=== PATIENT | female | born 1945 | race Two or more races ===

== ENCOUNTER → 2017-04-13 | Outpatient (CLI) | payer MEDICARE, OTHER ==
--- NOTE | 2017-04-13 15:27 | XR ---
EXAMINATION TYPE: XR chest 2V DATE OF EXAM: 04/13/2017 HISTORY: J18.9 Pneumonia. REFERENCE: Previous study dated 04/13/2017. FINDINGS: The lungs are overinflated. The right lung is largely cleared. Some residual atelectasis pe rsists. No pleural fluid is seen at this time. IMPRESSION: 1. COPD. 2. RESOLVING RIGHT-SIDED PNEUMONIA.
== END ==
LOC: RADXRMAIN 14:57
PROVIDERS: ATTEND Family Medicine
DX: J18.9 Pneumonia, unspecified organism (principal); J44.9 Chronic obstructive pulmonary disease, unspecified
CPT/HCPCS: 71020

== ENCOUNTER 2017-06-27 12:55 | Inpatient (IN) | payer MEDICARE, OTHER ==
[2017-06-27] MEDS ORDERED: SODIUM CHLORIDE 0.9% 1,000 ML IV STA (14:21)
[2017-06-27] MEDS ORDERED: ONDANSETRON 4 MG/2 ML VIAL IVP STA (14:21)
[2017-06-27] MEDS ORDERED: HYDROmorphone 1 MG/ML 1 ML SYRINGE IVP STA ×2 (14:21→14:24)
[2017-06-27] MEDS ORDERED: ACETAMINOPHEN TAB 500 MG TAB PO STA (14:23)
[2017-06-27] MEDS ORDERED: HYDROmorphone 0.5 MG/0.5 ML SYRINGE IVP STA (14:23)
--- NOTE | 2017-06-27 14:23 | ED ---
General Adult HPI - General Chief complaint: Abdominal Pain Stated complaint: Abd Pain Time Seen by Provider: 06/27/17 13:47 Source: patient, RN notes reviewed Mode of arrival: wheelchair Limitations: no limitations - History of Present Illness Initial comments: 72-year-old female presents to the emergency department with a chief complaint of right-sided abdominal pain. Patient states it started a few days ago. Patient was unable UTI about 5 days ago she was on antibiotic but they call and change state she states she's only had that for 2 days. She has been kind of sweaty nauseous she denies any diarrhea and any changes in urination. Patient denies any other symptoms at this time. She was concerned because of the abdominal pain and the fact she was not starting to feel better so she thought that she should be reevaluated. Patient denies any recent shortness of breath, chest pain, back pain, vomiting, numbness or tingling, dysuria or hematuria, constipation or diarrhea, headaches or visual changes, or any other current symptoms. - Related Data Home Medications Medication Instructions Recorded Confirmed Levothyroxine Sodium [Synthroid] 125 mcg PO DAILY 11/16/14 06/27/17 Lisinopril [Zestril] 10 mg PO DAILY 11/16/14 06/27/17 Rivaroxaban [Xarelto] 20 mg PO DAILY 11/16/14 06/27/17 Sertraline [Zoloft] 25 mg PO DAILY 11/16/14 06/27/17 metFORMIN HCL 1,000 mg PO BID 11/16/14 06/27/17 Furosemide [Lasix] 20 mg PO DAILY 01/27/16 06/27/17 HYDROcodone/APAP 7.5-325MG [[place] 1 tab PO TID PRN 01/27/16 06/27/17 7.5-325] Diltiazem HCl [Diltiazem 24Hr ER] 180 mg PO DAILY 08/07/16 06/27/17 Pravastatin Sodium [Pravachol] 20 mg PO DAILY 08/07/16 06/27/17 Insulin Aspart Protam & Aspart See Protocol SQ AC-BID 06/27/17 06/27/17 [NovoLOG MIX 70-30 Flexpen] Insulin Glargine [Lantus] 40 unit SQ HS 06/27/17 06/27/17 Nitrofurantoin Monohyd/M-Cryst 100 mg PO Q12HR 06/27/17 06/27/17 [Macrobid] Allergies Allergy/AdvReac Type Severity Reaction Status Date / Time ceftaroline fosamil Allergy Intermediate Rash/Hives Verified 06/27/17 14:12 codeine Allergy Itching Verified 06/27/17 14:12 levofloxacin [From Levaquin] Allergy Rash/Hives Verified 06/27/17 14:12 Review of Systems ROS Statement: Those systems with pertinent positive or pertinent negative responses have been documented in the HPI. ROS Other: All systems not noted in ROS Statement are negative. Past Medical History Past Medical History: Atrial Fibrillation, COPD, Diabetes Mellitus, Hyperlipidemia, Hypertension, Skin Disorder Additional Past Medical History / Comment(s): Severe COPD, chronic hypoxic respiratory failure, chronic atrial fibrillation maintained on Xarelto as anticoagulant, Lumbar disc disease and chronic back pain, chronic and recurrent urine tract infections, diabetes mellitus, hyperlipidemia, hypertension, chronic constipation, previous sputum cultures have shown MRSA from 2014, previous urinary tract infection with gram-negative and enterococcal bacteria , previous wound to the left lower extremity that was treated. History of Any Multi-Drug Resistant Organisms: ESBL, MRSA Date of last positivie culture/infection: 11/18/2014, 07/02/2015 MDRO Source:: URINE CATH, mrsa sputum Past Surgical History: Hysterectomy, Orthopedic Surgery, Tonsillectomy Additional Past Surgical History / Comment(s): Right cataract removal and lens implant on 11/12/14. Lumbar disc surgery, repair of lt hip -timothy in place Past Anesthesia/Blood Transfusion Reactions: No Reported Reaction Past Psychological History: No Psychological Hx Reported Smoking Status: Former smoker Past Alcohol Use History: None Reported Past Drug Use History: None Reported - Past Family History Father Family Medical History: Unable to Obtain Additional Family Medical History / Comment(s): Pt never knew her father. He in WWII when she was very young. Mother Family Medical History: No Reported History Brother(s) Family Medical History: Cancer Additional Family Medical History / Comment(s): Pt has 4 brothers and one has testicular cancer. General Exam - General Exam Comments Initial Comments: General: The patient is awake and alert, in no distress, and does not appear acutely ill. Eye: Pupils are equal, round and reactive to light, extra-ocular movements are intact; there is normal conjunctiva bilaterally. No signs of icterus. Ears, nose, mouth and throat: There are moist mucous membranes and no oral lesions. Neck: The neck is supple, there is no tenderness. Cardiovascular: There is a regular rate and rhythm. No murmur, rub or gallop is appreciated. Respiratory: Lungs are clear to auscultation, respirations are non-labored, breath sounds are equal. No wheezes, stridor, rales, or rhonchi. Gastrointestinal: Soft, non-distended, mild right-sided tenderness of the abdomen without masses or organomegaly noted. There is no rebound or guarding present. No CVA tenderness. Bowel sounds are unremarkable. Back: There is no tenderness to palpation in the midline. There is no obvious deformity. No rashes noted. Musculoskeletal: Normal ROM, no tenderness, There is no pedal edema. There is no calf tenderness or swelling. Sensation intact. Pulses equal bilaterally 2+. Neurological: CN II-XII intact, There are no obvious motor or sensory deficits. Coordination appears grossly intact. Speech is normal. Skin: Skin is warm and dry and no rashes or lesions are noted. Psychiatric: Cooperative, appropriate mood & affect, normal judgment. Limitations: no limitations Course Vital Signs 06/27/17 13:02 Temperature 98.5 F Pulse Rate 106 H Respiratory 18 Rate Blood Pressure 111/55 O2 Sat by Pulse 96 Oximetry - Reevaluation(s) Reevaluation #1: 06/27/17 16:16 At this time patient does meet sepsis criteria Medical Decision Making - Medical Decision Making 72-year-old female presents for abdominal pain with nausea. Patient's lab work is been reviewed. Does appear to be distended UTI even though she's been on 2 different antibiotics outpatient. Due to ALLERGIES we will place her on Zosyn for inpatient treatment. We are pending a culture. Patient at this time does agree to admission. Dr. Prince was contacted regarding admission. - Lab Data Result diagrams: 06/27/17 15:01 06/27/17 14:53 Lab Results 06/27/17 06/27/17 06/27/17 Range/Units 14:00 14:53 15:01 WBC 12.6 H (3.8-10.6) k/uL RBC 4.09 (3.80-5.40) m/uL Hgb 12.2 (11.4-16.0) gm/dL Hct 40.4 (34.0-46.0) % MCV 98.7 (80.0-100.0) fL MCH 29.8 (25.0-35.0) pg MCHC 30.2 L (31.0-37.0) g/dL RDW 13.5 (11.5-15.5) % Plt Count 245 (150-450) k/uL Neutrophils % 86 % Lymphocytes % 8 % Monocytes % 3 % Eosinophils % 2 % Basophils % 1 % Neutrophils # 10.8 H (1.3-7.7) k/uL Lymphocytes # 1.0 (1.0-4.8) k/uL Monocytes # 0.4 (0-1.0) k/uL Eosinophils # 0.2 (0-0.7) k/uL Basophils # 0.1 (0-0.2) k/uL Sodium 137 (137-145) mmol/L Potassium 4.5 (3.5-5.1) mmol/L Chloride 102 (98-107) mmol/L Carbon Dioxide 25 (22-30) mmol/L Anion Gap 10 mmol/L BUN 30 H (7-17) mg/dL Creatinine 0.87 (0.52-1.04) mg/dL Est GFR (MDRD) Af Amer >60 (>60 ml/min/1.73 sqM) Est GFR (MDRD) Non-Af >60 (>60 ml/min/1.73 sqM) Glucose 212 H (74-99) mg/dL Plasma Lactic Acid [place] (0.7-2.0) mmol/L Calcium 9.7 (8.4-10.2) mg/dL Total Bilirubin 0.3 (0.2-1.3) mg/dL AST 26 (14-36) U/L ALT 31 (9-52) U/L Alkaline Phosphatase 86 (38-126) U/L Total Protein 6.6 (6.3-8.2) g/dL Albumin 3.7 (3.5-5.0) g/dL Amylase 33 (30-110) U/L Lipase 103 (23-300) U/L Urine Color Yellow Urine Appearance Cloudy H (Clear) Urine pH 5.0 (5.0-8.0) Ur Specific [place] 1.011 (1.001-1.035) Urine Protein Negative (Negative) Urine Glucose (UA) 2+ H (Negative) Urine Ketones Negative (Negative) Urine Blood Negative (Negative) Urine Nitrite Negative (Negative) Urine Bilirubin Negative (Negative) Urine Urobilinogen <2.0 (<2.0) mg/dL Ur Leukocyte Esterase Large H (Negative) Urine RBC 6 H (0-5) /hpf Urine WBC >182 H (0-5) /hpf Urine WBC Clumps Few H (None) /hpf Ur Squamous Epith Cells 1 (0-4) /hpf Urine Bacteria Occasional H (None) /hpf Urine Mucus Rare H (None) /hpf 06/27/17 Range/Units 15:01 WBC (3.8-10.6) k/uL RBC (3.80-5.40) m/uL Hgb (11.4-16.0) gm/dL Hct (34.0-46.0) % MCV (80.0-100.0) fL MCH (25.0-35.0) pg MCHC (31.0-37.0) g/dL RDW (11.5-15.5) % Plt Count (150-450) k/uL Neutrophils % % Lymphocytes % % Monocytes % % Eosinophils % % Basophils % % Neutrophils # (1.3-7.7) k/uL Lymphocytes # (1.0-4.8) k/uL Monocytes # (0-1.0) k/uL Eosinophils # (0-0.7) k/uL Basophils # (0-0.2) k/uL Sodium (137-145) mmol/L Potassium (3.5-5.1) mmol/L Chloride (98-107) mmol/L Carbon Dioxide (22-30) mmol/L Anion Gap mmol/L BUN (7-17) mg/dL Creatinine (0.52-1.04) mg/dL Est GFR (MDRD) Af Amer (>60 ml/min/1.73 sqM) Est GFR (MDRD) Non-Af (>60 ml/min/1.73 sqM) Glucose (74-99) mg/dL Plasma Lactic Acid [place] 1.8 (0.7-2.0) mmol/L Calcium (8.4-10.2) mg/dL Total Bilirubin (0.2-1.3) mg/dL AST (14-36) U/L ALT (9-52) U/L Alkaline Phosphatase (38-126) U/L Total Protein (6.3-8.2) g/dL Albumin (3.5-5.0) g/dL Amylase (30-110) U/L Lipase (23-300) U/L Urine Color Urine Appearance (Clear) Urine pH (5.0-8.0) Ur Specific [place] (1.001-1.035) Urine Protein (Negative) Urine Glucose (UA) (Negative) Urine Ketones (Negative) Urine Blood (Negative) Urine Nitrite (Negative) Urine Bilirubin (Negative) Urine Urobilinogen (<2.0) mg/dL Ur Leukocyte Esterase (Negative) Urine RBC (0-5) /hpf Urine WBC (0-5) /hpf Urine WBC Clumps (None) /hpf Ur Squamous Epith Cells (0-4) /hpf Urine Bacteria (None) /hpf Urine Mucus (None) /hpf Disposition Clinical Impression: UTI (urinary tract infection), Failure of outpatient treatment, Sepsis Disposition: ADMITTED IP TO THIS HOSP Condition: Stable Referrals: Michele Kothari MD [Primary Care Provider] - 1-2 days Decision Date: 06/27/17 Decision Time: 16:17
[2017-06-27 15:06] LABS: Appearance,Urine Cloudy (Clear); Bacteria,Urine Occasional /hpf; Bilirubin,Urine Negative (Negative); Glucose,Urine (UA) 2+ (Negative); Ketones,Urine Negative (Negative); Leukocyte Esterase,Urine Large (Negative); Mucus,Urine Rare /hpf; Nitrite,Urine Negative (Negative); Particle Count 1511; Protein,Urine Negative (Negative); RBC,Urine 6 /hpf (0-5); Specific Gravity,Urine 1.011 (1.001-1.035); Squamous Epithelial Cell,Urine 1 /hpf (0-4); UA Billing (MACRO vs. MICRO) MICRO; Urobilinogen,Urine <2.0 mg/dL (<2.0); WBC,Urine >182 /hpf (0-5)
[2017-06-27 15:07] LABS: ALT 31 U/L (9-52); AST 26 U/L (14-36); Alkaline Phosphatase 86 U/L (38-126); Amylase 33 U/L (30-110); Anion Gap 10 mmol/L; Blood Urea Nitrogen 30 mg/dL (7-17); Calcium 9.7 mg/dL (8.4-10.2); Carbon Dioxide 25 mmol/L (22-30); Chloride 102 mmol/L (98-107); Glucose 212 mg/dL (74-99); Non-African American GFR(MDRD) >60 (>60 ml/min/1.73 sqM); Potassium 4.5 mmol/L (3.5-5.1); Sodium 137 mmol/L (137-145); Total Bilirubin 0.3 mg/dL (0.2-1.3); Total Protein 6.6 g/dL (6.3-8.2)
[2017-06-27 15:25] LABS: Basophils # (A) 0.1 k/uL (0-0.2); Basophils % (A) 1 %; CH 30.1; CHCM 30.7; Eosinophils # (A) 0.2 k/uL (0-0.7); Eosinophils % (A) 2 %; HCT 40.4 % (34.0-46.0); HDW 1.96; HGB 12.2 gm/dL (11.4-16.0); Luc # (Auto) 0.08; Luc % (Auto) 1; Lymphocytes % (A) 8 %; MCH 29.8 pg (25.0-35.0); MCHC 30.2 g/dL (31.0-37.0); MCV 98.7 fL (80.0-100.0); Mean Platelet Volume 9.6; Monocytes # (A) 0.4 k/uL (0-1.0); Monocytes % (A) 3 %; Neutrophils # (A) 10.8 k/uL (1.3-7.7); Neutrophils % (A) 86 %; RBC 4.09 m/uL (3.80-5.40); RDW 13.5 % (11.5-15.5); WBC 12.6 k/uL (3.8-10.6)
[2017-06-27] MEDS ORDERED: PIPERACILLIN-TAZOBACTAM 3.375 GM in DEXTROSE/WATER 1 50ML.BAG IVPB STA (16:08)
[2017-06-27] MEDS ORDERED: NALOXONE 0.4 MG/ML 1 ML VIAL IV PRN (16:17)
[2017-06-27] MEDS ORDERED: HYDROmorphone 1 MG/ML 1 ML SYRINGE IV PRN (16:17)
[2017-06-27] MEDS ORDERED: HYDROcodone/APAP 7.5-325MG 1 EACH TAB PO PRN (16:19)
[2017-06-27 18:32] VITALS: BMI 24.5
[2017-06-27] MEDS: SODIUM CHLORIDE 0.9% 1,000 ML IV SCH (18:36)
[2017-06-27] MEDS: ONDANSETRON 4 MG/2 ML VIAL IVP PRN (20:54)
[2017-06-27 21:20] LABS: Glucose,Whole Blood 327 mg/dL (75-99)
[2017-06-27] MEDS: INSULIN LISPRO (humaLOG) 300 UNIT/3 ML VIAL SQ SCH (22:06)
[2017-06-28] MEDS: PIPERACILLIN-TAZOBACTAM 3.375 GM in DEXTROSE/WATER 1 50ML.BAG IVPB SCH ×4 (00:37→23:20)
[2017-06-28] MEDS: SODIUM CHLORIDE 0.9% 1,000 ML IV SCH ×3 (02:31→23:08)
[2017-06-28 02:41] LABS: Glucose,Whole Blood 198 mg/dL (75-99)
[2017-06-28 03:08] LABS: Basophils % (A) 0 %; CH 29.2; CHCM 30.4; Eosinophils # (A) 0.1 k/uL (0-0.7); Eosinophils % (A) 1 %; HCT 37.4 % (34.0-46.0); HDW 1.94; HGB 11.5 gm/dL (11.4-16.0); Hypochromasia Slight; Luc # (Auto) 0.09; Luc % (Auto) 1; Lymphocytes # (A) 0.7 k/uL (1.0-4.8); Lymphocytes % (A) 6 %; MCH 29.6 pg (25.0-35.0); MCHC 30.7 g/dL (31.0-37.0); MCV 96.3 fL (80.0-100.0); Monocytes # (A) 0.4 k/uL (0-1.0); Monocytes % (A) 3 %; Neutrophils # (A) 11.3 k/uL (1.3-7.7); Neutrophils % (A) 90 %; RBC 3.88 m/uL (3.80-5.40); RDW 12.9 % (11.5-15.5); WBC 12.6 k/uL (3.8-10.6); WBC (Perox) 13.12
[2017-06-28 03:20] LABS: ALT 66 U/L (9-52); AST 57 U/L (14-36); Alkaline Phosphatase 102 U/L (38-126); Anion Gap 6 mmol/L; Blood Urea Nitrogen 24 mg/dL (7-17); Calcium 9.5 mg/dL (8.4-10.2); Carbon Dioxide 28 mmol/L (22-30); Chloride 102 mmol/L (98-107); Glucose 218 mg/dL (74-99); Non-African American GFR(MDRD) >60 (>60 ml/min/1.73 sqM); Potassium 4.4 mmol/L (3.5-5.1); Sodium 136 mmol/L (137-145); Total Bilirubin 0.4 mg/dL (0.2-1.3); Total Protein 6.2 g/dL (6.3-8.2)
[2017-06-28] MEDS: LEVOTHYROXINE 125 MCG TAB PO SCH (06:06)
[2017-06-28] MEDS: RIVAROXABAN 10 MG TAB PO SCH (06:48)
[2017-06-28 07:24] LABS: Glucose,Whole Blood 151 mg/dL (75-99)
[2017-06-28 08:58] LABS: Hemoglobin A1C 8.7 % (4.2-6.1)
[2017-06-28] MEDS ORDERED: LISINOPRIL 10 MG TAB PO SCH (09:00)
[2017-06-28] MEDS: INSULIN LISPRO (humaLOG) 300 UNIT/3 ML VIAL SQ SCH ×4 (09:21→21:29)
[2017-06-28] MEDS: DILTIAZEM CD 180 MG CAP.ER.24H PO SCH (09:22)
[2017-06-28] MEDS: FUROSEMIDE 20 MG TAB PO SCH (09:22)
[2017-06-28] MEDS: SERTRALINE 25 MG TAB PO SCH (09:22)
[2017-06-28] MEDS: ONDANSETRON 4 MG/2 ML VIAL IVP PRN (10:43)
[2017-06-28 12:15] LABS: Glucose,Whole Blood 293 mg/dL (75-99)
--- NOTE | 2017-06-28 13:13 | P.HPIM ---
History of Present Illness Patient came in with abdominal pain predominantly in bilateral lower quadrants and super pubic area and patient was having fevers generalized weakness found to have significantly abnormal urine and patient was started on Zosyn from ER for urinary tract infection. Although upon examination patient does have tenderness in the right upper quadrant because of which I'm obtaining an ultrasound of the gallbladder. Patient does have a mildly elevated liver enzymes. Patient was diaphoretic when she came in yesterday patient is feeling much better today and medics are being continued patient is on IV fluids at this point of time. Patient has UTIs in the past, last urine cultures in the systemic and see is from 2014 area patient is comparing of dysuria as well denied any urinary frequency or urgency Review of Systems REVIEW OF SYSTEMS: CONSTITUTIONAL: No fever, no malaise, no fatigue. HEENT: No recent visual problems or hearing problems. Denied any sore throat. CARDIOVASCULAR: No chest pain, orthopnea, PND, no palpitations, no syncope. PULMONARY: No shortness of breath, no cough, no hemoptysis. GASTROINTESTINAL: No diarrhea, no nausea, no vomiting, no abdominal pain. Normoactive bowel sounds. NEUROLOGICAL: No headaches, no weakness, no numbness. HEMATOLOGICAL: Denies any bleeding or petechiae. GENITOURINARY: Patient did complain of dysuria MUSCULOSKELETAL/RHEUMATOLOGICAL: Denies any joint pain, swelling, or any muscle pain. ENDOCRINE: Denies any polyuria or polydipsia. The rest of the 14-point review of systems is negative. Past Medical History Past Medical History: Atrial Fibrillation, COPD, Diabetes Mellitus, Hyperlipidemia, Hypertension, Skin Disorder Additional Past Medical History / Comment(s): Severe COPD, chronic hypoxic respiratory failure, chronic atrial fibrillation maintained on Xarelto as anticoagulant, Lumbar disc disease and chronic back pain, chronic and recurrent urine tract infections, diabetes mellitus, hyperlipidemia, hypertension, chronic constipation, previous sputum cultures have shown MRSA from 2015, previous urinary tract infection with gram-negative and enterococcal bacteria , previous wound to the left lower extremity that was treated. History of Any Multi-Drug Resistant Organisms: ESBL, MRSA Date of last positivie culture/infection: 07/02/15-MRSA; 12/18/14 ESBL-E. coli MDRO Source:: Sputum-MRSA; Urine-ESBL Past Surgical History: Hysterectomy, Orthopedic Surgery, Tonsillectomy Additional Past Surgical History / Comment(s): Right and Left cataract removal and lens implant on 11/12/14. Lumbar disc surgery, repair of left hip -screws in place Past Anesthesia/Blood Transfusion Reactions: No Reported Reaction Past Psychological History: No Psychological Hx Reported Additional Psychological History / Comment(s): Pt lives with and GRANDSON/GIRLFRIEND.THEY HELP CARE FOR PT. USES WALKER. 2L oxygen per nasal cannula at all times. Smoking Status: Former smoker Past Alcohol Use History: None Reported Past Drug Use History: None Reported - Past Family History Father Family Medical History: Unable to Obtain Additional Family Medical History / Comment(s): Pt never knew her father. He in WWII when she was very young. Mother Family Medical History: No Reported History Brother(s) Family Medical History: Cancer Additional Family Medical History / Comment(s): Pt has 4 brothers and one has testicular cancer. Medications and Allergies Home Medications Medication Instructions Recorded Confirmed Type Levothyroxine Sodium [Synthroid] 125 mcg PO DAILY 11/16/14 06/27/17 History Lisinopril [Zestril] 10 mg PO DAILY 11/16/14 06/27/17 History Rivaroxaban [Xarelto] 20 mg PO DAILY 11/16/14 06/27/17 History Sertraline [Zoloft] 25 mg PO DAILY 11/16/14 06/27/17 History metFORMIN HCL 1,000 mg PO BID 11/16/14 06/27/17 History Furosemide [Lasix] 20 mg PO DAILY 01/27/16 06/27/17 History HYDROcodone/APAP 7.5-325MG [[place] 1 tab PO TID PRN 01/27/16 06/27/17 History 7.5-325] Diltiazem HCl [Diltiazem 24Hr ER] 180 mg PO DAILY 08/07/16 06/27/17 History Pravastatin Sodium [Pravachol] 20 mg PO DAILY 08/07/16 06/27/17 History Insulin Aspart Protam & Aspart See Protocol SQ AC-BID 06/27/17 06/27/17 History [NovoLOG MIX 70-30 Flexpen] Insulin Glargine [Lantus] 40 unit SQ HS 06/27/17 06/27/17 History Nitrofurantoin Monohyd/M-Cryst 100 mg PO Q12HR 06/27/17 06/27/17 History [Macrobid] Allergies Allergy/AdvReac Type Severity Reaction Status Date / Time ceftaroline fosamil Allergy Intermediate Rash/Hives Verified 06/27/17 14:12 codeine Allergy Itching Verified 06/27/17 14:12 levofloxacin [From Levaquin] Allergy Rash/Hives Verified 06/27/17 14:12 Physical Exam Vitals: Vital Signs Temp Pulse Pulse Resp BP BP Pulse Ox 06/28/17 08:27 97 06/28/17 07:00 101.2 F H 107 H 18 118/45 97 06/28/17 03:01 120 H 130/60 06/28/17 02:40 99.3 F 108 H 20 84/38 96 06/27/17 23:00 100.6 F H 102 H 20 103/50 98 06/27/17 18:11 98.7 F 93 18 134/84 97 06/27/17 17:43 99.2 F 93 18 127/59 96 06/27/17 16:17 98.9 F 87 18 146/63 96 Intake and Output 06/27/17 06/28/17 06/28/17 22:59 06:59 14:59 Intake Total 100 Output Total 2 Balance -2 100 Intake: Oral 100 Output: Emesis 2 Other: Voiding Method Bedside Commode Bedside Commode # Voids 1 1 # Emeses 2 Weight 77.564 kg PHYSICAL EXAMINATION: GENERAL: The patient is alert and oriented x3, not in any acute distress. Well developed, well nourished. HEENT: Pupils are round and equally reacting to light. EOMI. No scleral icterus. No conjunctival pallor. Normocephalic, atraumatic. No pharyngeal erythema. No thyromegaly. CARDIOVASCULAR: S1 and S2 present. No murmurs, rubs, or gallops. PULMONARY: Chest is clear to auscultation, no wheezing or crackles. ABDOMEN: Soft, mild tenderness in the right upper quadrant with possible positive Lora's sign, nondistended, normoactive bowel sounds. No palpable organomegaly. MUSCULOSKELETAL: No joint swelling or deformity. EXTREMITIES: No cyanosis, clubbing, or pedal edema. NEUROLOGICAL: Gross neurological examination did not reveal any focal deficits. SKIN: No rashes. Results CBC & Chem 7: 06/28/17 02:50 06/28/17 02:50 Labs: Abnormal Lab Results - Last 24 Hours (Table) 06/27/17 06/27/17 06/27/17 Range/Units 14:00 14:53 15:01 WBC 12.6 H (3.8-10.6) k/uL MCHC 30.2 L (31.0-37.0) g/dL Neutrophils # 10.8 H (1.3-7.7) k/uL Lymphocytes # (1.0-4.8) k/uL Sodium (137-145) mmol/L BUN 30 H (7-17) mg/dL Glucose 212 H (74-99) mg/dL POC Glucose (mg/dL) (75-99) mg/dL Hemoglobin A1c (4.2-6.1) % AST (14-36) U/L ALT (9-52) U/L Total Protein (6.3-8.2) g/dL Albumin (3.5-5.0) g/dL Urine Appearance Cloudy H (Clear) Urine Glucose (UA) 2+ H (Negative) Ur Leukocyte Esterase Large H (Negative) Urine RBC 6 H (0-5) /hpf Urine WBC >182 H (0-5) /hpf Urine WBC Clumps Few H (None) /hpf Urine Bacteria Occasional H (None) /hpf Urine Mucus Rare H (None) /hpf 06/27/17 06/27/17 06/28/17 Range/Units 15:01 21:13 02:38 WBC (3.8-10.6) k/uL MCHC (31.0-37.0) g/dL Neutrophils # (1.3-7.7) k/uL Lymphocytes # (1.0-4.8) k/uL Sodium (137-145) mmol/L BUN (7-17) mg/dL Glucose (74-99) mg/dL POC Glucose (mg/dL) 327 H 198 H (75-99) mg/dL Hemoglobin A1c 8.7 H (4.2-6.1) % AST (14-36) U/L ALT (9-52) U/L Total Protein (6.3-8.2) g/dL Albumin (3.5-5.0) g/dL Urine Appearance (Clear) Urine Glucose (UA) (Negative) Ur Leukocyte Esterase (Negative) Urine RBC (0-5) /hpf Urine WBC (0-5) /hpf Urine WBC Clumps (None) /hpf Urine Bacteria (None) /hpf Urine Mucus (None) /hpf 06/28/17 06/28/17 06/28/17 Range/Units 02:50 02:50 06:58 WBC 12.6 H (3.8-10.6) k/uL MCHC 30.7 L (31.0-37.0) g/dL Neutrophils # 11.3 H (1.3-7.7) k/uL Lymphocytes # 0.7 L (1.0-4.8) k/uL Sodium 136 L (137-145) mmol/L BUN 24 H (7-17) mg/dL Glucose 218 H (74-99) mg/dL POC Glucose (mg/dL) 151 H (75-99) mg/dL Hemoglobin A1c (4.2-6.1) % AST 57 H (14-36) U/L ALT 66 H (9-52) U/L Total Protein 6.2 L (6.3-8.2) g/dL Albumin 3.3 L (3.5-5.0) g/dL Urine Appearance (Clear) Urine Glucose (UA) (Negative) Ur Leukocyte Esterase (Negative) Urine RBC (0-5) /hpf Urine WBC (0-5) /hpf Urine WBC Clumps (None) /hpf Urine Bacteria (None) /hpf Urine Mucus (None) /hpf 06/28/17 Range/Units 12:09 WBC (3.8-10.6) k/uL MCHC (31.0-37.0) g/dL Neutrophils # (1.3-7.7) k/uL Lymphocytes # (1.0-4.8) k/uL Sodium (137-145) mmol/L BUN (7-17) mg/dL Glucose (74-99) mg/dL POC Glucose (mg/dL) 293 H (75-99) mg/dL Hemoglobin A1c (4.2-6.1) % AST (14-36) U/L ALT (9-52) U/L Total Protein (6.3-8.2) g/dL Albumin (3.5-5.0) g/dL Urine Appearance (Clear) Urine Glucose (UA) (Negative) Ur Leukocyte Esterase (Negative) Urine RBC (0-5) /hpf Urine WBC (0-5) /hpf Urine WBC Clumps (None) /hpf Urine Bacteria (None) /hpf Urine Mucus (None) /hpf Microbiology - Last 24 Hours (Table) 06/27/17 14:00 Urine Culture - Preliminary Urine,Voided Thrombosis Risk Factor Assmnt - Choose All That Apply Each Factor Represents 1 point: Abnormal pulmonary function (COPD) Each Risk Factor Represents 2 Points: Age 61-74 years Thrombosis Risk Factor Assessment Total Risk Factor Score: 3 Thrombosis Risk Factor Assessment Level: Moderate Risk Assessment and Plan Plan: #1 sepsis: Possibility of urinary tract infection being the primary source of infection although I cannot rule out cholecystitis because of which I'm obtaining an ultrasound of the liver and gallbladder patient is on Zosyn which will be continued on IV fluids which will be continued. #2 mildly elevated liver enzymes because of which I'm obtaining an ultrasound of the liver and gallbladder #3 history of atrial fibrillation: Rate controlled patient is an anti- correlation which will be continued #4 COPD without any acute exacerbation #5 type 2 diabetes mellitus: Continue her home regimen titrate medications and insulin as needed. #6 hyperlipidemia #7 hypertension For above-mentioned chronic medical problems and wouldn't continue her appropriate home medications
[2017-06-28 17:18] LABS: Glucose,Whole Blood 278 mg/dL (75-99)
[2017-06-28] MEDS: PRAVASTATIN SODIUM 20 MG TAB PO SCH (20:12)
[2017-06-28 20:54] LABS: Glucose,Whole Blood 311 mg/dL (75-99)
[2017-06-29] MEDS: LEVOTHYROXINE 125 MCG TAB PO SCH (06:11)
[2017-06-29 07:33] LABS: Glucose,Whole Blood 242 mg/dL (75-99)
--- NOTE | 2017-06-29 08:28 | US ---
EXAMINATION TYPE: US gallbladder DATE OF EXAM: 06/29/2017 COMPARISON: NONE CLINICAL HISTORY: elevated liver enzymes. EXAM MEASUREMENTS: Liver Length: 12.7 cm Gallbladder Wall: 0.3 cm CBD: 0.9 cm Right Kidney: 11.8 x 4.8 x 5.3 cm Pancreas: possible mass in uncinate process measuring 2.6 x 1.3 x 1.4cm, dilated duct Liver: wnl Gallbladder: Prominent in size with no definite gallstones Evidence for sonographic Lora's sign: no CBD: dilated Right Kidney: No hydronephrosis or masses seen IMPRESSION: 1. There is a question of a 2.6 cm pancreatic mass with dilated pancreatic duct. Scan recommended. 2. Gallbladder appears somewhat distended with mild intrahepatic biliary dilation. As noted above CT scan recommended.
[2017-06-29] MEDS: RIVAROXABAN 10 MG TAB PO SCH (09:16)
[2017-06-29] MEDS: INSULIN LISPRO (humaLOG) 300 UNIT/3 ML VIAL SQ SCH ×4 (09:16→21:34)
[2017-06-29] MEDS: FUROSEMIDE 20 MG TAB PO SCH (09:17)
[2017-06-29] MEDS: SERTRALINE 25 MG TAB PO SCH (09:17)
[2017-06-29] MEDS: DILTIAZEM CD 180 MG CAP.ER.24H PO SCH (09:17)
[2017-06-29] MEDS: PIPERACILLIN-TAZOBACTAM 3.375 GM in DEXTROSE/WATER 1 50ML.BAG IVPB SCH ×3 (09:22→23:45)
[2017-06-29] MEDS: SODIUM CHLORIDE 0.9% 1,000 ML IV SCH ×2 (09:23→17:39)
[2017-06-29] MEDS ORDERED: RX INFO: IV CONTRAST WAS GIVEN 1 EACH MISC MISCELLANE PRN ×2 (10:12→10:18)
--- NOTE | 2017-06-29 10:29 | P.GSCN ---
History of Present Illness Consult date: 06/29/17 Reason for Consult: Pancreatic mass History of present illness: 72-year-old female seen in the emergency room to be evaluated for a sudden onset occurred on Wednesday night bilateral lower abdominal pain radiating across the upper back associated with nausea no fever chills. Patient reports that last week on Wednesday she thought she had a UTI was experiencing burning on urination with frequency. Did see her PCP PA in the office who treated the patient for what she thought was a UTI started on antibiotics patient stated she started on antibiotics, . Patient stated that she was not experiencing any abdominal pain at that time. The abdominal pain occurred on Wednesday night as mentioned Patient was seen in the emergency room admitted to the services of the attending ultrasound gallbladder was obtained It did show a question of a 2.6 cm pancreatic mass with dilated pancreatic duct. Gallbladder appeared somewhat distended with mild intra-hepatic biliary dilatation. Patient gives no history of unintentional weight loss no decrease in appetite no change in bowel habits given the above clinical presentation the primary doctor requested a surgical eval patient is being seen for the above-mentioned symptoms. Patient gives a history of having atrial fibrillation on Xarelto does not follow -up with a primary email operations manager denies any episodes of chest pain tightness or pressure. Denies any shortness of breath dizziness or lightheadedness. Patient 's past surgical history left hip, back surgery, colonoscopy 8 years prior otherwise no significant past medical or surgical history Review of Systems Essentially unremarkable except as mentioned in the present illness Past Medical History Past Medical History: Atrial Fibrillation, COPD, Diabetes Mellitus, Hyperlipidemia, Hypertension, Skin Disorder Additional Past Medical History / Comment(s): Severe COPD, chronic hypoxic respiratory failure, chronic atrial fibrillation maintained on Xarelto as anticoagulant, Lumbar disc disease and chronic back pain, chronic and recurrent urine tract infections, diabetes mellitus, hyperlipidemia, hypertension, chronic constipation, previous sputum cultures have shown MRSA from 2015, previous urinary tract infection with gram-negative and enterococcal bacteria , previous wound to the left lower extremity that was treated. History of Any Multi-Drug Resistant Organisms: ESBL, MRSA Year Discovered:: 07/02/15-MRSA; 12/18/14 ESBL-E. coli MDRO Source:: Sputum-MRSA; Urine-ESBL Past Surgical History: Hysterectomy, Orthopedic Surgery, Tonsillectomy Additional Past Surgical History / Comment(s): Right and Left cataract removal and lens implant on 11/12/14. Lumbar disc surgery, repair of left hip -screws in place Past Anesthesia/Blood Transfusion Reactions: No Reported Reaction Past Psychological History: No Psychological Hx Reported Additional Psychological History / Comment(s): Pt lives with and GRANDSON/GIRLFRIEND.THEY HELP CARE FOR PT. USES WALKER. 2L oxygen per nasal cannula at all times. Smoking Status: Former smoker Past Alcohol Use History: None Reported Past Drug Use History: None Reported - Past Family History Father Family Medical History: Unable to Obtain Additional Family Medical History / Comment(s): Pt never knew her father. He in WWII when she was very young. Mother Family Medical History: No Reported History Brother(s) Family Medical History: Cancer Additional Family Medical History / Comment(s): Pt has 4 brothers and one has testicular cancer. Medications and Allergies Home Medications Medication Instructions Recorded Confirmed Type Levothyroxine Sodium [Synthroid] 125 mcg PO DAILY 11/16/14 06/27/17 History Lisinopril [Zestril] 10 mg PO DAILY 11/16/14 06/27/17 History Rivaroxaban [Xarelto] 20 mg PO DAILY 11/16/14 06/27/17 History Sertraline [Zoloft] 25 mg PO DAILY 11/16/14 06/27/17 History metFORMIN HCL 1,000 mg PO BID 11/16/14 06/27/17 History Furosemide [Lasix] 20 mg PO DAILY 01/27/16 06/27/17 History HYDROcodone/APAP 7.5-325MG [[facility]inity 1 tab PO TID PRN 01/27/16 06/27/17 History 7.5-325] Diltiazem HCl [Diltiazem 24Hr ER] 180 mg PO DAILY 08/07/16 06/27/17 History Pravastatin Sodium [Pravachol] 20 mg PO DAILY 08/07/16 06/27/17 History Insulin Aspart Protam & Aspart See Protocol SQ AC-BID 06/27/17 06/27/17 History [NovoLOG MIX 70-30 Flexpen] Insulin Glargine [Lantus] 40 unit SQ HS 06/27/17 06/27/17 History Nitrofurantoin Monohyd/M-Cryst 100 mg PO Q12HR 06/27/17 06/27/17 History [Macrobid] Allergies Allergy/AdvReac Type Severity Reaction Status Date / Time ceftaroline fosamil Allergy Intermediate Rash/Hives Verified 06/27/17 14:12 codeine Allergy Itching Verified 06/27/17 14:12 levofloxacin [From Levaquin] Allergy Rash/Hives Verified 06/27/17 14:12 Surgical - Exam Vital Signs Temp Pulse Resp BP Pulse Ox 98.5 F 106 H 18 111/55 96 06/27/17 13:02 06/27/17 13:02 06/27/17 13:02 06/27/17 13:02 06/27/17 13:02 GENERAL APPEARANCE: 72-year-old female patient is alert, oriented, in no acute distress. Sitting up on the edge of the bed taking a diet stating the abdominal pain is improving no nausea no vomiting VITAL SIGNS: Reviewed HEENT: Head is normocephalic and atraumatic. Pupils are equal and reactive. The nares are patent. Oropharynx is clear without lesions. NECK: Supple without lymphadenopathy. Traches midline. HEART: S1, S2. Regular no murmur denying chest pain LUNGS: No crackles or wheezes are heard. Nasal cannula 2 L sats are 95% no shortness of breath noted ABDOMEN: Soft, mild tenderness right upper quadrant tender, nondistended with good bowel sounds. No peritoneal signs. No palpable organomegaly or masses. Sitting up on the edge of the bed taking a diet reports no nausea vomiting no decrease in appetite no stool EXTREMITIES: Normal skin color and turgor. No cyanosis, rash, ulceration, clubbing or edema. Radial pedal pulses are 2/4 bilaterally. NEUROLOGICAL: No focal deficits. Strength and sensation are grossly intact. Results - Labs 06/28/17 02:50 06/28/17 02:50 Abnormal Lab Results - Last 24 Hours (Table) 06/28/17 06/28/17 06/28/17 Range/Units 12:09 17:08 20:42 POC Glucose (mg/dL) 293 H 278 H 311 H (75-99) mg/dL 06/29/17 Range/Units 07:28 POC Glucose (mg/dL) 242 H (75-99) mg/dL Microbiology - Last 24 Hours (Table) 06/27/17 14:00 Urine Culture - Final Urine,Voided 06/27/17 15:01 Blood Culture - Preliminary Blood No Growth after 24 hours Assessment and Plan Plan: Impression Present on admission acute onset right upper quadrant pain nausea Present on admission febrile leukocytosis tachycardic meet SIRS criteria sepsis suspect due to UTI Type 2 diabetes non-insulin hemoglobin A1c 8.7 uncontrolled COPD with no evidence of an exacerbation Mildly elevated liver enzymes Ultrasound gallbladder 2.6 cm pancreatic mass dilated pancreatic duct Chronic atrial fibrillation on Xarelto rate controlled Chronic hypoxic respiratory failure O2 dependent 2 L [id number] at home History of UTIs Plan Will obtain a CAT scan of the chest pelvic and abdomen follow-up on the results Check a CEA 19 marker IV fluid for hydration Check a CMP and a CBC now Will follow up on the pending studies with further surgical recommendations pending DVT and GI prophylaxis The above impression and plan of care have been discussed and directed by signing physician. Kiara Sainz nurse practitioner acting as scribe for signing physician.
--- NOTE | 2017-06-29 11:09 | P.PN ---
Subjective Patient noted to have a pancreatic mass on ultrasound surgery consult did. Patient states she's had intermittent right upper quadrant pain. His mildly elevated liver enzymes. Patient comfortable at this time Objective - Vital Signs Vital signs: Vital Signs Temp 98.4 F 06/29/17 07:00 Pulse 78 06/29/17 07:00 Resp 20 06/29/17 07:00 BP 109/55 06/29/17 07:00 Pulse Ox 96 06/29/17 08:30 Intake & Output 06/28/17 06/29/17 06/29/17 18:59 06:59 18:59 Intake Total 350 Balance 350 Weight 77.564 kg Intake: Oral 350 Other: Voiding Method Bedside Commode Bedside Commode # Voids 1 1 - Constitutional General appearance: Present: mild distress - EENT Eyes: Present: PERRLA Ears: bilateral: normal - Neck Neck: Present: normal ROM - Respiratory Respiratory: bilateral: diminished - Cardiovascular Rhythm: regular - Gastrointestinal General gastrointestinal: Present: soft - Integumentary Integumentary: Present: normal - Neurologic Neurologic: Present: CNII-XII intact - Musculoskeletal Musculoskeletal: Present: generalized weakness - Labs CBC & Chem 7: 06/28/17 02:50 06/28/17 02:50 Labs: Abnormal Lab Results - Last 24 Hours (Table) 06/28/17 06/28/17 06/28/17 Range/Units 12:09 17:08 20:42 POC Glucose (mg/dL) 293 H 278 H 311 H (75-99) mg/dL 06/29/17 Range/Units 07:28 POC Glucose (mg/dL) 242 H (75-99) mg/dL Microbiology - Last 24 Hours (Table) 06/27/17 14:00 Urine Culture - Final Urine,Voided 06/27/17 15:01 Blood Culture - Preliminary Blood No Growth after 24 hours - Imaging and Cardiology US - abdomen: report reviewed Assessment and Plan Plan: Assessment Urinary tract infection sepsis rule out cholecystitis Mildly elevated liver enzymes History of atrial fib rate controlled COPD stable Diabetes type 2 Hyperlipidemia Hypertension Pancreatic mass Plan Computed tomography scan of abdomen and pelvis Continue consultation with surgery
[2017-06-29 11:16] LABS: Basophils # (A) 0.1 k/uL (0-0.2); Basophils % (A) 1 %; CHCM 29.4; Eosinophils # (A) 0.6 k/uL (0-0.7); Eosinophils % (A) 8 %; HCT 39.6 % (34.0-46.0); HDW 1.95; HGB 12.1 gm/dL (11.4-16.0); Hypochromasia Marked; Luc # (Auto) 0.11; Luc % (Auto) 1; Lymphocytes # (A) 1.2 k/uL (1.0-4.8); Lymphocytes % (A) 15 %; MCH 30.3 pg (25.0-35.0); MCHC 30.6 g/dL (31.0-37.0); MCV 98.9 fL (80.0-100.0); Mean Platelet Volume 9.1; Monocytes # (A) 0.3 k/uL (0-1.0); Monocytes % (A) 4 %; Neutrophils # (A) 5.7 k/uL (1.3-7.7); Neutrophils % (A) 71 %; RDW 12.7 % (11.5-15.5); WBC 8.1 k/uL (3.8-10.6); WBC (Perox) 8.71
[2017-06-29 11:25] LABS: ALT 126 U/L (9-52); AST 75 U/L (14-36); Alkaline Phosphatase 118 U/L (38-126); Anion Gap 10 mmol/L; Blood Urea Nitrogen 18 mg/dL (7-17); Calcium 9.4 mg/dL (8.4-10.2); Carbon Dioxide 29 mmol/L (22-30); Chloride 100 mmol/L (98-107); Glucose 389 mg/dL (74-99); Non-African American GFR(MDRD) >60 (>60 ml/min/1.73 sqM); Potassium 4.5 mmol/L (3.5-5.1); Sodium 139 mmol/L (137-145); Total Bilirubin 0.3 mg/dL (0.2-1.3); Total Protein 6.7 g/dL (6.3-8.2)
--- NOTE | 2017-06-29 12:17 | CT ---
EXAMINATION TYPE: CT abdomen pelvis w con DATE OF EXAM: 06/29/2017 HISTORY: Abn US of pancreas CT DLP: 1223mGycm Automated Exposure Control for Dose Reduction was Utilized. CONTRAST: CT scan of the abdomen and pelvis is performed without oral but with IV Contrast, patient injected wi th 100 mL of Omnipaque 300. COMPARISON: Gallbladder ultrasound earlier today FINDINGS: LUNG BASES: Emphysematous change in lung bases with mild central scarring is present. LIVER/GB: Contracted gallbladder is noted. Likely product of recent meal ingestion. There is mild to moderate extrahepatic biliary dilatation without suspicious intrahepatic biliary dilatation measuring 10 - 11 mm. There is abrupt cut off of the common bile duct seen on coronal image 74 near duodenal a mpulla. Adjacent duodenal sweep is not fluid-filled and thus suboptimally evaluated. No obstructing c alculus or mass is clearly seen. PANCREAS: Pancreas appears normal in size. Pancreatic duct is visualized but not suspiciously dilated up to level of ampulla on coronal image 74. SPLEEN: No significant abnormality is seen. ADRENALS: No significant abnormality is seen. KIDNEYS: There are 3-4 small calculi scattered throughout right kidney measuring 2 mm or smaller in s ize. There are 2-4 calculi scattered throughout the left kidney measuring up to 4 mm in size. Subcent imeter exophytic lesion medially mid to lower pole level right kidney on series 3 image 29 is too sma ll to further characterize per presumed benign. BOWEL: Evaluation bowel suboptimal secondary to lack of enteric contrast. Debris-filled stomach sugge st recent fluid or meal ingestion. There is slightly tortuous second portion of duodenum with poor fl uid distention extending into third portion making evaluation suboptimal. There is air-fluid level in the fourth portion near ligamentum Treitz which is focally prominent just pass SMA crossover. Remain yonas of abdomen and pelvis shows no suspicious small or large bowel dilatation. There are diverticula in the sigmoid colon without CT evidence for acute diverticulitis. There is some prominence of fecal material throughout the colon particularly in the rectum. UTERUS/ADNEXA: Uterus is surgically absent or markedly atrophic in appearance. LYMPH NODES: No greater than 1cm abdominal or pelvic lymph nodes are appreciated. OSSEOUS STRUCTURES: There is postsurgical change at lumbosacral junction. Osseous structures are kg neralized. There is multilevel spurring and disc space narrowing throughout the visualized spine. The re is partial visualization of surgical change in the left proximal femur through healed fracture. Th ere is moderate joint space loss and spurring in both hip joints. Other: There is moderate to severe atherosclerotic change throughout aorta extending into branch vess els. IMPRESSION: 1. No suspicious pancreatic mass or ductal dilatation is seen on CT. 2. There is however mild to moderate extrahepatic biliary dilatation slightly more prominent than vis ualized on recent ultrasound. No obstructing mass or calculus is clearly seen however further investi gation with ERCP is advised to ensure no ampullary lesion is present. 3. Incidental bilateral nephrolithiasis.
[2017-06-29 12:22] LABS: Glucose,Whole Blood 322 mg/dL (75-99)
[2017-06-29 17:20] LABS: Glucose,Whole Blood 303 mg/dL (75-99)
[2017-06-29] MEDS: PRAVASTATIN SODIUM 20 MG TAB PO SCH (20:44)
[2017-06-29 21:27] LABS: Glucose,Whole Blood 355 mg/dL (75-99)
[2017-06-30 00:01] LABS: Glucose,Whole Blood 263 mg/dL (75-99)
[2017-06-30] MEDS: SODIUM CHLORIDE 0.9% 1,000 ML IV SCH ×2 (05:18→05:55)
[2017-06-30] MEDS: LEVOTHYROXINE 125 MCG TAB PO SCH (05:46)
[2017-06-30 07:49] LABS: Glucose,Whole Blood 264 mg/dL (75-99)
[2017-06-30] MEDS: PIPERACILLIN-TAZOBACTAM 3.375 GM in DEXTROSE/WATER 1 50ML.BAG IVPB SCH ×2 (07:58→15:37)
[2017-06-30] MEDS: RIVAROXABAN 10 MG TAB PO SCH (07:59)
[2017-06-30] MEDS: FUROSEMIDE 20 MG TAB PO SCH (08:00)
[2017-06-30] MEDS: SERTRALINE 25 MG TAB PO SCH (08:00)
[2017-06-30] MEDS: INSULIN LISPRO (humaLOG) 300 UNIT/3 ML VIAL SQ SCH ×4 (08:00→22:14)
[2017-06-30] MEDS: DILTIAZEM CD 180 MG CAP.ER.24H PO SCH (08:00)
--- NOTE | 2017-06-30 08:43 | P.PN ---
Subjective Progress Note Date: 06/30/17 72-year-old female seen and examined at the bedside patient sitting up on the edge of the bed. Patient states the abdominal pain has resolved no further nausea vomiting. "I feel much better". Patient is to be seen by GI service eval pending patient did have an ultrasound of the gallbladder done on the june there was a question of a 2.6 cm pancreatic mass with a dilated pancreatic duct. This was followed up by CAT scan of the abdomen and pelvis with contrast was mild to moderate extrahepatic biliary dilatation without suspicious intrahepatic biliary dilatation no suspicious pancreatic mass seen on the CAT scan. Recommend ERCP to ensure no ampullary lesion noted Objective - Vital Signs Vital signs: Vital Signs Temp 98.5 F 06/30/17 06:52 Pulse 72 06/30/17 06:52 Resp 20 06/30/17 06:52 BP 114/49 06/30/17 06:52 Pulse Ox 94 L 06/30/17 06:52 Intake & Output 06/29/17 06/30/17 06/30/17 18:59 06:59 18:59 Intake Total 895 Balance 895 Weight 77.564 kg Intake: Oral 895 Other: Voiding Method Bedside Commode # Voids 3 3 - Exam GENERAL APPEARANCE: Pleasant 72-year-old female sitting up on the edge of the bed alert, oriented, in no acute distress. VITAL SIGNS: Reviewed HEENT: Head is normocephalic and atraumatic. Pupils are equal and reactive. The nares are patent. Oropharynx is clear without lesions. NECK: Supple without lymphadenopathy. Traches midline. HEART: S1, S2. Regular rate and rhythm. Telemetry unit shows sinus rhythm rate controlled denying chest pain no murmur LUNGS: No crackles or wheezes are heard. Sats 94% on 2 L no cough noted ABDOMEN: Soft, nontender, nondistended with good bowel sounds. No peritoneal signs. No palpable organomegaly or masses. EXTREMITIES: Normal skin color and turgor. No cyanosis, rash, ulceration, clubbing or edema. Radial pedal pulses are 2/4 bilaterally. NEUROLOGICAL: No focal deficits. Strength and sensation are grossly intact. - Labs CBC & Chem 7: 06/29/17 10:52 06/29/17 10:52 Labs: Abnormal Lab Results - Last 24 Hours (Table) 06/29/17 06/29/1717 Range/Units 10:52 10:52 10:52 MCHC 30.6 L (31.0-37.0) g/dL BUN 18 H (7-17) mg/dL Glucose 389 H (74-99) mg/dL POC Glucose (mg/dL) (75-99) mg/dL AST 75 H (14-36) U/L ALT 126 H (9-52) U/L CA 19-9 Antigen 95.9 H (0.0-34.9) U/mL 06/29/17 06/29/17 06/29/17 Range/Units 12:12 17:17 21:18 MCHC (31.0-37.0) g/dL BUN (7-17) mg/dL Glucose (74-99) mg/dL POC Glucose (mg/dL) 322 H 303 H 355 H (75-99) mg/dL AST (14-36) U/L ALT (9-52) U/L CA 19-9 Antigen (0.0-34.9) U/mL 06/29/17 06/30/17 Range/Units 23:59 07:37 MCHC (31.0-37.0) g/dL BUN (7-17) mg/dL Glucose (74-99) mg/dL POC Glucose (mg/dL) 263 H 264 H (75-99) mg/dL AST (14-36) U/L ALT (9-52) U/L CA 19-9 Antigen (0.0-34.9) U/mL Microbiology - Last 24 Hours (Table) 06/27/17 15:01 Blood Culture - Preliminary Blood No Growth after 48 hours Assessment and Plan Plan: Impression Present on admission acute onset right upper quadrant pain nausea Present on admission febrile leukocytosis tachycardic meet SIRS criteria sepsis suspect due to UTI Type 2 diabetes non-insulin hemoglobin A1c 8.7 uncontrolled COPD with no evidence of an exacerbation Mildly elevated liver enzymes Ultrasound gallbladder 2.6 cm pancreatic mass dilated pancreatic duct Chronic atrial fibrillation on Xarelto rate controlled Chronic hypoxic respiratory failure O2 dependent 2 L [id number] at home History of UTIs Elevated CEA 19.9 of 95 Elevated AST and ALT present on admission Plan Will await further recommendations by GI service IV fluid for hydration Will follow up on the pending studies with further surgical recommendations pending DVT and GI prophylaxis The above impression and plan of care have been discussed and directed by signing physician. Kiara Sainz nurse practitioner acting as scribe for signing physician.
[2017-06-30 09:50] LABS: Basophils # (A) 0.1 k/uL (0-0.2); Basophils % (A) 1 %; CH 28.9; CHCM 29.9; Eosinophils # (A) 0.8 k/uL (0-0.7); Eosinophils % (A) 10 %; HCT 36.5 % (34.0-46.0); HDW 2.02; HGB 11.3 gm/dL (11.4-16.0); Hypochromasia Moderate; Luc # (Auto) 0.14; Luc % (Auto) 2; Lymphocytes # (A) 1.5 k/uL (1.0-4.8); Lymphocytes % (A) 20 %; MCV 96.8 fL (80.0-100.0); Mean Platelet Volume 9.3; Monocytes # (A) 0.4 k/uL (0-1.0); Monocytes % (A) 6 %; Neutrophils # (A) 4.7 k/uL (1.3-7.7); Neutrophils % (A) 63 %; RBC 3.77 m/uL (3.80-5.40); RDW 12.6 % (11.5-15.5); WBC 7.6 k/uL (3.8-10.6); WBC (Perox) 7.76
[2017-06-30 10:08] LABS: ALT 122 U/L (9-52); AST 54 U/L (14-36); Alkaline Phosphatase 121 U/L (38-126); Anion Gap 8 mmol/L; Blood Urea Nitrogen 17 mg/dL (7-17); Calcium 9.3 mg/dL (8.4-10.2); Carbon Dioxide 29 mmol/L (22-30); Chloride 102 mmol/L (98-107); Glucose 266 mg/dL (74-99); Non-African American GFR(MDRD) >60 (>60 ml/min/1.73 sqM); Potassium 4.6 mmol/L (3.5-5.1); Sodium 139 mmol/L (137-145); Total Bilirubin 0.4 mg/dL (0.2-1.3); Total Protein 6.2 g/dL (6.3-8.2)
--- NOTE | 2017-06-30 11:46 | P.PN ---
Subjective Principal diagnosis: Patient resting comfortably in bed without complaint denies any abdominal pain this morning. Gastroenterology consult and for ERCP. Noted marker tumor 19 9 elevated Objective - Vital Signs Vital signs: Vital Signs Temp 98.5 F 06/30/17 06:52 Pulse 72 06/30/17 06:52 Resp 20 06/30/17 06:52 BP 114/49 06/30/17 06:52 Pulse Ox 94 L 06/30/17 06:52 Intake & Output 06/29/17 06/30/17 06/30/17 18:59 06:59 18:59 Intake Total 895 Balance 895 Weight 77.564 kg Intake: Oral 895 Other: Voiding Method Bedside Commode # Voids 3 3 - Constitutional General appearance: Present: average body habitus - EENT Eyes: Present: PERRLA Ears: bilateral: normal - Neck Neck: Present: normal ROM - Respiratory Respiratory: bilateral: diminished - Cardiovascular Rhythm: regular - Gastrointestinal General gastrointestinal: Present: soft - Integumentary Integumentary: Present: normal - Neurologic Neurologic: Present: CNII-XII intact - Musculoskeletal Musculoskeletal: Present: generalized weakness - Psychiatric Psychiatric: Present: A&O x's 3, appropriate affect, intact judgment & insight - Labs CBC & Chem 7: 06/30/17 07:23 06/30/17 07:23 Labs: Abnormal Lab Results - Last 24 Hours (Table) 06/29/17 06/29/17 06/29/17 Range/Units 10:52 12:12 17:17 RBC (3.80-5.40) m/uL Hgb (11.4-16.0) gm/dL Eosinophils # (0-0.7) k/uL Glucose (74-99) mg/dL POC Glucose (mg/dL) 322 H 303 H (75-99) mg/dL AST (14-36) U/L ALT (9-52) U/L Total Protein (6.3-8.2) g/dL Albumin (3.5-5.0) g/dL CA 19-9 Antigen 95.9 H (0.0-34.9) U/mL 06/29/17 06/29/17 06/30/17 Range/Units 21:18 23:59 07:23 RBC (3.80-5.40) m/uL Hgb (11.4-16.0) gm/dL Eosinophils # (0-0.7) k/uL Glucose 266 H (74-99) mg/dL POC Glucose (mg/dL) 355 H 263 H (75-99) mg/dL AST 54 H (14-36) U/L ALT 122 H (9-52) U/L Total Protein 6.2 L (6.3-8.2) g/dL Albumin 3.3 L (3.5-5.0) g/dL CA 19-9 Antigen (0.0-34.9) U/mL 06/30/17 06/30/17 Range/Units 07:23 07:37 RBC 3.77 L (3.80-5.40) m/uL Hgb 11.3 L (11.4-16.0) gm/dL Eosinophils # 0.8 H (0-0.7) k/uL Glucose (74-99) mg/dL POC Glucose (mg/dL) 264 H (75-99) mg/dL AST (14-36) U/L ALT (9-52) U/L Total Protein (6.3-8.2) g/dL Albumin (3.5-5.0) g/dL CA 19-9 Antigen (0.0-34.9) U/mL Microbiology - Last 24 Hours (Table) 06/27/17 15:01 Blood Culture - Preliminary Blood No Growth after 48 hours - Imaging and Cardiology CT scan - abdomen: report reviewed Assessment and Plan Plan: Assessment Urinary tract infection with sepsis Elevated liver enzymes Pancreatic mass History of atrial fibrillation rate controlled COPD stable Diabetes type 2 Hyperlipidemia Hypertension Elevated CA 19.9 Plan continue consultation with surgery and gastroenterology ER CP ordered
--- NOTE | 2017-06-30 11:48 | P.CONS ---
History of Present Illness - Reason for Consult Consult date: 06/30/17 ERCP evaluation Requesting physician: Kay Mccarty - History of Present Illness 72-year-old female patient Dr. Michele Kothari with a past medical history of chronic atrial fibrillation Xarelto maintenance, COPD O2 dependent 2 L for several years, hypertension, hyperlipidemia, diabetes mellitus, chronic constipation. Patient admitted with acute onset of diffuse abdominal pain radiating from midchest down to the lower abdomen combined with nausea vomiting that started Wednesday. Denies hematemesis hematochezia melena. No weight loss. Febrile T-max 101.2. Preliminary blood cultures no growth. Preliminary urine culture no growth. Ultrasound abdomen questioned 2.6 cm pancreatic mass with dilated pancreatic duct. Gallbladder appeared somewhat distended with mild intrahepatic biliary dilatation. CT abdomen pelvis mild to moderate extrahepatic biliary dilatation without suspicious intrahepatic biliary dilatation measuring 10-11 mm. Abrupt cutoff of common bile duct near duodenal ampulla. Adjacent duodenal sweep not fluid- filled suboptimally evaluated. No mass clearly seen. Pancreas appears normal in size without mention of mass. Pancreatic duct not suspiciously dilated. No history of hepatobiliary disorders. No history pancreatitis. No history of alcoholism. No history of hepatitis. White count 7.6-12.6. Hemoglobin 11.3- 12.2. Platelet 214. Total bilirubin 0.3-0.4. AST 26-75. ALT 31-126. Alkaline phosphatase 86-121. Lipase 103. CA-19-9 95.9. Additionally she reports chronic constipation for several years duration averages a bowel movement weekly. Last colonoscopy was in [place] about 9 years ago with findings of hemorrhoids no polyps. Review of Systems Constitutional: Denies fever, chills, sweats, weight gain, or loss. HEENT: Negative for migraines, blurred vision or loss, earaches, drainage, tinnitus, oral mucosal lesions, dysphagia, or odynophagia. CARDIAC: Atrial fibrillation. Hyperlipidemia. Hypertension. Negative for chest pain, arrhythmias, or palpitation. RESPIRATORY: COPD O2 dependent several years. Chronic hypoxic restaurant failure.. GI: See HPI for pertinent findings. : Negative for hematuria, urgency, frequency, polyuria, or dysuria. GYNc: Denies possibility of . Negative vaginal discharge. MUSCULOSKELETAL: Chronic back pain.. NEUROLOGIC: Negative for stroke or TIA. ENDOCRINE: Negative for thyroid problems. SKIN: History of MRSA. PSYCHIATRIC: Negative history for depression and anxiety Past Medical History Past Medical History: Atrial Fibrillation, COPD, Diabetes Mellitus, Hyperlipidemia, Hypertension, Skin Disorder Additional Past Medical History / Comment(s): Severe COPD, chronic hypoxic respiratory failure, chronic atrial fibrillation maintained on Xarelto as anticoagulant, Lumbar disc disease and chronic back pain, chronic and recurrent urine tract infections, diabetes mellitus, hyperlipidemia, hypertension, chronic constipation, previous sputum cultures have shown MRSA from 2015, previous urinary tract infection with gram-negative and enterococcal bacteria , previous wound to the left lower extremity that was treated. History of Any Multi-Drug Resistant Organisms: ESBL, MRSA Year Discovered:: 07/02/15-MRSA; 12/18/14 ESBL-E. coli MDRO Source:: Sputum-MRSA; Urine-ESBL Past Surgical History: Hysterectomy, Orthopedic Surgery, Tonsillectomy Additional Past Surgical History / Comment(s): Right and Left cataract removal and lens implant on 11/12/14. Lumbar disc surgery, repair of left hip -screws in place Past Anesthesia/Blood Transfusion Reactions: No Reported Reaction Past Psychological History: No Psychological Hx Reported Additional Psychological History / Comment(s): Pt lives with and GRANDSON/GIRLFRIEND.THEY HELP CARE FOR PT. USES WALKER. 2L oxygen per nasal cannula at all times. Smoking Status: Former smoker Past Alcohol Use History: None Reported Past Drug Use History: None Reported - Past Family History Father Family Medical History: Unable to Obtain Additional Family Medical History / Comment(s): Pt never knew her father. He in WWII when she was very young. Mother Family Medical History: No Reported History Brother(s) Family Medical History: Cancer Additional Family Medical History / Comment(s): Pt has 4 brothers and one has testicular cancer. Medications and Allergies Home Medications Medication Instructions Recorded Confirmed Type Levothyroxine Sodium [Synthroid] 125 mcg PO DAILY 11/16/14 06/27/17 History Lisinopril [Zestril] 10 mg PO DAILY 11/16/14 06/27/17 History Rivaroxaban [Xarelto] 20 mg PO DAILY 11/16/14 06/27/17 History Sertraline [Zoloft] 25 mg PO DAILY 11/16/14 06/27/17 History metFORMIN HCL 1,000 mg PO BID 11/16/14 06/27/17 History Furosemide [Lasix] 20 mg PO DAILY 01/27/16 06/27/17 History HYDROcodone/APAP 7.5-325MG [Truchas 1 tab PO TID PRN 01/27/16 06/27/17 History 7.5-325] Diltiazem HCl [Diltiazem 24Hr ER] 180 mg PO DAILY 08/07/16 06/27/17 History Pravastatin Sodium [Pravachol] 20 mg PO DAILY 08/07/16 06/27/17 History Insulin Aspart Protam & Aspart See Protocol SQ AC-BID 06/27/17 06/27/17 History [NovoLOG MIX 70-30 Flexpen] Insulin Glargine [Lantus] 40 unit SQ HS 06/27/17 06/27/17 History Nitrofurantoin Monohyd/M-Cryst 100 mg PO Q12HR 06/27/17 06/27/17 History [Macrobid] Allergies Allergy/AdvReac Type Severity Reaction Status Date / Time ceftaroline fosamil Allergy Intermediate Rash/Hives Verified 06/27/17 14:12 codeine Allergy Itching Verified 06/27/17 14:12 levofloxacin [From Levaquin] Allergy Rash/Hives Verified 06/27/17 14:12 Physical Exam Vitals: Vital Signs Temp Pulse Resp BP Pulse Ox 06/30/17 06:52 98.5 F 72 20 114/49 94 L 06/29/17 23:00 98.8 F 81 18 123/53 96 06/29/17 15:00 97.8 F 82 16 104/47 94 L Intake and Output 06/29/17 06/30/17 06/30/17 22:59 06:59 14:59 Intake Total 375 520 Balance 375 520 Intake: Oral 375 520 Other: Voiding Method Bedside Commode # Voids 2 3 Weight 77.564 kg General appearance: The patient is alert, oriented, in no acute distress. HET: Head is normocephalic and atraumatic. Pupils are equal and reactive. Oropharynx is clear without lesions. Neck: Supple without lymphadenopathy. Trachea midline. Heart: S1 S2. Lungs: No crackles or wheezes are heard. Abdomen: Soft, mild tenderness to the mid epigastrium, nondistended with bowel sounds. No peritoneal signs. No palpable organomegaly or masses. Extremities: Normal skin color and turgor. No cyanosis, rash, ulceration, clubbing, or edema. Radial and pedal pulses are 2/4 bilaterally. Neurological: No focal deficits. Strength and sensation are grossly intact. Results CBC & Chem 7: 06/30/17 07:23 06/30/17 07:23 Labs: Abnormal Lab Results - Last 24 Hours (Table) 06/29/17 06/29/17 06/29/17 Range/Units 10:52 12:12 17:17 RBC (3.80-5.40) m/uL Hgb (11.4-16.0) gm/dL Eosinophils # (0-0.7) k/uL Glucose (74-99) mg/dL POC Glucose (mg/dL) 322 H 303 H (75-99) mg/dL AST (14-36) U/L ALT (9-52) U/L Total Protein (6.3-8.2) g/dL Albumin (3.5-5.0) g/dL CA 19-9 Antigen 95.9 H (0.0-34.9) U/mL 06/29/17 06/29/17 06/30/17 Range/Units 21:18 23:59 07:23 RBC (3.80-5.40) m/uL Hgb (11.4-16.0) gm/dL Eosinophils # (0-0.7) k/uL Glucose 266 H (74-99) mg/dL POC Glucose (mg/dL) 355 H 263 H (75-99) mg/dL AST 54 H (14-36) U/L ALT 122 H (9-52) U/L Total Protein 6.2 L (6.3-8.2) g/dL Albumin 3.3 L (3.5-5.0) g/dL CA 19-9 Antigen (0.0-34.9) U/mL 06/30/17 06/30/17 Range/Units 07:23 07:37 RBC 3.77 L (3.80-5.40) m/uL Hgb 11.3 L (11.4-16.0) gm/dL Eosinophils # 0.8 H (0-0.7) k/uL Glucose (74-99) mg/dL POC Glucose (mg/dL) 264 H (75-99) mg/dL AST (14-36) U/L ALT (9-52) U/L Total Protein (6.3-8.2) g/dL Albumin (3.5-5.0) g/dL CA 19-9 Antigen (0.0-34.9) U/mL Microbiology - Last 24 Hours (Table) 06/27/17 15:01 Blood Culture - Preliminary Blood No Growth after [address] scan - abdomen: report reviewed (Dr. Sharp) US - abdomen: report reviewed (Dr. Sharp) Assessment and Plan (1) Abdominal pain Narrative/Plan: Possible ampullary mass possible pancreatic mass with elevated CA-19-9 marker. Status: Acute (2) Elevated CA 19-9 level Status: Acute (3) Fever Status: Acute (4) Chronic atrial fibrillation Status: Acute (5) Chronic constipation Status: Chronic Plan: 1. Patient received anticoagulation this morning therefore will proceed with MRI pancreas/MRCP to further delineate possible ampullary mass possible pancreatic mass. 2. Recommend ERCP evaluation to assess possible ampullary lesion however will need to hold anticoagulation 24-48 hours tentatively planned for Wednesday. 3. CEA marker. Hepatitis screen. Light diet as tolerated. We'll follow closely with you. 4. In regards to chronic constipation will provide daily stool softeners. Outpatient colonoscopy discussed as evaluation for possible ampullary mass possible pancreatic mass holds precedence over inpatient colonoscopy at this time. Thank you for this kind referral and the opportunity to participate in the care of your patient. This consultation was discussed with Dr. Sharp. The impression and plan of care have been directed as dictated.
[2017-06-30 12:05] LABS: Glucose,Whole Blood 389 mg/dL (75-99)
--- NOTE | 2017-06-30 14:42 | CT ---
EXAMINATION TYPE: CT chest w con DATE OF EXAM: 06/30/2017 COMPARISON: CT abdomen pelvis 06/29/[address] chest 02/05/2015 HISTORY: Lymphadenopathy, pt c/o SOB CT DLP: 301.9 mGycm Automated exposure control for dose reduction was used. CONTRAST: CT scan of the chest is performed with IV Contrast, patient injected with 100 mL of Omnipaque 300. FINDINGS: LUNGS: The lungs are grossly clear, there is no concerning parenchymal mass or nodule identified. Ex tensive emphysematous changes are present. There is no pleural effusion or pneumothorax seen. The tr acheobronchial tree is patent. MEDIASTINUM: Borderline enlarged retrocaval precarinal lymph node shows a short axis measurement of a pproximately 11 mm. Small nodes present in the aorticopulmonary window. Calcified right paratracheal node is not enlarged. Lipomatous hypertrophy of the right atrium causes a relative stenosis of the clarke perior vena cava near the cavoatrial junction. No axillary adenopathy. Atheromatous changes are prese nt within the aorta and supraaortic branch vessels. There are coronary artery calcifications present. No pericardial effusion is seen. Hiatal hernia is noted. AORTA: No additional significant abnormality is seen. OTHER: Questionable nodularity associated with the right adrenal gland. The liver shows low attenuat ion fatty infiltration. Some prominence of the proper, bile ducts noted. IMPRESSION: Lipomatous hypertrophy right atrium. Borderline node in the mediastinum as described. Co ronary artery disease. Emphysema. Possible old granulomatous disease. Additional findings above.
[2017-06-30] MEDS: SENNOSIDES-DOCUSATE SODIUM 1 EACH TAB PO SCH ×2 (15:37→22:14)
[2017-06-30 17:20] LABS: Glucose,Whole Blood 397 mg/dL (75-99)
[2017-06-30] MEDS: INSULN ASP PRT/INSULIN ASPART 100 UNIT/ML 10 ML VIAL SQ SCH (18:06)
[2017-06-30 20:34] LABS: Glucose,Whole Blood 180 mg/dL (75-99)
[2017-06-30] MEDS: PRAVASTATIN SODIUM 20 MG TAB PO SCH (22:13)
--- NOTE | 2017-07-01 00:20 | MR ---
EXAMINATION TYPE: MR pancreas / mrcp wo/w con DATE OF EXAM: 06/30/2017 COMPARISON: NONE HISTORY: pancreatic mass? ampulary lesion, abdomen pain, vomiting CONTRAST: Standard multiplanar, multisequence MRI departmental protocol utilizing 7.5 mL intravenous Gadavist g adolinium contrast. FINDINGS: There is mild ectasia of the biliary tree that measures up to 11 mm. I see no filling defec t. I see no filling defect in the gallbladder. Gallbladder has normal size. Gallbladder measures 4 cm in diameter. There is a 1 cm cortical cyst on the lower pole right kidney. There is [address] upper pole right kidney. There is no hydronephrosis. The pancreatic duct is not dilated. There is no sign of a pancreatic mass. There appears to be an accessory pancreatic duct. I see no sign of retr operitoneal adenopathy. There is no evidence of ascites. There is no evidence of a discrete liver mas s. IMPRESSION: There is probably an accessory pancreatic duct. Large common bile duct could relate to some degree of gallbladder dysfunction. Otherwise negative MRCP exam. No evidence of pancreatic mass.
[2017-07-01] MEDS: PIPERACILLIN-TAZOBACTAM 3.375 GM in DEXTROSE/WATER 1 50ML.BAG IVPB SCH ×3 (00:24→14:57)
[2017-07-01] MEDS: SODIUM CHLORIDE 0.9% 1,000 ML IV SCH ×3 (00:52→23:12)
[2017-07-01] MEDS: LEVOTHYROXINE 125 MCG TAB PO SCH (06:03)
[2017-07-01 07:38] LABS: Glucose,Whole Blood 128 mg/dL (75-99)
[2017-07-01] MEDS: INSULIN LISPRO (humaLOG) 300 UNIT/3 ML VIAL SQ SCH ×4 (07:48→22:22)
[2017-07-01] MEDS: INSULN ASP PRT/INSULIN ASPART 100 UNIT/ML 10 ML VIAL SQ SCH ×2 (07:53→18:00)
[2017-07-01] MEDS: FUROSEMIDE 20 MG TAB PO SCH (07:54)
[2017-07-01] MEDS: SENNOSIDES-DOCUSATE SODIUM 1 EACH TAB PO SCH ×2 (07:54→22:22)
[2017-07-01] MEDS: DILTIAZEM CD 180 MG CAP.ER.24H PO SCH (07:54)
[2017-07-01] MEDS: SERTRALINE 25 MG TAB PO SCH (07:54)
[2017-07-01 08:12] LABS: INR 1.1 (<1.2); Prothrombin Time 11.5 sec (9.0-12.0)
[2017-07-01 08:44] LABS: ALT 88 U/L (9-52); AST 32 U/L (14-36); Alkaline Phosphatase 113 U/L (38-126); Anion Gap 7 mmol/L; Blood Urea Nitrogen 16 mg/dL (7-17); Calcium 9.4 mg/dL (8.4-10.2); Carbon Dioxide 30 mmol/L (22-30); Chloride 102 mmol/L (98-107); Glucose 111 mg/dL (74-99); Non-African American GFR(MDRD) >60 (>60 ml/min/1.73 sqM); Potassium 4.2 mmol/L (3.5-5.1); Sodium 139 mmol/L (137-145); Total Bilirubin 0.3 mg/dL (0.2-1.3); Total Protein 5.9 g/dL (6.3-8.2)
--- NOTE | 2017-07-01 10:27 | P.PN ---
Subjective Progress Note Date: 07/01/17 Principal diagnosis: Abdominal pain and possible pancreatic mass possible ampullary mass 72-year-old female admitted with abdominal pain with radiographic imaging suggested of possible pancreatic and ampullary mass. MRCP yesterday reported no evidence of pancreatic mass or mentioning of ampullary mass. CT cannot exclude ampullary mass. Ultrasound questionable pancreatic mass. Presently feels well so reports right-sided abdominal discomfort. Afebrile. CA-19-9 elevated. CEA 6.9. Liver function tests unremarkable. Objective - Vital Signs Vital signs: Vital Signs Temp 97.3 F L 07/01/17 07:00 Pulse 75 07/01/17 07:00 Resp 18 07/01/17 07:00 BP 107/52 07/01/17 07:00 Pulse Ox 97 07/01/17 07:00 Intake & Output 06/30/17 07/01/17 07/01/17 18:59 06:59 18:59 Intake Total 850 Balance 850 Intake: IV 850 Piperacillin-Tazobactam 3 50 .375 gm In Dextrose/Water 1 50ml.bag @ 12.5 mls/hr IVPB Q8HR NEPTALI Rx#: [id number] Sodium Chloride 0.9% 1, 800 000 ml @ 100 mls/hr IV . Q10H NEPTALI Rx#:[id number] Other: # Voids 2 - Exam General appearance: The patient is alert, oriented, in no acute distress. HET: Head is normocephalic and atraumatic. Pupils are equal and reactive. Oropharynx is clear without lesions. Neck: Supple without lymphadenopathy. Trachea midline. Heart: S1 S2. Regular rate and rhythm. Lungs: No crackles or wheezes are heard. Abdomen: Soft, mild right-sided discomfort, nondistended with bowel sounds. No peritoneal signs. No palpable organomegaly or masses. Extremities: Normal skin color and turgor. No cyanosis, rash, ulceration, clubbing, or edema. Radial and pedal pulses are 2/4 bilaterally. Neurological: No focal deficits. Strength and sensation are grossly intact. - Labs CBC & Chem 7: 06/30/17 07:23 07/01/17 07:28 Labs: Abnormal Lab Results - Last 24 Hours (Table) 06/30/17 06/30/17 06/30/17 Range/Units 07:23 11:56 17:17 Glucose (74-99) mg/dL POC Glucose (mg/dL) 389 H 397 H (75-99) mg/dL ALT (9-52) U/L Total Protein (6.3-8.2) g/dL Albumin (3.5-5.0) g/dL Carcinoembryonic Ag 6.9 H (0.0-5.0) ng/mL 06/30/17 07/01/17 07/01/17 Range/Units 20:31 07:28 07:36 Glucose 111 H (74-99) mg/dL POC Glucose (mg/dL) 180 H 128 H (75-99) mg/dL ALT 88 H (9-52) U/L Total Protein 5.9 L (6.3-8.2) g/dL Albumin 3.1 L (3.5-5.0) g/dL Carcinoembryonic Ag (0.0-5.0) ng/mL Microbiology - Last 24 Hours (Table) 06/27/17 15:01 Blood Culture - Preliminary Blood No Growth after 72 hours Assessment and Plan (1) Abdominal pain Narrative/Plan: Possible ampullary mass possible pancreatic mass with elevated CA-19-9 marker. Status: Acute (2) Elevated CA 19-9 level Status: Acute (3) Fever Status: Acute (4) Chronic atrial fibrillation Status: Acute (5) Chronic constipation Status: Chronic (6) Elevated CEA Status: Acute Plan: 1. ERCP evaluation tomorrow afternoon. Continue to hold anticoagulation. The exhibit builder has discussed the risks, benefits and alternative therapies for the above-mentioned procedure and for both sedation/analgesia as well as necessary blood product administration, if indicated, as they pertain to this patient. The patient has indicated understanding and acceptance of the risks and procedures discussed. Assessment and plan of care discussed with Dr. Sharp
[2017-07-01 11:45] LABS: Glucose,Whole Blood 363 mg/dL (75-99)
--- NOTE | 2017-07-01 12:27 | P.PN ---
Subjective Patient resting in bed without complaint at this time. Noted elevated CA-19-9 and elevated CEA. Plan is for ERCP tomorrow per gastroenterology Objective - Vital Signs Vital signs: Vital Signs Temp 97.3 F L 07/01/17 07:00 Pulse 75 07/01/17 07:00 Resp 18 07/01/17 07:00 BP 107/52 07/01/17 07:00 Pulse Ox 97 07/01/17 07:00 Intake & Output 06/30/17 07/01/17 07/01/17 18:59 06:59 18:59 Intake Total 850 Balance 850 Intake: IV 850 Piperacillin-Tazobactam 3 50 .375 gm In Dextrose/Water 1 50ml.bag @ 12.5 mls/hr IVPB Q8HR NEPTALI Rx#: [id number] Sodium Chloride 0.9% 1, 800 000 ml @ 100 mls/hr IV . Q10H NEPTALI Rx#:[id number] Other: # Voids 2 - Constitutional General appearance: Present: mild distress - EENT Eyes: Present: PERRLA Ears: bilateral: normal - Neck Neck: Present: normal ROM - Respiratory Respiratory: bilateral: diminished - Cardiovascular Rhythm: regular - Gastrointestinal General gastrointestinal: Present: soft - Integumentary Integumentary: Present: normal - Neurologic Neurologic: Present: CNII-XII intact - Musculoskeletal Musculoskeletal: Present: generalized weakness - Psychiatric Psychiatric: Present: A&O x's 3, appropriate affect, intact judgment & insight - Labs CBC & Chem 7: 06/30/17 07:23 07/01/17 07:28 Labs: Abnormal Lab Results - Last 24 Hours (Table) 06/30/17 06/30/17 06/30/17 Range/Units 07:23 17:17 20:31 Glucose (74-99) mg/dL POC Glucose (mg/dL) 397 H 180 H (75-99) mg/dL ALT (9-52) U/L Total Protein (6.3-8.2) g/dL Albumin (3.5-5.0) g/dL Carcinoembryonic Ag 6.9 H (0.0-5.0) ng/mL 07/01/17 07/01/17 07/01/17 Range/Units 07:28 07:36 11:38 Glucose 111 H (74-99) mg/dL POC Glucose (mg/dL) 128 H 363 H (75-99) mg/dL ALT 88 H (9-52) U/L Total Protein 5.9 L (6.3-8.2) g/dL Albumin 3.1 L (3.5-5.0) g/dL Carcinoembryonic Ag (0.0-5.0) ng/mL Microbiology - Last 24 Hours (Table) 06/27/17 15:01 Blood Culture - Preliminary Blood No Growth after 72 hours - Imaging and Cardiology CT scan - abdomen: report reviewed CT scan - chest: report reviewed Assessment and Plan Plan: Assessment Sepsis urinary tract infection Elevated liver enzymes History of atrial fibrillation rate controlled COPD stable Type 2 diabetes Hyperlipidemia Hypertension Elevated CEA 19.9 and CEA Plan ERCP scheduled for tomorrow
--- NOTE | 2017-07-01 12:56 | P.PN ---
Subjective 72-year-old female being seen and examined. Currently sitting up on the edge the bed. Patient continues to report a bloating sensation to the abdomen some right-sided abdominal discomfort persists. The CA-19-9 marker was elevated the CEA elevated liver function studies unremarkable. Patient did have imaging that did suggest a possible pancreatic and ampullary mass. CAT scan could not exclude ampullary mass Patients being followed by GI service. Scheduled tomorrow for an ERCP. Patient's anticoagulation Xarelto is on hold Objective - Vital Signs Vital signs: Vital Signs Temp 97.3 F L 07/01/17 07:00 Pulse 75 07/01/17 07:00 Resp 18 07/01/17 07:00 BP 107/52 07/01/17 07:00 Pulse Ox 97 07/01/17 07:00 Intake & Output 06/30/17 07/01/17 07/01/17 18:59 06:59 18:59 Intake Total 850 Balance 850 Intake: IV 850 Piperacillin-Tazobactam 3 50 .375 gm In Dextrose/Water 1 50ml.bag @ 12.5 mls/hr IVPB Q8HR NEPTALI Rx#: [id number] Sodium Chloride 0.9% 1, 800 000 ml @ 100 mls/hr IV . Q10H NEPTALI Rx#:[id number] Other: # Voids 2 - Exam Physical exam 72-year-old female sitting up on the edge of the bed pleasant cooperative oriented 3 continues to report a bloating sensation decrease appetite Lungs essentially clear adequate air movement on 2 L sats 95% no cough noted Heart S1-S2 audible regular monitor sinus rhythm no episodes of atrial fibrillation Abdomen mild tenderness to the right side abdomen nondistended bowel tones present no nausea no vomiting states had a bowel movement this morning urinating no difficulty Extremities no edema noted - Labs CBC & Chem 7: 06/30/17 07:23 07/01/17 07:28 Labs: Abnormal Lab Results - Last 24 Hours (Table) 06/30/17 06/30/17 06/30/17 Range/Units 07:23 17:17 20:31 Glucose (74-99) mg/dL POC Glucose (mg/dL) 397 H 180 H (75-99) mg/dL ALT (9-52) U/L Total Protein (6.3-8.2) g/dL Albumin (3.5-5.0) g/dL Carcinoembryonic Ag 6.9 H (0.0-5.0) ng/mL 07/01/17 07/01/17 07/01/17 Range/Units 07:28 07:36 11:38 Glucose 111 H (74-99) mg/dL POC Glucose (mg/dL) 128 H 363 H (75-99) mg/dL ALT 88 H (9-52) U/L Total Protein 5.9 L (6.3-8.2) g/dL Albumin 3.1 L (3.5-5.0) g/dL Carcinoembryonic Ag (0.0-5.0) ng/mL Microbiology - Last 24 Hours (Table) 06/27/17 15:01 Blood Culture - Preliminary Blood No Growth after 72 hours Assessment and Plan Plan: Impression Present on admission acute onset right upper quadrant pain nausea Present on admission febrile leukocytosis tachycardic meet SIRS criteria sepsis suspect due to UTI Type 2 diabetes non-insulin hemoglobin A1c 8.7 uncontrolled COPD with no evidence of an exacerbation Mildly elevated liver enzymes Ultrasound gallbladder 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 Kiara Sainz nurse practitioner acting as scribe for signing physician.
[2017-07-01 17:23] LABS: Glucose,Whole Blood 252 mg/dL (75-99)
[2017-07-01 21:00] LABS: Glucose,Whole Blood 115 mg/dL (75-99)
[2017-07-01] MEDS: PRAVASTATIN SODIUM 20 MG TAB PO SCH (22:22)
[2017-07-02] MEDS: PIPERACILLIN-TAZOBACTAM 3.375 GM in DEXTROSE/WATER 1 50ML.BAG IVPB SCH ×3 (01:14→16:05)
[2017-07-02] MEDS: LEVOTHYROXINE 125 MCG TAB PO SCH (06:18)
[2017-07-02] MEDS: SODIUM CHLORIDE 0.9% 1,000 ML IV SCH ×2 (06:18→16:06)
[2017-07-02 07:26] LABS: Glucose,Whole Blood 133 mg/dL (75-99)
[2017-07-02] MEDS: INSULIN LISPRO (humaLOG) 300 UNIT/3 ML VIAL SQ SCH ×4 (07:58→17:39)
[2017-07-02] MEDS: INSULN ASP PRT/INSULIN ASPART 100 UNIT/ML 10 ML VIAL SQ SCH ×2 (08:00→17:39)
[2017-07-02] MEDS: SERTRALINE 25 MG TAB PO SCH (08:02)
[2017-07-02] MEDS: FUROSEMIDE 20 MG TAB PO SCH (08:02)
[2017-07-02] MEDS: SENNOSIDES-DOCUSATE SODIUM 1 EACH TAB PO SCH (08:02)
[2017-07-02] MEDS: DILTIAZEM CD 180 MG CAP.ER.24H PO SCH (08:02)
[2017-07-02 09:02] LABS: Basophils # (A) 0.1 k/uL (0-0.2); Basophils % (A) 1 %; CH 30.2; CHCM 31.6; Eosinophils # (A) 0.6 k/uL (0-0.7); Eosinophils % (A) 9 %; HCT 36.4 % (34.0-46.0); HDW 2.08; Luc # (Auto) 0.15; Luc % (Auto) 2; Lymphocytes # (A) 2.4 k/uL (1.0-4.8); Lymphocytes % (A) 34 %; MCH 29.1 pg (25.0-35.0); MCHC 30.3 g/dL (31.0-37.0); Mean Platelet Volume 9.5; Monocytes # (A) 0.3 k/uL (0-1.0); Monocytes % (A) 4 %; Neutrophils # (A) 3.4 k/uL (1.3-7.7); Neutrophils % (A) 49 %; RBC 3.79 m/uL (3.80-5.40); RDW 13.6 % (11.5-15.5); WBC 6.9 k/uL (3.8-10.6); WBC (Perox) 7.25
--- NOTE | 2017-07-02 09:21 | P.PN ---
Subjective 72-year-old female seen and examined at bedside. Patient is sitting up on the edge of the bed. Patient continues to report a bloating sensation to the abdomen. Reports no nausea vomiting. Patient is aware of the plan scheduled today for GI service for ERCP this afternoon. Patients being followed by surgical service at the request of the attending for abdominal pain. CAT scan of the abdomen pelvis could not exclude ampullary mass. Imaging did suggest a possible pancreatic and ampullary mass GI service following clinical course Pavel has been on hold for the planned procedure for the last 48 hours Objective - Vital Signs Vital signs: Vital Signs Temp 97.3 F L 07/02/17 07:00 Pulse 72 07/02/17 07:00 Resp 14 07/02/17 07:00 BP 134/65 07/02/17 07:00 Pulse Ox 92 L 07/02/17 08:26 Intake & Output 07/01/17 07/02/17 07/02/17 18:59 06:59 18:59 Other: Voiding Method Bedside Commode # Voids 4 2 # Bowel Movements 1 2 - Exam Physical exam 72-year-old female sitting up on the edge of the bed pleasant cooperative oriented 3 Lungs diminished at the bases otherwise adequate air movement. On 2 L narrative for cannula sats 95% no cough noted Heart S1-S2 audible and regular Abdomen continues to report having mild tenderness to the right upper quadrant with a bloating sensation no vomiting reports no nausea. No bowel movement urinating no difficulty Extremities no evidence of edema to the bilateral lower extremity - Labs CBC & Chem 7: 07/02/17 08:02 07/01/17 07:28 Labs: Abnormal Lab Results - Last 24 Hours (Table) 07/01/17 07/01/17 07/01/17 Range/Units 11:38 17:09 20:58 RBC (3.80-5.40) m/uL Hgb (11.4-16.0) gm/dL MCHC (31.0-37.0) g/dL POC Glucose (mg/dL) 363 H 252 H 115 H (75-99) mg/dL 07/02/17 07/02/17 Range/Units 07:22 08:02 RBC 3.79 L (3.80-5.40) m/uL Hgb 11.0 L (11.4-16.0) gm/dL MCHC 30.3 L (31.0-37.0) g/dL POC Glucose (mg/dL) 133 H (75-99) mg/dL Microbiology - Last 24 Hours (Table) 06/27/17 15:01 Blood Culture - Preliminary Blood No Growth after 96 hours Assessment and Plan Plan: Impression Present on admission acute onset right upper quadrant pain nausea Present on admission febrile leukocytosis tachycardic meet SIRS criteria sepsis suspect due to UTI Type 2 diabetes non-insulin hemoglobin A1c 8.7 uncontrolled COPD with no evidence of an exacerbation Mildly elevated liver enzymes Ultrasound gallbladder 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 Kiara Sainz nurse practitioner acting as scribe for signing physician.
[2017-07-02 10:21] LABS: ALT 78 U/L (9-52); AST 26 U/L (14-36); Alkaline Phosphatase 110 U/L (38-126); Anion Gap 8 mmol/L; Blood Urea Nitrogen 18 mg/dL (7-17); Calcium 9.5 mg/dL (8.4-10.2); Carbon Dioxide 32 mmol/L (22-30); Chloride 101 mmol/L (98-107); Glucose 139 mg/dL (74-99); Non-African American GFR(MDRD) >60 (>60 ml/min/1.73 sqM); Potassium 4.5 mmol/L (3.5-5.1); Sodium 141 mmol/L (137-145); Total Bilirubin 0.2 mg/dL (0.2-1.3); Total Protein 6.1 g/dL (6.3-8.2)
[2017-07-02 12:38] LABS: Glucose,Whole Blood 294 mg/dL (75-99)
[2017-07-02] MEDS ORDERED: IV FLUID CONTINUATION 1,000 ML IV ONE (14:15)
[2017-07-02] MEDS ORDERED: GLUCAGON 1 MG/ML VIAL ONE (14:25)
[2017-07-02] MEDS ORDERED: PROPOFOL 10 MG/ML 20 ML VIAL IV ONE (14:25)
[2017-07-02] MEDS ORDERED: IOHEXOL 300 MG/ML 50 ML BOTTLE MISCELLANE ONE (14:53)
--- NOTE | 2017-07-02 15:14 | P.DS ---
Providers Date of admission: 06/27/17 16:17 Attending physician: Michele Kothari Consults: 06/29/17 08:47 Consult Physician Urgent Consulting Provider: Kay Mccarty Consult Reason/Comments: pancreatic mass Do you want consulting provider notified?: Yes 06/29/17 15:01 Consult Physician Urgent Consulting Provider: Kinsey Casillas Consult Reason/Comments: poss ercp Do you want consulting provider notified?: Yes Primary care physician: Michele Kothari Hospital Course: Patient was admitted with sepsis with probable to have urinary tract infection within the primary disorder and patient was a Zosyn all although cultures are negative including urine cultures. Patient also at that time had abdominal pain because of which patient underwent workup for cholecystitis patient was evaluated by surgery and they do not believe patient has cholecystitis although there was a lesion in the pancreatic head because of which are pancreatic MRI was done which did not reveal any cancerous lesions although patient is undergoing ERCP today to rule out cholangiocarcinoma, patient does have elevated CA-19-9 patient had almost a days of antibiotics for her sepsis with no clear-cut source because of which I'm discontinued antibiotics and patient will be discharged after the ERCP procedure. PHYSICAL EXAMINATION: GENERAL: The patient is alert and oriented x3, not in any acute distress. Well developed, well nourished. HEENT: Pupils are round and equally reacting to light. EOMI. No scleral icterus. No conjunctival pallor. Normocephalic, atraumatic. No pharyngeal erythema. No thyromegaly. CARDIOVASCULAR: S1 and S2 present. No murmurs, rubs, or gallops. PULMONARY: Chest is clear to auscultation, no wheezing or crackles. ABDOMEN: Soft, nontender, nondistended, normoactive bowel sounds. No palpable organomegaly. MUSCULOSKELETAL: No joint swelling or deformity. EXTREMITIES: No cyanosis, clubbing, or pedal edema. NEUROLOGICAL: Gross neurological examination did not reveal any focal deficits. SKIN: No rashes. Sepsis, no clear-cut source Elevated liver enzymes, improved History of atrial fibrillation rate controlled COPD stable Type 2 diabetes Hyperlipidemia Hypertension Patient Condition at Discharge: Stable Plan - Discharge Summary New Discharge Prescriptions: Continue Rivaroxaban [Xarelto] 20 mg PO DAILY metFORMIN HCL 1,000 mg PO BID Levothyroxine Sodium [Synthroid] 125 mcg PO DAILY Sertraline [Zoloft] 25 mg PO DAILY HYDROcodone/APAP 7.5-325MG [[place] 7.5-325] 1 tab PO TID PRN PRN Reason: Pain Furosemide [Lasix] 20 mg PO DAILY Diltiazem HCl [Diltiazem 24Hr ER] 180 mg PO DAILY Pravastatin Sodium [Pravachol] 20 mg PO DAILY Insulin Aspart Protam & Aspart [NovoLOG MIX 70-30 Flexpen] See Protocol SQ AC -BID Changed Insulin Glargine [Lantus] 50 unit SQ HS #0 Discontinued Lisinopril [Zestril] 10 mg PO DAILY Nitrofurantoin Monohyd/M-Cryst [Macrobid] 100 mg PO Q12HR Discharge Medication List Levothyroxine Sodium [Synthroid] 125 mcg PO DAILY 11/16/14 [History] Rivaroxaban [Xarelto] 20 mg PO DAILY 11/16/14 [History] Sertraline [Zoloft] 25 mg PO DAILY 11/16/14 [History] metFORMIN HCL 1,000 mg PO BID 11/16/14 [History] Furosemide [Lasix] 20 mg PO DAILY 01/27/16 [History] HYDROcodone/APAP 7.5-325MG [[place] 7.5-325] 1 tab PO TID PRN 01/27/16 [History] Diltiazem HCl [Diltiazem 24Hr ER] 180 mg PO DAILY 08/07/16 [History] Pravastatin Sodium [Pravachol] 20 mg PO DAILY 08/07/16 [History] Insulin Aspart Protam & Aspart [NovoLOG MIX 70-30 Flexpen] See Protocol SQ AC- BID 06/27/17 [History] Insulin Glargine [Lantus] 50 unit SQ HS #0 07/02/17 [Rx] Follow up Appointment(s)/Referral(s): Michele Kothari MD [Primary Care Provider] - 3 Days
--- NOTE | 2017-07-02 15:26 | FL ---
EXAMINATION TYPE: FL ERCP DATE OF EXAM: 07/02/2017 CLINICAL HISTORY: Biliary dilatation. TECHNIQUE: Fluoroscopy. COMPARISON: MRI/MRCP from [address] abdomen and pelvis from 3 days ago. FINDINGS: Fluoroscopic guidance was provided during procedure performed by Dr. Sharp. A total of 1 m inute 2 seconds of fluoroscopic time was utilized during the procedure and 5 spot images are acquired . Please refer to procedure note for further details as I was not present nor performed procedure. IMPRESSION: As Above.
--- NOTE | 2017-07-02 15:31 | P.PCN ---
Date of Procedure: 07/02/17 Procedure(s) Performed: Procedure: Endoscopic retrograde cholangiopancreatography ERCP Preoperative diagnosis: Abdominal pain and abnormal CT of the abdomen. Postoperative diagnosis: 1. Normal papilla. 2. Pancreatic duct and common bile duct and biliary tree appeared slightly dilated under fluoroscopy but there was no obvious strictures or encasement or filling defects. 3. Study somewhat limited secondary to excessive amount of dye in the duodenum. Preparation sedation: Was provided by anesthesia. Brief clinical history: The patient is a 72-year-old female with a past medical history of chronic atrial fibrillation on Xarelto maintenance, COPD O2 dependent 2 L for several years, hypertension, hyperlipidemia, diabetes mellitus , chronic constipation. She was admitted with acute onset of diffuse abdominal pain radiating from midchest down to the lower abdomen combined with nausea vomiting that started Wednesday. Denies hematemesis, hematochezia or melena. No weight loss. Febrile T-max 101.2. Preliminary blood cultures no growth. Preliminary urine culture no growth. Ultrasound of abdomen questioned 2.6 cm pancreatic mass with dilated pancreatic duct. Gallbladder appeared somewhat distended with mild intrahepatic biliary dilatation. CT abdomen pelvis mild to moderate extrahepatic biliary dilatation without suspicious intrahepatic biliary dilatation measuring 10-11 mm. Abrupt cutoff of common bile duct near duodenal ampulla. Adjacent duodenal sweep not fluid-filled suboptimally evaluated. No mass clearly seen. Pancreas appears normal in size without mention of mass. Pancreatic duct not suspiciously dilated. MRCP was then done and that did not show any suspicious masses. No history of hepatobiliary disorders. No history pancreatitis. No history of alcoholism. No history of hepatitis. White count 7.6-12.6. Hemoglobin 11.3-12.2. Platelet 214. Total bilirubin 0.3-0.4. AST 26-75. ALT 31-126. Alkaline phosphatase 86-121. Lipase 103. CA-19-9 95.9. Additionally she reports chronic constipation for several years duration averages a bowel movement weekly. Last colonoscopy was in [place] about 9 years ago with findings of hemorrhoids no polyps. Other details are summarized in the history and physical and dictated consult and progress notes. This evaluation is to assess for possible ampullary mass. Procedure: With the patient in the prone position and after informed consent and adequate sedation, I passed the Olympus video duodenoscope down the esophagus into the stomach then passed it through the pylorus into the duodenum and brought the papilla into view. The papilla appeared normal. Initial cannulation and injection with dye resulted in opacification of the pancreatic duct that appeared slightly dilated. There was reflux of dye into the duodenum as I was injecting the pancreatic duct that has unfortunately made the rest of the examination somewhat limited by the presence of dye in the duodenum. Further attempts at injection resulted in opacification of the biliary tree. Under fluoroscopy the common bile duct and biliary tree appeared slightly dilated as well but there was no strictures, encasement or filling defects. The patient tolerated the procedure well. Plan: The patient was reassured that that discussed with her family. Will continue to monitor her progress and consideration can be given for repeating any of the imaging studies above or consider endoscopic ultrasound in 6 weeks or so if she remains symptomatic. I would keep you updated on her progress.
[2017-07-02 15:38] VITALS: BP 139/70; PULSE 103; RESP 16; TEMP 97.5
[2017-07-02 17:26] LABS: Glucose,Whole Blood 317 mg/dL (75-99)
[2017-07-02] MEDS ORDERED: FAMOTIDINE 20 MG/2 ML VIAL IV SCH (21:00)
== END 2017-07-02 19:10 | disposition home or self-care (01) | DRG 872 ==
LOC: EC 12:55 → 4MS4W 16:17
PROVIDERS: ADMIT Family Medicine; ATTEND Family Medicine
PROC: 0FJD8ZZ Inspection of Pancreatic Duct, Via Natural or Artificial Opening Endoscopic (ICD-10-PCS; 2017-07-02)
PROC: 0FJB8ZZ Inspection of Hepatobiliary Duct, Via Natural or Artificial Opening Endoscopic (ICD-10-PCS; principal; 2017-07-02 14:00)
DX: A41.9 Sepsis, unspecified organism (principal); J96.11 Chronic respiratory failure with hypoxia; N39.0 Urinary tract infection, site not specified; E11.65 Type 2 diabetes mellitus with hyperglycemia; I48.0 Paroxysmal atrial fibrillation; K86.89 Other specified diseases of pancreas; Z99.81 Dependence on supplemental oxygen; I48.2 Chronic atrial fibrillation; J44.9 Chronic obstructive pulmonary disease, unspecified; I10 Essential (primary) hypertension; E78.5 Hyperlipidemia, unspecified; K59.09 Other constipation; K64.9 Unspecified hemorrhoids; G89.29 Other chronic pain; M51.36 Other intervertebral disc degeneration, lumbar region; Z79.01 Long term (current) use of anticoagulants; Z79.4 Long term (current) use of insulin; Z79.899 Other long term (current) drug therapy; Z88.1 Allergy status to other antibiotic agents; Z88.5 Allergy status to narcotic agent; Z88.8 Allergy status to other drugs, medicaments and biological substances; Z87.440 Personal history of urinary (tract) infections; Z87.891 Personal history of nicotine dependence; Z86.14 Personal history of Methicillin resistant Staphylococcus aureus infection
CPT/HCPCS: 36415; 43260; 71260; 74177; 74183; 74330; 76705; 80053; 80074; 81001; 82150; 82378; 83036; 83605; 83690; 85025; 85610; 86301; 87040; 87086; 94760; 96361; 96365; 96366; 96375; 99284

== ENCOUNTER 2017-11-11 13:30 | Inpatient (IN) | payer MEDICARE, OTHER ==
[2017-11-11] MEDS: SODIUM CHLORIDE 0.9% 1,000 ML IV STA ×3 (14:15→17:53)
[2017-11-11 15:17] LABS: Basophils % (A) 0 %; Eosinophils # (A) 0.1 k/uL (0-0.7); Eosinophils % (A) 0 %; HCT 42.3 % (34.0-46.0); HGB 12.2 gm/dL (11.4-16.0); Hypochromasia Marked; Lymphocytes # (A) 0.9 k/uL (1.0-4.8); Lymphocytes % (A) 3 %; MCH 29.1 pg (25.0-35.0); MCHC 28.9 g/dL (31.0-37.0); Macrocytosis Slight; Mean Platelet Volume 9.4; Monocytes # (A) 0.5 k/uL (0-1.0); Monocytes % (A) 2 %; Neutrophils # (A) 24.3 k/uL (1.3-7.7); Neutrophils % (A) 94 %; Platelet Count 244 k/uL (150-450); RDW 13.9 % (11.5-15.5)
[2017-11-11 15:21] LABS: Appearance,Urine Clear (Clear); Bacteria,Urine Many /hpf; Bilirubin,Urine Negative (Negative); Blood,Urine Trace (Negative); Color,Urine Yellow; Glucose,Urine (UA) 4+ (Negative); Hyaline Casts,Urine 4 /lpf (0-2); Ketones,Urine Negative (Negative); Leukocyte Esterase,Urine Negative (Negative); Mucus,Urine Rare /hpf; Nitrite,Urine Negative (Negative); Protein,Urine Trace (Negative); RBC,Urine 12 /hpf (0-5); Specific Gravity,Urine 1.005 (1.001-1.035); Squamous Epithelial Cell,Urine 1 /hpf (0-4); Urobilinogen,Urine <2.0 mg/dL (<2.0); WBC,Urine 2 /hpf (0-5)
[2017-11-11 15:24] LABS: INR 1.4 (<1.2); Partial Thromboplastin Time 27.6 sec (22.0-30.0)
[2017-11-11 15:25] LABS: MCV 100.6 fL (80.0-100.0)
[2017-11-11 15:26] LABS: WBC 25.8 k/uL (3.8-10.6)
[2017-11-11 15:32] LABS: ALT 21 U/L (9-52); AST 19 U/L (14-36); Albumin 3.7 g/dL (3.5-5.0); Alkaline Phosphatase 102 U/L (38-126); Anion Gap 13 mmol/L; Blood Urea Nitrogen 16 mg/dL (7-17); Calcium 9.4 mg/dL (8.4-10.2); Carbon Dioxide 29 mmol/L (22-30); Chloride 102 mmol/L (98-107); Glucose 255 mg/dL (74-99); Potassium 3.6 mmol/L (3.5-5.1); Sodium 144 mmol/L (137-145); Total Bilirubin 0.4 mg/dL (0.2-1.3); Total Protein 6.5 g/dL (6.3-8.2)
[2017-11-11] MEDS ORDERED: PIPERACILLIN-TAZOBACTAM 3.375 GM in DEXTROSE/WATER 1 50ML.BAG IVPB STA (15:32)
--- NOTE | 2017-11-11 15:32 | ED ---
Syncope HPI - General Chief Complaint: Syncope Stated Complaint: Hypotensive Time Seen by Provider: 11/11/17 13:43 Source: patient, family, EMS Mode of arrival: EMS Limitations: no limitations - History of Present Illness Initial Comments: 72 years old female came in with the syncope episode she was in the bathroom and she passed out she said she had a cramps in her abdomen she had several episodes of diarrhea she denies any blood in the stool and said she did eat her breakfast this morning and sugar was on the high side was at 20 hydrated now she feels better but she still is still feels quite weak. Denies any fall from the passing out she denies any headaches no problem with vision no chest pain or shortness of breath abdominal cramps has gotten better since she had a bowel movement no frequency urgency dysuria no symptoms of TIA or CVA - Related Data Home Medications Medication Instructions Recorded Confirmed Levothyroxine Sodium [Synthroid] 125 mcg PO DAILY 11/16/14 11/11/17 Rivaroxaban [Xarelto] 20 mg PO DAILY 11/16/14 11/11/17 Sertraline [Zoloft] 25 mg PO DAILY 11/16/14 11/11/17 metFORMIN HCL 1,000 mg PO BID 11/16/14 11/11/17 Furosemide [Lasix] 20 mg PO DAILY 01/27/16 11/11/17 Diltiazem HCl [Diltiazem 24Hr ER] 180 mg PO DAILY 08/07/16 11/11/17 Pravastatin Sodium [Pravachol] 20 mg PO DAILY 08/07/16 11/11/17 Insulin Aspart Protam & Aspart 30 unit SQ BID 06/27/17 11/11/17 [NovoLOG MIX 70-30 Flexpen] Lisinopril [Zestril] 10 mg PO DAILY 07/22/17 11/11/17 Cranberry 4200mg 4,200 mg PO DAILY 08/15/17 11/11/17 HYDROcodone/APAP 7.5-325MG [[place] 1 tab PO TID PRN 09/22/17 11/11/17 7.5-325] Ipratropium-Albuterol Nebulize 3 ml INHALATION RT-QID PRN 11/11/17 11/11/17 [Duoneb 0.5 mg-3 mg/3 ml Soln] Previous Rx's Medication Instructions Recorded Budesonide-Formot 160-4.5 Mcg 2 puff INHALATION RT-BID #1 09/30/17 [Symbicort 160-4.5 Mcg Inhaler] Allergies Allergy/AdvReac Type Severity Reaction Status Date / Time ceftaroline fosamil Allergy Intermediate Rash/Hives Verified 11/11/17 14:16 codeine Allergy Itching Verified 11/11/17 14:16 levofloxacin [From Levaquin] Allergy Rash/Hives Verified 11/11/17 14:16 tramadol Allergy Itching Verified 11/11/17 14:16 Review of Systems ROS Statement: Those systems with pertinent positive or pertinent negative responses have been documented in the HPI. ROS Other: All systems not noted in ROS Statement are negative. Past Medical History Past Medical History: Atrial Fibrillation, COPD, Diabetes Mellitus, Hyperlipidemia, Hypertension, Skin Disorder Additional Past Medical History / Comment(s): Pt recently admitted to [facility] on with sepsis thought 2ndary to possible colitis. Other HX: Severe COPD , chronic hypoxic respiratory failure,home O2 at 2L/NC ATC, chronic atrial fibrillation maintained on Xarelto, lumbar disc disease and chronic back pain, chronic and recurrent urine tract infections/sepsis, diabetes mellitus type II, chronic constipation, previous L heel wound with osteomylitis in 2014 (pt states currently covered with callus, decubitus ulcer now healed, hypothyroid. History of Any Multi-Drug Resistant Organisms: ESBL, MRSA Date of last positivie culture/infection: 07/02/15-MRSA; 12/18/14 ESBL-E. coli MDRO Source:: Sputum-MRSA; Urine-ESBL Past Surgical History: Hysterectomy, Orthopedic Surgery, Tonsillectomy Additional Past Surgical History / Comment(s): Bilateral cataract removals/lens implants on 11/12/14. Lumbar disc surgery, repair of left hip -screws in place, decubitus I&D, colonoscopy. Past Anesthesia/Blood Transfusion Reactions: No Reported Reaction Past Psychological History: No Psychological Hx Reported Smoking Status: Former smoker Past Alcohol Use History: None Reported Past Drug Use History: None Reported - Past Family History Father Family Medical History: Unable to Obtain Additional Family Medical History / Comment(s): Pt never knew her father. He in WWII when she was very young. Mother Family Medical History: No Reported History Brother(s) Family Medical History: Cancer Additional Family Medical History / Comment(s): Pt has 4 brothers and one has testicular cancer. General Exam - General Exam Comments Initial Comments: General: The patient is awake and alert, no obvious distress but does look pale and diaphoretic Skin: Skin is warm and dry and no rashes or lesions are noted. Eye: Pupils are equal, round and reactive to light, extra-ocular movements are intact; there is normal conjunctiva bilaterally. Ears, nose, mouth and throat: There are moist mucous membranes and no oral lesions. Neck: The neck is supple, there is no tenderness or JVD. Cardiovascular: There is a regular rate and rhythm. No murmur, rub or gallop is appreciated. Respiratory: To auscultation bilateral, no wheezing no rhonchi no distress respiratory abdalla noticed Gastrointestinal: Soft, non-distended, non-tender abdomen without masses or organomegaly noted. There is no rebound or guarding present. Bowel sounds are unremarkable. Back: There is no tenderness to palpation in the midline. There is no obvious deformity. Musculoskeletal: Normal ROM, no tenderness, There is no pedal edema. There is no calf tenderness or swelling. No cords were appreciated. Neurological: CN II-XII intact, Cranial nerves III through XII are intact. There are no obvious motor or sensory deficits. Coordination appears grossly intact. Speech is normal. Psychiatric: Cooperative, appropriate mood & affect, normal judgment. Limitations: no limitations Course Vital Signs 11/11/17 13:36 Temperature 98.3 F Pulse Rate 107 H Respiratory 20 Rate Blood Pressure 135/51 O2 Sat by Pulse [address] abdomen and pelvis was reviewed at 1720, there was a question of gallbladder dysfunction will consult Dr. morton him a there was no colitis or any any other obvious infectious etiology - Reevaluation(s) Reevaluation #1: At term 1616 she called me and informed me that her belly pain is worse now and she had done a couple of bowel movements right before this episode, C. diff report is not back yet there was no blood in his stool and concerned about ischemic bowel disease or colitis considering that CT abdomen and pelvis is ordered, white count is quite elevated polyarteritis other sepsis or infectious process. Chest x-ray also pointed out some intensity on the right side of the lung which wasn't present before but not sure whether is a infectious process though she is on a broad-spectrum antibiotic 11/11/17 16:16 11/11/17 17:07 Patient is reassessed at [address] abdomen and pelvis report is pending will go ahead and now admit patient to Dr. Prince's service service and be consulted if indicated based on the CT abdomen report EKG Findings - EKG Comments: EKG Findings:: KG is normal sinus rhythm ventricular rate is 99 AL interval is 174 QRS duration is 124 QT/QTc is 414/4 3150 mL EKG does not reveal any ST elevation or ST depression noticed poor progression of the R wave in V2 and V3 Medical Decision Making - Lab Data Result diagrams: 11/11/17 14:57 11/11/17 14:57 Lab Results 11/11/17 11/11/17 11/11/17 Range/Units 14:57 14:57 14:57 WBC 25.8 H* (3.8-10.6) k/uL RBC 4.20 (3.80-5.40) m/uL Hgb 12.2 (11.4-16.0) gm/dL Hct 42.3 (34.0-46.0) % MCV 100.6 H D (80.0-100.0) fL MCH 29.1 (25.0-35.0) pg MCHC 28.9 L (31.0-37.0) g/dL RDW 13.9 (11.5-15.5) % Plt Count 244 (150-450) k/uL Neutrophils % 94 % Lymphocytes % 3 % Monocytes % 2 % Eosinophils % 0 % Basophils % 0 % Neutrophils # 24.3 H (1.3-7.7) k/uL Lymphocytes # 0.9 L (1.0-4.8) k/uL Monocytes # 0.5 (0-1.0) k/uL Eosinophils # 0.1 (0-0.7) k/uL Basophils # 0.0 (0-0.2) k/uL Hypochromasia Marked Macrocytosis Slight PT 13.0 H (9.0-12.0) sec INR 1.4 H (<1.2) APTT 27.6 (22.0-30.0) sec Sodium 144 (137-145) mmol/L Potassium 3.6 (3.5-5.1) mmol/L Chloride 102 (98-107) mmol/L Carbon Dioxide 29 (22-30) mmol/L Anion Gap 13 mmol/L BUN 16 (7-17) mg/dL Creatinine 0.77 (0.52-1.04) mg/dL Est GFR (MDRD) Af Amer >60 (>60 ml/min/1.73 sqM) Est GFR (MDRD) Non-Af >60 (>60 ml/min/1.73 sqM) Glucose 255 H (74-99) mg/dL Plasma Lactic Acid [place]andon (0.7-2.0) mmol/L Calcium 9.4 (8.4-10.2) mg/dL Total Bilirubin 0.4 (0.2-1.3) mg/dL AST 19 (14-36) U/L ALT 21 (9-52) U/L Alkaline Phosphatase 102 (38-126) U/L Total Creatine Kinase (30-135) U/L CK-MB (CK-2) (0.0-2.4) ng/mL CK-MB (CK-2) Rel Index Troponin I (0.000-0.034) ng/mL Total Protein 6.5 (6.3-8.2) g/dL Albumin 3.7 (3.5-5.0) g/dL Urine Color Urine Appearance (Clear) Urine pH (5.0-8.0) Ur Specific [place] (1.001-1.035) Urine Protein (Negative) Urine Glucose (UA) (Negative) Urine Ketones (Negative) Urine Blood (Negative) Urine Nitrite (Negative) Urine Bilirubin (Negative) Urine Urobilinogen (<2.0) mg/dL Ur Leukocyte Esterase (Negative) Urine RBC (0-5) /hpf Urine WBC (0-5) /hpf Ur Squamous Epith Cells (0-4) /hpf Urine Bacteria (None) /hpf Hyaline Casts (0-2) /lpf Urine Mucus (None) /hpf C. difficile (EIA) Intrp (Negative) 11/11/17 11/11/17 11/11/17 Range/Units 15:04 15:10 15:11 WBC (3.8-10.6) k/uL RBC (3.80-5.40) m/uL Hgb (11.4-16.0) gm/dL Hct (34.0-46.0) % MCV (80.0-100.0) fL MCH (25.0-35.0) pg MCHC (31.0-37.0) g/dL RDW (11.5-15.5) % Plt Count (150-450) k/uL Neutrophils % % Lymphocytes % % Monocytes % % Eosinophils % % Basophils % % Neutrophils # (1.3-7.7) k/uL Lymphocytes # (1.0-4.8) k/uL Monocytes # (0-1.0) k/uL Eosinophils # (0-0.7) k/uL Basophils # (0-0.2) k/uL Hypochromasia Macrocytosis PT (9.0-12.0) sec INR (<1.2) APTT (22.0-30.0) sec Sodium (137-145) mmol/L Potassium (3.5-5.1) mmol/L Chloride (98-107) mmol/L Carbon Dioxide (22-30) mmol/L Anion Gap mmol/L BUN (7-17) mg/dL Creatinine (0.52-1.04) mg/dL Est GFR (MDRD) Af Amer (>60 ml/min/1.73 sqM) Est GFR (MDRD) Non-Af (>60 ml/min/1.73 sqM) Glucose (74-99) mg/dL Plasma Lactic Acid Landon (0.7-2.0) mmol/L Calcium (8.4-10.2) mg/dL Total Bilirubin (0.2-1.3) mg/dL AST (14-36) U/L ALT (9-52) U/L Alkaline Phosphatase (38-126) U/L Total Creatine Kinase 33 (30-135) U/L CK-MB (CK-2) 0.8 (0.0-2.4) ng/mL CK-MB (CK-2) Rel Index 2.4 Troponin I <0.012 (0.000-0.034) ng/mL Total Protein (6.3-8.2) g/dL Albumin (3.5-5.0) g/dL Urine Color Yellow Urine Appearance Clear (Clear) Urine pH 5.0 (5.0-8.0) Ur Specific [place] 1.005 (1.001-1.035) Urine Protein Trace H (Negative) Urine Glucose (UA) 4+ H (Negative) Urine Ketones Negative (Negative) Urine Blood Trace H (Negative) Urine Nitrite Negative (Negative) Urine Bilirubin Negative (Negative) Urine Urobilinogen <2.0 (<2.0) mg/dL Ur Leukocyte Esterase Negative (Negative) Urine RBC 12 H (0-5) /hpf Urine WBC 2 (0-5) /hpf Ur Squamous Epith Cells 1 (0-4) /hpf Urine Bacteria Many H (None) /hpf Hyaline Casts 4 H (0-2) /lpf Urine Mucus Rare H (None) /hpf C. difficile (EIA) Intrp Negative (Negative) 11/11/17 Range/Units 15:11 WBC (3.8-10.6) k/uL RBC (3.80-5.40) m/uL Hgb (11.4-16.0) gm/dL Hct (34.0-46.0) % MCV (80.0-100.0) fL MCH (25.0-35.0) pg MCHC (31.0-37.0) g/dL RDW (11.5-15.5) % Plt Count (150-450) k/uL Neutrophils % % Lymphocytes % % Monocytes % % Eosinophils % % Basophils % % Neutrophils # (1.3-7.7) k/uL Lymphocytes # (1.0-4.8) k/uL Monocytes # (0-1.0) k/uL Eosinophils # (0-0.7) k/uL Basophils # (0-0.2) k/uL Hypochromasia Macrocytosis PT (9.0-12.0) sec INR (<1.2) APTT (22.0-30.0) sec Sodium (137-145) mmol/L Potassium (3.5-5.1) mmol/L Chloride (98-107) mmol/L Carbon Dioxide (22-30) mmol/L Anion Gap mmol/L BUN (7-17) mg/dL Creatinine (0.52-1.04) mg/dL Est GFR (MDRD) Af Amer (>60 ml/min/1.73 sqM) Est GFR (MDRD) Non-Af (>60 ml/min/1.73 sqM) Glucose (74-99) mg/dL Plasma Lactic Acid Landon 3.5 H* (0.7-2.0) mmol/L Calcium (8.4-10.2) mg/dL Total Bilirubin (0.2-1.3) mg/dL AST (14-36) U/L ALT (9-52) U/L Alkaline Phosphatase (38-126) U/L Total Creatine Kinase (30-135) U/L CK-MB (CK-2) (0.0-2.4) ng/mL CK-MB (CK-2) Rel Index Troponin I (0.000-0.034) ng/mL Total Protein (6.3-8.2) g/dL Albumin (3.5-5.0) g/dL Urine Color Urine Appearance (Clear) Urine pH (5.0-8.0) Ur Specific [place] (1.001-1.035) Urine Protein (Negative) Urine Glucose (UA) (Negative) Urine Ketones (Negative) Urine Blood (Negative) Urine Nitrite (Negative) Urine Bilirubin (Negative) Urine Urobilinogen (<2.0) mg/dL Ur Leukocyte Esterase (Negative) Urine RBC (0-5) /hpf Urine WBC (0-5) /hpf Ur Squamous Epith Cells (0-4) /hpf Urine Bacteria (None) /hpf Hyaline Casts (0-2) /lpf Urine Mucus (None) /hpf C. difficile (EIA) Intrp (Negative) Disposition Clinical Impression: Syncope, Sepsis, Leukocytosis, Abdominal pain Disposition: ADMITTED IP TO THIS [facility] Condition: Fair Referrals: Michele Kothari MD [Primary Care Provider] - 1-2 days
[2017-11-11 15:39] LABS: Creatine Kinase 33 U/L (30-135)
[2017-11-11 15:50] LABS: Creatine Kinase MB 0.8 ng/mL (0.0-2.4); Troponin I <0.012 ng/mL (0.000-0.034)
--- NOTE | 2017-11-11 16:07 | CT ---
EXAMINATION TYPE: CT brain wo con DATE OF EXAM: 11/11/2017 COMPARISON: NONE HISTORY: NEAR SYNCOPE. CT DLP: 1156 mGycm Automated exposure control for dose reduction was used. FINDINGS: Moderate generalized degenerative change. Periventricular hypoattenuation is nonspecific but most typ ical remote microvascular ischemia. No midline shift or mass effect. Dural based calcifications are n oted. Calvarium intact. Changes of chronic sinusitis. Intracranial atherosclerotic changes noted. IMPRESSION: 1. DEGENERATIVE AND NONSPECIFIC WHITE MATTER CHANGES. REMOTE MICROVASCULAR ISCHEMIA IN THE DIFFERENTI AL DIAGNOSIS. IF THERE IS CONCERN FOR ACUTE ISCHEMIA CORRELATE WITH MRI CLINICALLY WARRANTED. 2. CHRONIC SINUSITIS.
--- NOTE | 2017-11-11 16:09 | XR ---
EXAMINATION TYPE: XR chest 2V DATE OF EXAM: 11/11/2017 COMPARISON: 09/26/2017 TECHNIQUE: PA and lateral views submitted. HISTORY: Syncope FINDINGS: The lungs are clear and there is no pneumothorax, pleural effusion, or focal pneumonia. Diffuse hyp erinflation noted. Atherosclerotic change aorta. Diffuse osteopenia and arthropathy of the shoulders. Rounded density at the right lung base likely related to partial volume averaging. IMPRESSION: 1. Diffuse COPD. Rounded area of density at the right lung base likely related to partial volume aver aging or superimposed structures and was not present on the x-ray of 09/26/2017. Short-term follow-up exam could be obtained for confirmation.
[2017-11-11] MEDS ORDERED: RX INFO: IV CONTRAST WAS GIVEN 1 EACH MISC MISCELLANE PRN (16:15)
[2017-11-11] MEDS ORDERED: SODIUM CHLORIDE 0.9% 500 ML IV ONE (17:09)
[2017-11-11] MEDS ORDERED: ONDANSETRON 4 MG/2 ML VIAL IVP PRN (17:10)
[2017-11-11] MEDS ORDERED: HYDROmorphone 0.5 MG/0.5 ML SYRINGE IVP PRN (17:10)
[2017-11-11] MEDS ORDERED: ACETAMINOPHEN TAB 325 MG TAB PO PRN (17:10)
[2017-11-11] MEDS ORDERED: NALOXONE 0.4 MG/ML 1 ML VIAL IV PRN (17:10)
--- NOTE | 2017-11-11 17:16 | CT ---
EXAMINATION TYPE: CT abdomen pelvis w con DATE OF EXAM: 11/11/2017 COMPARISON: 08/16/2017 HISTORY: Hypotensive and diarrhea. CT DLP: 827.4 mGycm Automated exposure control for dose reduction was used. TECHNIQUE: Helical acquisition of images was performed from the lung bases through the pelvis. CONTRAST: Performed without Oral Contrast and with IV Contrast, patient injected with 100 mL of Omnipaque 300. FINDINGS: Lung bases are clear. There is no pleural effusion. Heart size is normal. There is a small hiatal hernia. Liver and spleen appear normal. The common bile duct measures up to 1.2 cm. The intrahepatic bile jethro ts are not dilated. Gallbladder appears normal. There is no sign of pancreatic mass. Abdominal aorta is atheromatous. There is no adrenal mass. Kidneys show satisfactory contrast opacification. There is no hydronephrosi s. There is a 4 mm calcification in the lower pole left kidney. There is no hydronephrosis. There is no retroperitoneal adenopathy. There is extensive atheromatous change in the iliac arteries. There is probably bilateral iliac artery stenosis. There is moderate spondylotic changes in the lumbar spine. There is old posterior fusion surgery at L5-S1. There is a left hip pinning. The bladder distends smoothly. There is no ascites. I see no sign of a b owel obstruction. Fecal pattern appears fairly normal. Appendix is not seen. I see no sign of appendi citis. There is mild relative spinal stenosis at L2-3 and L3-4. There is a 2 mm anterior subluxation of L4 in relation L5. IMPRESSION: SPONDYLOTIC CHANGES IN THE LUMBAR SPINE. 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 NONOB STRUCTING LEFT RENAL CALCULUS. EXTENSIVE ATHEROSCLEROTIC VASCULAR DISEASE AND PROBABLY SOME STENOSIS IN THE ILIAC ARTERIES. MILDLY ECTATIC COMMON BILE DUCT THAT APPEARS SLIGHTLY INCREASED COMPARED TO OLD CT SCAN. THIS RAISES THE POSSIBILITY OF GALLBLADDER DYSFUNCTION. I SEE NO COLONIC WALL THICKENING THAT IS SUGGESTED BY THE PREVIOUS EXAM.
[2017-11-11] MEDS ORDERED: IPRATROPIUM-ALBUTEROL 3 ML NEB INHALATION PRN (17:18)
[2017-11-11] MEDS: SODIUM CHLORIDE 0.9% 1,000 ML IV SCH (17:55)
[2017-11-11] MEDS: SYMBICORT 160-4.5 MCG INHALER INHALATION SCH (21:02)
[2017-11-11 21:43] VITALS: BMI 24.3
[2017-11-11 21:56] LABS: Glucose,Whole Blood 268 mg/dL (75-99)
[2017-11-11] MEDS: metFORMIN 500 MG TAB PO SCH (22:05)
[2017-11-11] MEDS: INSULN ASP PRT/INSULIN ASPART 100 UNIT/ML 10 ML VIAL SQ SCH (22:06)
[2017-11-12] MEDS: PIPERACILLIN-TAZOBACTAM 3.375 GM in DEXTROSE/WATER 1 50ML.BAG IVPB SCH ×3 (02:17→18:35)
[2017-11-12] MEDS: SODIUM CHLORIDE 0.9% 1,000 ML IV SCH ×2 (02:18→13:15)
[2017-11-12 06:02] LABS: Glucose,Whole Blood 109 mg/dL (75-99)
[2017-11-12] MEDS: LEVOTHYROXINE 125 MCG TAB PO SCH (06:23)
[2017-11-12] MEDS: SYMBICORT 160-4.5 MCG INHALER INHALATION SCH ×2 (08:59→15:22)
[2017-11-12] MEDS ORDERED: RIVAROXABAN 20 MG TAB PO SCH (09:00)
[2017-11-12] MEDS: DILTIAZEM CD 180 MG CAP.ER.24H PO SCH (10:29)
[2017-11-12] MEDS: LISINOPRIL 10 MG TAB PO SCH (10:29)
[2017-11-12] MEDS: metFORMIN 500 MG TAB PO SCH ×2 (10:29→22:06)
[2017-11-12] MEDS: PRAVASTATIN SODIUM 20 MG TAB PO SCH (10:29)
[2017-11-12] MEDS: SERTRALINE 25 MG TAB PO SCH (10:29)
[2017-11-12] MEDS: FUROSEMIDE 20 MG TAB PO SCH (10:29)
[2017-11-12 10:49] LABS: Glucose,Whole Blood 298 mg/dL (75-99)
[2017-11-12] MEDS: INSULN ASP PRT/INSULIN ASPART 100 UNIT/ML 10 ML VIAL SQ SCH ×2 (10:54→22:05)
[2017-11-12 11:39] LABS: Glucose,Whole Blood 304 mg/dL (75-99)
[2017-11-12] MEDS: RIVAROXABAN 10 MG TAB PO SCH (11:56)
[2017-11-12 13:55] LABS: Basophils # (A) 0.1 k/uL (0-0.2); Basophils % (A) 0 %; Eosinophils # (A) 0.3 k/uL (0-0.7); Eosinophils % (A) 2 %; HCT 34.9 % (34.0-46.0); HGB 10.4 gm/dL (11.4-16.0); Hypochromasia Slight; Lymphocytes # (A) 1.7 k/uL (1.0-4.8); Lymphocytes % (A) 12 %; MCH 28.8 pg (25.0-35.0); MCHC 29.9 g/dL (31.0-37.0); MCV 96.4 fL (80.0-100.0); Mean Platelet Volume 9.4; Monocytes # (A) 0.6 k/uL (0-1.0); Monocytes % (A) 4 %; Neutrophils # (A) 11.7 k/uL (1.3-7.7); Neutrophils % (A) 81 %; Platelet Count 235 k/uL (150-450); RBC 3.62 m/uL (3.80-5.40); RDW 13.8 % (11.5-15.5); WBC 14.6 k/uL (3.8-10.6)
[2017-11-12] MEDS ORDERED: HYDROmorphone 2 MG TAB PO PRN (13:55)
[2017-11-12 14:30] LABS: Anion Gap 8 mmol/L; Blood Urea Nitrogen 15 mg/dL (7-17); Carbon Dioxide 32 mmol/L (22-30); Chloride 98 mmol/L (98-107); Glucose 234 mg/dL (74-99); Potassium 3.9 mmol/L (3.5-5.1); Sodium 138 mmol/L (137-145)
--- NOTE | 2017-11-12 16:37 | HP ---
HISTORY AND PHYSICAL DATE OF SERVICE: 11/12/2017 CHIEF COMPLAINT: Syncopal episode. BRIEF HISTORY: This patient is 72-year-old female patient who presented to ED from home with a complaint of a syncopal episode. The patient syncopal episode which happened when patient was in the bathroom and she thinks that she passed out. The patient relates that she had some abdominal cramps while she was at home with several episodes of diarrhea without any blood in her stools. According to her, when she woke up in the morning she did have some breakfast. She checked her blood sugar that was over 200. The patient is also complaining of some abdominal pain and generalized weakness but she denies any chest pain, any shortness of breath. No dysuria, hematuria. PAST MEDICAL HISTORY: Significant for a history of atrial fibrillation, COPD, history of diabetes mellitus, hypertension, hyperlipidemia, history of chronic hypoxemic respiratory failure. Patient is on 2 L oxygen per nasal cannula at home. Lumbar disc disease with chronic back pain. PAST SURGICAL HISTORY: Significant for history of hysterectomy, tonsillectomy, bilateral cataract removal with lens implantation, lumbar disc surgery and also history of left hip surgery, history of colonoscopy in the past. SOCIAL HISTORY: Patient does have a longstanding history of smoking, but quit a long time ago. He has no history of alcohol or drug abuse. FAMILY HISTORY: Family history is significant for history of testicular cancer in brother. ALLERGIES: SHE IS ALLERGIC TO CEFTAROLINE FOSAMIL, CODEINE, LEVOFLOXACIN, AND TRAMADOL. MEDICATIONS: Patient is on: 1. Levothyroxine 125 mcg p.o. daily. 2. Xarelto 20 mg p.o. daily. 3. Zoloft 25 mg p.o. daily. 4. Metformin 1000 mg p.o. b.i.d. 5. Lasix 20 mg p.o. daily. 6. Diltiazem 180 mg p.o. daily. 7. Pravachol 20 mg p.o. daily. 8. Insulin aspart 30 units b.i.d. 9. Lisinopril 10 mg p.o. daily. 10.Cranberry 4200 mg p.o. daily. 11.Hydrocodone 7.5 mg p.o. t.i.d. p.r.n. 12.DuoNeb nebulizer treatments q.i.d. p.r.n. REVIEW OF SYSTEMS: The patient denies fever or chills. No unexplained weight loss. HEENT patient denies blurred vision or vision loss. No speech problems. No hearing loss. Respiratory system denies any shortness of breath or wheezing. Cardiovascular system: The patient denies any chest pain or palpitations. Does have history of atrial fibrillation. Gastrointestinal: as per HPI. Genitourinary system: Denies hematuria, dysuria. Neurological system: Patient does give history of feeling dizzy and lightheaded. No vision or speech changes. No weakness in extremities. Musculoskeletal patient moves all 4 extremities. Muscle strength is fair in all 4 extremities. Skin denies pigmentation or rashes. Hematological: Patient denies anemia, has no bleeding or coagulation disorders. Rest of 14-point review of system is unremarkable. PHYSICAL EXAMINATION: Constitutional: Patient is awake, alert, oriented x3. She is in no acute distress. Vital signs at the time of admission, temperature 98.3, pulse 77, respiration 20, blood pressure 135/51, O2 saturation 96%. HEENT: Atraumatic, normocephalic. Pupils equal and reactive to light. Extraocular movements intact. Buccal mucosa is fair. NECK: Supple. No goiter or lymphadenopathy. JVD is negative. No carotid bruit heard. Respiratory system: Lungs are clear to auscultate. No rales, rhonchi, or wheezes. Decreased breath sounds, but fair air entry. Cardiovascular system heart is irregularly irregular without any murmurs, gallops rhythm. ABDOMEN/GI. ABDOMEN is soft, nontender, nondistended. Bowel sounds positive. No guarding or rigidity. Back: There is no tenderness to palpation in the midline. Musculoskeletal: Patient has normal range of motion. No edema, clubbing or cyanosis. Pulses are palpable 2+. Neurological examination: Cranial nerves 2-12 are grossly intact. No gross motor or sensory deficit. Psychiatric examination: Patient is cooperative with appropriate affect and mood and with normal judgment. Skin is warm, dry with done and pigmentation. LABS: Done on admission white blood count of 25.8, hemoglobin 12.2, hematocrit 42.3, and platelet count of 244. Chemical profile sodium 144, potassium 3.6, chloride 103, bicarb 29, BUN 16, creatinine 0.7, glucose 255. PT 13, INR 1.4. Troponin is less than 0.012. UA is positive for glucose. Nitrites are negative, leukocyte esterase is negative. Urine does show many bacteria. C diff is negative. CT of the abdomen done on patient shows spondylitic changes in the spine with degenerative changes. Also shows mildly ectatic common bowel duct which slight increase in size compared to CT scan. The possibility of clot, gallbladder dysfunction. ASSESSMENT: 1. Sepsis based on elevated white blood count and tachycardia. 2. Possible urinary tract infection. 3. Marked leukocytosis possibly secondary to sepsis. 4. Near syncope. 5. Hyperglycemia without acidosis. 6. Abdominal pain, with a diarrhea, possible gastroenteritis. PLAN: 1. Admit the patient to regular medical floor pereira culture patient with the blood culture, urine cultures, sputum cultures. The patient was started on IV Zosyn in the ED for possible sepsis. We will consult Infectious Disease for further recommendations. Monitor CBC closely. Await the culture reports for further recommendations. 2. Hyperglycemia without acidosis possibly stress induced versus infection. The patient is started on IV antibiotics. Monitor. Will monitor Accu-Cheks with sliding scale. Adjust medications if blood sugars remain elevated. CT scan of the abdomen and it showed a slightly enlarged common bile duct, question of gallbladder disease. We will monitor patient closely and we will order ultrasound of the abdomen if remains symptomatic. Infectious disease has been consulted and will make recommendations on need for IV antibiotics. 3. The patient had a near-syncopal episode, according to patient is more like dizziness and weakness, possibly secondary to dehydration due to numerous episodes of diarrhea. We plan to hydrate the patient. Monitor electrolytes and renal function and the patient has not had any recent carotid ultrasound. Will proceed to do that. Monitor EKG. Monitor troponins. Thank you for the consultation. MMODL / IJN: [id number] /
[2017-11-12 16:58] LABS: Glucose,Whole Blood 201 mg/dL (75-99)
--- NOTE | 2017-11-12 19:34 | US ---
EXAMINATION TYPE: US carotid duplex BILAT DATE OF EXAM: 11/12/2017 COMPARISON: NONE CLINICAL HISTORY: near syncope. Patient states being dizzy yesterday, no hx of tia or stroke, htn EXAM MEASUREMENTS: RIGHT: Peak Systolic Velocity (PSV) cm/sec ----- Right CCA: 131.8 ----- Right ICA: 127.3 ----- Right ECA: 114.0 ICA/CCA ratio: 1.0 RIGHT: End Diastole cm/sec ----- Right CCA: 17.1 ----- Right ICA: 24.8 ----- Right ECA: 0.0 LEFT: Peak Systolic Velocity (PSV) cm/sec ----- Left CCA: 107.6 ----- Left ICA: 162.4 ----- Left ECA: 219.9 ICA/CCA ratio: 1.5 LEFT: End Diastole cm/sec ----- Left CCA: 12.3 ----- Left ICA: 23.0 ----- Left ECA: 0.0 VERTEBRALS (direction of flow): Right Vertebral: Antegrade Left Vertebral: Antegrade Rhythm: Normal Bilateral wall thickening. Plaque seen in bilateral bulbs extending into the ICA. Plaque seen right C CA. Elevated velocity seen in right mid CCA and distal CCA. Elevated velocity seen in left prox ICA , mid ICA, bulb and ECA. No significant stenosis. IMPRESSION: There is moderate bilateral plaque formation. There is antegrade flow in the vertebral a rteries. The images and measurements suggest 50-70% stenosis in both internal carotid arteries. Criteria for Assigning % of Stenosis / Diameter reduction (Estimation based on the indirect measurements of the internal carotid artery velocities (ICA PSV). 1. Normal (no stenosis)=ICA PSV < 125 cm/s: ratio < 2.0: ICA EDV<40 cm/s. 2. Less than 50% stenosis=ICA PSV < 125 cm/s: ratio < 2.0: ICA EDV<40 cm/s. 3. 50 to 69% stenosis=ICA PSV of 125 to 230 cm/s: ration 2.0 ? 4.0: ICA EDV 40-100 cm/s. 4. Greater than 70% stenosis to near occlusion= ICA PSV > 230 cm/s: ratio > 4.0: ICA EDV > 100 cm/s. 5. Near occlusion= ICA PSV velocities may be low or undetectable: variable ratio and ICA EDV. 6. Total occlusion=unable to detect flow.
--- NOTE | 2017-11-12 20:57 | CONS ---
CONSULTATION DATE OF SERVICE: 11/12/2017 REASON FOR CONSULTATION: Sepsis; unknown source. HISTORY OF PRESENT ILLNESS: The patient is a 72-year-old female who presented to the ER at [facility] with the chief complaint of a syncopal episode. The patient had passed out in the bathroom. The patient has been complaining of diarrhea, about 2 episodes since yesterday, with no blood or mucus in it, some crampy lower abdominal pain mostly , associated with crampy abdominal pain for the same duration of one day. Intensity is 5/10 and no radiation. Did have an episode of vomiting as well. The patient did not recall if she has any high-grade fever or chills. With these symptoms, the patient was brought into the ER via the EMS. The patient did have a brain CT which was negative for any acute bleed. The patient did have a CT of abdomen and pelvis which did not show any significant abnormality, especially in the colon wall; it did show degenerative changes in the spine, though. The patient did have a low-grade fever of 99.9 to 100. She had an elevated white count of 25,000. UA was not significantly positive. Stool for C difficile was negative. The patient has been started on Zosyn. ID was consulted for further recommendations regarding her antibiotic therapy. The patient did mention some burning of urine, though but no hematuria or any frequency; no suprapubic or flank pain. REVIEW OF SYSTEMS: CONSTITUTIONAL: Positive for weakness and chills. EYES: No complaint. ENT: No complaint. RESPIRATORY: No complaint. CARDIOVASCULAR: No complaint. GENITOURINARY: No complaint. GASTROINTESTINAL: As per HPI. MUSCULOSKELETAL: No complaint. INTEGUMENTARY: No complaint. PSYCHOLOGICAL: No complaint. ENDOCRINE: No complaint. NEUROLOGICAL: No complaint. PAST MEDICAL HISTORY: 1. COPD. 2. Atrial fibrillation. 3. Diabetes mellitus. 4. Hypertension. 5. Hyperlipidemia. 6. Recurrent UTIs. PAST SURGICAL HISTORY: 1. Hysterectomy. 2. Tonsillectomy. 3. Bilateral cataract surgery and lens implant. 4. Lumbar disc surgery. 5. Left hip fracture repair. SOCIAL HISTORY: Remote history of smoking. No drinking or any drug use. FAMILY HISTORY: Father in World War II. Brother with history of testicular cancer. ALLERGIES: 1. CEFTAROLINE. 2. LEVOFLOXACIN. 3. TRAMADOL. 4. She tolerated Zosyn without any problem. CURRENT MEDICATIONS: 1. Tylenol. 2. Lutz. 3. DuoNeb. 4. Symbicort. 5. Cardizem. 6. Lasix. 7. Dilaudid. 8. NovoLog. 9. Synthroid. 10.Zestril. 11.Glucophage. 12.Narcan. 13.Zofran. 14.Zosyn 3.375 grams q.8. 15.Pravachol. 16.Xarelto. 17.Zoloft. PHYSICAL EXAMINATION: Blood pressure is 148/60 with a pulse of 85, temperature of 100. She is 99% on 3 L nasal cannula. General description is an elderly female up in the bed in no distress. No tachypnea or accessory muscles of respiration use. HEENT examination shows pallor. There is no scleral icterus. Oral mucosa membrane is dry. No pharyngeal erythema or thrush. NECK: Trachea is central. No thyromegaly. LUNGS: Unlabored breathing. Clear to auscultation anteriorly. No wheeze or crackle. HEART: S1, S2. Regular rate and rhythm. No added sound. ABDOMEN: Soft. She is mildly tender over left lower abdominal area. No guarding or rigidity. No organomegaly. EXTREMITIES: No edema of the feet. SKIN EXAMINATION: No rash or mass palpable. Neurologically the patient is awake, alert, oriented x3. Mood and affect normal. LABS: Hemoglobin is 10.4 with a white count of 14.6. Admission white count was 25, 000. BUN of 15, creatinine 0.80. Lactic acid was not done. Her urine is not significantly positive. Stool for C difficile was negative. Stool culture is currently pending. CT report as mentioned above; however, that was done without oral contrast. DIAGNOSTIC IMPRESSION AND PLAN: Patient admitted to hospital with acute abdominal pain, crampy, along with diarrhea, low-grade fever and vomiting; had significantly elevated white count, suspicious likely for colitis with a question of possible ischemic or infectious etiology. However, in view of the response to the Zosyn, underlying ischemia would be at the top of the list with infectious especially from enteric Gram-negative pathogen Patient did have a stool for C difficile which came back to be negative. PLAN: 1. We will wait for the stool studies to be finalized. 2. Patient be given Zosyn at 3.375 grams IV q.8 hours. 3. Aggressive IV fluid. 4. We will follow her clinical condition as well as the cultures to further adjust medication if needed. Thank you for this consultation. Will follow this patient along with you. ROMA / MAIN: [id number] / MTDD
[2017-11-12 21:11] LABS: Glucose,Whole Blood 360 mg/dL (75-99)
[2017-11-13] MEDS: PIPERACILLIN-TAZOBACTAM 3.375 GM in DEXTROSE/WATER 1 50ML.BAG IVPB SCH ×3 (02:25→18:02)
[2017-11-13] MEDS: SODIUM CHLORIDE 0.9% 1,000 ML IV SCH ×3 (02:25→18:04)
[2017-11-13 06:03] LABS: Glucose,Whole Blood 53 mg/dL (75-99)
[2017-11-13] MEDS: LEVOTHYROXINE 125 MCG TAB PO SCH (06:17)
[2017-11-13 06:28] LABS: Glucose,Whole Blood 65 mg/dL (75-99)
[2017-11-13 06:32] LABS: Basophils % (A) 0 %; Eosinophils # (A) 0.2 k/uL (0-0.7); Eosinophils % (A) 1 %; HCT 32.9 % (34.0-46.0); HGB 10.1 gm/dL (11.4-16.0); Hypochromasia Slight; Lymphocytes % (A) 9 %; MCH 29.4 pg (25.0-35.0); MCHC 30.9 g/dL (31.0-37.0); MCV 95.3 fL (80.0-100.0); Mean Platelet Volume 8.9; Monocytes # (A) 0.5 k/uL (0-1.0); Monocytes % (A) 5 %; Neutrophils # (A) 8.7 k/uL (1.3-7.7); Neutrophils % (A) 83 %; Platelet Count 239 k/uL (150-450); RBC 3.45 m/uL (3.80-5.40); RDW 13.7 % (11.5-15.5); WBC 10.5 k/uL (3.8-10.6)
[2017-11-13 06:35] LABS: Glucose,Whole Blood 117 mg/dL (75-99)
[2017-11-13 06:38] LABS: Anion Gap 6 mmol/L; Blood Urea Nitrogen 13 mg/dL (7-17); Calcium 8.9 mg/dL (8.4-10.2); Carbon Dioxide 35 mmol/L (22-30); Chloride 102 mmol/L (98-107); Potassium 3.7 mmol/L (3.5-5.1); Sodium 143 mmol/L (137-145)
[2017-11-13 06:46] LABS: Glucose 46 mg/dL (74-99)
[2017-11-13] MEDS: SYMBICORT 160-4.5 MCG INHALER INHALATION SCH ×2 (07:57→19:30)
[2017-11-13] MEDS ORDERED: INSULN ASP PRT/INSULIN ASPART 100 UNIT/ML 10 ML VIAL SQ ONE (09:00)
[2017-11-13] MEDS: metFORMIN 500 MG TAB PO SCH ×2 (09:24→21:24)
[2017-11-13] MEDS: LISINOPRIL 10 MG TAB PO SCH (09:24)
[2017-11-13] MEDS: SERTRALINE 25 MG TAB PO SCH (09:24)
[2017-11-13] MEDS: PRAVASTATIN SODIUM 20 MG TAB PO SCH (09:25)
[2017-11-13] MEDS: DILTIAZEM CD 180 MG CAP.ER.24H PO SCH (09:25)
[2017-11-13] MEDS: FUROSEMIDE 20 MG TAB PO SCH (09:25)
[2017-11-13] MEDS: RIVAROXABAN 10 MG TAB PO SCH (09:25)
[2017-11-13] MEDS: INSULN ASP PRT/INSULIN ASPART 100 UNIT/ML 10 ML VIAL SQ SCH ×2 (10:46→18:02)
[2017-11-13 11:45] LABS: Glucose,Whole Blood 292 mg/dL (75-99)
[2017-11-13 17:24] LABS: Glucose,Whole Blood 291 mg/dL (75-99)
--- NOTE | 2017-11-13 17:32 | PN ---
PROGRESS NOTE DATE OF SERVICE: 11/13/2016. REASON FOR FOLLOWUP: Urinary tract infection. INTERVAL HISTORY: The patient is afebrile. She is breathing comfortably. No further nausea or any vomiting. Denies having any chest pain or shortness of breath or cough. No abdominal pain or any diarrhea. EXAMINATION: Blood pressure 132/59 with a pulse of 73, temperature of 98. She is 100% on 2-L nasal cannula. General description is an elderly female up in the bed, in no distress. RESPIRATORY SYSTEM: Unlabored breathing. Clear to auscultation anteriorly. HEART: S1, S2. Regular rate and rhythm. ABDOMEN: Soft, no tenderness. EXTREMITIES: No edema of the feet. LABS: Hemoglobin is 10.1, white count 10.5 with a BUN of 13, creatinine 0.70. Urine showing gram-negative and Enterococcus. DIAGNOSTIC IMPRESSION AND PLAN: Patient admitted to the hospital with nausea, vomiting and fever with elevated white count and sepsis likely secondary to urinary tract infection. The patient responded to Zosyn. That will be continued, waiting for the final ID to name the Enterococcus in the urine to determine her discharge antibiotics. Continue supportive care. MMODL / IJN: [id number] /
[2017-11-13 20:48] LABS: Glucose,Whole Blood 261 mg/dL (75-99)
[2017-11-13] MEDS: HYDROcodone/APAP 7.5-325MG 1 EACH TAB PO PRN (21:30)
--- NOTE | 2017-11-13 22:29 | PN ---
PROGRESS NOTE DATE OF VISIT: 11/13/2017 Patient is sitting at the bedside eating lunch, say abdominal pain has improved markedly and she would like to be discharged home. VITAL SIGNS: Temperature of 98, pulse 76, respirations 16, blood pressure 132/59, O2 saturation 100% on 3L. HEENT: Atraumatic, normocephalic. Pupils equal and reactive to light. Extraocular movements are intact. Buccal mucosa is fair. Neck is supple. No goiter or lymphadenopathy. JVD is negative. No carotid bruit heard. Lungs are clear to auscultate. No rales, rhonchi or wheezes. Heart is regular rate and rhythm without any murmur or gallop rhythm. Abdomen is soft. Minimal diffuse tenderness. Bowel sounds are positive. EXTREMITIES: No edema, clubbing, cyanosis. NEUROLOGICAL: Cranial nerves 2-12 grossly intact. No gross motor or sensory deficit. LAB DATA: CBC: White blood count of 10.5, hemoglobin 10.1, hematocrit 32.9 and platelet count of 239. Chemical profile: Sodium 133, potassium 3.7, chloride 102, bicarb 35, BUN of 13, creatinine 0.7, glucose 261. ASSESSMENT: 1. Sepsis, possibly secondary to urinary tract infection. The patient is started on IV Zosyn. Infectious Disease is following, recommending to continue Zosyn, which did improve the patient markedly. Plan is to wait for final culture and sensitivity report to determine discharge antibiotics for the patient. 2. Abdominal pain with diarrhea, possible gastroenteritis. 3. Hyperglycemia without acidosis. The patient's blood sugar is improved markedly. 4. Marked leukocytosis possibly secondary to sepsis. White blood count has improved markedly with IV Zosyn. We will continue to monitor CBC and monitor Accu-Cheks with sliding scale protocol. The patient's abdominal pain has improved markedly and there is no further complaint of nausea and vomiting. No further episodes of near syncope or dizziness. Most likely secondary to dehydration secondary to diarrhea. It is clinically improving. No further workup is needed at this time. MMODL / IJN: [id number] /
[2017-11-14] MEDS: SODIUM CHLORIDE 0.9% 1,000 ML IV SCH ×2 (01:58→08:20)
[2017-11-14] MEDS: PIPERACILLIN-TAZOBACTAM 3.375 GM in DEXTROSE/WATER 1 50ML.BAG IVPB SCH ×3 (01:58→17:43)
[2017-11-14] MEDS: LEVOTHYROXINE 125 MCG TAB PO SCH (06:19)
[2017-11-14] MEDS ORDERED: INSULIN NPH/REG INSULIN 70/30 300 UNIT/3 ML VIAL SQ SCH (07:30)
[2017-11-14 07:48] LABS: Glucose,Whole Blood 222 mg/dL (75-99)
[2017-11-14 08:04] LABS: Basophils # (A) 0.1 k/uL (0-0.2); Basophils % (A) 1 %; Eosinophils # (A) 0.6 k/uL (0-0.7); Eosinophils % (A) 7 %; HGB 11.3 gm/dL (11.4-16.0); Hypochromasia Slight; Lymphocytes # (A) 2.1 k/uL (1.0-4.8); Lymphocytes % (A) 25 %; MCH 28.7 pg (25.0-35.0); MCHC 29.9 g/dL (31.0-37.0); MCV 96.2 fL (80.0-100.0); Mean Platelet Volume 9.1; Monocytes # (A) 0.4 k/uL (0-1.0); Monocytes % (A) 5 %; Neutrophils % (A) 60 %; Platelet Count 272 k/uL (150-450); RBC 3.95 m/uL (3.80-5.40); RDW 13.6 % (11.5-15.5); WBC 8.4 k/uL (3.8-10.6)
[2017-11-14] MEDS: SYMBICORT 160-4.5 MCG INHALER INHALATION SCH ×2 (08:06→19:42)
[2017-11-14] MEDS: DILTIAZEM CD 180 MG CAP.ER.24H PO SCH (08:19)
[2017-11-14] MEDS: LISINOPRIL 10 MG TAB PO SCH (08:19)
[2017-11-14] MEDS: INSULN ASP PRT/INSULIN ASPART 100 UNIT/ML 10 ML VIAL SQ SCH ×2 (08:19→17:43)
[2017-11-14] MEDS: RIVAROXABAN 10 MG TAB PO SCH (08:19)
[2017-11-14] MEDS: FUROSEMIDE 20 MG TAB PO SCH (08:19)
[2017-11-14] MEDS: PRAVASTATIN SODIUM 20 MG TAB PO SCH (08:20)
[2017-11-14] MEDS: metFORMIN 500 MG TAB PO SCH ×2 (08:20→20:49)
[2017-11-14] MEDS: SERTRALINE 25 MG TAB PO SCH (08:20)
[2017-11-14 08:42] LABS: Anion Gap 11 mmol/L; Blood Urea Nitrogen 10 mg/dL (7-17); Calcium 10.1 mg/dL (8.4-10.2); Carbon Dioxide 34 mmol/L (22-30); Chloride 96 mmol/L (98-107); Glucose 204 mg/dL (74-99); Potassium 4.1 mmol/L (3.5-5.1); Sodium 141 mmol/L (137-145)
[2017-11-14] MEDS ORDERED: INSULN ASP PRT/INSULIN ASPART 100 UNIT/ML 10 ML VIAL SQ ONE ×2 (09:00)
--- NOTE | 2017-11-14 09:03 | ECHOF ---
Referral Reason:syncope MEASUREMENTS -------- HEIGHT: 182.9 cm WEIGHT: 83.5 kg BP: 136/60 RVIDd: 3.2 cm (< 3.3) IVSd: 1.2 cm (0.6 - 1.1) LVIDd: 4.4 cm (3.9 - 5.3) LVPWd: 1.4 cm (0.6 - 1.1) IVSs: 1.8 cm LVIDs: 2.8 cm LVPWs: 1.8 cm LAESV Index (A-L): 18.66 ml/m Ao Diam: 2.7 cm (2.0 - 3.7) AV Cusp: 1.4 cm (1.5 - 2.6) LA Diam: 3.0 cm (2.7 - 3.8) MV E Trell: 1.07 m/s MV DecT: 217 ms MV A Trell: 1.04 m/s MV E/A Ratio: 1.02 RAP: 5.00 mmHg RVSP: 39.03 mmHg FINDINGS -------- Sinus rhythm. This was a technically adequate study. The left ventricular size is normal. There is mild concentric left ventricular hypertrophy. Overa ll left ventricular systolic function is normal with, an EF between 55 - 60 %. The right ventricle is mildly enlarged. Normal LA size by volume 22+/-6 ml/m2. The right atrium is normal in size. Aortic valve is trileaflet and is mildly thickened. There is no evidence of aortic regurgitation. There is no evidence of aortic stenosis. The mitral valve leaflets are mildly thickened. Mild mitral regurgitation is present. Mild tricuspid regurgitation present. There is mild pulmonary hypertension. The right ventricular systolic pressure, as measured by Doppler, is 39.03mmHg. The pulmonic valve was not well visualized. The aortic root size is normal. Normal inferior vena cava with normal inspiratory collapse consistent with estimated right atrial pre ssure of 5 mmHg. Echo free space may represent effusion or a pericardial fat pad. CONCLUSIONS -------- 1. Sinus rhythm. 2. This was a technically adequate study. 3. The left ventricular size is normal. 4. There is mild concentric left ventricular hypertrophy. 5. Overall left ventricular systolic function is normal with, an EF between 55 - 60 %. 6. The right ventricle is mildly enlarged. 7. Normal LA size by volume 22+/-6 ml/m2. 8. Aortic valve is trileaflet and is mildly thickened. 9. The mitral valve leaflets are mildly thickened. 10. Mild mitral regurgitation is present. 11. Mild tricuspid regurgitation present. 12. There is mild pulmonary hypertension. 13. The right ventricular systolic pressure, as measured by Doppler, is 39.03mmHg. 14. The pulmonic valve was not well visualized. 15. The aortic root size is normal. 16. Echo free space may represent effusion or a pericardial fat pad. [employer]: Scottie Fisher RDCS
[2017-11-14 11:48] LABS: Glucose,Whole Blood 207 mg/dL (75-99)
[2017-11-14 16:47] VITALS: RESP 18
[2017-11-14 17:15] LABS: Glucose,Whole Blood 235 mg/dL (75-99)
--- NOTE | 2017-11-14 20:12 | PN ---
PROGRESS NOTE DATE OF SERVICE: 11/14/2017 The patient is resting comfortably in bed. She voices no new complaints. She is awake and alert. VITAL SIGNS: Temperature 98.5, pulse 75, respiration 18, blood pressure 127/68, O2 saturation 98%. HEENT: Atraumatic, normocephalic. Pupils equal and reactive to light. Extraocular movements intact. Neck is supple. No goiters or JVD. No carotid bruit. Her lungs are clear to auscultate. No rales, rhonchi or wheezes. Heart is regular without any murmurs or gallop rhythm. Abdomen is soft, nontender, nondistended. Bowel sounds positive. Extremities: No edema, no clubbing or cyanosis. Neurological examination: The patient is awake, alert, oriented x3. She has no gross motor or sensory deficit. LAB: CBC: White blood count of 8.4, hemoglobin 11.3, hematocrit 38, and platelet count of 272. Chemical profile: Sodium 141, potassium 4.1, chloride 96, bicarb 34, BUN 10, creatinine 0.6, glucose 204. The patient's urine culture shows Enterococcus and E coli. Final sensitivity report is pending. ASSESSMENT: 1. Sepsis secondary to complicated urinary tract infection. The patient remains on IV Zosyn. ID is following and we await final culture and sensitivity report to determine discharge antibiotics. 2. Acute abdominal pain with diarrhea, possible acute gastroenteritis, clinically resolved. 3. Hyperglycemia without acidosis. Patient's blood sugars are stable. 4. Marked leukocytosis possibly secondary to sepsis. As above, we will continue IV Zosyn until the final sensitivity report is available. Continue with Accu-Cheks sliding scale protocol. Possible discharge in next 24-48 hours. MMODL / IJN: [id number] /
[2017-11-14 20:42] LABS: Glucose,Whole Blood 253 mg/dL (75-99)
--- NOTE | 2017-11-14 23:12 | PN ---
PROGRESS NOTE DATE OF SERVICE: 11/14/17 REASON FOR FOLLOWUP: Urinary tract infection. INTERVAL HISTORY: The patient is afebrile. She has been breathing comfortably. Denies having any chest pain or shortness of breath, cough. No abdominal pain. No further nausea, vomiting, or any diarrhea. EXAMINATION: Blood pressure is 127/58 with a pulse of 75, temperature of 98.5, she is 98% on 2 L nasal cannula. General description is an elderly female lying in bed in no distress. Respiratory system: Unlabored breathing. Clear to auscultation anteriorly. Heart S1, S2. Regular rate and rhythm: Abdomen: Soft, no tenderness. EXTREMITIES: No edema of feet. LABS: Hemoglobin 11.2, white count 8.4 with a BUN of 10, creatinine 0.68. Urine finalized with an Enterococcus faecium which is penicillin sensitive and E. coli sensitive to Augmentin. DIAGNOSTIC IMPRESSION AND PLAN: Patient with sepsis. Source is urinary with urine showing Enterococcus faecium and the E coli. Currently on Zosyn. Recommend to finish therapy with oral Augmentin 875 b.i.d. for another 7 to 10 days with close outpatient followup. MMODL / IJN: [id number] /
[2017-11-14] MEDS: HYDROcodone/APAP 7.5-325MG 1 EACH TAB PO PRN (23:29)
[2017-11-15] MEDS: PIPERACILLIN-TAZOBACTAM 3.375 GM in DEXTROSE/WATER 1 50ML.BAG IVPB SCH ×2 (02:19→10:19)
[2017-11-15] MEDS: SODIUM CHLORIDE 0.9% 1,000 ML IV SCH ×3 (05:24→13:12)
[2017-11-15] MEDS: LEVOTHYROXINE 125 MCG TAB PO SCH (06:16)
[2017-11-15 07:29] LABS: Glucose,Whole Blood 242 mg/dL (75-99)
[2017-11-15 08:59] VITALS: BP 107/54; PULSE 86; TEMP 98.3
[2017-11-15] MEDS ORDERED: INSULN ASP PRT/INSULIN ASPART 100 UNIT/ML 10 ML VIAL SQ ONE (09:00)
[2017-11-15] MEDS: SERTRALINE 25 MG TAB PO SCH (10:12)
[2017-11-15] MEDS: INSULN ASP PRT/INSULIN ASPART 100 UNIT/ML 10 ML VIAL SQ SCH (10:12)
[2017-11-15] MEDS: DILTIAZEM CD 180 MG CAP.ER.24H PO SCH (10:12)
[2017-11-15] MEDS: LISINOPRIL 10 MG TAB PO SCH (10:13)
[2017-11-15] MEDS: metFORMIN 500 MG TAB PO SCH (10:13)
[2017-11-15] MEDS: PRAVASTATIN SODIUM 20 MG TAB PO SCH (10:13)
[2017-11-15] MEDS: FUROSEMIDE 20 MG TAB PO SCH (10:13)
[2017-11-15] MEDS: RIVAROXABAN 10 MG TAB PO SCH (10:13)
[2017-11-15] MEDS: SYMBICORT 160-4.5 MCG INHALER INHALATION SCH (11:02)
[2017-11-15 11:59] LABS: Glucose,Whole Blood 331 mg/dL (75-99)
--- NOTE | 2017-11-15 13:50 | PN ---
PROGRESS NOTE DATE OF SERVICE: 11/15/2016. REASON FOR FOLLOWUP: Urinary tract infection. INTERVAL HISTORY: The patient is afebrile. She is breathing comfortably. Denies any chest pain, shortness of breath or cough. No further nausea, vomiting, or any diarrhea. EXAMINATION: Blood pressure 107/84 with a pulse of 86, temperature of 100.3, she is 94% on 2 L nasal cannula. GENERAL DESCRIPTION: An elderly female up in the bed in no distress. RESPIRATORY SYSTEM: Unlabored breathing. Clear to auscultation anteriorly. HEART: S1, S2. Regular rate and rhythm. ABDOMEN: Soft. LABS: Urine with E coli and enterococcus faecalis. DIAGNOSTIC IMPRESSION AND PLAN: Patient with urinary tract infection, admitted to the hospital, with sepsis. PLAN: Oral Augmentin for another 10 days, 875 b.i.d. Detailed discussion with the patient, about how it is hard to prevent recurrent UTI. Continue supportive care. MMODL / IJN: [id number] /
[2017-11-15] MEDS ORDERED: metFORMIN 500 MG TAB PO SCH (17:30)
--- NOTE | 2017-12-13 10:21 | DS ---
DISCHARGE SUMMARY DATE OF ADMISSION: 11/11/2017. DATE OF DISCHARGE: 11/15/2017. ADMISSION DIAGNOSES ON THE PATIENT: 1. Sepsis based on elevated white blood count and tachycardia. 2. Possible urinary tract infection. 3. Marked leukocytosis secondary to sepsis. 4. Near syncope. 5. Hyperglycemia without acidosis. 6. Abdominal pain without diarrhea, possibly gastroenteritis. BRIEF HISTORY ON THIS PATIENT: A 72-year-old female patient presented to the ED with complaint of syncopal episode with happened while she was in the bathroom and she thinks she passed out. some abdominal pain with several episodes of diarrhea without any blood in it. When she woke up in the morning, she did have some breakfast and checked her blood sugar which was over 200. The patient's says abdominal pain was generalized with a lot of weakness and was getting progressively worse. The patient decided to come to the ER. PAST MEDICAL HISTORY: 1. Atrial fibrillation. 2. COPD. 3. Diabetes mellitus. 4. Hypertension. 5. Hyperlipidemia. 6. Chronic hypoxemic respiratory failure. HOME MEDICATIONS: 1. Levothyroxine 125 mcg daily. 2. Xarelto 20 mg daily. 3. Zoloft 25 mg daily. 4. Metformin 1000 mg b.i.d. 5. Lasix 20 mg daily. 6. Cardizem 180 mg daily. 7. Pravachol 20 mg daily. 8. Insulin aspart 30 units b.i.d. 9. Lisinopril 10 mg daily. 10.Cranberry 4200 mg daily. 11.Hydrocodone 7.5 mg t.i.d. 12.DuoNeb nebulizer treatments q.i.d. p.r.n. BRIEF HOSPITAL COURSE: Patient was admitted on a regular medical floor. Blood cultures, urine culture and sputum culture were done. The patient was started on IV Zosyn for possible sepsis. Infectious Disease consultation was done. Plan was to monitor CBC and cultures. For patient's hyperglycemia, the patient was put on Accu-Cheks with insulin sliding scale. The patient had a CT of the abdomen done which showed slightly enlarged common bile duct with questionable gallbladder disease with plan to do ultrasound of the abdomen and IV antibiotics were continued. The patient had a near syncopal episode, according to the patient, which was more like a dizziness and weakness. It was treated with IV fluid hydration. Patient did not have any further concerns. She was scheduled for a carotid ultrasound, though which showed bilateral plaque formation 50% to 70% stenosis both internal carotid arteries. The patient was recommended vascular surgery followup as an outpatient. Infection Disease suspected colitis possibly ischemic versus infectious. Zosyn was continued. The patient's stool was checked for C difficile colitis, which was negative. The patient did respond very well to Zosyn therapy. As sepsis symptoms did resolve, she did not have any further complications. The patient was switched to oral antibiotics on recommendations of ID and was discharged home. PHYSICAL EXAMINATION: VITAL SIGNS: Temperature 98.6, pulse 80, respiration 16, blood pressure 155/76. HEENT: Atraumatic, normocephalic. Pupils equal and reactive to light. Extraocular movements intact. Buccal mucosa is fair. NECK: Supple. LUNGS: Clear to auscultate. No rales, rhonchi, or wheezes. HEART: Regular rate and rhythm without any murmurs, gallop rhythm. ABDOMEN: Soft, nontender. Bowel sounds positive. EXTREMITIES: No edema, clubbing cyanosis. DISCHARGE MEDICATIONS: 1. Amoxil 875/125 mg q.12 hours for 10 days. 2. Symbicort 2 puffs b.i.d. 3. Cranberry 4200 mg daily. 4. Cardizem 180 mg daily. 5. Lasix 20 mg daily. 6. [place] 1 tablet t.i.d. p.r.n. 7. Insulin aspart per sliding scale, NovoLog 70/30 FlexPen 30 units b.i.d. 8. Levothyroxine 125 mcg daily. 9. Zestril 10 mg daily. 10.Pravachol 20 mg daily. 11.Xarelto 20 mg daily. 12.Zoloft 25 mg daily. 13.Metformin 1000 mg b.i.d. The patient was recommended to follow up with PCP closely and advised to complete entire antibiotic treatment and resume all home medications. MMODL / IJN: [id number] /
== END 2017-11-15 14:40 | disposition home or self-care (01) | DRG 872 ==
LOC: EC 13:30 → 6SEL 17:12 → 5MS5E 11-13 16:47
PROVIDERS: ADMIT Hospitalist; ATTEND Hospitalist
DX: A41.9 Sepsis, unspecified organism (principal); J96.11 Chronic respiratory failure with hypoxia; E11.65 Type 2 diabetes mellitus with hyperglycemia; I48.2 Chronic atrial fibrillation; Z99.81 Dependence on supplemental oxygen; E86.0 Dehydration; E78.5 Hyperlipidemia, unspecified; G89.29 Other chronic pain; N39.0 Urinary tract infection, site not specified; J44.9 Chronic obstructive pulmonary disease, unspecified; K52.9 Noninfective gastroenteritis and colitis, unspecified; B95.2 Enterococcus as the cause of diseases classified elsewhere; B96.20 Unspecified Escherichia coli [E. coli] as the cause of diseases classified elsewhere; I10 Essential (primary) hypertension; M51.9 Unspecified thoracic, thoracolumbar and lumbosacral intervertebral disc disorder; Z79.01 Long term (current) use of anticoagulants; Z79.4 Long term (current) use of insulin; Z79.51 Long term (current) use of inhaled steroids; Z79.899 Other long term (current) drug therapy; Z88.1 Allergy status to other antibiotic agents; Z87.81 Personal history of (healed) traumatic fracture; Z90.710 Acquired absence of both cervix and uterus; Z98.42 Cataract extraction status, left eye; Z98.41 Cataract extraction status, right eye; Z96.1 Presence of intraocular lens; Z87.891 Personal history of nicotine dependence; Z88.5 Allergy status to narcotic agent; Z88.8 Allergy status to other drugs, medicaments and biological substances
CPT/HCPCS: 36415; 70450; 71046; 74177; 80048; 80053; 81001; 82550; 82553; 83605; 84484; 85025; 85610; 85730; 87040; 87045; 87046; 87077; 87086; 87186; 87324; 93005; 93306; 93880; 94640; 94760; 96361; 96365; 96366; 99285

== ENCOUNTER 2018-05-26 20:49 | Inpatient (IN) | payer MEDICARE, OTHER ==
[2018-05-26] MEDS ORDERED: SODIUM CHLORIDE 0.9% 1,000 ML IV STA (21:47)
[2018-05-26 22:11] LABS: Basophils % (A) 0 %; Eosinophils % (A) 0 %; HCT 42.8 % (34.0-46.0); HGB 13.4 gm/dL (11.4-16.0); Hypochromasia Slight; Lymphocytes # (A) 1.6 k/uL (1.0-4.8); Lymphocytes % (A) 10 %; MCH 28.9 pg (25.0-35.0); MCHC 31.3 g/dL (31.0-37.0); MCV 92.3 fL (80.0-100.0); Mean Platelet Volume 9.8; Monocytes % (A) 6 %; Neutrophils % (A) 82 %; Platelet Count 226 k/uL (150-450); RBC 4.64 m/uL (3.80-5.40); RDW 13.1 % (11.5-15.5); WBC 15.8 k/uL (3.8-10.6)
[2018-05-26 22:15] LABS: Appearance,Urine Cloudy (Clear); Bilirubin,Urine Negative (Negative); Blood,Urine Small (Negative); Color,Urine Yellow; Glucose,Urine (UA) 4+ (Negative); Ketones,Urine 2+ (Negative); Leukocyte Esterase,Urine Large (Negative); Nitrite,Urine Negative (Negative); PH, Urine 5.5 (5.0-8.0); Protein,Urine 2+ (Negative); RBC,Urine 10 /hpf (0-5); Specific Gravity,Urine 1.028 (1.001-1.035); Squamous Epithelial Cell,Urine 2 /hpf (0-4); Urobilinogen,Urine <2.0 mg/dL (<2.0); WBC,Urine 81 /hpf (0-5)
[2018-05-26 22:19] LABS: INR 1.1 (<1.2); Partial Thromboplastin Time 24.4 sec (22.0-30.0); Prothrombin Time 10.6 sec (9.0-12.0)
[2018-05-26 22:20] LABS: ALT 21 U/L (9-52); AST 20 U/L (14-36); Alkaline Phosphatase 209 U/L (38-126); Anion Gap 15 mmol/L; Blood Urea Nitrogen 14 mg/dL (7-17); Calcium 9.8 mg/dL (8.4-10.2); Carbon Dioxide 26 mmol/L (22-30); Chloride 95 mmol/L (98-107); Glucose 340 mg/dL (74-99); Magnesium 1.4 mg/dL (1.6-2.3); Potassium 4.3 mmol/L (3.5-5.1); Sodium 136 mmol/L (137-145); Total Bilirubin 0.7 mg/dL (0.2-1.3); Total Protein 7.4 g/dL (6.3-8.2)
[2018-05-26] MEDS ORDERED: AMPICILLIN-SULBACTAM 3 GM in SODIUM CHLORIDE 0.9% 100 ML IVPB STA (22:21)
--- NOTE | 2018-05-26 22:23 | XR ---
EXAMINATION TYPE: XR chest 2V DATE OF EXAM: 05/26/2018 COMPARISON: 11/11/2017 HISTORY: Short of breath TECHNIQUE: Frontal and lateral views of the chest are obtained. FINDINGS: There is pulmonary emphysema in the right upper lobe more than the left. There is some inc reased reticular density in the mid lung mejia. Heart size is normal. There is no heart failure. Tho racic aorta is atheromatous. There are chest leads. There is no pleural effusion. IMPRESSION: COPD and pulmonary fibrosis. There is some new reticular infiltrate in the right lung co mpared to last exam. This is likely related to inflammatory disease.
[2018-05-26 22:43] LABS: Creatine Kinase MB 0.6 ng/mL (0.0-2.4); Troponin I 0.017 ng/mL (0.000-0.034)
[2018-05-26] MEDS ORDERED: IPRATROPIUM-ALBUTEROL 3 ML NEB INHALATION STA (22:43)
--- NOTE | 2018-05-26 22:54 | ED ---
General Adult HPI - General Chief complaint: Chest Pain Stated complaint: cough/congestion/poss UTI Time Seen by Provider: 05/26/18 21:39 Source: patient, RN notes reviewed, old records reviewed Mode of arrival: ambulatory Limitations: no limitations - History of Present Illness Initial comments: This is a 73-year-old female the ER for evaluation. This patient does say for evaluation regarding multiple complaints. Patient's complaining of renal involvement from probably UTI with severe shortness of breath and chest pain. Medical history acute heart disease A. fib COPD and asthma. Patient is recent travel history denies fever. Patient is losing her bowels and urine. Complaining of abdominal pain suprapubic burning with urination - Related Data Home Medications Medication Instructions Recorded Confirmed Levothyroxine Sodium [Synthroid] 125 mcg PO DAILY 11/16/14 05/26/18 Rivaroxaban [Xarelto] 20 mg PO DAILY 11/16/14 05/26/18 Sertraline [Zoloft] 25 mg PO DAILY 11/16/14 05/26/18 metFORMIN HCL 1,000 mg PO BID 11/16/14 05/26/18 Furosemide [Lasix] 20 mg PO DAILY 01/27/16 05/26/18 Diltiazem HCl [Diltiazem 24Hr ER] 180 mg PO DAILY 08/07/16 05/26/18 Pravastatin Sodium [Pravachol] 20 mg PO DAILY 08/07/16 05/26/18 Insulin Aspart Protam & Aspart 36 unit SQ BID 06/27/17 05/26/18 [NovoLOG MIX 70-30 Flexpen] Lisinopril [Zestril] 10 mg PO DAILY 07/22/17 05/26/18 Ipratropium-Albuterol Nebulize 3 ml INHALATION RT-QID PRN 11/11/17 05/26/18 [Duoneb 0.5 mg-3 mg/3 ml Soln] Docusate [Colace] 100 mg PO DAILY PRN 05/26/18 05/26/18 Gabapentin [Neurontin] 100 mg PO DAILY 05/26/18 05/26/18 Umeclidinium [place] [Incruse 1 puff INHALATION RT-DAILY 05/26/18 05/26/18 Ellipta] Previous Rx's Medication Instructions Recorded Budesonide-Formot 160-4.5 Mcg 2 puff INHALATION RT-BID #1 09/30/17 [Symbicort 160-4.5 Mcg Inhaler] Allergies Allergy/AdvReac Type Severity Reaction Status Date / Time ceftaroline fosamil Allergy Intermediate Rash/Hives Verified 05/26/18 22:35 codeine Allergy Itching Verified 05/26/18 22:35 levofloxacin [From Levaquin] Allergy Rash/Hives Verified 05/26/18 22:35 tramadol Allergy Itching Verified 05/26/18 22:35 Review of Systems ROS Statement: Those systems with pertinent positive or pertinent negative responses have been documented in the HPI. ROS Other: All systems not noted in ROS Statement are negative. Past Medical History Past Medical History: Atrial Fibrillation, COPD, Diabetes Mellitus, Hyperlipidemia, Hypertension, Skin Disorder Additional Past Medical History / Comment(s): Pt recently admitted to [facility] on with sepsis thought 2ndary to possible colitis. Other HX: Severe COPD , chronic hypoxic respiratory failure,home O2 at 2L/NC ATC, chronic atrial fibrillation maintained on Xarelto, lumbar disc disease and chronic back pain, chronic and recurrent urine tract infections/sepsis, diabetes mellitus type II, chronic constipation, previous L heel wound with osteomylitis in 2014 (pt states currently covered with callus, decubitus ulcer now healed, hypothyroid. History of Any Multi-Drug Resistant Organisms: ESBL, MRSA Date of last positivie culture/infection: 07/02/15-MRSA; 12/18/14 ESBL-E. coli MDRO Source:: Sputum-MRSA; Urine-ESBL Past Surgical History: Hysterectomy, Orthopedic Surgery, Tonsillectomy Additional Past Surgical History / Comment(s): Bilateral cataract removals/lens implants on 11/12/14. Lumbar disc surgery, repair of left hip -screws in place, decubitus I&D, colonoscopy. Past Anesthesia/Blood Transfusion Reactions: No Reported Reaction Past Psychological History: No Psychological Hx Reported Smoking Status: Former smoker Past Alcohol Use History: None Reported Past Drug Use History: None Reported - Past Family History Father Family Medical History: Unable to Obtain Additional Family Medical History / Comment(s): Pt never knew her father. He in WWII when she was very young. Mother Family Medical History: No Reported History Brother(s) Family Medical History: Cancer Additional Family Medical History / Comment(s): Pt has 4 brothers and one has testicular cancer. General Exam Limitations: no limitations General appearance: alert, in no apparent distress Head exam: Present: atraumatic, normocephalic, normal inspection Eye exam: Present: normal appearance, PERRL, EOMI. Absent: scleral icterus, conjunctival injection, periorbital swelling ENT exam: Present: normal exam, mucous membranes moist Neck exam: Present: normal inspection. Absent: tenderness, meningismus, lymphadenopathy Respiratory exam: Present: wheezes, accessory muscle use, decreased breath sounds, prolonged expiratory. Absent: normal lung sounds bilaterally, respiratory distress, rales, rhonchi, stridor Cardiovascular Exam: Present: regular rate, normal rhythm, normal heart sounds. Absent: systolic murmur, diastolic murmur, rubs, gallop, clicks GI/Abdominal exam: Present: soft, normal bowel sounds. Absent: distended, tenderness, guarding, rebound, rigid Extremities exam: Present: normal inspection, full ROM, normal capillary refill. Absent: tenderness, pedal edema, joint swelling, calf tenderness Back exam: Present: normal inspection Neurological exam: Present: alert, oriented X3, CN II-XII intact Psychiatric exam: Present: normal affect, normal mood Skin exam: Present: warm, dry, intact, normal color. Absent: rash Course Vital Signs 05/26/18 21:09 Temperature 99.5 F Pulse Rate 97 Respiratory 16 Rate Blood Pressure 151/59 O2 Sat by Pulse 97 Oximetry - Reevaluation(s) Reevaluation #1: 05/26/18 23:01 No improvement after breathing treatment EKG Findings - EKG Comments: EKG Findings:: EKG shows sinus tachycardia rate of 107, MS 154, QRS 160, QTc 483 Medical Decision Making - Medical Decision Making 73 female the ER with cough congestion shortness of breath and chest pain. Patient be admitted for treatment of UTI, patient be admitted for continued breathing treatments - Lab Data Result diagrams: 05/26/18 21:50 05/26/18 21:50 Lab Results 05/26/18 05/26/18 05/26/18 Range/Units 21:50 21:50 21:50 WBC 15.8 H (3.8-10.6) k/uL RBC 4.64 (3.80-5.40) m/uL Hgb 13.4 (11.4-16.0) gm/dL Hct 42.8 (34.0-46.0) % MCV 92.3 (80.0-100.0) fL MCH 28.9 (25.0-35.0) pg MCHC 31.3 (31.0-37.0) g/dL RDW 13.1 (11.5-15.5) % Plt Count 226 (150-450) k/uL Neutrophils % 82 % Lymphocytes % 10 % Monocytes % 6 % Eosinophils % 0 % Basophils % 0 % Neutrophils # 13.0 H (1.3-7.7) k/uL Lymphocytes # 1.6 (1.0-4.8) k/uL Monocytes # 1.0 (0-1.0) k/uL Eosinophils # 0.0 (0-0.7) k/uL Basophils # 0.0 (0-0.2) k/uL Hypochromasia Slight PT (9.0-12.0) sec INR (<1.2) APTT (22.0-30.0) sec Sodium 136 L (137-145) mmol/L Potassium 4.3 (3.5-5.1) mmol/L Chloride 95 L (98-107) mmol/L Carbon Dioxide 26 (22-30) mmol/L Anion Gap 15 mmol/L BUN 14 (7-17) mg/dL Creatinine 0.60 (0.52-1.04) mg/dL Est GFR (CKD-EPI)AfAm >90 (>60 ml/min/1.73 sqM) Est GFR (CKD-EPI)NonAf 90 (>60 ml/min/1.73 sqM) Glucose 340 H (74-99) mg/dL Calcium 9.8 (8.4-10.2) mg/dL Magnesium 1.4 L (1.6-2.3) mg/dL Total Bilirubin 0.7 (0.2-1.3) mg/dL AST 20 (14-36) U/L ALT 21 (9-52) U/L Alkaline Phosphatase 209 H (38-126) U/L Total Creatine Kinase 28 L (30-135) U/L CK-MB (CK-2) 0.6 (0.0-2.4) ng/mL CK-MB (CK-2) Rel Index 2.1 Troponin I 0.017 (0.000-0.034) ng/mL NT-Pro-B Natriuret Pep pg/mL Total Protein 7.4 (6.3-8.2) g/dL Albumin 4.0 (3.5-5.0) g/dL Urine Color Urine Appearance (Clear) Urine pH (5.0-8.0) Ur Specific [place] (1.001-1.035) Urine Protein (Negative) Urine Glucose (UA) (Negative) Urine Ketones (Negative) Urine Blood (Negative) Urine Nitrite (Negative) Urine Bilirubin (Negative) Urine Urobilinogen (<2.0) mg/dL Ur Leukocyte Esterase (Negative) Urine RBC (0-5) /hpf Urine WBC (0-5) /hpf Urine WBC Clumps (None) /hpf Ur Squamous Epith Cells (0-4) /hpf 05/26/18 05/26/18 05/26/18 Range/Units 21:50 21:50 21:50 WBC (3.8-10.6) k/uL RBC (3.80-5.40) m/uL Hgb (11.4-16.0) gm/dL Hct (34.0-46.0) % MCV (80.0-100.0) fL MCH (25.0-35.0) pg MCHC (31.0-37.0) g/dL RDW (11.5-15.5) % Plt Count (150-450) k/uL Neutrophils % % Lymphocytes % % Monocytes % % Eosinophils % % Basophils % % Neutrophils # (1.3-7.7) k/uL Lymphocytes # (1.0-4.8) k/uL Monocytes # (0-1.0) k/uL Eosinophils # (0-0.7) k/uL Basophils # (0-0.2) k/uL Hypochromasia PT 10.6 (9.0-12.0) sec INR 1.1 (<1.2) APTT 24.4 (22.0-30.0) sec Sodium (137-145) mmol/L Potassium (3.5-5.1) mmol/L Chloride (98-107) mmol/L Carbon Dioxide (22-30) mmol/L Anion Gap mmol/L BUN (7-17) mg/dL Creatinine (0.52-1.04) mg/dL Est GFR (CKD-EPI)AfAm (>60 ml/min/1.73 sqM) Est GFR (CKD-EPI)NonAf (>60 ml/min/1.73 sqM) Glucose (74-99) mg/dL Calcium (8.4-10.2) mg/dL Magnesium (1.6-2.3) mg/dL Total Bilirubin (0.2-1.3) mg/dL AST (14-36) U/L ALT (9-52) U/L Alkaline Phosphatase (38-126) U/L Total Creatine Kinase (30-135) U/L CK-MB (CK-2) (0.0-2.4) ng/mL CK-MB (CK-2) Rel Index Troponin I (0.000-0.034) ng/mL NT-Pro-B Natriuret Pep 1570 pg/mL Total Protein (6.3-8.2) g/dL Albumin (3.5-5.0) g/dL Urine Color Yellow Urine Appearance Cloudy H (Clear) Urine pH 5.5 (5.0-8.0) Ur Specific [place] 1.028 (1.001-1.035) Urine Protein 2+ H (Negative) Urine Glucose (UA) 4+ H (Negative) Urine Ketones 2+ H (Negative) Urine Blood Small H (Negative) Urine Nitrite Negative (Negative) Urine Bilirubin Negative (Negative) Urine Urobilinogen <2.0 (<2.0) mg/dL Ur Leukocyte Esterase Large H (Negative) Urine RBC 10 H (0-5) /hpf Urine WBC 81 H (0-5) /hpf Urine WBC Clumps Occasional H (None) /hpf Ur Squamous Epith Cells 2 (0-4) /hpf - Radiology Data Radiology results: report reviewed (Chest x-ray suspicious for pneumonia), image reviewed Disposition Clinical Impression: UTI (urinary tract infection), Chest pain, Acute exacerbation of chronic obstructive airways disease Disposition: ADMITTED IP TO THIS HOSP Condition: Fair Is patient prescribed a controlled substance at d/c from ED?: No Referrals: Michele Kothari MD [Primary Care Provider] - 1-2 days
[2018-05-26] MEDS ORDERED: methylPREDNISolone SOD SUCCI 125 MG/2 ML VIAL IV STA (22:59)
[2018-05-26] MEDS: SODIUM CHLORIDE 0.9% 1,000 ML IV SCH (23:11)
[2018-05-27] MEDS: methylPREDNISolone SOD SUCCI 125 MG/2 ML VIAL IV SCH ×3 (01:05→11:42)
[2018-05-27 01:17] VITALS: BMI 25.5
[2018-05-27 07:08] LABS: Glucose,Whole Blood 365 mg/dL (75-99)
[2018-05-27] MEDS: IPRATROPIUM-ALBUTEROL 3 ML NEB INHALATION SCH ×5 (07:20→18:47)
[2018-05-27] MEDS ORDERED: AMPICILLIN-SULBACTAM 3 GM in SODIUM CHLORIDE 0.9% 100 ML IVPB SCH (08:00)
[2018-05-27] MEDS: INSULIN ASPART 100 UNIT/ML 1 ML 10 ML VIAL SQ SCH ×4 (08:02→21:21)
[2018-05-27] MEDS: SODIUM CHLORIDE 0.9% 1,000 ML IV SCH (08:04)
[2018-05-27] MEDS ORDERED: ENOXAPARIN 40 MG/0.4 ML SYRINGE SQ SCH (09:00)
[2018-05-27] MEDS ORDERED: DOCUSATE 100 MG CAP PO PRN (11:23)
[2018-05-27] MEDS ORDERED: IPRATROPIUM-ALBUTEROL 3 ML NEB INHALATION PRN (11:28)
[2018-05-27] MEDS ORDERED: metFORMIN 500 MG TAB PO SCH (11:30)
[2018-05-27] MEDS ORDERED: PANTOPRAZOLE 40 MG/10 ML VIAL IVP SCH (11:30)
[2018-05-27 12:05] LABS: Glucose,Whole Blood 394 mg/dL (75-99)
[2018-05-27] MEDS: INSULN ASP PRT/INSULIN ASPART 100 UNIT/ML 10 ML VIAL SQ SCH ×2 (12:15→17:44)
[2018-05-27] MEDS: FUROSEMIDE 20 MG TAB PO SCH (12:15)
[2018-05-27] MEDS: GABAPENTIN 100 MG CAP PO SCH (12:15)
[2018-05-27] MEDS: LEVOTHYROXINE 125 MCG TAB PO SCH (12:15)
[2018-05-27] MEDS: LISINOPRIL 10 MG TAB PO SCH (12:15)
[2018-05-27] MEDS: DILTIAZEM CD 180 MG CAP.ER.24H PO SCH (12:15)
[2018-05-27] MEDS: PRAVASTATIN SODIUM 20 MG TAB PO SCH (12:16)
[2018-05-27] MEDS: RIVAROXABAN 20 MG TAB PO SCH (12:16)
[2018-05-27] MEDS: SERTRALINE 25 MG TAB PO SCH (12:16)
--- NOTE | 2018-05-27 13:06 | P.HPIM ---
History of Present Illness 68-year-old present regimen compensative shortness of breath going on about for 3 days is comparing of cough with clear sputum production and now yellowish in in color. Patient denied any fever chills nausea vomiting chest x-ray did not show any significant abnormality did show some chronic COPD and probable pulmonary fibrosis. No pulmonary edema. Patient had normal ejection fraction the past. Patient uses 2 L of onset at home does have chronic respiratory failure. Patient denied any fever chills. Patient was started on systemic steroids area did she is diabetic blood sugars are elevated because of the systemic steroids which I'll cut it down to 40 twice a day. Review of Systems REVIEW OF SYSTEMS: CONSTITUTIONAL: No fever, no malaise, no fatigue. HEENT: No recent visual problems or hearing problems. Denied any sore throat. CARDIOVASCULAR: No chest pain, orthopnea, PND, no palpitations, no syncope. PULMONARY: no hemoptysis. GASTROINTESTINAL: No diarrhea, no nausea, no vomiting, no abdominal pain. Normoactive bowel sounds. NEUROLOGICAL: No headaches, no weakness, no numbness. HEMATOLOGICAL: Denies any bleeding or petechiae. GENITOURINARY: Denies any burning micturition, frequency, or urgency. MUSCULOSKELETAL/RHEUMATOLOGICAL: Denies any joint pain, swelling, or any muscle pain. ENDOCRINE: Denies any polyuria or polydipsia. The rest of the 14-point review of systems is negative. Past Medical History Past Medical History: Atrial Fibrillation, COPD, Diabetes Mellitus, Hyperlipidemia, Hypertension, Skin Disorder Additional Past Medical History / Comment(s): Pt recently admitted to [facility] on with sepsis thought 2ndary to possible colitis. Other HX: Severe COPD , chronic hypoxic respiratory failure,home O2 at 2L/[place] ATC, chronic atrial fibrillation maintained on Xarelto, lumbar disc disease and chronic back pain, chronic and recurrent urine tract infections/sepsis, diabetes mellitus type II, chronic constipation, previous L heel wound with osteomylitis in 2015 (pt states currently covered with callus, decubitus ulcer now healed, hypothyroid. History of Any Multi-Drug Resistant Organisms: ESBL, MRSA Date of last positivie culture/infection: 07/02/15-MRSA; 12/18/14 ESBL-E. coli MDRO Source:: Sputum-MRSA; Urine-ESBL Past Surgical History: Hysterectomy, Orthopedic Surgery, Tonsillectomy Additional Past Surgical History / Comment(s): Bilateral cataract removals/lens implants on 11/12/14. Lumbar disc surgery, repair of left hip -screws in place, decubitus I&D, colonoscopy. Past Anesthesia/Blood Transfusion Reactions: No Reported Reaction Past Psychological History: No Psychological Hx Reported Additional Psychological History / Comment(s): Pt lives with and GRANDSON/his spouse. THEY HELP CARE FOR PT. She ambulates with a walker. She has 2L oxygen per nasal cannula at all times. She no longer drives. She gets to [employer] by family driving her. Smoking Status: Former smoker Past Alcohol Use History: None Reported Additional Past Alcohol Use History / Comment(s): PT STARTED SMOKING IN 1965- WAS A 48 YEAR SMOKER QUIT IN 2013. She denies any medical marijuana, marijuana , street drug use.She has had no alcohol intake for the past 10-15 years. There are no animals in the home. She lives with her , grandson and grandson's spouse . pt was houewife. Past Drug Use History: None Reported - Past Family History Father Family Medical History: Unable to Obtain Additional Family Medical History / Comment(s): Pt never knew her father. He in WWII when she was very young. Mother Family Medical History: No Reported History Brother(s) Family Medical History: Cancer Additional Family Medical History / Comment(s): Pt has 4 brothers and one has testicular cancer. Medications and Allergies Home Medications Medication Instructions Recorded Confirmed Type Levothyroxine Sodium [Synthroid] 125 mcg PO DAILY 11/16/14 05/26/18 History Rivaroxaban [Xarelto] 20 mg PO DAILY 11/16/14 05/26/18 History Sertraline [Zoloft] 25 mg PO DAILY 11/16/14 05/26/18 History metFORMIN HCL 1,000 mg PO BID 11/16/14 05/26/18 History Furosemide [Lasix] 20 mg PO DAILY 01/27/16 05/26/18 History Diltiazem HCl [Diltiazem 24Hr ER] 180 mg PO DAILY 08/07/16 05/26/18 History Pravastatin Sodium [Pravachol] 20 mg PO DAILY 08/07/16 05/26/18 History Insulin Aspart Protam & Aspart 36 unit SQ BID 06/27/17 05/26/18 History [NovoLOG MIX 70-30 Flexpen] Lisinopril [Zestril] 10 mg PO DAILY 07/22/17 05/26/18 History Budesonide-Formot 160-4.5 Mcg 2 puff INHALATION RT-BID #1 09/30/17 05/26/18 Rx [Symbicort 160-4.5 Mcg Inhaler] Ipratropium-Albuterol Nebulize 3 ml INHALATION RT-QID PRN 11/11/17 05/26/18 History [Duoneb 0.5 mg-3 mg/3 ml Soln] Docusate [Colace] 100 mg PO DAILY PRN 05/26/18 05/26/18 History Gabapentin [Neurontin] 100 mg PO DAILY 05/26/18 05/26/18 History Umeclidinium [place] [Incruse 1 puff INHALATION RT-DAILY 05/26/18 05/26/18 History Ellipta] Allergies Allergy/AdvReac Type Severity Reaction Status Date / Time ceftaroline fosamil Allergy Intermediate Rash/Hives Verified 05/26/18 22:35 codeine Allergy Itching Verified 05/26/18 22:35 levofloxacin [From Levaquin] Allergy Rash/Hives Verified 05/26/18 22:35 tramadol Allergy Itching Verified 05/26/18 22:35 Physical Exam Vitals: Vital Signs Temp Pulse Pulse Resp BP BP Pulse Ox 05/27/18 11:42 100 05/27/18 11:28 100 05/27/18 07:25 96 05/27/18 07:22 95 05/27/18 07:15 92 05/27/18 05:45 97.9 F 94 24 136/62 96 05/27/18 01:45 99.2 F 98 24 124/53 93 L 05/27/18 00:30 100.9 F H 107 H 24 194/91 93 L 05/26/18 23:34 99.0 F 05/26/18 23:17 107 H 05/26/18 23:16 108 H 18 135/54 95 05/26/18 23:00 110 H 05/26/18 21:09 99.5 F 97 16 151/59 97 Intake and Output 05/26/18 05/27/18 05/27/18 22:59 06:59 14:59 Intake Total 200 Balance 200 Intake: Oral 200 Other: Voiding Method Bedside Commode Bedside Commode # Voids 4 7 Weight 80.739 kg 80.73 kg PHYSICAL EXAMINATION: GENERAL: The patient is alert and oriented x3, not in any acute distress. Well developed, well nourished. HEENT: Pupils are round and equally reacting to light. EOMI. No scleral icterus. No conjunctival pallor. Normocephalic, atraumatic. No pharyngeal erythema. No thyromegaly. CARDIOVASCULAR: S1 and S2 present. No murmurs, rubs, or gallops. PULMONARY: Diminished air entry into bilateral lung mejia no wheezing was appreciated ABDOMEN: Soft, nontender, nondistended, normoactive bowel sounds. No palpable organomegaly. MUSCULOSKELETAL: No joint swelling or deformity. EXTREMITIES: No cyanosis, clubbing, or pedal edema. NEUROLOGICAL: Gross neurological examination did not reveal any focal deficits. SKIN: No rashes. Results CBC & Chem 7: 05/26/18 21:50 05/26/18 21:50 Labs: Abnormal Lab Results - Last 24 Hours (Table) 05/26/18 05/26/18 05/26/18 Range/Units 21:50 21:50 21:50 WBC 15.8 H (3.8-10.6) k/uL Neutrophils # 13.0 H (1.3-7.7) k/uL Sodium 136 L (137-145) mmol/L Chloride 95 L (98-107) mmol/L Glucose 340 H (74-99) mg/dL POC Glucose (mg/dL) (75-99) mg/dL Magnesium 1.4 L (1.6-2.3) mg/dL Alkaline Phosphatase 209 H (38-126) U/L Total Creatine Kinase 28 L (30-135) U/L Urine Appearance (Clear) Urine Protein (Negative) Urine Glucose (UA) (Negative) Urine Ketones (Negative) Urine Blood (Negative) Ur Leukocyte Esterase (Negative) Urine RBC (0-5) /hpf Urine WBC (0-5) /hpf Urine WBC Clumps (None) /hpf 05/26/18 05/27/18 05/27/18 Range/Units 21:50 07:05 12:02 WBC (3.8-10.6) k/uL Neutrophils # (1.3-7.7) k/uL Sodium (137-145) mmol/L Chloride (98-107) mmol/L Glucose (74-99) mg/dL POC Glucose (mg/dL) 365 H 394 H (75-99) mg/dL Magnesium (1.6-2.3) mg/dL Alkaline Phosphatase (38-126) U/L Total Creatine Kinase (30-135) U/L Urine Appearance Cloudy H (Clear) Urine Protein 2+ H (Negative) Urine Glucose (UA) 4+ H (Negative) Urine Ketones 2+ H (Negative) Urine Blood Small H (Negative) Ur Leukocyte Esterase Large H (Negative) Urine RBC 10 H (0-5) /hpf Urine WBC 81 H (0-5) /hpf Urine WBC Clumps Occasional H (None) /hpf Thrombosis Risk Factor Assmnt - Choose All That Apply Each Factor Represents 1 point: Abnormal pulmonary function (COPD) Other Risk Factors: No Thrombosis Risk Factor Assessment Total Risk Factor Score: 1 Thrombosis Risk Factor Assessment Level: Low Risk Assessment and Plan Plan: Acute on chronic hypercapnic respiratory failure secondary to COPD exacerbation patient will be continued on systemic steroids inhalational treatments patient doesn't have any significant wheezing and consult the pulmonary. -Chronic atrial fibrillation presently rate controlled patient is on anticoagulation with Xarelto which will be continued -Chronic low back pain -Type 2 diabetes mellitus sugars are elevated due to systemic steroids patient will be started back on her regimen metformin will be held and the steroid dose sliding scale will be started and we'll cut down the steroids as well. -Hypertension -Hyperlipidemia For above-mentioned chronic medical problems patient will be continued on her appropriate home medications
[2018-05-27 15:58] LABS: Hemoglobin A1C 10.8 % (4.0-6.0)
--- NOTE | 2018-05-27 16:46 | P.CNPUL ---
History of Present Illness Consult date: 05/27/18 Requesting physician: Jose Toussaint Reason for consult: COPD Chief complaint: Shortness of breath cough with productive sputum History of present illness: This is a 68-year-old female with history of COPD, O2 dependent, patient was never seen by a marketing finance specialist in the past. She is primarily a patient of Dr. Martinez, known to have history of chronic atrial fibrillation, COPD, diabetes, hyperlipidemia, and hypertension. Her last admission to [facility] was back in July of 2017 were and she was admitted with sepsis secondary to colitis. Patient presented today with mostly 3 days history of increased cough, wheezing, shortness of breath, cough is productive with yellow phlegm. No fever no chills, no hemoptysis, no chest pain, no nausea no vomiting, no melena, no hematemesis, no dysuria, no frequency, no urgency. Patient was started on multiple bronchodilators including IV Solu- Medrol, she feels the same as she felt earlier today. Not much improvement yet. Chest x-ray showed COPD and nonspecific fibrotic changes at the bases. Review of Systems 14 point review of systems were obtained, please refer to pertinent positives in HPI, otherwise remaining systems are negative Past Medical History Past Medical History: Atrial Fibrillation, COPD, Diabetes Mellitus, Hyperlipidemia, Hypertension, Skin Disorder Additional Past Medical History / Comment(s): Pt recently admitted to [facility] on with sepsis thought 2ndary to possible colitis. Other HX: Severe COPD , chronic hypoxic respiratory failure,home O2 at 2L/NC ATC, chronic atrial fibrillation maintained on Xarelto, lumbar disc disease and chronic back pain, chronic and recurrent urine tract infections/sepsis, diabetes mellitus type II, chronic constipation, previous L heel wound with osteomylitis in 2014 (pt states currently covered with callus, decubitus ulcer now healed, hypothyroid. History of Any Multi-Drug Resistant Organisms: ESBL, MRSA Date of last positivie culture/infection: 07/02/15-MRSA; 12/18/14 ESBL-E. coli MDRO Source:: Sputum-MRSA; Urine-ESBL Past Surgical History: Hysterectomy, Orthopedic Surgery, Tonsillectomy Additional Past Surgical History / Comment(s): Bilateral cataract removals/lens implants on 11/12/14. Lumbar disc surgery, repair of left hip -screws in place, decubitus I&D, colonoscopy. Past Anesthesia/Blood Transfusion Reactions: No Reported Reaction Past Psychological History: No Psychological Hx Reported Additional Psychological History / Comment(s): Pt lives with and GRANDSON/his spouse. THEY HELP CARE FOR PT. She ambulates with a walker. She has 2L oxygen per nasal cannula at all times. She no longer drives. She gets to app by family driving her. Smoking Status: Former smoker Past Alcohol Use History: None Reported Additional Past Alcohol Use History / Comment(s): PT STARTED SMOKING IN 1965- WAS A 48 YEAR SMOKER QUIT IN 2013. She denies any medical marijuana, marijuana , street drug use.She has had no alcohol intake for the past 10-15 years. There are no animals in the home. She lives with her , grandson and grandson's spouse . pt was houewife. Past Drug Use History: None Reported - Past Family History Father Family Medical History: Unable to Obtain Additional Family Medical History / Comment(s): Pt never knew her father. He in WWII when she was very young. Mother Family Medical History: No Reported History Brother(s) Family Medical History: Cancer Additional Family Medical History / Comment(s): Pt has 4 brothers and one has testicular cancer. Medications and Allergies Home Medications Medication Instructions Recorded Confirmed Type Levothyroxine Sodium [Synthroid] 125 mcg PO DAILY 11/16/14 05/26/18 History Rivaroxaban [Xarelto] 20 mg PO DAILY 11/16/14 05/26/18 History Sertraline [Zoloft] 25 mg PO DAILY 11/16/14 05/26/18 History metFORMIN HCL 1,000 mg PO BID 11/16/14 05/26/18 History Furosemide [Lasix] 20 mg PO DAILY 01/27/16 05/26/18 History Diltiazem HCl [Diltiazem 24Hr ER] 180 mg PO DAILY 08/07/16 05/26/18 History Pravastatin Sodium [Pravachol] 20 mg PO DAILY 08/07/16 05/26/18 History Insulin Aspart Protam & Aspart 36 unit SQ BID 06/27/17 05/26/18 History [NovoLOG MIX 70-30 Flexpen] Lisinopril [Zestril] 10 mg PO DAILY 07/22/17 05/26/18 History Budesonide-Formot 160-4.5 Mcg 2 puff INHALATION RT-BID #1 09/30/17 05/26/18 Rx [Symbicort 160-4.5 Mcg Inhaler] Ipratropium-Albuterol Nebulize 3 ml INHALATION RT-QID PRN 11/11/17 05/26/18 History [Duoneb 0.5 mg-3 mg/3 ml Soln] Docusate [Colace] 100 mg PO DAILY PRN 05/26/18 05/26/18 History Gabapentin [Neurontin] 100 mg PO DAILY 05/26/18 05/26/18 History Umeclidinium [place] [Incruse 1 puff INHALATION RT-DAILY 05/26/18 05/26/18 History Ellipta] Allergies Allergy/AdvReac Type Severity Reaction Status Date / Time ceftaroline fosamil Allergy Intermediate Rash/Hives Verified 05/26/18 22:35 codeine Allergy Itching Verified 05/26/18 22:35 levofloxacin [From Levaquin] Allergy Rash/Hives Verified 05/26/18 22:35 tramadol Allergy Itching Verified 05/26/18 22:35 Physical Exam Vitals: Vital Signs Temp Pulse Pulse Pulse Resp BP BP 05/27/18 15:26 96 05/27/18 15:11 92 05/27/18 15:00 98.3 F 90 16 151/66 05/27/18 13:10 75 21 159/66 05/27/18 11:42 100 05/27/18 11:28 100 05/27/18 07:25 96 05/27/18 07:22 05/27/18 07:15 92 05/27/18 05:45 97.9 F 94 24 136/62 05/27/18 01:45 99.2 F 98 24 124/53 05/27/18 00:30 100.9 F H 107 H 24 194/91 05/26/18 23:34 99.0 F 05/26/18 23:17 107 H 05/26/18 23:16 108 H 18 135/54 05/26/18 23:00 110 H 05/26/18 21:09 99.5 F 97 16 151/59 Pulse Ox 05/27/18 15:26 05/27/18 15:11 05/27/18 15:00 92 L 05/27/18 13:10 92 L 05/27/18 11:42 05/27/18 11:28 05/27/18 07:25 05/27/18 07:22 95 05/27/18 07:15 05/27/18 05:45 96 05/27/18 01:45 93 L 05/27/18 00:30 93 L 05/26/18 23:34 05/26/18 23:17 05/26/18 23:16 95 05/26/18 23:00 05/26/18 21:09 97 Intake and Output 05/27/18 05/27/18 05/27/18 06:59 14:59 22:59 Intake Total 200 Balance 200 Intake: Oral 200 Other: Voiding Method Bedside Commode Bedside Commode Bedside Commode # Voids 4 4 Weight 80.73 kg Physical Exam: Revealed a 73-year-old female, pleasant, in no distress. On oxygen at 2 L nasal cannula. Head: Atraumatic, normocephalic. HEENT:[Neck is supple.] [No neck masses.] [No thyromegaly.] [No JVD.] Chest: [Minimal crackles at the bases, rhonchi and wheezes on forced expiratory maneuver bilaterally.] Cardiac Exam: [Irregular irregular rhythm Normal S1 and S2, no S3 gallop, no murmur.] Abdomen: [Soft, nontender, no megaly, no rebound, no guarding, normal bowel sounds.] Extremities: [No clubbing, no edema, no cyanosis.] Neurological Exam: Alert, oriented 3. [No focal neurologic deficit. Lymphatics: No lymphadenopathy. Psychiatric: Normal mood affect and mental status examination.] Results - Laboratory Findings CBC and BMP: 05/26/18 21:50 05/26/18 21:50 PT/INR, D-dimer PT 10.6 sec (9.0-12.0) 05/26/18 21:50 INR 1.1 (<1.2) 05/26/18 21:50 Abnormal lab findings: Abnormal Labs 05/26/18 05/26/18 05/26/18 21:50 21:50 21:50 WBC 15.8 H Neutrophils # 13.0 H Sodium 136 L Chloride 95 L Glucose 340 H POC Glucose (mg/dL) Hemoglobin A1c Magnesium 1.4 L Alkaline Phosphatase 209 H Total Creatine Kinase 28 L Urine Appearance Urine Protein Urine Glucose (UA) Urine Ketones Urine Blood Ur Leukocyte Esterase Urine RBC Urine WBC Urine WBC Clumps 05/26/18 05/26/18 05/27/18 21:50 21:50 07:05 WBC Neutrophils # Sodium Chloride Glucose POC Glucose (mg/dL) 365 H Hemoglobin A1c 10.8 H Magnesium Alkaline Phosphatase Total Creatine Kinase Urine Appearance Cloudy H Urine Protein 2+ H Urine Glucose (UA) 4+ H Urine Ketones 2+ H Urine Blood Small H Ur Leukocyte Esterase Large H Urine RBC 10 H Urine WBC 81 H Urine WBC Clumps Occasional H 05/27/18 12:02 WBC Neutrophils # Sodium Chloride Glucose POC Glucose (mg/dL) 394 H Hemoglobin A1c Magnesium Alkaline Phosphatase Total Creatine Kinase Urine Appearance Urine Protein Urine Glucose (UA) Urine Ketones Urine Blood Ur Leukocyte Esterase Urine RBC Urine WBC Urine WBC Clumps - Diagnostic Findings Chest x-ray: image reviewed (As noted in HPI.) Assessment and Plan Assessment: Impression: 1 acute on chronic hypoxic respiratory failure secondary to acute COPD exacerbation. 2 acute tracheobronchitis, no clinical evidence of pneumonia. 3 chronic atrial fibrillation, patient is on anticoagulation therapy in the form of Xarelto. And rate seems to be well-controlled at present. 4 remote smoking history, patient quit smoking 3 years ago. 5 multiple comorbidities including type 2 diabetes, hypertension, chronic back pain, and hyperlipidemia. Recommendation: Agree with the present treatment plan, continue present meds including steroids, bronchodilators, and doxycycline. Will follow, consider discharge planning in the next 24-48 hours. Time with Patient: Greater than 30
[2018-05-27] MEDS ORDERED: INSULIN ASPART 100 UNIT/ML 1 ML 10 ML VIAL SQ SCH (17:30)
[2018-05-27 17:36] LABS: Glucose,Whole Blood 372 mg/dL (75-99)
[2018-05-27] MEDS: SYMBICORT 160-4.5 MCG INHALER INHALATION SCH (18:47)
[2018-05-27 20:43] LABS: Glucose,Whole Blood 426 mg/dL (75-99)
[2018-05-27] MEDS: DOXYCYCLINE MONOHYDRATE 100 MG CAPSULE PO SCH (21:21)
[2018-05-27] MEDS: methylPREDNISolone SOD SUCCI 40 MG/ML 1 ML VIAL IV SCH (21:22)
[2018-05-28 00:06] LABS: Glucose,Whole Blood 388 mg/dL (75-99)
[2018-05-28] MEDS ORDERED: INSULIN REGULAR 100 UNIT in SODIUM CHLORIDE 0.9% 100 ML IV SCH (00:30)
[2018-05-28 01:22] LABS: Glucose,Whole Blood 344 mg/dL (75-99)
[2018-05-28 02:23] LABS: Glucose,Whole Blood 339 mg/dL (75-99)
[2018-05-28 02:56] LABS: Glucose,Whole Blood 304 mg/dL (75-99)
[2018-05-28 03:26] LABS: Glucose,Whole Blood 278 mg/dL (75-99)
[2018-05-28 03:59] LABS: Glucose,Whole Blood 248 mg/dL (75-99)
[2018-05-28 06:01] LABS: Glucose,Whole Blood 172 mg/dL (75-99)
[2018-05-28] MEDS: LEVOTHYROXINE 125 MCG TAB PO SCH (07:05)
[2018-05-28] MEDS: SYMBICORT 160-4.5 MCG INHALER INHALATION SCH ×2 (07:20→19:43)
[2018-05-28] MEDS: IPRATROPIUM-ALBUTEROL 3 ML NEB INHALATION SCH ×4 (07:20→19:44)
[2018-05-28] MEDS: INSULIN ASPART 100 UNIT/ML 1 ML 10 ML VIAL SQ SCH ×4 (07:42→21:54)
[2018-05-28] MEDS: INSULN ASP PRT/INSULIN ASPART 100 UNIT/ML 10 ML VIAL SQ SCH ×2 (07:44→17:44)
[2018-05-28] MEDS ORDERED: NON-FORMULARY DRUG (Umeclidinium Bromide [Incruse Ellipta] 1 PUFF) INHALATION SCH (08:00)
[2018-05-28] MEDS: DILTIAZEM CD 180 MG CAP.ER.24H PO SCH (08:01)
[2018-05-28] MEDS: DOXYCYCLINE MONOHYDRATE 100 MG CAPSULE PO SCH ×2 (08:01→21:55)
[2018-05-28] MEDS: FUROSEMIDE 20 MG TAB PO SCH (08:01)
[2018-05-28] MEDS: GABAPENTIN 100 MG CAP PO SCH (08:01)
[2018-05-28] MEDS: PANTOPRAZOLE 40 MG TABLET PO SCH (08:01)
[2018-05-28] MEDS: LISINOPRIL 10 MG TAB PO SCH (08:02)
[2018-05-28] MEDS: RIVAROXABAN 20 MG TAB PO SCH (08:02)
[2018-05-28] MEDS: SERTRALINE 25 MG TAB PO SCH (08:02)
[2018-05-28] MEDS: PRAVASTATIN SODIUM 20 MG TAB PO SCH (08:02)
[2018-05-28] MEDS: methylPREDNISolone SOD SUCCI 40 MG/ML 1 ML VIAL IV SCH (08:02)
[2018-05-28 08:12] LABS: Glucose,Whole Blood 151 mg/dL (75-99)
[2018-05-28 08:22] LABS: Hypochromasia Moderate; MCH 28.4 pg (25.0-35.0); MCHC 29.9 g/dL (31.0-37.0); MCV 94.8 fL (80.0-100.0); Mean Platelet Volume 9.4; Platelet Count 265 k/uL (150-450); RBC 4.22 m/uL (3.80-5.40); RDW 13.3 % (11.5-15.5); WBC 24.5 k/uL (3.8-10.6)
[2018-05-28 08:36] LABS: Anion Gap 9 mmol/L; Blood Urea Nitrogen 26 mg/dL (7-17); Calcium 10.2 mg/dL (8.4-10.2); Carbon Dioxide 28 mmol/L (22-30); Chloride 106 mmol/L (98-107); Glucose 146 mg/dL (74-99); Potassium 3.9 mmol/L (3.5-5.1); Sodium 143 mmol/L (137-145)
[2018-05-28 10:16] LABS: Glucose,Whole Blood 410 mg/dL (75-99)
--- NOTE | 2018-05-28 11:48 | P.PN ---
Subjective Progress Note Date: 05/28/18 Principal diagnosis: Acute on chronic hypoxic respiratory failure secondary to an acute exacerbation of chronic obstructive pulmonary disease. This is a 68-year-old female with history of COPD, O2 dependent, patient was never seen by a prepress specialist in the past. She is primarily a patient of Dr. Martinez, known to have history of chronic atrial fibrillation, COPD, diabetes, hyperlipidemia, and hypertension. Her last admission to [facility] was back in July of 2017 were and she was admitted with sepsis secondary to colitis. Patient presented today with mostly 3 days history of increased cough, wheezing, shortness of breath, cough is productive with yellow phlegm. No fever no chills, no hemoptysis, no chest pain, no nausea no vomiting, no melena, no hematemesis, no dysuria, no frequency, no urgency. Patient was started on multiple bronchodilators including IV Solu- Medrol, she feels the same as she felt earlier today. Not much improvement yet. Chest x-ray showed COPD and nonspecific fibrotic changes at the bases. The patient is seen again today 05/28/2018 in follow-up on the regular medical floor. She is currently sitting up in a chair at the bedside. She is awake and alert in no acute distress. She is breathing easier today as compared to yesterday. He is maintaining good O2 saturations in the upper 90s on 2 L/m per nasal cannula. She's been afebrile. Count 24.5. Hemoglobin 12.0. Creatinine 0.59. She is requiring insulin drip at 14 units per hour. Her IV Solu-Medrol has been decreased. She remains on DuoNeb inhalations, Symbicort, empiric antibiotics in the form of Vibramycin. Objective - Vital Signs Vital signs: Vital Signs Temp 96.3 F L 05/28/18 06:00 Pulse 79 05/28/18 11:32 Resp 24 05/28/18 06:00 BP 121/60 05/28/18 06:00 Pulse Ox 98 05/28/18 07:21 Intake & Output 05/27/18 05/28/18 05/28/18 18:59 06:59 18:59 Intake Total 200 50.331 209.097 Balance 200 50.331 209.097 Intake: Intake, IV Titration 50.331 9.097 Amount Insulin Regular 100 unit 50.331 9.097 In Sodium Chloride 0.9% 100 ml @ Titrate IV .Q0M [facility] Rx#:[id number] Oral 200 200 Other: Voiding Method Bedside Commode Bedside Commode Diaper # Voids 4 4 - Exam GENERAL EXAM: Alert, active, comfortable in no apparent distress. HEAD: Normocephalic. EYES: Normal reaction of pupils, equal size. NOSE: Clear with pink turbinates. THROAT: No erythema or exudates. NECK: No masses, no JVD. CHEST: No chest wall deformity. LUNGS: Equal air entry with faint end expiratory wheeze. CVS: S1 and S2 normal with no audible murmur, regular rhythm. ABDOMEN: No hepatosplenomegaly, normal bowel sounds, no guarding or rigidity. SPINE: No scoliosis or deformity SKIN: No rashes CENTRAL NERVOUS SYSTEM: No focal deficits, tone is normal in all 4 extremities. EXTREMITIES: There is no peripheral edema. No clubbing, no cyanosis. Peripheral pulses are intact. - Labs CBC & Chem 7: 05/28/18 07:41 05/28/18 07:41 Labs: Abnormal Lab Results - Last 24 Hours (Table) 05/26/18 05/27/18 05/27/18 Range/Units 21:50 12:02 17:11 WBC (3.8-10.6) k/uL MCHC (31.0-37.0) g/dL BUN (7-17) mg/dL Glucose (74-99) mg/dL POC Glucose (mg/dL) 394 H 372 H (75-99) mg/dL Hemoglobin A1c 10.8 H (4.0-6.0) % 05/27/18 05/28/18 05/28/18 Range/Units 20:40 00:03 01:21 WBC (3.8-10.6) k/uL MCHC (31.0-37.0) g/dL BUN (7-17) mg/dL Glucose (74-99) mg/dL POC Glucose (mg/dL) 426 H 388 H 344 H (75-99) mg/dL Hemoglobin A1c (4.0-6.0) % 05/28/18 05/28/18 05/28/18 Range/Units 02:21 02:54 03:25 WBC (3.8-10.6) k/uL MCHC (31.0-37.0) g/dL BUN (7-17) mg/dL Glucose (74-99) mg/dL POC Glucose (mg/dL) 339 H 304 H 278 H (75-99) mg/dL Hemoglobin A1c (4.0-6.0) % 05/28/18 05/28/18 05/28/18 Range/Units 03:56 06:00 07:41 WBC 24.5 H (3.8-10.6) k/uL MCHC 29.9 L (31.0-37.0) g/dL BUN (7-17) mg/dL Glucose (74-99) mg/dL POC Glucose (mg/dL) 248 H 172 H (75-99) mg/dL Hemoglobin A1c (4.0-6.0) % 05/28/18 05/28/18 05/28/18 Range/Units 07:41 07:58 10:05 WBC (3.8-10.6) k/uL MCHC (31.0-37.0) g/dL BUN 26 H (7-17) mg/dL Glucose 146 H (74-99) mg/dL POC Glucose (mg/dL) 151 H 410 H (75-99) mg/dL Hemoglobin A1c (4.0-6.0) % Assessment and Plan Assessment: Impression: 1 acute on chronic hypoxic respiratory failure secondary to acute COPD exacerbation. 2 acute tracheobronchitis, no clinical evidence of pneumonia. 3 chronic atrial fibrillation, patient is on anticoagulation therapy in the form of Xarelto. And rate seems to be well-controlled at present. 4 remote smoking history, patient quit smoking 3 years ago. 5 multiple comorbidities including type 2 diabetes, hypertension, chronic back pain, and hyperlipidemia. Recommendation: The patient was seen and evaluated by Dr. Malcolm. She is improved today as compared to yesterday. We'll continue with her current treatment plan. We'll increase her activity as tolerated. We will continue to follow. I, the cosigning physician, performed a history & physical examination of the patient. Lungs sounds with end expiratory wheeze. Maintaining good O2 saturations in the 90s on 2 L/m per nasal cannula. I discussed the assessment and plan of care with my nurse practitioner, Mandy Rodriguez. I attest to the above note as dictated by her.
[2018-05-28 11:59] LABS: Glucose,Whole Blood 318 mg/dL (75-99)
[2018-05-28 13:13] LABS: Glucose,Whole Blood 282 mg/dL (75-99)
[2018-05-28] MEDS: predniSONE 20 MG TAB PO SCH (14:08)
[2018-05-28 14:19] LABS: Glucose,Whole Blood 347 mg/dL (75-99)
[2018-05-28] MEDS: MEROPENEM 500 MG in SODIUM CHLORIDE 0.9% 50 ML IVPB SCH ×2 (16:10→23:45)
[2018-05-28 17:51] LABS: Glucose,Whole Blood 402 mg/dL (75-99)
[2018-05-28 20:58] LABS: Glucose,Whole Blood 380 mg/dL (75-99)
[2018-05-29 04:35] LABS: Glucose,Whole Blood 369 mg/dL (75-99)
[2018-05-29] MEDS: LEVOTHYROXINE 125 MCG TAB PO SCH (06:27)
[2018-05-29 07:20] LABS: Glucose,Whole Blood 355 mg/dL (75-99)
[2018-05-29] MEDS: INSULN ASP PRT/INSULIN ASPART 100 UNIT/ML 10 ML VIAL SQ SCH ×2 (07:48→18:24)
[2018-05-29] MEDS: INSULIN ASPART 100 UNIT/ML 1 ML 10 ML VIAL SQ SCH ×4 (07:48→22:02)
[2018-05-29] MEDS: PANTOPRAZOLE 40 MG TABLET PO SCH (07:49)
[2018-05-29] MEDS: MEROPENEM 500 MG in SODIUM CHLORIDE 0.9% 50 ML IVPB SCH ×2 (07:49→15:57)
[2018-05-29] MEDS: GABAPENTIN 100 MG CAP PO SCH (07:50)
[2018-05-29] MEDS: DILTIAZEM CD 180 MG CAP.ER.24H PO SCH (07:50)
[2018-05-29] MEDS: LISINOPRIL 10 MG TAB PO SCH (07:50)
[2018-05-29] MEDS: DOXYCYCLINE MONOHYDRATE 100 MG CAPSULE PO SCH ×2 (07:50→20:21)
[2018-05-29] MEDS: predniSONE 20 MG TAB PO SCH (07:50)
[2018-05-29] MEDS: FUROSEMIDE 20 MG TAB PO SCH (07:50)
[2018-05-29] MEDS: PRAVASTATIN SODIUM 20 MG TAB PO SCH (07:50)
[2018-05-29] MEDS: SERTRALINE 25 MG TAB PO SCH (07:51)
[2018-05-29] MEDS: RIVAROXABAN 20 MG TAB PO SCH (07:51)
[2018-05-29] MEDS: SYMBICORT 160-4.5 MCG INHALER INHALATION SCH ×2 (07:53→19:01)
[2018-05-29] MEDS: IPRATROPIUM-ALBUTEROL 3 ML NEB INHALATION SCH ×4 (07:54→19:01)
[2018-05-29 08:13] LABS: HCT 35.4 % (34.0-46.0); Hypochromasia Slight; MCH 28.9 pg (25.0-35.0); MCHC 31.2 g/dL (31.0-37.0); MCV 92.5 fL (80.0-100.0); Mean Platelet Volume 10.4; Platelet Count 239 k/uL (150-450); RBC 3.83 m/uL (3.80-5.40); RDW 13.2 % (11.5-15.5); WBC 21.6 k/uL (3.8-10.6)
[2018-05-29 08:45] LABS: Anion Gap 7 mmol/L; Blood Urea Nitrogen 27 mg/dL (7-17); Calcium 9.3 mg/dL (8.4-10.2); Carbon Dioxide 31 mmol/L (22-30); Chloride 102 mmol/L (98-107); Glucose 360 mg/dL (74-99); Potassium 4.2 mmol/L (3.5-5.1); Sodium 140 mmol/L (137-145)
[2018-05-29 11:38] LABS: Glucose,Whole Blood 202 mg/dL (75-99)
--- NOTE | 2018-05-29 12:19 | P.PN ---
Subjective Progress Note Date: 05/29/18 Principal diagnosis: Acute on chronic hypoxic respiratory failure secondary to COPD exacerbation. This is a 68-year-old female with history of COPD, O2 dependent, patient was never seen by a online merchandising specialist in the past. She is primarily a patient of Dr. Martinez, known to have history of chronic atrial fibrillation, COPD, diabetes, hyperlipidemia, and hypertension. Her last admission to [facility] was back in July of 2017 were and she was admitted with sepsis secondary to colitis. Patient presented today with mostly 3 days history of increased cough, wheezing, shortness of breath, cough is productive with yellow phlegm. No fever no chills, no hemoptysis, no chest pain, no nausea no vomiting, no melena, no hematemesis, no dysuria, no frequency, no urgency. Patient was started on multiple bronchodilators including IV Solu- Medrol, she feels the same as she felt earlier today. Not much improvement yet. Chest x-ray showed COPD and nonspecific fibrotic changes at the bases. The patient is seen again today 05/28/2018 in follow-up on the regular medical floor. She is currently sitting up in a chair at the bedside. She is awake and alert in no acute distress. She is breathing easier today as compared to yesterday. He is maintaining good O2 saturations in the upper 90s on 2 L/m per nasal cannula. She's been afebrile. Count 24.5. Hemoglobin 12.0. Creatinine 0.59. She is requiring insulin drip at 14 units per hour. Her IV Solu-Medrol has been decreased. She remains on DuoNeb inhalations, Symbicort, empiric antibiotics in the form of Vibramycin. Patient was reevaluated today on 05/29/2018, feeling better from the pulmonary perspective, however her sugars are running high. I cut down her oral prednisone 230 mg daily, and I kept her on the same bronchodilators otherwise. Patient could be actually considered for discharge planning if cleared by the admitting physician. Her WBC count today is 21.6 hemoglobin is 11 and was abnormal renal profile is normal blood sugar was 360 early this morning, repeat blood sugar was 202, and that is being addressed by the admitting physician, that is delaying her discharge planning at this point. Objective - Vital Signs Vital signs: Vital Signs Temp 98.0 F 05/29/18 07:00 Pulse 85 05/29/18 11:44 Resp 18 05/29/18 07:00 BP 151/64 05/29/18 07:00 Pulse Ox 97 05/29/18 07:00 Intake & Output 05/28/18 05/29/18 05/29/18 18:59 06:59 18:59 Intake Total 249.632 Balance 249.632 Intake: Intake, IV Titration 49.632 Amount Insulin Regular 100 unit 49.632 In Sodium Chloride 0.9% 100 ml @ Titrate IV .Q0M [facility] Rx#:[id number] Oral 200 Other: Voiding Method Bedside Commode Bedside Commode Bedside Commode Diaper Diaper Diaper # Voids 5 4 - Exam GENERAL EXAM: Alert, active, comfortable in no apparent distress. HEAD: Normocephalic. EYES: Normal reaction of pupils, equal size. NOSE: Clear with pink turbinates. THROAT: No erythema or exudates. NECK: No masses, no JVD. CHEST: No chest wall deformity. LUNGS: Equal air entry no crackles, no rhonchi and no wheezes today. CVS: S1 and S2 normal with no audible murmur, regular rhythm. ABDOMEN: No hepatosplenomegaly, normal bowel sounds, no guarding or rigidity. SPINE: No scoliosis or deformity SKIN: No rashes CENTRAL NERVOUS SYSTEM: No focal deficits, tone is normal in all 4 extremities. EXTREMITIES: There is no peripheral edema. No clubbing, no cyanosis. Peripheral pulses are intact. - Labs CBC & Chem 7: 05/29/18 07:42 05/29/18 07:42 Labs: Abnormal Lab Results - Last 24 Hours (Table) 05/28/18 05/28/18 05/28/18 Range/Units 12:59 14:16 17:17 WBC (3.8-10.6) k/uL Hgb (11.4-16.0) gm/dL Carbon Dioxide (22-30) mmol/L BUN (7-17) mg/dL Glucose (74-99) mg/dL POC Glucose (mg/dL) 282 H 347 H 402 H (75-99) mg/dL 05/28/18 05/29/18 05/29/18 Range/Units 20:48 04:01 07:18 WBC (3.8-10.6) k/uL Hgb (11.4-16.0) gm/dL Carbon Dioxide (22-30) mmol/L BUN (7-17) mg/dL Glucose (74-99) mg/dL POC Glucose (mg/dL) 380 H 369 H 355 H (75-99) mg/dL 05/29/18 05/29/18 05/29/18 Range/Units 07:42 07:42 11:35 WBC 21.6 H (3.8-10.6) k/uL Hgb 11.0 L (11.4-16.0) gm/dL Carbon Dioxide 31 H (22-30) mmol/L BUN 27 H (7-17) mg/dL Glucose 360 H (74-99) mg/dL POC Glucose (mg/dL) 202 H (75-99) mg/dL Microbiology - Last 24 Hours (Table) 05/28/18 14:50 Urine Culture - Preliminary Urine,Voided Assessment and Plan Assessment: Impression: 1 acute on chronic hypoxic respiratory failure secondary to acute COPD exacerbation. 2 acute tracheobronchitis, no clinical evidence of pneumonia. 3 chronic atrial fibrillation, patient is on anticoagulation therapy in the form of Xarelto. And rate seems to be well-controlled at present. 4 remote smoking history, patient quit smoking 3 years ago. 5 multiple comorbidities including type 2 diabetes, hypertension, chronic back pain, and hyperlipidemia. Recommendation: Agree with the present treatment plan, continue present meds including steroids, I cut down the prednisone to 30 mg daily instead of 40 mg. bronchodilators, and doxycycline. Will follow, consider discharge planning once cleared by the admitting physician. Time with Patient: Less than 30
--- NOTE | 2018-05-29 13:38 | P.PN ---
Subjective Progress Note Date: 05/28/18 Patient is admitted for COPD exacerbation patient has highly elevated blood sugars in the is on insulin drip incentive will be discontinued and the patient is a 70/30 dose will be increased and patient will be on sliding scale insulin. Patient was also complained of dysuria does have urinary tract infection patient was started on Rocephin and oxygen was discontinued. Constitutional: Denied any fatigue denied any fever. Cardio vascular: denied any chest pain, palpitations Gastrointestinal denied any nausea vomiting Pulmonary: Denied any shortness of breath cough Neurologic denied any new focal deficits Objective - Vital Signs Vital signs: Vital Signs Temp 98.0 F 05/29/18 07:00 Pulse 85 05/29/18 11:44 Resp 18 05/29/18 07:00 BP 151/64 05/29/18 07:00 Pulse Ox 97 05/29/18 07:00 Intake & Output 05/28/18 05/29/18 05/29/18 18:59 06:59 18:59 Intake Total 249.632 Balance 249.632 Intake: Intake, IV Titration 49.632 Amount Insulin Regular 100 unit 49.632 In Sodium Chloride 0.9% 100 ml @ Titrate IV .Q0M [facility] Rx#:[id number] Oral 200 Other: Voiding Method Bedside Commode Bedside Commode Bedside Commode Diaper Diaper Diaper # Voids 5 4 - Exam PHYSICAL EXAMINATION: GENERAL: The patient is alert and oriented x3, not in any acute distress. Well developed, well nourished. HEENT: Pupils are round and equally reacting to light. EOMI. No scleral icterus. No conjunctival pallor. Normocephalic, atraumatic. No pharyngeal erythema. No thyromegaly. CARDIOVASCULAR: S1 and S2 present. No murmurs, rubs, or gallops. PULMONARY: Diminished air entry into bilateral lung mejia no wheezing was appreciated ABDOMEN: Soft, nontender, nondistended, normoactive bowel sounds. No palpable organomegaly. MUSCULOSKELETAL: No joint swelling or deformity. EXTREMITIES: No cyanosis, clubbing, or pedal edema. NEUROLOGICAL: Gross neurological examination did not reveal any focal deficits. SKIN: No rashes. - Labs CBC & Chem 7: 05/29/18 07:42 05/29/18 07:42 Labs: Abnormal Lab Results - Last 24 Hours (Table) 09/10/1405/28/18 05/28/18 Range/Units 14:16 17:17 20:48 WBC (3.8-10.6) k/uL Hgb (11.4-16.0) gm/dL Carbon Dioxide (22-30) mmol/L BUN (7-17) mg/dL Glucose (74-99) mg/dL POC Glucose (mg/dL) 347 H 402 H 380 H (75-99) mg/dL 05/29/18 05/29/18 05/29/18 Range/Units 04:01 07:18 07:42 WBC 21.6 H (3.8-10.6) k/uL Hgb 11.0 L (11.4-16.0) gm/dL Carbon Dioxide (22-30) mmol/L BUN (7-17) mg/dL Glucose (74-99) mg/dL POC Glucose (mg/dL) 369 H 355 H (75-99) mg/dL 05/29/18 05/29/18 Range/Units 07:42 11:35 WBC (3.8-10.6) k/uL Hgb (11.4-16.0) gm/dL Carbon Dioxide 31 H (22-30) mmol/L BUN 27 H (7-17) mg/dL Glucose 360 H (74-99) mg/dL POC Glucose (mg/dL) 202 H (75-99) mg/dL Microbiology - Last 24 Hours (Table) 05/28/18 14:50 Urine Culture - Preliminary Urine,Voided Assessment and Plan Plan: Acute on chronic hypercapnic respiratory failure secondary to COPD exacerbation patient will be continued on systemic steroids inhalational treatments patient doesn't have any significant wheezing and consult the pulmonary. -Chronic atrial fibrillation presently rate controlled patient is on anticoagulation with Xarelto which will be continued -Chronic low back pain -Type 2 diabetes mellitus sugars are elevated due to systemic steroids patient will be started back on her regimen metformin, highly elevated blood sugars increasing the dose of her insulin discontinue insulin drip and patient will be on sliding scale for steroids -Hypertension -Hyperlipidemia -Possible urinary tract infection: Rocephin as mentioned above For above-mentioned chronic medical problems patient will be continued on her appropriate home medications
--- NOTE | 2018-05-29 13:39 | P.PN ---
Subjective Patient is admitted for COPD exacerbation patient has highly elevated blood sugars in the is on insulin drip incentive will be discontinued and the patient is a 70/30 dose will be increased and patient will be on sliding scale insulin. Patient was also complained of dysuria does have urinary tract infection patient was started on Rocephin and oxygen was discontinued. 05/29/2018 Patient is clinically doing well.Wheezingtodaydecreasedairentryintobilaterallungfields.Patientprobablycanbed ischargedtomorrow. Constitutional: Denied any fatigue denied any fever. Cardio vascular: denied any chest pain, palpitations Gastrointestinal denied any nausea vomiting Pulmonary: Denied any shortness of breath cough Neurologic denied any new focal deficits Objective - Vital Signs Vital signs: Vital Signs Temp 98.0 F 05/29/18 07:00 Pulse 85 05/29/18 11:44 Resp 18 05/29/18 07:00 BP 151/64 05/29/18 07:00 Pulse Ox 97 05/29/18 07:00 Intake & Output 05/28/18 05/29/18 05/29/18 18:59 06:59 18:59 Intake Total 249.632 Balance 249.632 Intake: Intake, IV Titration 49.632 Amount Insulin Regular 100 unit 49.632 In Sodium Chloride 0.9% 100 ml @ Titrate IV .Q0M [facility] Rx#:[id number] Oral 200 Other: Voiding Method Bedside Commode Bedside Commode Bedside Commode Diaper Diaper Diaper # Voids 5 4 - Exam PHYSICAL EXAMINATION: GENERAL: The patient is alert and oriented x3, not in any acute distress. Well developed, well nourished. HEENT: Pupils are round and equally reacting to light. EOMI. No scleral icterus. No conjunctival pallor. Normocephalic, atraumatic. No pharyngeal erythema. No thyromegaly. CARDIOVASCULAR: S1 and S2 present. No murmurs, rubs, or gallops. PULMONARY: Mildly diminished air entry into bilateral lung mejia no wheezing was appreciated ABDOMEN: Soft, nontender, nondistended, normoactive bowel sounds. No palpable organomegaly. MUSCULOSKELETAL: No joint swelling or deformity. EXTREMITIES: No cyanosis, clubbing, or pedal edema. NEUROLOGICAL: Gross neurological examination did not reveal any focal deficits. SKIN: No rashes. - Labs CBC & Chem 7: 05/29/18 07:42 05/29/18 07:42 Labs: Abnormal Lab Results - Last 24 Hours (Table) 05/28/18 05/28/18 05/28/18 Range/Units 14:16 17:17 20:48 WBC (3.8-10.6) k/uL Hgb (11.4-16.0) gm/dL Carbon Dioxide (22-30) mmol/L BUN (7-17) mg/dL Glucose (74-99) mg/dL POC Glucose (mg/dL) 347 H 402 H 380 H (75-99) mg/dL 05/29/18 05/29/18 05/29/18 Range/Units 04:01 07:18 07:42 WBC 21.6 H (3.8-10.6) k/uL Hgb 11.0 L (11.4-16.0) gm/dL Carbon Dioxide (22-30) mmol/L BUN (7-17) mg/dL Glucose (74-99) mg/dL POC Glucose (mg/dL) 369 H 355 H (75-99) mg/dL 05/29/18 05/29/18 Range/Units 07:42 11:35 WBC (3.8-10.6) k/uL Hgb (11.4-16.0) gm/dL Carbon Dioxide 31 H (22-30) mmol/L BUN 27 H (7-17) mg/dL Glucose 360 H (74-99) mg/dL POC Glucose (mg/dL) 202 H (75-99) mg/dL Microbiology - Last 24 Hours (Table) 05/28/18 14:50 Urine Culture - Preliminary Urine,Voided Assessment and Plan Plan: Acute on chronic hypercapnic respiratory failure secondary to COPD exacerbation patient will be continued on systemic steroids inhalational treatments patient doesn't have any significant wheezing and consult the pulmonary. -Chronic atrial fibrillation presently rate controlled patient is on anticoagulation with Xarelto which will be continued -Chronic low back pain -Type 2 diabetes mellitus sugars are elevated due to systemic steroids patient will be started back on her regimen metformin, highly elevated blood sugars increasing the dose of her insulin discontinue insulin drip and patient will be on sliding scale for steroids -Hypertension -Hyperlipidemia -Possible urinary tract infection: Rocephin as mentioned above For above-mentioned chronic medical problems patient will be continued on her appropriate home medications
[2018-05-29 16:47] LABS: Glucose,Whole Blood 279 mg/dL (75-99)
--- NOTE | 2018-05-29 16:57 | P.CONS ---
History of Present Illness - Reason for Consult Consult date: 05/28/18 Urinary tract infection and multiple antibiotic ALLERGIES Requesting physician: Jose Toussaint - Chief Complaint Shortness of breath and burning urine - History of Present Illness Patient is a 73-year-old female who presented to the ER at [facility] on 05/26/2018 with a chief complaints of increasing shortness of breath cough and congestion symptom has been going on for a few days prior to presentation hospital, patient also been complaining of burning and frequency of urine for the same duration, the patient denies having any suprapubic or flank pain some nausea but no vomiting denies high-grade fever, with the symptoms the patient has been evaluated by the ER physician the patient did have a low-grade fever 100.9, patient was tachycardic with a heart rate in 110 and her white count was elevated at 15.8 she did have a chest x-ray with no acute infiltrate the patient has been admitted hospital with COPD exacerbation possible tracheal bronchitis and UTI patient did have multiple antibiotic ALLERGIES has infections was consulted for further recommendation regarding antibiotic therapy Review of Systems Review of system Constitutional: The patient low-grade fever , rigors or chills, the patient does complain of weakness. Eyes: No complaint ENT: No complaint Respiratory: As per HPI Cardiovascular: No complaint Gastrointestinal: No complaint Genitourinary: As per history of present illness Musculoskeletal: No complaint Integumentary: No complaint Endocrine : No complaint Psycologial : No complaint Neurological: No complaint. Past Medical History Past Medical History: Atrial Fibrillation, COPD, Diabetes Mellitus, Hyperlipidemia, Hypertension, Skin Disorder Additional Past Medical History / Comment(s): Pt recently admitted to [facility] on with sepsis thought 2ndary to possible colitis. Other HX: Severe COPD , chronic hypoxic respiratory failure,home O2 at 2L/NC ATC, chronic atrial fibrillation maintained on Xarelto, lumbar disc disease and chronic back pain, chronic and recurrent urine tract infections/sepsis, diabetes mellitus type II, chronic constipation, previous L heel wound with osteomylitis in 2014 (pt states currently covered with callus, decubitus ulcer now healed, hypothyroid. History of Any Multi-Drug Resistant Organisms: ESBL, MRSA Year Discovered:: 07/02/15-MRSA; 12/18/14 ESBL-E. coli MDRO Source:: Sputum-MRSA; Urine-ESBL Past Surgical History: Hysterectomy, Orthopedic Surgery, Tonsillectomy Additional Past Surgical History / Comment(s): Bilateral cataract removals/lens implants on 11/12/14. Lumbar disc surgery, repair of left hip -screws in place, decubitus I&D, colonoscopy. Past Anesthesia/Blood Transfusion Reactions: No Reported Reaction Past Psychological History: No Psychological Hx Reported Additional Psychological History / Comment(s): Pt lives with and GRANDSON/his spouse. THEY HELP CARE FOR PT. She ambulates with a walker. She has 2L oxygen per nasal cannula at all times. She no longer drives. She gets to [employer] by family driving her. Smoking Status: Former smoker Past Alcohol Use History: None Reported Additional Past Alcohol Use History / Comment(s): PT STARTED SMOKING IN 1965- WAS A 48 YEAR SMOKER QUIT IN 2013. She denies any medical marijuana, marijuana , street drug use.She has had no alcohol intake for the past 10-15 years. There are no animals in the home. She lives with her , grandson and grandson's spouse . pt was houewife. Past Drug Use History: None Reported - Past Family History Father Family Medical History: Unable to Obtain Additional Family Medical History / Comment(s): Pt never knew her father. He in WWII when she was very young. Mother Family Medical History: No Reported History Brother(s) Family Medical History: Cancer Additional Family Medical History / Comment(s): Pt has 4 brothers and one has testicular cancer. Medications and Allergies Home Medications Medication Instructions Recorded Confirmed Type Levothyroxine Sodium [Synthroid] 125 mcg PO DAILY 11/16/14 05/26/18 History Rivaroxaban [Xarelto] 20 mg PO DAILY 11/16/14 05/26/18 History Sertraline [Zoloft] 25 mg PO DAILY 11/16/14 05/26/18 History metFORMIN HCL 1,000 mg PO BID 11/16/14 05/26/18 History Furosemide [Lasix] 20 mg PO DAILY 01/27/16 05/26/18 History Diltiazem HCl [Diltiazem 24Hr ER] 180 mg PO DAILY 08/07/16 05/26/18 History Pravastatin Sodium [Pravachol] 20 mg PO DAILY 08/07/16 05/26/18 History Insulin Aspart Protam & Aspart 36 unit SQ BID 06/27/17 05/26/18 History [NovoLOG MIX 70-30 Flexpen] Lisinopril [Zestril] 10 mg PO DAILY 07/22/17 05/26/18 History Budesonide-Formot 160-4.5 Mcg 2 puff INHALATION RT-BID #1 09/30/17 05/26/18 Rx [Symbicort 160-4.5 Mcg Inhaler] Ipratropium-Albuterol Nebulize 3 ml INHALATION RT-QID PRN 11/11/17 05/26/18 History [Duoneb 0.5 mg-3 mg/3 ml Soln] Docusate [Colace] 100 mg PO DAILY PRN 05/26/18 05/26/18 History Gabapentin [Neurontin] 100 mg PO DAILY 05/26/18 05/26/18 History Umeclidinium [place] [Incruse 1 puff INHALATION RT-DAILY 05/26/18 05/26/18 History Ellipta] Allergies Allergy/AdvReac Type Severity Reaction Status Date / Time ceftaroline fosamil Allergy Intermediate Rash/Hives Verified 05/26/18 22:35 codeine Allergy Itching Verified 05/26/18 22:35 levofloxacin [From Levaquin] Allergy Rash/Hives Verified 05/26/18 22:35 tramadol Allergy Itching Verified 05/26/18 22:35 Physical Exam Vitals: Vital Signs Temp Pulse Pulse Pulse Resp BP Pulse Ox 05/28/18 20:00 82 05/28/18 19:44 80 05/28/18 16:27 78 05/28/18 16:11 80 96 05/28/18 15:00 98.7 F 81 16 120/60 98 05/28/18 11:32 79 05/28/18 11:20 79 05/28/18 07:34 73 05/28/18 07:21 68 98 05/28/18 06:00 96.3 F L 73 24 121/60 96 Intake and Output 05/28/18 05/28/18 05/29/18 14:59 22:59 06:59 Intake Total 249.632 Balance 249.632 Intake: Intake, IV Titration 49.632 Amount Insulin Regular 100 unit 49.632 In Sodium Chloride 0.9% 100 ml @ Titrate IV .Q0M [facility] [place] Rx#:[id number] Oral 200 Other: Voiding Method Bedside Commode Bedside Commode Diaper Diaper # Voids 3 5 General: The patient is awake and alert, in no distress. Skin: no rashes and no masses palpable. Eye: Pupils are equal, round, there is normal conjunctiva bilaterally. Ears, nose, mouth and throat: There are moist mucous membranes and no oral lesions. Neck: The neck is supple, there is no thyromegaly. Cardiovascular: S1-S2 regular rate and rhythm. No murmur. Respiratory: Unlabored breathing decreased intensity of breath sounds no wheeze Gastrointestinal: Soft, non-distended, non-tender abdomen without masses or organomegaly noted. Neurological: There are no obvious motor or sensory deficits. Coordination appears grossly intact. Speech is normal. Psychiatric: Patient is awake and alert and oriented 3, appropriate mood & affect, normal judgment. Results CBC & Chem 7: 05/29/18 07:42 05/29/18 07:42 Labs: Abnormal Lab Results - Last 24 Hours (Table) 05/28/18 05/28/18 05/28/18 Range/Units 00:03 01:21 02:21 WBC (3.8-10.6) k/uL MCHC (31.0-37.0) g/dL BUN (7-17) mg/dL Glucose (74-99) mg/dL POC Glucose (mg/dL) 388 H 344 H 339 H (75-99) mg/dL 05/28/18 05/28/18 05/28/18 Range/Units 02:54 03:25 03:56 WBC (3.8-10.6) k/uL MCHC (31.0-37.0) g/dL BUN (7-17) mg/dL Glucose (74-99) mg/dL POC Glucose (mg/dL) 304 H 278 H 248 H (75-99) mg/dL 05/28/18 05/28/18 05/28/18 Range/Units 06:00 07:41 07:41 WBC 24.5 H (3.8-10.6) k/uL MCHC 29.9 L (31.0-37.0) g/dL BUN 26 H (7-17) mg/dL Glucose 146 H (74-99) mg/dL POC Glucose (mg/dL) 172 H (75-99) mg/dL 05/28/18 05/28/18 05/28/18 Range/Units 07:58 10:05 11:52 WBC (3.8-10.6) k/uL MCHC (31.0-37.0) g/dL BUN (7-17) mg/dL Glucose (74-99) mg/dL POC Glucose (mg/dL) 151 H 410 H 318 H (75-99) mg/dL 05/28/18 05/28/18 05/28/18 Range/Units 12:59 14:16 17:17 WBC (3.8-10.6) k/uL MCHC (31.0-37.0) g/dL BUN (7-17) mg/dL Glucose (74-99) mg/dL POC Glucose (mg/dL) 282 H 347 H 402 H (75-99) mg/dL 05/28/18 Range/Units 20:48 WBC (3.8-10.6) k/uL MCHC (31.0-37.0) g/dL BUN (7-17) mg/dL Glucose (74-99) mg/dL POC Glucose (mg/dL) 380 H (75-99) mg/dL Microbiology - Last 24 Hours (Table) 05/28/18 14:50 Urine Culture - Preliminary Urine,Voided Assessment and Plan (1) UTI (urinary tract infection) Current Visit: Yes Status: Acute Code(s): N39.0 - URINARY TRACT INFECTION, SITE NOT SPECIFIED SNOMED Code(s): 38923602 (2) Sepsis Current Visit: No Status: Acute Code(s): A41.9 - SEPSIS, UNSPECIFIED ORGANISM SNOMED Code(s): 21360317 (3) Allergy to multiple antibiotics Current Visit: Yes Status: Acute Code(s): Z88.1 - ALLERGY STATUS TO OTHER ANTIBIOTIC AGENTS STATUS SNOMED Code(s): 87496902 Plan: Patient being admitted to the hospital with increasing shortness of breath in a patient who did have a fever 100.9, the patient was tachycardic did have elevated white count meeting criteria for urinary tract sepsis in a patient who did have significant urine symptom likely source is urinary tract infection clinical suspicious for underlying pneumonia to be on the low side 2- patient who do have multiple antibiotic ALLERGY that'll limit the number of antibiotic that could be safely used 3- patient currently be started on meropenem 500 every 8 however the dose to be adjusted up to 1 g every 8 in view of normal kidney function 4- gentle IV fluid He will follow on her clinical condition and cultures to further adjust her medication if needed Time with Patient: Greater than 30
[2018-05-29] MEDS: cefTRIAXone IN SWFI 2,000 MG/20 ML SYRINGE IVP SCH (18:24)
--- NOTE | 2018-05-29 21:01 | PN ---
PROGRESS NOTE DATE OF SERVICE: 05/29/2018. REASON FOR FOLLOWUP: 1. Sepsis. 2. UTI. 3. Multiple antibiotic allergy. INTERVAL HISTORY: The patient is currently afebrile. She seems to be breathing more comfortably. Denies significant chest pain. Occasional cough which is dry in nature. No abdominal pain. The has slightly decreased in intensity. No suprapubic or flank pain. No diarrhea. EXAMINATION: Blood pressure 130/54 with a pulse of 82, temperature 98.9. She is 98% on 2 L nasal cannula. General description is an elderly female lying in bed in no distress. Respiratory system unlabored breathing, decreased intensity. No wheeze. Heart S1, S2. Regular rate and rhythm. Abdomen soft, no tenderness. Extremities are no edema of the feet. LABS: Hemoglobin 11, white count 21.6 with a BUN of 27, creatinine 0.68. Urine culture currently pending. DIAGNOSTIC IMPRESSION AND PLAN: Patient admitted to the hospital with sepsis, source of acute urinary tract infection, likely from enteric gram-negative pathogen in a patient who did have multiple antibiotic allergies. There is a Teflora allergy with a rash which the patient received in October of 2014. Subsequently, the patient has been treated with Rocephin in January of 2015 without any problem. Clinically doubt true cephalosporin allergies. At this time, we will discontinue the meropenem. Start the patient on Rocephin 2 g daily. Discharge antibiotic will depend on the culture report. Continue supportive care. MMODL / IJN: [id number] /
[2018-05-29 21:11] LABS: Glucose,Whole Blood 270 mg/dL (75-99)
[2018-05-30] MEDS ORDERED: MEROPENEM 1,000 MG in SODIUM CHLORIDE 0.9% 50 ML IVPB SCH ×2
[2018-05-30] MEDS: LEVOTHYROXINE 125 MCG TAB PO SCH (06:33)
[2018-05-30 07:46] LABS: Glucose,Whole Blood 85 mg/dL (75-99)
[2018-05-30] MEDS: INSULIN ASPART 100 UNIT/ML 1 ML 10 ML VIAL SQ SCH ×2 (07:51→11:54)
[2018-05-30 08:08] VITALS: BP 141/67; RESP 18; TEMP 98.1
[2018-05-30] MEDS: SYMBICORT 160-4.5 MCG INHALER INHALATION SCH (08:13)
[2018-05-30] MEDS: IPRATROPIUM-ALBUTEROL 3 ML NEB INHALATION SCH ×2 (08:13→11:39)
[2018-05-30 08:17] VITALS: PULSE 88
[2018-05-30] MEDS ORDERED: predniSONE 10 MG TAB PO SCH (09:00)
[2018-05-30] MEDS: cefTRIAXone IN SWFI 2,000 MG/20 ML SYRINGE IVP SCH (09:12)
[2018-05-30] MEDS: LISINOPRIL 10 MG TAB PO SCH (09:14)
[2018-05-30] MEDS: GABAPENTIN 100 MG CAP PO SCH (09:14)
[2018-05-30] MEDS: RIVAROXABAN 20 MG TAB PO SCH (09:14)
[2018-05-30] MEDS: DILTIAZEM CD 180 MG CAP.ER.24H PO SCH (09:14)
[2018-05-30] MEDS: DOXYCYCLINE MONOHYDRATE 100 MG CAPSULE PO SCH (09:14)
[2018-05-30] MEDS: PRAVASTATIN SODIUM 20 MG TAB PO SCH (09:14)
[2018-05-30] MEDS: PANTOPRAZOLE 40 MG TABLET PO SCH (09:14)
[2018-05-30] MEDS: FUROSEMIDE 20 MG TAB PO SCH (09:14)
[2018-05-30] MEDS: SERTRALINE 25 MG TAB PO SCH (09:15)
[2018-05-30 10:58] LABS: Glucose,Whole Blood 207 mg/dL (75-99)
[2018-05-30] MEDS: INSULN ASP PRT/INSULIN ASPART 100 UNIT/ML 10 ML VIAL SQ SCH (11:54)
--- NOTE | 2018-05-30 13:31 | P.PN ---
Subjective Progress Note Date: 05/30/18 Principal diagnosis: Acute on chronic hypoxic respiratory failure secondary to COPD exacerbation. This is a 68-year-old female with history of COPD, O2 dependent, patient was never seen by a senior quality assurance specialist in the past. She is primarily a patient of Dr. Martinez, known to have history of chronic atrial fibrillation, COPD, diabetes, hyperlipidemia, and hypertension. Her last admission to [facility] was back in July of 2017 were and she was admitted with sepsis secondary to colitis. Patient presented today with mostly 3 days history of increased cough, wheezing, shortness of breath, cough is productive with yellow phlegm. No fever no chills, no hemoptysis, no chest pain, no nausea no vomiting, no melena, no hematemesis, no dysuria, no frequency, no urgency. Patient was started on multiple bronchodilators including IV Solu- Medrol, she feels the same as she felt earlier today. Not much improvement yet. Chest x-ray showed COPD and nonspecific fibrotic changes at the bases. The patient is seen again today 05/28/2018 in follow-up on the regular medical floor. She is currently sitting up in a chair at the bedside. She is awake and alert in no acute distress. She is breathing easier today as compared to yesterday. He is maintaining good O2 saturations in the upper 90s on 2 L/m per nasal cannula. She's been afebrile. Count 24.5. Hemoglobin 12.0. Creatinine 0.59. She is requiring insulin drip at 14 units per hour. Her IV Solu-Medrol has been decreased. She remains on DuoNeb inhalations, Symbicort, empiric antibiotics in the form of Vibramycin. Patient was reevaluated today on 05/29/2018, feeling better from the pulmonary perspective, however her sugars are running high. I cut down her oral prednisone 230 mg daily, and I kept her on the same bronchodilators otherwise. Patient could be actually considered for discharge planning if cleared by the admitting physician. Her WBC count today is 21.6 hemoglobin is 11 and was abnormal renal profile is normal blood sugar was 360 early this morning, repeat blood sugar was 202, and that is being addressed by the admitting physician, that is delaying her discharge planning at this point. Seen again on 05/30/2018, her pulmonary symptoms have significantly improved, no cough no wheezing no shortness of breath. Patient was wondering if she could be discharged home today. And I have cleared her for discharge from the pulmonary perspective. Sugars seem to be better controlled, she is now on prednisone at 30 mg daily. Objective - Vital Signs Vital signs: Vital Signs Temp 98.1 F 05/30/18 07:00 Pulse 88 05/30/18 08:28 Resp 18 05/30/18 07:00 BP 141/67 05/30/18 07:00 Pulse Ox 96 05/30/18 08:14 Intake & Output 05/29/18 05/30/18 05/30/18 18:59 06:59 18:59 Weight 80.73 kg Other: Voiding Method Bedside Commode Bedside Commode Bedside Commode Diaper Diaper Diaper # Voids 3 2 2 # Bowel Movements 2 - Exam GENERAL EXAM: Alert, active, comfortable in no apparent distress. HEAD: Normocephalic. EYES: Normal reaction of pupils, equal size. NOSE: Clear with pink turbinates. THROAT: No erythema or exudates. NECK: No masses, no JVD. CHEST: No chest wall deformity. LUNGS: Equal air entry no crackles, no rhonchi and no wheezes today. CVS: S1 and S2 normal with no audible murmur, regular rhythm. ABDOMEN: No hepatosplenomegaly, normal bowel sounds, no guarding or rigidity. SPINE: No scoliosis or deformity SKIN: No rashes CENTRAL NERVOUS SYSTEM: No focal deficits, tone is normal in all 4 extremities. EXTREMITIES: There is no peripheral edema. No clubbing, no cyanosis. Peripheral pulses are intact. - Labs CBC & Chem 7: 05/29/18 07:42 05/29/18 07:42 Labs: Abnormal Lab Results - Last 24 Hours (Table) 05/29/18 05/29/18 05/30/18 Range/Units 16:41 21:08 10:56 POC Glucose (mg/dL) 279 H 270 H 207 H (75-99) mg/dL Microbiology - Last 24 Hours (Table) 05/28/18 14:50 Urine Culture - Final Urine,Voided Assessment and Plan Assessment: Impression: 1 acute on chronic hypoxic respiratory failure secondary to acute COPD exacerbation. 2 acute tracheobronchitis, no clinical evidence of pneumonia. 3 chronic atrial fibrillation, patient is on anticoagulation therapy in the form of Xarelto. And rate seems to be well-controlled at present. 4 remote smoking history, patient quit smoking 3 years ago. 5 multiple comorbidities including type 2 diabetes, hypertension, chronic back pain, and hyperlipidemia. Recommendation: Continue present course of bronchodilators, taper prednisone from 30 mg over the next 2 weeks 20 mg of prednisone, continue updrafts, albuterol with Atrovent, Symbicort 160/4.52 puffs twice a day, follow-up on outpatient basis with me in the next one week. Cleared for discharge today. Time with Patient: Less than 30
--- NOTE | 2018-05-30 14:41 | P.DS ---
Providers Date of admission: 05/26/18 23:00 Attending physician: Michele Kothari Consults: 05/26/18 22:59 Consult Physician Routine Consulting Provider: Miguel Angel Barry Consult Reason/Comments: copd Do you want consulting provider notified?: Yes 05/28/18 13:21 Consult Physician Urgent Consulting Provider: Onelia Lay Consult Reason/Comments: UTI, history of ESBL Do you want consulting provider notified?: Yes Primary care physician: Michele Kothari Hospital Course: Patient is admitted for COPD exacerbation patient has highly elevated blood sugars in the is on insulin drip incentive will be discontinued and the patient is a 70/30 dose will be increased and patient will be on sliding scale insulin. Patient was also complained of dysuria does have urinary tract infection patient was started on Rocephin and oxygen was discontinued. 05/29/2018 Patient is clinically doing well.Wheezingtodaydecreasedairentryintobilaterallungfields.Patientprobablycanbed ischargedtomorrow. 05/30/2018 Patient will be discharged on weaning dose of steroids and Ceftin. Urine cultures are negative PHYSICAL EXAMINATION: GENERAL: The patient is alert and oriented x3, not in any acute distress. Well developed, well nourished. HEENT: Pupils are round and equally reacting to light. EOMI. No scleral icterus. No conjunctival pallor. Normocephalic, atraumatic. No pharyngeal erythema. No thyromegaly. CARDIOVASCULAR: S1 and S2 present. No murmurs, rubs, or gallops. PULMONARY: Mildly diminished air entry into bilateral lung mejia no wheezing was appreciated ABDOMEN: Soft, nontender, nondistended, normoactive bowel sounds. No palpable organomegaly. MUSCULOSKELETAL: No joint swelling or deformity. EXTREMITIES: No cyanosis, clubbing, or pedal edema. NEUROLOGICAL: Gross neurological examination did not reveal any focal deficits. SKIN: No rashes. Assessment and Plan Plan: Acute on chronic hypercapnic respiratory failure secondary to COPD exacerbation -Chronic atrial fibrillation presently rate controlled patient is on anticoagulation with Xarelto which will be continued -Chronic low back pain -Type 2 diabetes mellitus sugars are elevated due to systemic steroids -Hypertension -Hyperlipidemia -Possible urinary tract infection Patient Condition at Discharge: Fair Plan - Discharge Summary New Discharge Prescriptions: New predniSONE 10 mg PO DAILY #10 tab Cefuroxime Axetil [Ceftin] 500 mg PO BID 3 Days #6 tab Continue Rivaroxaban [Xarelto] 20 mg PO DAILY metFORMIN HCL 1,000 mg PO BID Levothyroxine Sodium [Synthroid] 125 mcg PO DAILY Sertraline [Zoloft] 25 mg PO DAILY Furosemide [Lasix] 20 mg PO DAILY Diltiazem HCl [Diltiazem 24Hr ER] 180 mg PO DAILY Pravastatin Sodium [Pravachol] 20 mg PO DAILY Insulin Aspart Protam & Aspart [NovoLOG MIX 70-30 Flexpen] 36 unit SQ BID Lisinopril [Zestril] 10 mg PO DAILY Budesonide-Formot 160-4.5 Mcg [Symbicort 160-4.5 Mcg Inhaler] 2 puff INHALATION RT-BID #1 Ipratropium-Albuterol Nebulize [Duoneb 0.5 mg-3 mg/3 ml Soln] 3 ml INHALATION RT-QID PRN PRN Reason: sob Umeclidinium Barker [Incruse Ellipta] 1 puff INHALATION RT-DAILY Gabapentin [Neurontin] 100 mg PO DAILY Docusate [Colace] 100 mg PO DAILY PRN PRN Reason: Constipation Discharge Medication List Levothyroxine Sodium [Synthroid] 125 mcg PO DAILY 11/16/14 [History] Rivaroxaban [Xarelto] 20 mg PO DAILY 11/16/14 [History] Sertraline [Zoloft] 25 mg PO DAILY 11/16/14 [History] metFORMIN HCL 1,000 mg PO BID 11/16/14 [History] Furosemide [Lasix] 20 mg PO DAILY 01/27/16 [History] Diltiazem HCl [Diltiazem 24Hr ER] 180 mg PO DAILY 08/07/16 [History] Pravastatin Sodium [Pravachol] 20 mg PO DAILY 08/07/16 [History] Insulin Aspart Protam & Aspart [NovoLOG MIX 70-30 Flexpen] 36 unit SQ BID [History] Lisinopril [Zestril] 10 mg PO DAILY 07/22/17 [History] Budesonide-Formot 160-4.5 Mcg [Symbicort 160-4.5 Mcg Inhaler] 2 puff INHALATION RT-BID #1 09/30/17 [Rx] Ipratropium-Albuterol Nebulize [Duoneb 0.5 mg-3 mg/3 ml Soln] 3 ml INHALATION RT -QID PRN 11/11/17 [History] Docusate [Colace] 100 mg PO DAILY PRN 05/26/18 [History] Gabapentin [Neurontin] 100 mg PO DAILY 05/26/18 [History] Umeclidinium Barker [Incruse Ellipta] 1 puff INHALATION RT-DAILY 05/26/18 [ History] Cefuroxime Axetil [Ceftin] 500 mg PO BID 3 Days #6 tab 05/30/18 [Rx] predniSONE 10 mg PO DAILY #10 tab 05/30/18 [Rx] Follow up Appointment(s)/Referral(s): Michele Kothari MD [Primary Care Provider] - 3 Days (office closed, client will call to make appt ) Donald Malcolm MD [STAFF PHYSICIAN] - 1 Week (office closed, client will make own appt.) Patient Instructions/Handouts: Urinary Tract Infection in Women (DC) Activity/Diet/Wound Care/Special Instructions: activity as tolerated consistent carb diet Discharge Disposition: HOME SELF-CARE
--- NOTE | 2018-05-30 21:05 | PN ---
PROGRESS NOTE DATE OF SERVICE: 05/30/2018. REASON FOR FOLLOWUP VISIT: Urinary tract infection. INTERVAL HISTORY: The patient is currently afebrile. She is breathing comfortably. Denies significant chest pain. Occasional cough. No abdominal pain, urinary symptoms have improved. No diarrhea. EXAMINATION: Blood pressure 141/67 with a pulse of 88, temperature 98.1. She is 98% on 2 L nasal cannula. General description is an elderly female up in the bed in no distress. Respiratory system: Unlabored breathing with decreased breath sounds. No wheeze. Heart S1, S2. Regular rate and rhythm. Abdomen soft. No tenderness. LABS: No new labs have been obtained. Urine cultures came back negative. Blood culture negative. DIAGNOSTIC IMPRESSION AND PLAN: Patient admitted to the hospital with generalized weakness. Did have a low-grade fever. Elevated white count. Concern for possible urinary tract infection with secondary sepsis. She seemed to do well on Rocephin. Plan to finish therapy with oral Ceftin with close outpatient followup. MMODL / IJN: [id number] /
--- NOTE | 2018-06-02 14:47 | CDI ---
Last Revision, August 2017 Documentation Clarification Form Date: 06/02/18 From: Latanya Ubaldo Gwendolyn Ge, Business Test Analyst Hours-8:30 am & 5 pm Lorie Admit Date: 05/26/2018 11:00:00 PM Patient Name: Zainab Oreilly Visit Number: [id number] Discharge Date: 05/30/18 ATTENTION: The Clinical Documentation Specialists (CDI) and [facility] Coding Staff appreciate your assistance in clarifying documentation. Please respond to the clarification below the line at the bottom and electronically sign. The CDI & [facility] Coding staff will review the response and follow-up if needed. Please note: Queries are made part of the Legal Health Record. If you have any questions, please contact the author of this message via ITS. Jose Whitney MD Sepsis is documentation in the infectious disease consult and the consultants two PNs. History/Risk Factors: AECOPD w bronchitis, UTI WBC/Left Shift: 15.8/13.0 Lactic acid:none Blood cultures: none Vitals signs on admission: T-99.5, P-110, R-18, BP-135/54 Treatment: on 05/28 started on Meropenem 500 every 8 hrs, gentle hydration ID Consult: Dr Lay In your professional opinion, please clarify if these findings signify one of the following conditions, whether the condition is POA, and cause, if known: Condition Sepsis ruled out SIRS, without underlying infectious process Sepsis Other, please specify Unable to determine Present on Admission: Yes No Please continue to document in your progress notes and discharge summary in order to capture severity of illness and risk of mortality. Include clinical findings that support your diagnosis. Sepsis MTDD
== END 2018-05-30 15:15 | disposition home or self-care (01) | DRG 871 ==
LOC: EC 20:49 → 4MS4W 22:59 → OBSVTOIN 23:00
PROVIDERS: ADMIT Family Medicine; ATTEND Family Medicine
DX: A41.9 Sepsis, unspecified organism (principal); J96.21 Acute and chronic respiratory failure with hypoxia; J96.22 Acute and chronic respiratory failure with hypercapnia; J44.0 Chronic obstructive pulmonary disease with (acute) lower respiratory infection; N39.0 Urinary tract infection, site not specified; J44.1 Chronic obstructive pulmonary disease with (acute) exacerbation; I48.2 Chronic atrial fibrillation; J84.10 Pulmonary fibrosis, unspecified; E11.65 Type 2 diabetes mellitus with hyperglycemia; J20.9 Acute bronchitis, unspecified; I11.9 Hypertensive heart disease without heart failure; E78.5 Hyperlipidemia, unspecified; E03.9 Hypothyroidism, unspecified; M51.9 Unspecified thoracic, thoracolumbar and lumbosacral intervertebral disc disorder; T38.0X5A Adverse effect of glucocorticoids and synthetic analogues, initial encounter; G89.29 Other chronic pain; K59.09 Other constipation; Z99.81 Dependence on supplemental oxygen; Z79.01 Long term (current) use of anticoagulants; Z79.890 Hormone replacement therapy; Z79.4 Long term (current) use of insulin; Z79.51 Long term (current) use of inhaled steroids; Z79.899 Other long term (current) drug therapy; Z86.19 Personal history of other infectious and parasitic diseases; Z86.14 Personal history of Methicillin resistant Staphylococcus aureus infection; Z90.710 Acquired absence of both cervix and uterus; Z87.891 Personal history of nicotine dependence; Z98.42 Cataract extraction status, left eye; Z98.41 Cataract extraction status, right eye; Z96.1 Presence of intraocular lens; Z88.1 Allergy status to other antibiotic agents; Z88.5 Allergy status to narcotic agent; Z80.43 Family history of malignant neoplasm of testis
CPT/HCPCS: 36415; 71046; 80048; 80053; 81001; 82550; 82553; 83036; 83735; 83880; 84484; 85025; 85027; 85610; 85730; 87086; 93005; 94640; 94760; 96365; 96375; 99285

== ENCOUNTER 2018-07-05 01:18 | Emergency (ER) | payer MEDICARE, OTHER ==
[2018-07-05 01:35] VITALS: BP 142/68; PULSE 94
--- NOTE | 2018-07-05 02:08 | ED ---
Female Urogenital HPI - General Source: patient, RN notes reviewed Mode of arrival: ambulatory Limitations: no limitations <Devora June - Last Filed: 07/05/18 03:48> <Tracey Hand - Last Filed: 07/05/18 04:00> - General Chief complaint: Urogenital Stated complaint: UTI, abd pain Time Seen by Provider: 07/05/18 01:47 - History of Present Illness Initial comments: This is a 73-year-old female who presents to the emergency department with chief complaint of urinary tract infection. Patient states for the past 3 days she has had increased urinary frequency, dysuria and dribbling. She reports cold sweats and lower abdominal tenderness. Denies flank pain. Denies fevers. States that she has had frequent UTIs in the past. Denies vomiting or diarrhea. (Devora June) - Related Data Home Medications Medication Instructions Recorded Confirmed Levothyroxine Sodium [Synthroid] 125 mcg PO DAILY 11/16/14 05/26/18 Rivaroxaban [Xarelto] 20 mg PO DAILY 11/16/14 05/26/18 Sertraline [Zoloft] 25 mg PO DAILY 11/16/14 05/26/18 metFORMIN HCL 1,000 mg PO BID 11/16/14 05/26/18 Furosemide [Lasix] 20 mg PO DAILY 01/27/16 05/26/18 Diltiazem HCl [Diltiazem 24Hr ER] 180 mg PO DAILY 08/07/16 05/26/18 Pravastatin Sodium [Pravachol] 20 mg PO DAILY 08/07/16 05/26/18 Insulin Aspart Protam & Aspart 36 unit SQ BID 06/27/17 05/26/18 [NovoLOG MIX 70-30 Flexpen] Lisinopril [Zestril] 10 mg PO DAILY 07/22/17 05/26/18 Ipratropium-Albuterol Nebulize 3 ml INHALATION RT-QID PRN 11/11/17 05/26/18 [Duoneb 0.5 mg-3 mg/3 ml Soln] Docusate [Colace] 100 mg PO DAILY PRN 05/26/18 05/26/18 Gabapentin [Neurontin] 100 mg PO DAILY 05/26/18 05/26/18 Umeclidinium Merrill [Incruse 1 puff INHALATION RT-DAILY 05/26/18 05/26/18 Ellipta] Previous Rx's Medication Instructions Recorded Budesonide-Formot 160-4.5 Mcg 2 puff INHALATION RT-BID #1 09/30/17 [Symbicort 160-4.5 Mcg Inhaler] Cefuroxime Axetil [Ceftin] 500 mg PO BID 3 Days #6 tab 05/30/18 predniSONE 10 mg PO DAILY #10 tab 05/30/18 Sulfamethox-Tmp 800-160Mg [Bactrim 1 tab PO Q12HR #10 tab 07/05/18 DS 800-160 mg] Allergies Allergy/AdvReac Type Severity Reaction Status Date / Time ceftaroline fosamil Allergy Intermediate Rash/Hives Verified 07/05/18 01:35 codeine Allergy Itching Verified 07/05/18 01:35 levofloxacin [From Levaquin] Allergy Rash/Hives Verified 07/05/18 01:35 tramadol Allergy Itching Verified 07/05/18 01:35 Review of Systems ROS Other: All systems not noted in ROS Statement are negative. <Devora June - Last Filed: 07/05/18 03:48> ROS Other: All systems not noted in ROS Statement are negative. <Tracey Hand - Last Filed: 07/05/18 04:00> ROS Statement: Those systems with pertinent positive or pertinent negative responses have been documented in the HPI. Past Medical History Past Medical History: Atrial Fibrillation, COPD, Diabetes Mellitus, Hyperlipidemia, Hypertension, Skin Disorder Additional Past Medical History / Comment(s): Pt recently admitted to [facility] on with sepsis thought 2ndary to possible colitis. Other HX: Severe COPD , chronic hypoxic respiratory failure,home O2 at 2L/NC ATC, chronic atrial fibrillation maintained on Xarelto, lumbar disc disease and chronic back pain, chronic and recurrent urine tract infections/sepsis, diabetes mellitus type II, chronic constipation, previous L heel wound with osteomylitis in 2014 (pt states currently covered with callus, decubitus ulcer now healed, hypothyroid. History of Any Multi-Drug Resistant Organisms: ESBL, MRSA Date of last positivie culture/infection: 07/02/15-MRSA; 12/18/14 ESBL-E. coli MDRO Source:: Sputum-MRSA; Urine-ESBL Past Surgical History: Hysterectomy, Orthopedic Surgery, Tonsillectomy Additional Past Surgical History / Comment(s): Bilateral cataract removals/lens implants on 11/12/14. Lumbar disc surgery, repair of left hip -screws in place, decubitus I&D, colonoscopy. Past Anesthesia/Blood Transfusion Reactions: No Reported Reaction Past Psychological History: No Psychological Hx Reported Smoking Status: Former smoker Past Alcohol Use History: None Reported Past Drug Use History: None Reported - Past Family History Father Family Medical History: Unable to Obtain Additional Family Medical History / Comment(s): Pt never knew her father. He in WWII when she was very young. Mother Family Medical History: No Reported History Brother(s) Family Medical History: Cancer Additional Family Medical History / Comment(s): Pt has 4 brothers and one has testicular cancer. <Devora June - Last Filed: 07/05/18 03:48> General Exam Limitations: no limitations <Devora June - Last Filed: 07/05/18 03:48> <Tracey Hand - Last Filed: 07/05/18 04:00> - General Exam Comments Initial Comments: General: Awake and alert, well-developed; in no apparent distress. Sitting comfortably in a wheelchair with daughter at bedside. HEENT: Head atraumatic, normocephalic. Pupils are equal, round and reactive to light. Extraocular movements intact. Oropharynx moist without erythema or exudate. Neck: Supple. Normal ROM. Cardiovascular: Regular rate and rhythm. No murmurs, rubs or gallops. Chest symmetrical. Respiratory: Lungs clear to auscultation bilaterally. No wheezes, rales or rhonchi. Normal respiratory effort with no use of accessory muscles. Portable home oxygen is in use. Abdomen: Soft, non-tender, non-distended. No rigidity, rebound or guarding. Normal bowel sounds in all 4 quadrants. Musculoskeletal: Normal ROM, no tenderness bilateral upper and lower extremities. Skin: [place], warm and dry without rashes or lesions. Neurological: Alert and oriented x3. CN II-XII grossly intact. Speech is fluent and answers are appropriate. No focal neuro deficits. Psychiatric: Normal mood and affect. No overt signs of depression or anxiety noted. (Devora June) Vital Signs 07/05/18 07/05/18 01:32 02:58 Temperature 98.9 F 98.3 F Pulse Rate 94 Respiratory 20 16 Rate Blood Pressure 142/68 O2 Sat by Pulse 96 Oximetry Medical Decision Making <Devora June - Last Filed: 07/05/18 03:48> <Tracey Hand - Last Filed: 07/05/18 04:00> - Medical Decision Making This is a 73-year-old female who presents to the emergency department with chief complaint of urinary tract infection symptoms. Patient reports a history of multiple urinary tract infections. She states that for the past 3 days she has had increased urinary frequency, dysuria and dribbling. She reports mild suprapubic tenderness. UA does reveal evidence for infection with positive nitrites, large leukocyte esterase, greater than 182 white blood cells, moderate white blood cell clumps and occasional bacteria. Patient will be started on a course of Bactrim. Recommended following up with primary care provider. Her vital signs are stable and she is in no acute distress. She will be discharged home at this time. She is in agreement with plan and voices understanding. All questions were answered. (Devora June) I was available for consultation in the emergency department. The history and physical exam were done by the midlevel provider. I was consulted for this patient's care. I reviewed the case with the midlevel provider and based on their presentation of the patient, I agree with the assessment, medical decision making and plan of care as documented. (Tracey Hand) - Lab Data Lab Results 07/05/18 Range/Units 01:35 Urine Color Yellow Urine Appearance Cloudy H (Clear) Urine pH 5.5 (5.0-8.0) Ur Specific [place] 1.011 (1.001-1.035) Urine Protein Trace H (Negative) Urine Glucose (UA) Negative (Negative) Urine Ketones Negative (Negative) Urine Blood Small H (Negative) Urine Nitrite Positive H (Negative) Urine Bilirubin Negative (Negative) Urine Urobilinogen <2.0 (<2.0) mg/dL Ur Leukocyte Esterase Large H (Negative) Urine RBC 12 H (0-5) /hpf Urine WBC >182 H (0-5) /hpf Urine WBC Clumps Moderate H (None) /hpf Ur Squamous Epith Cells 3 (0-4) /hpf Urine Bacteria Occasional H (None) /hpf Hyaline Casts 1 (0-2) /lpf Urine Mucus Rare H (None) /hpf Disposition Is patient prescribed a controlled substance at d/c from ED?: No Time of Disposition: 02:41 <Devora June - Last Filed: 07/05/18 03:48> <Tracey Hand - Last Filed: 07/05/18 04:00> Clinical Impression: Cystitis Disposition: HOME SELF-CARE Condition: Good Instructions: Urinary Tract Infection in Women (ED) Additional Instructions: Please take medications as prescribed. Please follow up with primary care provider within 1-2 days. Return to emergency department if symptoms should worsen or any concerns arise. Prescriptions: Sulfamethox-Tmp 800-160Mg [Bactrim DS 800-160 mg] 1 tab PO Q12HR #10 tab Referrals: None,Stated [Primary Care Provider] - 1-2 days
[2018-07-05 02:27] LABS: Appearance,Urine Cloudy (Clear); Bacteria,Urine Occasional /hpf; Bilirubin,Urine Negative (Negative); Blood,Urine Small (Negative); Color,Urine Yellow; Glucose,Urine (UA) Negative (Negative); Hyaline Casts,Urine 1 /lpf (0-2); Ketones,Urine Negative (Negative); Leukocyte Esterase,Urine Large (Negative); Mucus,Urine Rare /hpf; Nitrite,Urine Positive (Negative); PH, Urine 5.5 (5.0-8.0); Protein,Urine Trace (Negative); RBC,Urine 12 /hpf (0-5); Specific Gravity,Urine 1.011 (1.001-1.035); Squamous Epithelial Cell,Urine 3 /hpf (0-4); Urobilinogen,Urine <2.0 mg/dL (<2.0); WBC,Urine >182 /hpf (0-5)
[2018-07-05] MEDS ORDERED: SULFAMETHOX-TMP 800-160MG 1 EACH TAB PO STA (02:34)
[2018-07-05 02:59] VITALS: RESP 16; TEMP 98.3
== END 2018-07-05 02:58 | disposition home or self-care (01) ==
LOC: EC 01:18
DX: N30.90 Cystitis, unspecified without hematuria (principal); I48.91 Unspecified atrial fibrillation; J44.9 Chronic obstructive pulmonary disease, unspecified; E11.9 Type 2 diabetes mellitus without complications; E78.5 Hyperlipidemia, unspecified; I10 Essential (primary) hypertension; E03.9 Hypothyroidism, unspecified; Z86.14 Personal history of Methicillin resistant Staphylococcus aureus infection; Z87.891 Personal history of nicotine dependence; Z90.710 Acquired absence of both cervix and uterus; Z98.890 Other specified postprocedural states; Z79.01 Long term (current) use of anticoagulants; Z79.4 Long term (current) use of insulin; Z79.899 Other long term (current) drug therapy; Z88.1 Allergy status to other antibiotic agents; Z88.5 Allergy status to narcotic agent
CPT/HCPCS: 81001; 99284

== ENCOUNTER 2018-11-04 19:14 | Inpatient (IN) | payer MEDICARE, OTHER ==
[2018-11-04] MEDS ORDERED: ASPIRIN 81 MG PO STA (20:59)
--- NOTE | 2018-11-04 21:04 | ED ---
General Adult HPI - General Chief complaint: Nausea/Vomiting/Diarrhea Stated complaint: Flu Like Symptoms Time Seen by Provider: 11/04/18 19:25 Source: patient, family, EMS Mode of arrival: EMS Limitations: no limitations - History of Present Illness Initial comments: Dictation was produced using [employer] dictation software. please excuse any grammatical, word or spelling errors. Chief Complaint: 73-year-old female past medical history of atrial fib lesion, COPD, diabetes mellitus, hyperlipidemia presents with nausea vomiting and chest pain. History of Present Illness: Patient is 73-year-old female multiple comorbidities. She states that today after dinner she had episode of sharp chest pain. She called EMS and was transferred to the hospital. Patient is given sublingual nitroglycerin with improvement. Patient states the pain as sharp and went away with Atrovent blistering. Patient denies any cardiac history. Patient has been feeling sick for the last 2-3 days. She's had multiple episodes of nausea and she had couple episodes of vomiting as nonbilious and nonbloody. Patient feels well at this time. She states that her pain is completely gone. Patient does have some mild abdominal tenderness. No diarrhea. She hasn't had a bowel movement in approximately 2 days. The ROS documented in this emergency department record has been reviewed and confirmed by me. Those systems with pertinent positive or negative responses have been documented in the HPI. All other systems are other negative and/or noncontributory. PHYSICAL EXAM: General Impression: Alert and oriented x3, not in acute distress HEENT: Normocephalic atraumatic, extra-ocular movements intact, pupils equal and reactive to light bilaterally, mucous membranes moist. Cardiovascular: Heart regular rate and rhythm, S1&S2 audible, no murmurs, rubs or gallops Chest: Lungs clear to auscultation bilaterally, no rhonchi, no wheeze, no rales Abdomen: Bowel sounds present, abdomen soft, mild diffuse abdominal tenderness, non-distended, no organomegaly Musculoskeletal: Pulses present and equal in all extremities, no peripheral edema Motor: Power 5/5 bilaterally, no focal deficits noted Neurological: CN II-XII grossly intact, no focal motor or sensory deficits noted Skin: Intact with no visualized rashes Psych: Normal affect and mood ED course: 73-year-old female presents with nausea, vomiting, abdominal pain or chest pain. Signs upon arrival shows heart rate of 105, rest of vital signs within acceptable limits. Laboratory evaluation obtained. Patient is leukocytosis of 22.8. Coag panel is unremarkable. D-dimer 0.64. Metabolic panel is unremarkable. Patient is slightly alkalotic. Negative cardiac enzymes. Urinalysis shows findings consistent with urinary tract infection. Given patient's elevated d-dimer CT angios obtained showing no evidence of pulmonary emboli or any other acute process. Abdominal x-ray is unremarkable for any acute processes. Patient appears well at this time. She is given ceftriaxone. Patient's not tolerating by mouth. We'll plan to have patient admitted for sepsis secondary to urinary tract infection. Patient's chest pain is atypical. After discussion with nurse who pulled EMS report patient did not receive nitroglycerin and states she did receive Zofran she previously symptoms. Regardless, patient was given aspirin. EKG interpretation: Ventricular rate 107, sinus tachycardia, MT interval 166, QS 122, QTC 488. No MT prolongation, no QTC prolongation, no ST or T-wave changes noted. EKG compared to 05/26/2018 showing no changes. Overall, this EKG is unremarkable - Related Data Home Medications Medication Instructions Recorded Confirmed Sertraline [Zoloft] 25 mg PO DAILY 11/16/14 11/04/18 Insulin Aspart Protam & Aspart 35 unit SQ HS 06/27/17 11/04/18 [NovoLOG MIX 70-30 Flexpen] DULoxetine HCL [Cymbalta] 30 mg PO DAILY 11/04/18 11/04/18 Ergocalciferol [Vitamin D2] 50,000 unit PO Q7D 11/04/18 11/04/18 Gabapentin [Neurontin] 300 mg PO TID 11/04/18 11/04/18 Ibuprofen [Motrin] 600 mg PO TID PRN 11/04/18 11/04/18 Insulin Aspart Protam & Aspart 45 unit SQ QAM 11/04/18 11/04/18 [Novolog Mix 70-30 Flexpen Syrn] Memantine [Namenda] 10 mg PO BID 11/04/18 11/04/18 Nitrofurantoin Monohyd/M-Cryst 100 mg PO TID 11/04/18 11/04/18 [Macrobid] Pravastatin Sodium [Pravachol] 20 mg PO DAILY 11/04/18 11/04/18 metFORMIN HCL 500 mg PO BID 11/04/18 11/04/18 Previous Rx's Medication Instructions Recorded Budesonide-Formot 160-4.5 Mcg 2 puff INHALATION RT-BID #1 09/30/17 [Symbicort 160-4.5 Mcg Inhaler] Allergies Allergy/AdvReac Type Severity Reaction Status Date / Time ceftaroline fosamil Allergy Intermediate Rash/Hives Verified 11/04/18 20:08 codeine Allergy Itching Verified 11/04/18 20:08 levofloxacin [From Levaquin] Allergy Rash/Hives Verified 11/04/18 20:08 tramadol Allergy Itching Verified 11/04/18 20:08 Review of Systems ROS Statement: Those systems with pertinent positive or pertinent negative responses have been documented in the HPI. ROS Other: All systems not noted in ROS Statement are negative. Past Medical History Past Medical History: Atrial Fibrillation, COPD, Diabetes Mellitus, Hyperlipidemia, Hypertension, Skin Disorder Additional Past Medical History / Comment(s): Pt recently admitted to [facility] on with sepsis thought 2ndary to possible colitis. Other HX: Severe COPD , chronic hypoxic respiratory failure,home O2 at 2L/NC ATC, chronic atrial fibrillation maintained on Xarelto, lumbar disc disease and chronic back pain, chronic and recurrent urine tract infections/sepsis, diabetes mellitus type II, chronic constipation, previous L heel wound with osteomylitis in 2014 (pt states currently covered with callus, decubitus ulcer now healed, hypothyroid. History of Any Multi-Drug Resistant Organisms: ESBL, MRSA Date of last positivie culture/infection: 07/02/15-MRSA; 12/18/14 ESBL-E. coli MDRO Source:: Sputum-MRSA; Urine-ESBL Past Surgical History: Hysterectomy, Orthopedic Surgery, Tonsillectomy Additional Past Surgical History / Comment(s): Bilateral cataract removals/lens implants on 11/12/14. Lumbar disc surgery, repair of left hip -screws in place, decubitus I&D, colonoscopy. Past Anesthesia/Blood Transfusion Reactions: No Reported Reaction Past Psychological History: No Psychological Hx Reported Smoking Status: Former smoker Past Alcohol Use History: None Reported Past Drug Use History: None Reported - Past Family History Father Family Medical History: Unable to Obtain Additional Family Medical History / Comment(s): Pt never knew her father. He in WWII when she was very young. Mother Family Medical History: No Reported History Brother(s) Family Medical History: Cancer Additional Family Medical History / Comment(s): Pt has 4 brothers and one has testicular cancer. General Exam Limitations: no limitations Course Vital Signs 11/04/18 11/04/18 19:22 20:24 Temperature 98.1 F Pulse Rate 105 H 100 Respiratory 18 18 Rate Blood Pressure 135/57 136/54 O2 Sat by Pulse 96 99 Oximetry Medical Decision Making - Lab Data Result diagrams: 11/04/18 20:52 11/04/18 20:52 Lab Results 11/04/18 11/04/18 11/04/18 Range/Units 20:50 20:52 20:52 WBC 22.8 H (3.8-10.6) k/uL RBC 4.37 (3.80-5.40) m/uL Hgb 12.7 (11.4-16.0) gm/dL Hct 40.3 (34.0-46.0) % MCV 92.3 (80.0-100.0) fL MCH 28.9 (25.0-35.0) pg MCHC 31.4 (31.0-37.0) g/dL RDW 13.0 (11.5-15.5) % Plt Count 224 (150-450) k/uL Neutrophils % 95 % Lymphocytes % 2 % Monocytes % 2 % Eosinophils % 1 % Basophils % 0 % Neutrophils # 21.8 H (1.3-7.7) k/uL Lymphocytes # 0.5 L (1.0-4.8) k/uL Monocytes # 0.4 (0-1.0) k/uL Eosinophils # 0.1 (0-0.7) k/uL Basophils # 0.0 (0-0.2) k/uL PT (9.0-12.0) sec INR (<1.2) APTT (22.0-30.0) sec D-Dimer (<0.60) mg/L FEU Sodium (137-145) mmol/L Potassium (3.5-5.1) mmol/L Chloride (98-107) mmol/L Carbon Dioxide (22-30) mmol/L Anion Gap mmol/L BUN (7-17) mg/dL Creatinine (0.52-1.04) mg/dL Est GFR (CKD-EPI)AfAm (>60 ml/min/1.73 sqM) Est GFR (CKD-EPI)NonAf (>60 ml/min/1.73 sqM) Glucose (74-99) mg/dL Calcium (8.4-10.2) mg/dL Magnesium (1.6-2.3) mg/dL Total Bilirubin (0.2-1.3) mg/dL AST (14-36) U/L ALT (9-52) U/L Alkaline Phosphatase (38-126) U/L Total Creatine Kinase 35 (30-135) U/L CK-MB (CK-2) 0.8 (0.0-2.4) ng/mL CK-MB (CK-2) Rel Index 2.3 Troponin I <0.012 (0.000-0.034) ng/mL NT-Pro-B Natriuret Pep pg/mL Total Protein (6.3-8.2) g/dL Albumin (3.5-5.0) g/dL Urine Color Light Red Urine Appearance Cloudy H (Clear) Urine pH 5.5 (5.0-8.0) Ur Specific [place] 1.019 (1.001-1.035) Urine Protein 1+ H (Negative) Urine Glucose (UA) 4+ H (Negative) Urine Ketones Negative (Negative) Urine Blood Moderate H (Negative) Urine Nitrite Negative (Negative) Urine Bilirubin Negative (Negative) Urine Urobilinogen <2.0 (<2.0) mg/dL Ur Leukocyte Esterase Large H (Negative) Urine RBC 93 H (0-5) /hpf Urine WBC >182 H (0-5) /hpf Urine WBC Clumps Many H (None) /hpf Ur Squamous Epith Cells 9 H (0-4) /hpf 11/04/18 11/04/18 11/04/18 Range/Units 20:52 20:52 20:52 WBC (3.8-10.6) k/uL RBC (3.80-5.40) m/uL Hgb (11.4-16.0) gm/dL Hct (34.0-46.0) % MCV (80.0-100.0) fL MCH (25.0-35.0) pg MCHC (31.0-37.0) g/dL RDW (11.5-15.5) % Plt Count (150-450) k/uL Neutrophils % % Lymphocytes % % Monocytes % % Eosinophils % % Basophils % % Neutrophils # (1.3-7.7) k/uL Lymphocytes # (1.0-4.8) k/uL Monocytes # (0-1.0) k/uL Eosinophils # (0-0.7) k/uL Basophils # (0-0.2) k/uL PT 10.3 (9.0-12.0) sec INR 1.0 (<1.2) APTT 23.0 (22.0-30.0) sec D-Dimer 0.64 H (<0.60) mg/L FEU Sodium 140 (137-145) mmol/L Potassium 3.7 (3.5-5.1) mmol/L Chloride 99 (98-107) mmol/L Carbon Dioxide 31 H (22-30) mmol/L Anion Gap 10 mmol/L BUN 25 H (7-17) mg/dL Creatinine 0.64 (0.52-1.04) mg/dL Est GFR (CKD-EPI)AfAm >90 (>60 ml/min/1.73 sqM) Est GFR (CKD-EPI)NonAf 88 (>60 ml/min/1.73 sqM) Glucose 224 H (74-99) mg/dL Calcium 9.8 (8.4-10.2) mg/dL Magnesium 1.3 L (1.6-2.3) mg/dL Total Bilirubin 0.6 (0.2-1.3) mg/dL AST 96 H (14-36) U/L ALT 61 H (9-52) U/L Alkaline Phosphatase 85 (38-126) U/L Total Creatine Kinase (30-135) U/L CK-MB (CK-2) (0.0-2.4) ng/mL CK-MB (CK-2) Rel Index Troponin I (0.000-0.034) ng/mL NT-Pro-B Natriuret Pep 204 pg/mL Total Protein 7.1 (6.3-8.2) g/dL Albumin 4.1 (3.5-5.0) g/dL Urine Color Urine Appearance (Clear) Urine pH (5.0-8.0) Ur Specific [place] (1.001-1.035) Urine Protein (Negative) Urine Glucose (UA) (Negative) Urine Ketones (Negative) Urine Blood (Negative) Urine Nitrite (Negative) Urine Bilirubin (Negative) Urine Urobilinogen (<2.0) mg/dL Ur Leukocyte Esterase (Negative) Urine RBC (0-5) /hpf Urine WBC (0-5) /hpf Urine WBC Clumps (None) /hpf Ur Squamous Epith Cells (0-4) /hpf Disposition Clinical Impression: Sepsis secondary to UTI Disposition: ADMITTED IP TO THIS HOSP Condition: Fair Referrals: Dany Cobb MD [Primary Care Provider] - 1-2 days Decision Time: 00:19
[2018-11-04 21:19] LABS: Basophils % (A) 0 %; Eosinophils # (A) 0.1 k/uL (0-0.7); Eosinophils % (A) 1 %; HCT 40.3 % (34.0-46.0); HGB 12.7 gm/dL (11.4-16.0); Lymphocytes # (A) 0.5 k/uL (1.0-4.8); Lymphocytes % (A) 2 %; MCH 28.9 pg (25.0-35.0); MCHC 31.4 g/dL (31.0-37.0); MCV 92.3 fL (80.0-100.0); Mean Platelet Volume 9.6; Monocytes # (A) 0.4 k/uL (0-1.0); Monocytes % (A) 2 %; Neutrophils # (A) 21.8 k/uL (1.3-7.7); Neutrophils % (A) 95 %; Platelet Count 224 k/uL (150-450); RBC 4.37 m/uL (3.80-5.40); WBC 22.8 k/uL (3.8-10.6)
[2018-11-04 21:26] LABS: Appearance,Urine Cloudy (Clear); Bilirubin,Urine Negative (Negative); Blood,Urine Moderate (Negative); Color,Urine Light Red; Glucose,Urine (UA) 4+ (Negative); Ketones,Urine Negative (Negative); Leukocyte Esterase,Urine Large (Negative); Nitrite,Urine Negative (Negative); PH, Urine 5.5 (5.0-8.0); Protein,Urine 1+ (Negative); RBC,Urine 93 /hpf (0-5); Specific Gravity,Urine 1.019 (1.001-1.035); Squamous Epithelial Cell,Urine 9 /hpf (0-4); Urobilinogen,Urine <2.0 mg/dL (<2.0)
[2018-11-04 21:27] LABS: ALT 61 U/L (9-52); AST 96 U/L (14-36); Albumin 4.1 g/dL (3.5-5.0); Alkaline Phosphatase 85 U/L (38-126); Anion Gap 10 mmol/L; Blood Urea Nitrogen 25 mg/dL (7-17); Calcium 9.8 mg/dL (8.4-10.2); Carbon Dioxide 31 mmol/L (22-30); Chloride 99 mmol/L (98-107); Glucose 224 mg/dL (74-99); Magnesium 1.3 mg/dL (1.6-2.3); Potassium 3.7 mmol/L (3.5-5.1); Sodium 140 mmol/L (137-145); Total Bilirubin 0.6 mg/dL (0.2-1.3); Total Protein 7.1 g/dL (6.3-8.2)
[2018-11-04 21:30] LABS: Creatine Kinase 35 U/L (30-135)
--- NOTE | 2018-11-04 21:38 | XR ---
EXAMINATION: XR chest 2V DATE AND TIME: 11/04/2018 9:26 PM CLINICAL INDICATION: PHH; Chest Pain TECHNIQUE: Departmental protocol COMPARISON: 05/26/2018 FINDINGS: There are marked emphysematous changes. The lungs are clear and well-expanded. The pleural spaces are negative. The cardiac silhouette is not enlarged. The remainder of the mediastinal silhouette is unremarkable. The skeletal structures and soft tissues are negative for acute findings. IMPRESSION: NO ACUTE PROCESS.
--- NOTE | 2018-11-04 21:40 | XR ---
EXAMINATION TYPE: XR abdomen 3V DATE OF EXAM: 11/04/2018 COMPARISON: 08/15/2017 HISTORY: Nausea and vomiting, pain TECHNIQUE: AP upright, and 2 supine views FINDINGS: Visualized lung bases and pleural spaces are negative. There is no evidence of pneumoperitoneum or pneumatosis. Excessive pancolonic stool is noted, but the bowel gas pattern is normal. No definite acute skeletal or soft tissue radiographic findings. IMPRESSION: No acute process.
[2018-11-04 21:41] LABS: Prothrombin Time 10.3 sec (9.0-12.0)
[2018-11-04 21:42] LABS: Creatine Kinase MB 0.8 ng/mL (0.0-2.4); Troponin I <0.012 ng/mL (0.000-0.034)
[2018-11-04 21:48] LABS: D-Dimer 0.64 mg/L FEU (<0.60)
--- NOTE | 2018-11-04 23:30 | CT ---
EXAM: CT Angiography Chest With Intra-Articular Contrast CLINICAL HISTORY: Pain. TECHNIQUE: Axial computed tomographic angiography images of the chest with intra- articular contrast using pulmonary embolism protocol. MIP reconstructed images were created and reviewed. Coronal and sagittal reformatted images were created and reviewed. CTDI is 22.97 mGy and DLP is 314.5 mGy- cm. This CT exam was performed using one or more of the following dose reduction techniques: automated exposure control, adjustment of the mA and/or kV according to patient size, and/or use of iterative reconstruction technique. COMPARISON: CTA dated 07/24/2017. FINDINGS: Pulmonary arteries: No evidence of pulmonary embolism allowing for limitations of exam due to suboptimal opacification of pulmonary arteries. Aorta: Atherosclerotic vascular disease. No thoracic aortic aneurysm or dissection. Lungs: Advanced emphysematous changes in the lungs with scattered areas of scarring. No evidence of focal consolidation or pulmonary edema. Pleural space: Unremarkable. No significant effusion. No pneumothorax. Heart: Redemonstration of lipomatous hypertrophy of interatrial septum. Normal cardiac size. No pericardial effusion. No evidence of RV dysfunction. Bones/joints: Osseous degenerative changes. No acute fracture. No dislocation. Soft tissues: Unremarkable. Lymph nodes: Borderline mediastinal lymph nodes. Visualized upper abdomen: Fatty infiltration of the liver with small region of peripheral enhancement in the right hepatic lobe which could represent transient hepatic attenuation difference although other etiologies are not excluded. Probable duodenal diverticulum. IMPRESSION: 1. Atherosclerotic vascular disease without thoracic aortic aneurysm or dissection. 2. No evidence of pulmonary embolism allowing for limitations of exam due to suboptimal opacification of pulmonary arteries. 3. Stable advanced emphysematous changes in the lungs with scattered areas of scarring. No focal consolidation or pulmonary edema. 4. Redemonstration of lipomatous hypertrophy of interatrial septum. Normal cardiac size. No pericardial effusion. 5. Borderline mediastinal lymph nodes, nonspecific. 6. Hepatic steatosis with small region of peripheral enhancement in right hepatic lobe which could represent transient hepatic attenuation difference although other etiologies are not entirely excluded.
[2018-11-04] MEDS: MAGNESIUM SULFATE-D5W PMX 1 GM in DEXTROSE/WATER 1 100ML.BAG IVPB SCH (23:59)
[2018-11-05] MEDS ORDERED: ONDANSETRON 4 MG/2 ML VIAL IVP PRN (00:19)
[2018-11-05] MEDS ORDERED: NALOXONE 0.4 MG/ML 1 ML VIAL IV PRN (00:19)
[2018-11-05] MEDS ORDERED: ACETAMINOPHEN TAB 325 MG TAB PO PRN (00:19)
[2018-11-05] MEDS: SODIUM CHLORIDE 0.9% 1,000 ML IV SCH (00:55)
[2018-11-05] MEDS: MAGNESIUM SULFATE-D5W PMX 1 GM in DEXTROSE/WATER 1 100ML.BAG IVPB SCH (00:57)
[2018-11-05] MEDS: PANTOPRAZOLE 40 MG/10 ML VIAL IV SCH ×3 (10:05→10:06)
[2018-11-05 11:18] LABS: Glucose,Whole Blood 410 mg/dL (75-99)
[2018-11-05] MEDS ORDERED: IBUPROFEN 600 MG TAB PO PRN (12:32)
[2018-11-05] MEDS: INSULIN ASPART (NovoLOG) 100 UNIT/ML VIAL SQ SCH ×3 (12:37→22:42)
--- NOTE | 2018-11-05 14:41 | HP ---
HISTORY AND PHYSICAL CHIEF COMPLAINT: Abdominal pain, vomiting, chills and dysuria. HISTORY OF PRESENT ILLNESS: This is another admission for this lady who presented to the emergency room with abdominal pain, fever, chills, and was found to have urinary tract infection. Her white count was around 23,000. It was felt that she should receive IV fluids and IV antibiotics. REVIEW OF SYSTEMS: She has had no headaches, confusion, difficulty with vision or hearing, cough, hemoptysis, etc. She did complain of some anterior discomfort. She had no palpitations, syncope, hematemesis, melena, hematochezia, jaundice, history of renal failure, etc. She did have frequency and urgency. She is diabetic. Past medical history, family history, and personal and social histories are otherwise unremarkable. She is on sertraline, insulin 35 units at night, 45 in the morning of NovoLog 70/30. She is on Cymbalta, vitamin D, Neurontin, Motrin and memantine as well as pravastatin, metformin and Macrobid. ALLERGIES: 1. CODEINE. 2. QUINOLONES. 3. TRAMADOL. PHYSICAL EXAMINATION: Blood pressure 135/57, pulse 105, respirations of 18, temperature 98.1. In general she appeared to be comfortable. She was awake and alert. Head, ears, eyes, nose, mouth and throat were normal. Neck veins were not distended. Thyroid was not enlarged. Chest was clear. Cardiac exam demonstrated a grade 1/6 systolic murmur with occasional extra beats. ABDOMEN: Soft and slightly tender in the lower aspects. There were no masses. Bowel sounds present. EXTREMITIES: Normal. Neurologically she was intact. She is admitted to the hospital with the diagnoses: 1. Urinary tract infection. 2. Rule out sepsis. PLAN: 1. Bed rest. 2. IV fluids. 3. IV antibiotics. 4. Control diabetes. MMODL / IJN: [id number] /
[2018-11-05 16:45] LABS: Glucose,Whole Blood 301 mg/dL (75-99)
[2018-11-05] MEDS: metFORMIN 500 MG TAB PO SCH (17:00)
[2018-11-05] MEDS: GABAPENTIN 300 MG CAP PO SCH ×2 (17:00→22:42)
[2018-11-05 17:30] LABS: Hemoglobin A1C 10.9 % (4.0-6.0)
[2018-11-05 19:48] LABS: Glucose,Whole Blood 328 mg/dL (75-99)
[2018-11-05] MEDS: SYMBICORT 160-4.5 MCG INHALER INHALATION SCH (20:12)
[2018-11-05] MEDS: MEMANTINE 10 MG TAB PO SCH (22:42)
[2018-11-05] MEDS: INSULN ASP PRT/INSULIN ASPART 100 UNIT/ML 10 ML VIAL SQ SCH (22:43)
[2018-11-06] MEDS: SODIUM CHLORIDE 0.9% 1,000 ML IV SCH (04:47)
[2018-11-06 07:18] LABS: Glucose,Whole Blood 165 mg/dL (75-99)
[2018-11-06 07:24] LABS: Basophils % (A) 0 %; Eosinophils # (A) 0.7 k/uL (0-0.7); Eosinophils % (A) 8 %; HGB 10.4 gm/dL (11.4-16.0); Lymphocytes # (A) 1.6 k/uL (1.0-4.8); Lymphocytes % (A) 17 %; MCH 29.6 pg (25.0-35.0); MCHC 31.7 g/dL (31.0-37.0); MCV 93.3 fL (80.0-100.0); Mean Platelet Volume 9.5; Monocytes # (A) 0.4 k/uL (0-1.0); Monocytes % (A) 5 %; Neutrophils # (A) 6.7 k/uL (1.3-7.7); Neutrophils % (A) 70 %; Platelet Count 180 k/uL (150-450); RBC 3.53 m/uL (3.80-5.40); WBC 9.6 k/uL (3.8-10.6)
[2018-11-06] MEDS: SYMBICORT 160-4.5 MCG INHALER INHALATION SCH ×2 (07:34→20:58)
[2018-11-06] MEDS: GABAPENTIN 300 MG CAP PO SCH ×3 (08:00→21:44)
[2018-11-06] MEDS: metFORMIN 500 MG TAB PO SCH ×2 (08:00→17:11)
[2018-11-06] MEDS: PANTOPRAZOLE 40 MG/10 ML VIAL IV SCH (08:01)
[2018-11-06] MEDS: INSULN ASP PRT/INSULIN ASPART 100 UNIT/ML 10 ML VIAL SQ SCH ×2 (08:02→21:44)
[2018-11-06] MEDS: DULoxetine HCL 30 MG CAPSULE.DR PO SCH (08:02)
[2018-11-06] MEDS: MEMANTINE 10 MG TAB PO SCH ×2 (08:02→22:41)
[2018-11-06] MEDS: INSULIN ASPART (NovoLOG) 100 UNIT/ML VIAL SQ SCH ×4 (08:02→21:44)
[2018-11-06] MEDS: SERTRALINE 25 MG TAB PO SCH (08:02)
[2018-11-06 11:06] LABS: Glucose,Whole Blood 144 mg/dL (75-99)
[2018-11-06 16:34] VITALS: BMI 21.8
[2018-11-06 17:19] LABS: Glucose,Whole Blood 171 mg/dL (75-99)
[2018-11-06 20:47] LABS: Glucose,Whole Blood 346 mg/dL (75-99)
--- NOTE | 2018-11-06 21:03 | PN ---
PROGRESS NOTE DATE OF SERVICE: 11/06/2018 CHIEF COMPLAINT: Urinary tract infection with abdominal pain. HISTORY OF PRESENT ILLNESS: This lady is feeling better. Temperature is down. She is urinating more comfortably and abdominal pain is starting to subside. She does have a lesion on the back of the left heel where she had a procedure sometime in the recent past at this hospital by Orthopedics. She does not remember who. It looks as though this area is opened up. PHYSICAL EXAM: Chest is clear. Cardiac exam is normal. Abdomen is soft, nontender and she has an area in the back of the left heel which looks like an open area or possible point of breakdown. PLAN: 1. Continue with IV fluids and antibiotics. 2. Tried to find out who the orthopedic surgeon was who treated her heel. MMODL / IJN: [id number] /
[2018-11-06] MEDS ORDERED: MAGNESIUM HYDROXIDE 2,400 MG/10 ML CUP PO PRN (22:00)
[2018-11-07] MEDS: SODIUM CHLORIDE 0.9% 1,000 ML IV SCH (03:52)
[2018-11-07 07:33] LABS: Glucose,Whole Blood 124 mg/dL (75-99)
[2018-11-07] MEDS: GABAPENTIN 300 MG CAP PO SCH ×3 (07:38→22:31)
[2018-11-07] MEDS: metFORMIN 500 MG TAB PO SCH ×2 (07:38→16:48)
[2018-11-07] MEDS: DULoxetine HCL 30 MG CAPSULE.DR PO SCH (07:39)
[2018-11-07] MEDS: INSULN ASP PRT/INSULIN ASPART 100 UNIT/ML 10 ML VIAL SQ SCH ×2 (07:40→23:11)
[2018-11-07] MEDS: MEMANTINE 10 MG TAB PO SCH ×2 (07:40→22:31)
[2018-11-07] MEDS: SERTRALINE 25 MG TAB PO SCH (07:40)
[2018-11-07] MEDS: PANTOPRAZOLE 40 MG/10 ML VIAL IV SCH (07:40)
[2018-11-07] MEDS: INSULIN ASPART (NovoLOG) 100 UNIT/ML VIAL SQ SCH ×4 (07:41→22:32)
[2018-11-07] MEDS: SYMBICORT 160-4.5 MCG INHALER INHALATION SCH ×2 (08:52→23:47)
[2018-11-07 11:07] LABS: Glucose,Whole Blood 168 mg/dL (75-99)
--- NOTE | 2018-11-07 15:15 | P.CNOR ---
History of Present Illness - [facility] Consult date: 11/07/18 Requesting physician: Dany Cobb Consult reason: other (Left heel pain) History of present illness: 73-year-old patient admitted to the hospital with urinary tract infection. She states increasing left heel pain for approximately 2 months without specific injury. She has a history of left heel/calcaneal osteomyelitis that was treated back in 2014 with IV antibiotics and treatment through our wound clinic. She states that she did have a small scar in the area but no pain. She denies other joint complaints at this point. Review of Systems Constitutional: Reports as per [facility] Past Medical History Past Medical History: Atrial Fibrillation, COPD, Diabetes Mellitus, Hyperlipidemia, Hypertension, Skin Disorder Additional Past Medical History / Comment(s): Pt recently admitted to [facility] on with sepsis thought 2ndary to possible colitis. Other HX: Severe COPD , chronic hypoxic respiratory failure,home O2 at 2L/[place] ATC, chronic atrial fibrillation maintained on Xarelto, lumbar disc disease and chronic back pain, chronic and recurrent urine tract infections/sepsis, diabetes mellitus type II, chronic constipation, previous L heel wound with osteomylitis in 2014 (pt states currently covered with callus, decubitus ulcer now healed, hypothyroid. History of Any Multi-Drug Resistant Organisms: ESBL, MRSA Year Discovered:: 07/02/15-MRSA; 12/18/14 ESBL-E. coli MDRO Source:: Sputum-MRSA; Urine-ESBL Past Surgical History: Hysterectomy, Orthopedic Surgery, Tonsillectomy Additional Past Surgical History / Comment(s): Bilateral cataract removals/lens implants on 11/12/14. Lumbar disc surgery, repair of left hip -screws in place, decubitus I&D, colonoscopy. Past Anesthesia/Blood Transfusion Reactions: No Reported Reaction Past Psychological History: No Psychological Hx Reported Additional Psychological History / Comment(s): Pt lives with and GRANDSON/his spouse. THEY HELP CARE FOR PT. She ambulates with a walker. She has 2L oxygen per nasal cannula at all times. She no longer drives. She gets to [employer] by family driving her. Smoking Status: Former smoker Past Alcohol Use History: None Reported Additional Past Alcohol Use History / Comment(s): PT STARTED SMOKING IN 1965- WAS A 48 YEAR SMOKER QUIT IN 2013. She denies any medical marijuana, marijuana , street drug use.She has had no alcohol intake for the past 10-15 years. There are no animals in the home. She lives with her , grandson and grandson's spouse . pt was houewife. Past Drug Use History: None Reported - Past Family History Father Family Medical History: Unable to Obtain Additional Family Medical History / Comment(s): Pt never knew her father. He in WWII when she was very young. Mother Family Medical History: No Reported History Brother(s) Family Medical History: Cancer Additional Family Medical History / Comment(s): Pt has 4 brothers and one has testicular cancer. Medications and Allergies Home Medications Medication Instructions Recorded Confirmed Type Sertraline [Zoloft] 25 mg PO DAILY 11/16/14 11/04/18 History Insulin Aspart Protam & Aspart 35 unit SQ HS 06/27/17 11/04/18 History [NovoLOG MIX 70-30 Flexpen] Budesonide-Formot 160-4.5 Mcg 2 puff INHALATION RT-BID #1 09/30/17 11/04/18 Rx [Symbicort 160-4.5 Mcg Inhaler] DULoxetine HCL [Cymbalta] 30 mg PO DAILY 11/04/18 11/04/18 History Ergocalciferol [Vitamin D2] 50,000 unit PO Q7D 11/04/18 11/04/18 History Gabapentin [Neurontin] 300 mg PO TID 11/04/18 11/04/18 History Ibuprofen [Motrin] 600 mg PO TID PRN 11/04/18 11/04/18 History Insulin Aspart Protam & Aspart 45 unit SQ QAM 11/04/18 11/04/18 History [Novolog Mix 70-30 Flexpen Syrn] Memantine [Namenda] 10 mg PO BID 11/04/18 11/04/18 History Nitrofurantoin Monohyd/M-Cryst 100 mg PO TID 11/04/18 11/04/18 History [Macrobid] Pravastatin Sodium [Pravachol] 20 mg PO DAILY 11/04/18 11/04/18 History metFORMIN HCL 500 mg PO BID 11/04/18 11/04/18 History Allergies Allergy/AdvReac Type Severity Reaction Status Date / Time ceftaroline fosamil Allergy Intermediate Rash/Hives Verified 11/04/18 20:08 codeine Allergy Itching Verified 11/04/18 20:08 levofloxacin [From Levaquin] Allergy Rash/Hives Verified 11/04/18 20:08 tramadol Allergy Itching Verified 11/04/18 20:08 Physical Examination Osteopathic Statement: *. No significant issues noted on an osteopathic structural exam other than those noted in the History and Physical/Consult. There is some mild pinkish discoloration around the posterior calcaneus with diffuse tenderness palpation. There is no open wound. There is no drainage. She seems to have good perfusion to the foot. She is able to move her toes and ankle with no pain. There is some mild decreased sensation distally. Homans and Josh negative. Results - Labs Labs: Abnormal Lab Results - Last 24 Hours (Table) 11/06/18 11/06/18 11/07/18 Range/Units 17:15 20:46 07:30 POC Glucose (mg/dL) 171 H 346 H 124 H (75-99) mg/dL 11/07/18 Range/Units 11:05 POC Glucose (mg/dL) 168 H (75-99) mg/dL H & H 11/04/18 11/06/18 Range/Units 20:52 07:05 Hgb 12.7 10.4 L (11.4-16.0) gm/dL Hct 40.3 33.0 L (34.0-46.0) % Coagulation 11/04/18 Range/Units 20:52 INR 1.0 (<1.2) Result Diagrams: 11/06/18 07:05 11/04/18 20:52 - Diagnostic results Ankle/Foot x-ray: pending Assessment and Plan Assessment: Left heel pain with possible recurrent osteomyelitis Plan: 1. We will obtain an x-ray of the left ankle 2. We will consult infectious disease 3. We will consult wound care 4. Consider referral to foot and ankle specialist as an outpatient Time with Patient: Less than 30
--- NOTE | 2018-11-07 15:24 | XR ---
Limited left ankle HISTORY: Chronic heel pain 2 views of the left ankle Prior calcaneus 02/01/2015 There is lucency at the distal aspect of the fibula suggesting nondisplaced fracture although this ap pears well-corticated and not felt likely to be acute, similar appearance on prior exam. Mild soft ti ssue swelling is noted. Soft tissue calcifications are likely vascular. Bone mineralization is reduce d. Alignment is maintained. Small plantar calcaneal spur is again noted. There are vascular ossificat ions present. Spurring is present tibiotalar joint. IMPRESSION: Small plantar calcaneal spur. Additional findings above.
[2018-11-07 17:26] LABS: Glucose,Whole Blood 159 mg/dL (75-99)
--- NOTE | 2018-11-07 17:55 | PN ---
PROGRESS NOTE DATE OF SERVICE: 11/07/2018 CHIEF COMPLAINT: Urinary tract infection and abdominal pain. HISTORY OF PRESENT ILLNESS: This lady's pain is improving slowly. She feels much better. She is urinating more freely. She is having quite a bit of difficulty with discomfort in the back of the left heel. We will try to have one of the orthopedic surgeons look at this. PHYSICAL EXAMINATION: Chest is clear. Cardiac exam is normal. The abdomen is soft and nontender. Flanks are nontender. She has an ulcerated appearance to the back of the left heel. IMPRESSION: 1. Cystitis. 2. Abdominal pain. 3. Ulcerated lesion on the posterior left heel. PLAN: Continue with current program. Ask Orthopedics to evaluate the heel before she is discharged. MMODL / MAIN: [id number] /
[2018-11-07 21:25] LABS: Glucose,Whole Blood 200 mg/dL (75-99)
[2018-11-08] MEDS: SODIUM CHLORIDE 0.9% 1,000 ML IV SCH (03:46)
[2018-11-08 07:17] LABS: Glucose,Whole Blood 64 mg/dL (75-99)
[2018-11-08 07:28] LABS: Glucose,Whole Blood 65 mg/dL (75-99)
[2018-11-08] MEDS: INSULIN ASPART (NovoLOG) 100 UNIT/ML VIAL SQ SCH ×2 (07:43→13:03)
[2018-11-08 07:45] LABS: Glucose,Whole Blood 113 mg/dL (75-99)
--- NOTE | 2018-11-08 08:06 | CONS ---
CONSULTATION DATE OF SERVICE: 11/07/2018 REASON FOR CONSULTATION: 1. UTI. 2. Left heel wound with question of osteomyelitis. HISTORY OF PRESENT ILLNESS: The patient is a 73-year-old female presenting to the [facility] ER with multiple symptoms including chest pain, feeling nauseated. With these symptoms the patient did have extensive workup including CT angiogram that was negative for PE. The patient who was afebrile on presentation with high fever of 99.7, did spike a fever up to 100.1 today though. The patient on admission did have white count 22.8. She was noticed to have positive urinary tract infection. The patient was started on Rocephin. The urine culture came back negative. The patient did complain of pain and wound to the left heel area that prompted an orthopedic consultation with concern for possible osteomyelitis at the site. The patient did have x-rays of the ankle done which did show some soft tissue swelling. Infectious Disease was consulted for further recommendation of antibiotic therapy. The patient has been complaining of some dull aching pain in the left heel area, especially when she walks on it with intensity about 4 to 5 out of 10 and no radiation. She denies having any drainage from it. There is some swelling, but no redness. Her nausea and vomiting has resolved and no further urinary symptoms. REVIEW OF SYSTEMS: Positive points has been mentioned in HPI. Rest of the review of systems has been negative. PAST MEDICAL HISTORY: Atrial fibrillation, COPD, diabetes mellitus, hypertension, hyperlipidemia, previous history of colitis and left heel osteomyelitis 2014. PAST SURGICAL HISTORY: Hysterectomy, tonsillectomy, bilateral cataract surgery, left hip surgical repair. SOCIAL HISTORY: Remote history of smoking. No drinking or drug use. FAMILY HISTORY: Mother with history of testicular cancer. ALLERGIES: Allergies to CEFTAROLINE, CODEINE, LEVAQUIN, however, tolerated Rocephin without any problem. MEDICATIONS: Medications include the patient is currently on Tylenol, Symbicort, Rocephin 1 gram daily. She is also on Cymbalta, Neurontin, Motrin, NovoLog, Namenda, Glucophage, Narcan, Zofran, Protonix, Zoloft. PHYSICAL EXAMINATION: On examination, blood pressure is 138/67 with a pulse of 84, temperature 100.1. She is 98% on 3 L nasal cannula. General description is an elderly female up in the bed in no distress. No tachypnea or accessory muscle for respiration use. HEENT examination is slight pallor. No scleral icterus. Oral mucous membrane is dry. No pharyngeal erythema or thrush. NECK: Trachea central. No thyromegaly. LUNGS: Unlabored breathing, clear to auscultation anteriorly. No wheeze or crackle. HEART: S1, S2 regular rate and rhythm. ABDOMEN: Soft, no tenderness. No guarding or rigidity. EXTREMITIES: No edema of feet. Examination of the left heel, did have a callus, no open wound. Minimal swelling, no redness, possible drainage. LABS: Hemoglobin 10.4, white count 9.6, BUN of 25, creatinine 0.64. DIAGNOSTIC IMPRESSION AND PLAN: 1. Patient admitted to the hospital with symptoms. Did have a possible component of urinary tract infection with overall resolution of the white count more likely enteric gram-negative pathogen. 2. Patient with pain to the left heel with previous history of osteomyelitis for which currently do not have any active wounds. There is an area that is covered with callus, underlying osteomyelitis to be less likely but not entirely excluded. PLAN: 1. Blood cultures will be repeated and also venous sedimentation rate and CRP. 2. Three phase bone scan of the left heel area to rule out osteomyelitis. 3. Continue Rocephin 1 gram daily for underlying UTI. 4. We will follow up on clinical condition and culture to further adjust medication if needed. Thank you for this consultation. Will follow this patient along with you. MMODL / IJN: [id number] /
[2018-11-08] MEDS: PANTOPRAZOLE 40 MG/10 ML VIAL IV SCH (09:34)
[2018-11-08] MEDS: MEMANTINE 10 MG TAB PO SCH ×2 (09:34→19:59)
[2018-11-08] MEDS: GABAPENTIN 300 MG CAP PO SCH ×3 (09:34→21:23)
[2018-11-08] MEDS: metFORMIN 500 MG TAB PO SCH ×2 (09:34→19:03)
[2018-11-08] MEDS: SERTRALINE 25 MG TAB PO SCH (09:35)
[2018-11-08] MEDS: DULoxetine HCL 30 MG CAPSULE.DR PO SCH (09:35)
[2018-11-08] MEDS: SYMBICORT 160-4.5 MCG INHALER INHALATION SCH ×2 (09:40→19:27)
[2018-11-08 12:09] LABS: Glucose,Whole Blood 168 mg/dL (75-99)
--- NOTE | 2018-11-08 14:42 | NM ---
EXAMINATION TYPE: NM bone 3 phase DATE OF EXAM: 11/08/2018 COMPARISON: Plain film 11/07/2017, prior nuclear medicine bone scan 02/13/2015 HISTORY: Left heel wound Triple phase bone scintigraphy was performed following the injection of 19 mCi Tc 99m MDP. Immediate images and 5 hours post injection images acquired. FINDINGS: There is increased blood flow, blood pool activity at the medial aspect of the region of the posterio r calcaneus of the left foot. Medial images were not obtained due to patient's inability to cooperate on the more delayed image. IMPRESSION: Findings are suspicious for osteomyelitis involving the posterior left calcaneus medially. Exam somew hat limited however, MRI of the left ankle could be performed for additional evaluation.
[2018-11-08 17:16] LABS: Glucose,Whole Blood 235 mg/dL (75-99)
[2018-11-08] MEDS: INSULN ASP PRT/INSULIN ASPART 100 UNIT/ML 10 ML VIAL SQ SCH (17:24)
[2018-11-08] MEDS ORDERED: INSULN ASP PRT/INSULIN ASPART 100 UNIT/ML 10 ML VIAL SQ SCH (17:30)
[2018-11-08 20:31] LABS: Glucose,Whole Blood 331 mg/dL (75-99)
--- NOTE | 2018-11-08 21:17 | MR ---
EXAMINATION TYPE: MR ankle LT wo/w con DATE OF EXAM: 11/08/2018 COMPARISON: Nuclear medicine triple phase bone scan 11/08/2018; radiographs 11/07/2018 HISTORY: Callused lump on posterior heel, osteomylitis CONTRAST: Standard multiplanar, multisequence MRI departmental protocol utilizing 7.5 mL intravenous Gadavist gadolinium contrast. FINDINGS: OSSEOUS STRUCTURES: There is no cortical erosion, bone marrow edema, or skeletal contrast-enhancement . Therefore, the study is negative for osteomyelitis. JOINTS: Unremarkable. SOFT TISSUES: There is no focal fluid collection to suggest soft tissue abscess. No MR evidence of so ft tissue emphysema. There is mild nonspecific T2 hyperintensity and contrast-enhancement noted in th e soft tissues medial to the calcaneus. This is compatible with cellulitis. IMPRESSION: NEGATIVE FOR OSTEOMYELITIS OR SOFT TISSUE ABSCESS.
--- NOTE | 2018-11-08 23:27 | PN ---
PROGRESS NOTE DATE OF SERVICE: 11/09/2018. REASON FOR FOLLOWUP: Left heel wound and pain, question of osteomyelitis. INTERVAL HISTORY: The patient is afebrile. She is breathing comfortably. Denies having any chest pain or any cough. She did have some pain in the left posterior heel area, currently with no open wound or any drainage. PHYSICAL EXAMINATION: Blood pressure 153/73 with a pulse of 97, temperature 98, she is 96% on 3 L nasal cannula. GENERAL DESCRIPTION: An elderly female up in the bed in no distress. RESPIRATORY SYSTEM: Unlabored breathing. Clear to auscultation anteriorly. HEART: S1 and S2, irregular rate and rhythm. ABDOMEN: Soft, no tenderness. EXTREMITIES: Left foot currently with scab on the posterior heel area with currently no wound, no swelling, no redness. LABS: Sedimentation rate was 18. DIAGNOSTIC IMPRESSION AND PLAN: The patient bone scan was reported to equivocal. MRI of the ankle was ordered, which did not show any evidence of osteomyelitis and no need for any systemic antibiotic therapy for the same. The patient did have a UTI that did seem to respond to Rocephin and will finish a course of oral Ceftin for underlying urinary tract infection. Continue supportive care. MMODL / IJN: [id number] /
[2018-11-09] MEDS: SODIUM CHLORIDE 0.9% 1,000 ML IV SCH (01:14)
[2018-11-09 07:08] LABS: Glucose,Whole Blood 184 mg/dL (75-99)
[2018-11-09] MEDS ORDERED: INSULN ASP PRT/INSULIN ASPART 100 UNIT/ML 10 ML VIAL SQ SCH (07:30)
[2018-11-09] MEDS: MEMANTINE 10 MG TAB PO SCH (08:32)
[2018-11-09] MEDS: GABAPENTIN 300 MG CAP PO SCH (08:32)
[2018-11-09] MEDS: metFORMIN 500 MG TAB PO SCH (08:32)
[2018-11-09] MEDS: DULoxetine HCL 30 MG CAPSULE.DR PO SCH (08:32)
[2018-11-09] MEDS: PANTOPRAZOLE 40 MG/10 ML VIAL IV SCH (08:33)
[2018-11-09] MEDS: SERTRALINE 25 MG TAB PO SCH (08:33)
[2018-11-09] MEDS: SYMBICORT 160-4.5 MCG INHALER INHALATION SCH (08:52)
[2018-11-09 11:08] LABS: Glucose,Whole Blood 265 mg/dL (75-99)
[2018-11-09 12:01] VITALS: BP 148/68; PULSE 84; RESP 20; TEMP 98
--- NOTE | 2018-11-09 12:46 | PN ---
PROGRESS NOTE DATE OF SERVICE: 11/08/2018 CHIEF COMPLAINT: Urinary tract infection with abdominal pain and lesion on the back of her left heel. HISTORY OF PRESENT ILLNESS: This lady is doing fairly well and her abdominal pain is gone. She has had no fever or chills. Urinary tract infection is probably under control. She is being seen by Orthopedics for the left heel and white cell labeled scan looks as though she has osteomyelitis. PHYSICAL EXAM: Abdomen is soft, nontender. Chest is clear. IMPRESSION: 1. Urinary tract infection. 2. Osteomyelitis of the left heel. PLAN: 1. Await recommendations from Orthopedics. 2. Infectious Disease consult. MMODL / IJN: [id number] /
--- NOTE | 2018-11-09 14:46 | PN ---
PROGRESS NOTE DATE OF SERVICE: 11/09/2017 CHIEF COMPLAINT: Urinary tract infection, abdominal pain with osteomyelitis left heel. HISTORY OF PRESENT ILLNESS: This lady is feeling well and we are waiting for treatment plans for her osteomyelitis. PHYSICAL EXAM: Chest is clear. Cardiac exam is normal. The abdomen is soft, nontender and flanks nontender. IMPRESSION: 1. Urinary tract infection. 2. Osteomyelitis of the left heel. PLAN: Await recommendations from Infectious Disease to see if she is going to be on long-term IV antibiotics. MMODL / IJN: [id number] /
--- NOTE | 2018-11-09 16:28 | PN ---
PROGRESS NOTE DATE OF SERVICE: 11/09/2018 REASON FOR FOLLOWUP: 1. Left heel pain and a question of osteomyelitis. 2. UTI. INTERVAL HISTORY: The patient is afebrile. She is breathing comfortably. Denies having any chest pain or any cough. No abdominal pain. Still has some pain when she walks on her left heel area; currently with no open wound, though. PHYSICAL EXAMINATION: Blood pressure 148/68 with a pulse of 84, temperature of 98. She is 97% on 2 L nasal cannula. General description is an elderly female up in the chair in no distress. RESPIRATORY SYSTEM: Unlabored breathing. Clear to auscultation anteriorly. HEART: S1, S2. Regular rate and rhythm. ABDOMEN: Soft. No tenderness. LABS: No new labs have been obtained today. DIAGNOSTIC IMPRESSION AND PLAN: 1. Patient with pain to the left heel area with previous history of osteomyelitis. Currently the patient does have a scab on that area with callus, but there is no swelling and no redness. The bone scan was suspicious; however, MRI excluded osteomyelitis. Patient currently with no open wound. Sedimentation rate is normal, making osteomyelitis to be less likely a diagnosis. No need for further workup for the same. 2. Patient with a urinary tract infection, currently on Rocephin. That will be transitioned to a short course of oral Ceftin on discharge. Continue supportive care. MMODL / IJN: [id number] /
[2018-11-09] MEDS ORDERED: CEPHALEXIN 500 MG CAP PO SCH (18:00)
[2018-11-10] MEDS ORDERED: PANTOPRAZOLE 40 MG TABLET PO SCH (07:30)
--- NOTE | 2018-11-10 21:38 | DS ---
DISCHARGE SUMMARY DATE OF SERVICE: 11/09/2018. CHIEF COMPLAINT: Abdominal pain and urinary tract infection. HISTORY OF PRESENT ILLNESS AND PHYSICAL EXAM: Details of this lady's history and physical can be found in the initial workup. LABORATORY STUDIES: While she was in the hospital, she had laboratory studies, details of which can be found in the laboratory section of her chart. COURSE IN HOSPITAL: After admission, she was placed on bedrest and started on intravenous fluids and IV antibiotics. Her abdominal pain improved significantly. She is doing well. She brought up the fact that she had a new lesion on the back of her left heel where she had a cyst removed recently. She was seen by Orthopedics and the scan was done. It was determined that she had osteomyelitis in the posterior aspect of the calcaneus. It was decided this could be treated as an outpatient. She is to be discharged on the and follow up in the office. FINAL DIAGNOSES: 1. Urinary tract infection. 2. Abdominal pain. 3. Osteomyelitis, left heel. OPERATIONS: None. CONSULTATIONS: Orthopedics. She is improved. MMODL / IJN: [id number] /
== END 2018-11-09 16:55 | disposition home or self-care (01) | DRG 690 ==
LOC: EC 19:14 → 3NMEDONC 11-05 00:19
PROVIDERS: ADMIT Family Medicine; ATTEND Family Medicine
DX: N30.90 Cystitis, unspecified without hematuria (principal); E87.3 Alkalosis; J96.11 Chronic respiratory failure with hypoxia; E03.9 Hypothyroidism, unspecified; E11.69 Type 2 diabetes mellitus with other specified complication; E78.5 Hyperlipidemia, unspecified; I10 Essential (primary) hypertension; I48.2 Chronic atrial fibrillation; J44.9 Chronic obstructive pulmonary disease, unspecified; K59.09 Other constipation; M51.9 Unspecified thoracic, thoracolumbar and lumbosacral intervertebral disc disorder; R79.1 Abnormal coagulation profile; Z96.1 Presence of intraocular lens; Z79.4 Long term (current) use of insulin; Z79.51 Long term (current) use of inhaled steroids; Z79.899 Other long term (current) drug therapy; Z87.891 Personal history of nicotine dependence; Z86.19 Personal history of other infectious and parasitic diseases; Z90.710 Acquired absence of both cervix and uterus; Z98.42 Cataract extraction status, left eye; Z98.41 Cataract extraction status, right eye
CPT/HCPCS: 36415; 71046; 71275; 74018; 78315; 80053; 81001; 82550; 82553; 83036; 83735; 83880; 84484; 85025; 85379; 85610; 85652; 85730; 86140; 87040; 87086; 93005; 94640; 94760; 96365; 96367; 99285

== ENCOUNTER 2018-12-09 15:39 | Emergency (ER) | payer MEDICARE, OTHER ==
[2018-12-09 16:24] LABS: Appearance,Urine Cloudy (Clear); Bacteria,Urine Occasional /hpf; Bilirubin,Urine Negative (Negative); Blood,Urine Small (Negative); Budding Yeast,Urine Occasional /hpf; Color,Urine Yellow; Glucose,Urine (UA) 4+ (Negative); Leukocyte Esterase,Urine Large (Negative); Nitrite,Urine Negative (Negative); PH, Urine 5.5 (5.0-8.0); Protein,Urine 1+ (Negative); RBC,Urine 9 /hpf (0-5); Specific Gravity,Urine 1.023 (1.001-1.035); Squamous Epithelial Cell,Urine 2 /hpf (0-4); Urobilinogen,Urine <2.0 mg/dL (<2.0)
[2018-12-09] MEDS ORDERED: IBUPROFEN 400 MG TAB PO STA (16:36)
[2018-12-09] MEDS ORDERED: HYDROmorphone 1 MG/ML 1 ML SYRINGE IM STA (16:36)
[2018-12-09] MEDS ORDERED: DIAZEPAM 5 MG TAB PO STA (16:36)
[2018-12-09 16:44] LABS: Glucose,Whole Blood 433 mg/dL (75-99)
[2018-12-09 17:00] LABS: Ketones,Urine 3+ (Negative)
--- NOTE | 2018-12-09 18:20 | ED ---
Neck Injury/Pain HPI - General Chief Complaint: Neck Pain/Injury Stated Complaint: UTI, Neck pain Time Seen by Provider: 12/09/18 16:08 Source: RN notes reviewed, old records reviewed Mode of arrival: EMS - History of Present Illness Initial Comments: This is a 73-year-old female. Patient presents to the ER for evaluation regarding neck pain. Patient states she has symptoms of the neck pain which she also believes pelvis urinary tract infection. Patient states she woke up with his neck pain recently. She has had a prior history of similar neck pain. Denies nausea vomiting fevers. No trauma. MD Complaint: neck pain -: days(s) Place: home Radiation: right shoulder, left shoulder Severity: moderate Severity scale (1-10): 6 Quality: aching (Paraspinal) Consistency: constant Improves With: heat therapy Worsens With: movement of neck Context: unknown Associated Symptoms: none Treatments Prior to Arrival: none - Related Data Home Medications Medication Instructions Recorded Confirmed Sertraline [Zoloft] 25 mg PO DAILY 11/16/14 12/09/18 Insulin Aspart Protam & Aspart 35 unit SQ HS 06/27/17 12/09/18 [NovoLOG MIX 70-30 Flexpen] DULoxetine HCL [Cymbalta] 30 mg PO DAILY 11/04/18 12/09/18 Ergocalciferol [Vitamin D2 50,000 unit PO Q7D 11/04/18 12/09/18 (DRISDOL)] Gabapentin [Neurontin] 300 mg PO TID 11/04/18 12/09/18 Ibuprofen [Motrin] 600 mg PO TID PRN 11/04/18 12/09/18 Insulin Aspart Protam & Aspart 45 unit SQ QAM 11/04/18 12/09/18 [NovoLOG MIX 70-30 Flexpen] Memantine [Namenda] 10 mg PO BID 11/04/18 12/09/18 Pravastatin Sodium [Pravachol] 20 mg PO DAILY 11/04/18 12/09/18 metFORMIN HCL 500 mg PO BID 11/04/18 12/09/18 Docusate [Colace] 100 mg PO DAILY PRN 12/09/18 12/09/18 Previous Rx's Medication Instructions Recorded Budesonide-Formot 160-4.5 Mcg 2 puff INHALATION RT-BID #1 09/30/17 [Symbicort 160-4.5 Mcg Inhaler] Naproxen [Naprosyn] 500 mg PO Q12HR PRN #30 tab 12/09/18 Nitrofurantoin Monohyd/M-Cryst 100 mg PO Q12HR #14 cap 12/09/18 [Macrobid] predniSONE 50 mg PO DAILY #5 tab 12/09/18 Allergies Allergy/AdvReac Type Severity Reaction Status Date / Time ceftaroline fosamil Allergy Intermediate Rash/Hives Verified 12/09/18 16:56 codeine Allergy Itching Verified 12/09/18 16:56 levofloxacin [From Levaquin] Allergy Rash/Hives Verified 12/09/18 16:56 tramadol Allergy Itching Verified 12/09/18 16:56 Review of Systems ROS Statement: Those systems with pertinent positive or pertinent negative responses have been documented in the HPI. ROS Other: All systems not noted in ROS Statement are negative. Past Medical History Past Medical History: Atrial Fibrillation, COPD, Diabetes Mellitus, Hyperlipidemia, Hypertension, Skin Disorder Additional Past Medical History / Comment(s): Pt recently admitted to [facility] on 08/15/17 with sepsis thought 2ndary to possible colitis. Other HX: Severe COPD, chronic hypoxic respiratory failure,home O2 at 2L/NC ATC, chronic atrial fibrillation maintained on Xarelto, lumbar disc disease and chronic back pain, chronic and recurrent urine tract infections/sepsis, diabetes mellitus type II, chronic constipation, previous L heel wound with osteomylitis in 2014 (pt states currently covered with callus, decubitus ulcer now healed, hypothyroid. History of Any Multi-Drug Resistant Organisms: ESBL, MRSA Date of last positivie culture/infection: 07/02/15-MRSA; 12/18/14 ESBL-E. coli MDRO Source:: Sputum-MRSA; Urine-ESBL Past Surgical History: Hysterectomy, Orthopedic Surgery, Tonsillectomy Additional Past Surgical History / Comment(s): Bilateral cataract removals/lens implants on 11/12/14. Lumbar disc surgery, repair of left hip -screws in place, decubitus I&D, colonoscopy. Past Anesthesia/Blood Transfusion Reactions: No Reported Reaction Past Psychological History: No Psychological Hx Reported Smoking Status: Former smoker Past Alcohol Use History: None Reported Past Drug Use History: None Reported - Past Family History Father Family Medical History: Unable to Obtain Additional Family Medical History / Comment(s): Pt never knew her father. He in WWII when she was very young. Mother Family Medical History: No Reported History Brother(s) Family Medical History: Cancer Additional Family Medical History / Comment(s): Pt has 4 brothers and one has testicular cancer. General Exam - General Exam Comments Initial Comments: Does have appearance of torticollis on examination. General appearance: alert, in no apparent distress Head exam: Present: atraumatic, normocephalic, normal inspection Eye exam: Present: normal appearance, PERRL, EOMI. Absent: scleral icterus, conjunctival injection, periorbital swelling ENT exam: Present: normal exam, mucous membranes moist Neck exam: Present: normal inspection. Absent: tenderness, meningismus, lymphadenopathy Respiratory exam: Present: normal lung sounds bilaterally. Absent: respiratory distress, wheezes, rales, rhonchi, stridor Cardiovascular Exam: Present: regular rate, normal rhythm, normal heart sounds. Absent: systolic murmur, diastolic murmur, rubs, gallop, clicks GI/Abdominal exam: Present: soft, normal bowel sounds. Absent: distended, tenderness, guarding, rebound, rigid Extremities exam: Present: normal inspection, full ROM, normal capillary refill. Absent: tenderness, pedal edema, joint swelling, calf tenderness Back exam: Present: normal inspection Neurological exam: Present: alert, oriented X3, CN II-XII intact Psychiatric exam: Present: normal affect, normal mood Skin exam: Present: warm, dry, intact, normal color. Absent: rash Course Vital Signs 12/09/18 12/09/18 15:43 19:16 Temperature 98.8 F 98.4 F Pulse Rate 107 H 106 H Respiratory 18 20 Rate Blood Pressure 150/104 185/84 O2 Sat by Pulse 94 L 100 Oximetry Medical Decision Making - Medical Decision Making 83 female the ER for evasive neck pain. Patient does have torticollis lateral muscle ache. Patient has improvement in range of motion and pain here in emergency room. Urine is also positive for urinary tract infection we'll give antibiotics - Lab Data Lab Results 12/09/18 12/09/18 Range/Units 15:54 16:42 POC Glucose (mg/dL) 433 H (75-99) mg/dL POC Glu [employer]nel Training Officer ID Rylee Gray Urine Color Yellow Urine Appearance Cloudy H (Clear) Urine pH 5.5 (5.0-8.0) Ur Specific [place] 1.023 (1.001-1.035) Urine Protein 1+ H (Negative) Urine Glucose (UA) 4+ H (Negative) Urine Ketones 3+ H (Negative) Urine Blood Small H (Negative) Urine Nitrite Negative (Negative) Urine Bilirubin Negative (Negative) Urine Urobilinogen <2.0 (<2.0) mg/dL Ur Leukocyte Esterase Large H (Negative) Urine RBC 9 H (0-5) /hpf Urine WBC >182 H (0-5) /hpf Urine WBC Clumps Few H (None) /hpf Ur Squamous Epith Cells 2 (0-4) /hpf Urine Bacteria Occasional H (None) /hpf Urine Yeast (Budding) Occasional H (None) /hpf Disposition Clinical Impression: Strain of neck muscle, Cervical radiculopathy, Torticollis, UTI (urinary tract infection) Disposition: HOME SELF-CARE Instructions (If sedation given, give patient instructions): Urinary Tract Infection in Women (ED), Spasmodic Torticollis (ED) Prescriptions: Nitrofurantoin Monohyd/M-Cryst [Macrobid] 100 mg PO Q12HR #14 cap Naproxen [Naprosyn] 500 mg PO Q12HR PRN #30 tab PRN Reason: Pain predniSONE 50 mg PO DAILY #5 tab Is patient prescribed a controlled substance at d/c from ED?: No Referrals: Dany Cobb MD [Primary Care Provider] - 1-2 days
[2018-12-09] MEDS ORDERED: NITROFURANTOIN MONOHYD/M-CRYST 100 MG CAP PO STA (18:50)
[2018-12-09 19:18] VITALS: BP 185/84; PULSE 106; RESP 20; TEMP 98.4
== END 2018-12-09 19:48 | disposition home or self-care (01) ==
LOC: EC 15:39
DX: S16.1XXA Strain of muscle, fascia and tendon at neck level, initial encounter (principal); M54.12 Radiculopathy, cervical region; N39.0 Urinary tract infection, site not specified; E11.9 Type 2 diabetes mellitus without complications; E78.5 Hyperlipidemia, unspecified; I10 Essential (primary) hypertension; J44.9 Chronic obstructive pulmonary disease, unspecified; I48.2 Chronic atrial fibrillation; J96.11 Chronic respiratory failure with hypoxia; Z87.891 Personal history of nicotine dependence; Z88.1 Allergy status to other antibiotic agents; Z88.5 Allergy status to narcotic agent; Z79.01 Long term (current) use of anticoagulants; Z79.4 Long term (current) use of insulin; Z79.899 Other long term (current) drug therapy; Z96.698 Presence of other orthopedic joint implants; Z99.81 Dependence on supplemental oxygen; Z86.14 Personal history of Methicillin resistant Staphylococcus aureus infection; X58.XXXA Exposure to other specified factors, initial encounter
CPT/HCPCS: 36415; 81001; 87086; 87077; 87186; 99284; 96372; J1170

== ENCOUNTER 2018-12-12 13:27 | Inpatient (IN) | payer MEDICARE, OTHER ==
[2018-12-12] MEDS ORDERED: SODIUM CHLORIDE 0.9% 500 ML 500 ML IV STA (13:37)
[2018-12-12] MEDS ORDERED: SODIUM CHLORIDE 0.9% 1,000 ML IV ONE (13:39)
--- NOTE | 2018-12-12 13:42 | ED ---
Fall HPI - General Chief Complaint: Fall Stated Complaint: diabetic Time Seen by Provider: 12/12/18 13:32 Source: patient, EMS, RN notes reviewed Mode of arrival: EMS Limitations: no limitations - History of Present Illness Initial Comments: This is a 73-year-old female presents emergency Department via EMS with chief complaint of fall. Patient states she's had recent multiple falls. States she just feels weak and rundown. Patient was recently in the emergency department for urinary tract infection. Patient states she also has had uncontrolled d iabetes. Patient denies any current chest pain but states it feels a heart was racing. Patient does admit to slight headache and neck pain. Patient does take blood thinners secondary to atrial fibrillation. Patient denies any current nausea vomiting. Patient states her legs feel weak. Denies any localized weakness or any focal weakness. Patient states that she does have some pain in her hip region secondary to the fall. - Related Data Home Medications Medication Instructions Recorded Confirmed Sertraline [Zoloft] 25 mg PO DAILY 11/16/14 12/12/18 Insulin Aspart Protam & Aspart 35 unit SQ HS 06/27/17 12/12/18 [NovoLOG MIX 70-30 Flexpen] DULoxetine HCL [Cymbalta] 30 mg PO DAILY 11/04/18 12/12/18 Ergocalciferol [Vitamin D2 50,000 unit PO Q7D 11/04/18 12/12/18 (DRISDOL)] Gabapentin [Neurontin] 300 mg PO TID 11/04/18 12/12/18 Ibuprofen [Motrin] 600 mg PO TID PRN 11/04/18 12/12/18 Insulin Aspart Protam & Aspart 45 unit SQ QAM 11/04/18 12/12/18 [NovoLOG MIX 70-30 Flexpen] Memantine [Namenda] 10 mg PO BID 11/04/18 12/12/18 Pravastatin Sodium [Pravachol] 20 mg PO DAILY 11/04/18 12/12/18 metFORMIN HCL 500 mg PO BID 11/04/18 12/12/18 Docusate [Colace] 100 mg PO DAILY PRN 12/09/18 12/12/18 Previous Rx's Medication Instructions Recorded Budesonide-Formot 160-4.5 Mcg 2 puff INHALATION RT-BID #1 01/04/18 [Symbicort 160-4.5 Mcg Inhaler] Naproxen [Naprosyn] 500 mg PO Q12HR PRN #30 tab 12/09/18 Nitrofurantoin Monohyd/M-Cryst 100 mg PO Q12HR #14 cap 12/09/18 [Macrobid] predniSONE 50 mg PO DAILY #5 tab 12/09/18 Allergies Allergy/AdvReac Type Severity Reaction Status Date / Time ceftaroline fosamil Allergy Intermediate Rash/Hives Verified 12/12/18 13:53 codeine Allergy Itching Verified 12/12/18 13:53 levofloxacin [From Levaquin] Allergy Rash/Hives Verified 12/12/18 13:53 tramadol Allergy Itching Verified 12/12/18 13:53 Review of Systems ROS Statement: Those systems with pertinent positive or pertinent negative responses have been documented in the HPI. ROS Other: All systems not noted in ROS Statement are negative. Past Medical History Past Medical History: Atrial Fibrillation, COPD, Diabetes Mellitus, Hyperl ipidemia, Hypertension, Skin Disorder Additional Past Medical History / Comment(s): Pt recently admitted to [facility] on 08/15/17 with sepsis thought 2ndary to possible colitis. Other HX: Severe COPD, chronic hypoxic respiratory failure,home O2 at 2L/NC ATC, chronic atrial fibrillation maintained on Xarelto, lumbar disc disease and chronic back pain, chronic and recurrent urine tract infections/sepsis, diabetes mellitus type II, chronic constipation, previous L heel wound with osteomylitis in 2014 (pt states currently covered with callus, decubitus ulcer now healed, hypothyroid. History of Any Multi-Drug Resistant Organisms: ESBL, MRSA Date of last positivie culture/infection: 07/02/15-MRSA; 12/18/14 ESBL-E. coli MDRO Source:: Sputum-MRSA; Urine-ESBL Past Surgical History: Hysterectomy, Orthopedic Surgery, Tonsillectomy Additional Past Surgical History / Comment(s): Bilateral cataract removals/lens implants on 11/12/14. Lumbar disc surgery, repair of left hip -screws in place, decubitus I&D, colonoscopy. Past Anesthesia/Blood Transfusion Reactions: No Reported Reaction Past Psychological History: No Psychological Hx Reported Smoking Status: Former smoker Past Alcohol Use History: None Reported Past Drug Use History: None Reported - Past Family History Father Family Medical History: Unable to Obtain Additional Family Medical History / Comment(s): Pt never knew her father. He in WWII when she was very young. Mother Family Medical History: No Reported History Brother(s) Family Medical History: Cancer Additional Family Medical History / Comment(s): Pt has 4 brothers and one has testicular cancer. General Exam Limitations: no limitations General appearance: alert, in no apparent distress Head exam: Present: atraumatic, normocephalic, normal inspection Eye exam: Present: normal appearance, PERRL, EOMI. Absent: scleral icterus, conjunctival injection, periorbital swelling ENT exam: Present: normal oropharynx, mucous membranes dry. Absent: normal exam Neck exam: Present: normal inspection, full ROM. Absent: tenderness, meningismus, lymphadenopathy Respiratory exam: Present: normal lung sounds bilaterally. Absent: respiratory distress, wheezes, rales, rhonchi, stridor Cardiovascular Exam: Present: tachycardia, irregular rhythm, normal heart sounds. Absent: regular rate, normal rhythm, systolic murmur, diastolic murmur, rubs, gallop, clicks GI/Abdominal exam: Present: soft, normal bowel sounds. Absent: distended, tenderness, guarding, rebound, rigid Extremities exam: Present: other (Mild tenderness diffusely of the pelvis region lower extremity full range of motion neurovascular intact upper extremities full range of motion) Neurological exam: Present: alert, CN II-XII intact, reflexes normal, other (Finger to nose intact bilaterally). Absent: oriented X3 (Awake alert and orientated x2), motor sensory deficit Skin exam: Present: warm, dry, intact, normal color. Absent: rash Course Vital Signs 12/12/18 12/12/18 12/12/18 13:29 13:49 16:02 Temperature 97.8 F Pulse Rate 118 H 104 H Respiratory 18 20 Rate Blood Pressure 150/63 170/58 O2 Sat by Pulse 98 97 Oximetry Medical Decision Making - Medical Decision Making 73-year-old female presented for fall, generalized weakness. Patient will be admitted for UTI failed outpatient treatment, DKA and A. fib RVR - Lab Data Result diagrams: 12/12/18 13:55 12/12/18 13:55 Lab Results 12/12/18 12/12/18 12/12/18 Range/Units 13:55 13:55 13:55 WBC 11.5 H (3.8-10.6) k/uL RBC 4.16 (3.80-5.40) m/uL Hgb 12.3 (11.4-16.0) gm/dL Hct 42.1 (34.0-46.0) % MCV 101.2 H D (80.0-100.0) fL MCH 29.5 (25.0-35.0) pg MCHC 29.2 L (31.0-37.0) g/dL RDW 14.1 (11.5-15.5) % Plt Count 295 (150-450) k/uL Neutrophils % 89 % Lymphocytes % 6 % Monocytes % 4 % Eosinophils % 0 % Basophils % 0 % Neutrophils # 10.3 H (1.3-7.7) k/uL Lymphocytes # 0.7 L (1.0-4.8) k/uL Monocytes # 0.5 (0-1.0) k/uL Eosinophils # 0.0 (0-0.7) k/uL Basophils # 0.0 (0-0.2) k/uL Hypochromasia Marked Macrocytosis Slight PT (9.0-12.0) sec INR (<1.2) APTT (22.0-30.0) sec Sodium 139 (137-145) mmol/L Potassium 4.7 (3.5-5.1) mmol/L Chloride 98 (98-107) mmol/L Carbon Dioxide 12 L (22-30) mmol/L Anion Gap 29 mmol/L BUN 46 H (7-17) mg/dL Creatinine 1.14 H (0.52-1.04) mg/dL Est GFR (CKD-EPI)AfAm 55 (>60 ml/min/1.73 sqM) Est GFR (CKD-EPI)NonAf 47 (>60 ml/min/1.73 sqM) Glucose 560 H* (74-99) mg/dL Plasma Lactic Acid Landon 1.4 (0.7-2.0) mmol/L Calcium 10.6 H (8.4-10.2) mg/dL Magnesium 2.2 (1.6-2.3) mg/dL Total Bilirubin 0.5 (0.2-1.3) mg/dL AST 15 (14-36) U/L ALT 28 (9-52) U/L Alkaline Phosphatase 114 (38-126) U/L Troponin I (0.000-0.034) ng/mL Total Protein 7.5 (6.3-8.2) g/dL Albumin 4.1 (3.5-5.0) g/dL Urine Color Urine Appearance (Clear) Urine pH (5.0-8.0) Ur Specific Leckrone (1.001-1.035) Urine Protein (Negative) Urine Glucose (UA) (Negative) Urine Blood (Negative) Urine Nitrite (Negative) Urine Bilirubin (Negative) Urine Urobilinogen (<2.0) mg/dL Ur Leukocyte Esterase (Negative) Urine RBC (0-5) /hpf Urine WBC Clumps (None) /hpf Ur Squamous Epith Cells (0-4) /hpf Urine Mucus (None) /hpf Urine Yeast (Budding) (None) /hpf Acetone, Qual (Negative) 12/12/18 12/12/18 12/12/18 Range/Units 13:55 13:55 13:55 WBC (3.8-10.6) k/uL RBC (3.80-5.40) m/uL Hgb (11.4-16.0) gm/dL Hct (34.0-46.0) % MCV (80.0-100.0) fL MCH (25.0-35.0) pg MCHC (31.0-37.0) g/dL RDW (11.5-15.5) % Plt Count (150-450) k/uL Neutrophils % % Lymphocytes % % Monocytes % % Eosinophils % % Basophils % % Neutrophils # (1.3-7.7) k/uL Lymphocytes # (1.0-4.8) k/uL Monocytes # (0-1.0) k/uL Eosinophils # (0-0.7) k/uL Basophils # (0-0.2) k/uL Hypochromasia Macrocytosis PT 10.2 (9.0-12.0) sec INR 0.9 (<1.2) APTT 23.1 (22.0-30.0) sec Sodium (137-145) mmol/L Potassium (3.5-5.1) mmol/L Chloride (98-107) mmol/L Carbon Dioxide (22-30) mmol/L Anion Gap mmol/L BUN (7-17) mg/dL Creatinine (0.52-1.04) mg/dL Est GFR (CKD-EPI)AfAm (>60 ml/min/1.73 sqM) Est GFR (CKD-EPI)NonAf (>60 ml/min/1.73 sqM) Glucose (74-99) mg/dL Plasma Lactic Acid Landon (0.7-2.0) mmol/L Calcium (8.4-10.2) mg/dL Magnesium (1.6-2.3) mg/dL Total Bilirubin (0.2-1.3) mg/dL AST (14-36) U/L ALT (9-52) U/L Alkaline Phosphatase (38-126) U/L Troponin I 0.023 (0.000-0.034) ng/mL Total Protein (6.3-8.2) g/dL Albumin (3.5-5.0) g/dL Urine Color Urine Appearance (Clear) Urine pH (5.0-8.0) Ur Specific Leckrone (1.001-1.035) Urine Protein (Negative) Urine Glucose (UA) (Negative) Urine Blood (Negative) Urine Nitrite (Negative) Urine Bilirubin (Negative) Urine Urobilinogen (<2.0) mg/dL Ur Leukocyte Esterase (Negative) Urine RBC (0-5) /hpf Urine WBC Clumps (None) /hpf Ur Squamous Epith Cells (0-4) /hpf Urine Mucus (None) /hpf Urine Yeast (Budding) (None) /hpf Acetone, Qual Positive (Negative) 12/12/18 Range/Units 16:01 WBC (3.8-10.6) k/uL RBC (3.80-5.40) m/uL Hgb (11.4-16.0) gm/dL Hct (34.0-46.0) % MCV (80.0-100.0) fL MCH (25.0-35.0) pg MCHC (31.0-37.0) g/dL RDW (11.5-15.5) % Plt Count (150-450) k/uL Neutrophils % % Lymphocytes % % Monocytes % % Eosinophils % % Basophils % % Neutrophils # (1.3-7.7) k/uL Lymphocytes # (1.0-4.8) k/uL Monocytes # (0-1.0) k/uL Eosinophils # (0-0.7) k/uL Basophils # (0-0.2) k/uL Hypochromasia Macrocytosis PT (9.0-12.0) sec INR (<1.2) APTT (22.0-30.0) sec Sodium (137-145) mmol/L Potassium (3.5-5.1) mmol/L Chloride (98-107) mmol/L Carbon Dioxide (22-30) mmol/L Anion Gap mmol/L BUN (7-17) mg/dL Creatinine (0.52-1.04) mg/dL Est GFR (CKD-EPI)AfAm (>60 ml/min/1.73 sqM) Est GFR (CKD-EPI)NonAf (>60 ml/min/1.73 sqM) Glucose (74-99) mg/dL Plasma Lactic Acid Landon (0.7-2.0) mmol/L Calcium (8.4-10.2) mg/dL Magnesium (1.6-2.3) mg/dL Total Bilirubin (0.2-1.3) mg/dL AST (14-36) U/L ALT (9-52) U/L Alkaline Phosphatase (38-126) U/L Troponin I (0.000-0.034) ng/mL Total Protein (6.3-8.2) g/dL Albumin (3.5-5.0) g/dL Urine Color Yellow Urine Appearance Clear (Clear) Urine pH 5.0 (5.0-8.0) Ur Specific Leckrone 1.017 (1.001-1.035) Urine Protein Trace H (Negative) Urine Glucose (UA) 4+ H (Negative) Urine Blood Moderate H (Negative) Urine Nitrite Negative (Negative) Urine Bilirubin Negative (Negative) Urine Urobilinogen <2.0 (<2.0) mg/dL Ur Leukocyte Esterase Large H (Negative) Urine RBC 50 H (0-5) /hpf Urine WBC Clumps Few H (None) /hpf Ur Squamous Epith Cells <1 (0-4) /hpf Urine Mucus Rare H (None) /hpf Urine Yeast (Budding) Few H (None) /hpf Acetone, Qual (Negative) - EKG Data EKG Comments: EKG performed at 13:35 A. fib RVR, rate of 114 QRS 120 QT/QTC 370/509 Critical Care Time Critical Care Time: Yes Total Critical Care Time: 35 Critical Care Time: Total 35 minutes of critical care time were used to evaluate the patient, reviewed vitals, recent past medical history, recent ER visits. Patient's initial workup included labs, urinalysis, CT of the head neck, chest x-ray and pelvis. Patient is found to be hyperglycemic with blood glucose over 500. Patient was started on insulin drip secondary to acidosis noted with a bicarb of 12, acetone positive. Patient was given a 2 L bolus of fluids was started on 200 mL/h. Patient also is in A. fib RVR currently anticoagulated. Patient does have a history of A. fib. Patient heart rate and blood pressure will be monitored, no Cardizem will be given at this time secondary to infection and acidosis. Patient's urine culture was reviewed. Septal to all antibiotics at this time. Rocephin was given for UTI possible sepsis. Disposition Clinical Impression: Atrial fibrillation with RVR, UTI (urinary tract infection), DKA (diabetic ketoacidoses), Dehydration, Multiple falls Disposition: ADMITTED IP TO THIS HOSP Condition: Fair Referrals: Dany Cobb MD [Primary Care Provider] - 1-2 days
[2018-12-12 14:30] LABS: Basophils % (A) 0 %; Eosinophils % (A) 0 %; HCT 42.1 % (34.0-46.0); HGB 12.3 gm/dL (11.4-16.0); Hypochromasia Marked; Lymphocytes # (A) 0.7 k/uL (1.0-4.8); Lymphocytes % (A) 6 %; MCH 29.5 pg (25.0-35.0); MCHC 29.2 g/dL (31.0-37.0); Macrocytosis Slight; Mean Platelet Volume 10.7; Monocytes # (A) 0.5 k/uL (0-1.0); Monocytes % (A) 4 %; Neutrophils # (A) 10.3 k/uL (1.3-7.7); Neutrophils % (A) 89 %; Platelet Count 295 k/uL (150-450); RBC 4.16 m/uL (3.80-5.40); RDW 14.1 % (11.5-15.5); WBC 11.5 k/uL (3.8-10.6)
[2018-12-12 14:31] LABS: INR 0.9 (<1.2); MCV 101.2 fL (80.0-100.0); Partial Thromboplastin Time 23.1 sec (22.0-30.0); Prothrombin Time 10.2 sec (9.0-12.0)
[2018-12-12 14:35] LABS: Albumin 4.1 g/dL (3.5-5.0); Calcium 10.6 mg/dL (8.4-10.2); Magnesium 2.2 mg/dL (1.6-2.3); Potassium 4.7 mmol/L (3.5-5.1); Total Bilirubin 0.5 mg/dL (0.2-1.3); Total Protein 7.5 g/dL (6.3-8.2)
[2018-12-12] MEDS ORDERED: PHENAZOPYRIDINE 200 MG TAB PO STA (15:24)
[2018-12-12] MEDS ORDERED: HYDROmorphone 0.5 MG/0.5 ML SYRINGE IVP STA (15:33)
[2018-12-12] MEDS ORDERED: ONDANSETRON 4 MG/2 ML VIAL IVP STA (15:33)
[2018-12-12] MEDS ORDERED: cefTRIAXone IN SWFI 1,000 MG/10 ML SYRINGE IVP STA (15:37)
--- NOTE | 2018-12-12 15:38 | CT ---
EXAMINATION TYPE: CT brain michaeline wo con DATE OF EXAM: 12/12/2018 COMPARISON: NONE HISTORY: multiple falls, pt uncooperative. Neck pain. CT DLP: 1307.4 mGycm. Automated Exposure Control for Dose Reduction was Utilized. TECHNIQUE: CT scan of the head and cervical spine are performed without contrast. FINDINGS: There is no acute intracranial hemorrhage, mass effect, or midline shift identified. The ventricles and sulci are within normal limits in size. Confluent periventricular and subcortical hyp oattenuation is seen, most commonly on the basis of chronic microangiopathy. The globes are intact a nd the visualized sinuses are clear. Cervical spine is visualized in its entirety from C1 through upper thoracic levels and demonstrates s atisfactory alignment without evidence of acute fracture or dislocation. Prevertebral soft tissue ap pears within normal limits. The C1-C2 articulation is unremarkable. There is a mild dextroscoliosis of the cervical spine, likely positional in nature. Small posterior disc ossify complexes are seen a t C3-C4, C4-C5 and C6-C7. Multilevel mild uncovertebral hypertrophy and facet arthropathy are present . Mild emphysematous changes are seen of the lung apices. IMPRESSION: 1. Exam is limited by patient motion as the patient was uncooperative for the examination. No gross e vidence of acute intracranial hemorrhage is seen. 2. No gross evidence of acute fracture or malalignment. Mild multilevel degenerative disc disease.
[2018-12-12] MEDS ORDERED: SODIUM CHLORIDE 0.9% 500 ML 500 ML IV ONE (15:46)
[2018-12-12] MEDS ORDERED: INSULIN REGULAR BOLUS (FROM DRIP BAG) IV ONE (16:07)
[2018-12-12] MEDS ORDERED: INSULIN REGULAR 100 UNIT in SODIUM CHLORIDE 0.9% 100 ML IV SCH (16:15)
[2018-12-12] MEDS ORDERED: SODIUM CHLORIDE 0.9% 1,000 ML IV SCH (16:15)
[2018-12-12 16:25] LABS: Appearance,Urine Clear (Clear); Bilirubin,Urine Negative (Negative); Blood,Urine Moderate (Negative); Budding Yeast,Urine Few /hpf; Color,Urine Yellow; Glucose,Urine (UA) 4+ (Negative); Leukocyte Esterase,Urine Large (Negative); Mucus,Urine Rare /hpf; Nitrite,Urine Negative (Negative); Protein,Urine Trace (Negative); RBC,Urine 50 /hpf (0-5); Specific Gravity,Urine 1.017 (1.001-1.035); Squamous Epithelial Cell,Urine <1 /hpf (0-4); Urobilinogen,Urine <2.0 mg/dL (<2.0)
--- NOTE | 2018-12-12 16:47 | XR ---
EXAMINATION TYPE: XR pelvis AP view DATE OF EXAM: 12/12/2018 CLINICAL HISTORY: Falls with pelvic pain. TECHNIQUE: A single AP view of the pelvis is obtained. COMPARISON: 11/16/2014 FINDINGS: There is generalized osseous demineralization. Postsurgical changes are seen of the left fe mur transfixing a prior femoral fracture as well as postsurgical change of the lumbosacral junction. Extensive degenerative changes of the visualized lumbosacral spine are noted. No gross evidence of pe lvic fracture however there is some rotation of the pelvis. IMPRESSION: Diffuse osseous demineralization somewhat limiting evaluation for fracture however there is no gross evidence of acute fracture or dislocation in the pelvis.
--- NOTE | 2018-12-12 16:48 | XR ---
EXAMINATION TYPE: XR chest 1V portable DATE OF EXAM: 12/12/2018 COMPARISON: 11/04/2018 HISTORY: Atrial fibrillation. Multiple falls. Pain. TECHNIQUE: Single frontal view of the chest is obtained. FINDINGS: There is no heart failure nor confluent pneumonic infiltrate. Thoracic aorta is atheromato us. There are emphysematous changes in the upper lobes. There are chest leads. Costophrenic angles ar e clear. There is some linear density in the lateral right upper lobe. IMPRESSION: COPD. There is new minimal atelectasis lateral right upper lobe compared to last exam.. Stable fibrotic changes at the lung bases.
[2018-12-12 17:03] LABS: Glucose,Whole Blood 419 mg/dL (75-99)
[2018-12-12 17:14] LABS: VBG PH 7.21 (7.31-7.41)
[2018-12-12 17:17] LABS: Ketones,Urine 4+ (Negative)
[2018-12-12 17:38] LABS: Glucose,Whole Blood 425 mg/dL (75-99)
[2018-12-12 18:34] LABS: Glucose,Whole Blood 296 mg/dL (75-99)
[2018-12-12] MEDS: DEXTROSE 5%-0.45% NACL 1,000 ML with POTASSIUM CHLORIDE 20 MEQ IV SCH ×2 (18:57)
[2018-12-12 19:19] LABS: Glucose,Whole Blood 285 mg/dL (75-99)
[2018-12-12 19:27] LABS: Anion Gap 15 mmol/L; Blood Urea Nitrogen 39 mg/dL (7-17); Carbon Dioxide 18 mmol/L (22-30); Chloride 107 mmol/L (98-107); Glucose 291 mg/dL (74-99); Potassium 3.8 mmol/L (3.5-5.1); Sodium 140 mmol/L (137-145)
[2018-12-12 20:32] LABS: Glucose,Whole Blood 303 mg/dL (75-99)
[2018-12-12] MEDS ORDERED: DOCUSATE 100 MG CAP PO PRN (21:37)
[2018-12-12] MEDS ORDERED: Potassium Replacement Protocol 1 EACH MISC MISCELLANE PRN (21:44)
[2018-12-12 22:02] LABS: Glucose,Whole Blood 269 mg/dL (75-99)
[2018-12-12] MEDS: MEMANTINE 10 MG TAB PO SCH (22:28)
[2018-12-12] MEDS: NITROFURANTOIN MONOHYD/M-CRYST 100 MG CAP PO SCH (22:28)
[2018-12-12] MEDS: GABAPENTIN 300 MG CAP PO SCH (22:28)
[2018-12-12 22:32] LABS: Glucose,Whole Blood 289 mg/dL (75-99)
[2018-12-12 23:11] LABS: Anion Gap 9 mmol/L; Blood Urea Nitrogen 34 mg/dL (7-17); Carbon Dioxide 23 mmol/L (22-30); Chloride 109 mmol/L (98-107); Glucose 248 mg/dL (74-99); Phosphorus 1.5 mg/dL (2.5-4.5); Potassium 3.8 mmol/L (3.5-5.1); Sodium 141 mmol/L (137-145)
[2018-12-13 00:10] LABS: Glucose,Whole Blood 218 mg/dL (75-99)
[2018-12-13 01:06] LABS: Glucose,Whole Blood 201 mg/dL (75-99)
[2018-12-13 01:56] LABS: Glucose,Whole Blood 182 mg/dL (75-99)
[2018-12-13 02:32] LABS: Glucose,Whole Blood 131 mg/dL (75-99)
[2018-12-13] MEDS: DEXTROSE 5%-0.45% NACL 1,000 ML with POTASSIUM CHLORIDE 20 MEQ IV SCH ×2 (02:37)
[2018-12-13 06:17] LABS: Glucose,Whole Blood 178 mg/dL (75-99)
[2018-12-13] MEDS: INSULIN ASPART (NovoLOG) 100 UNIT/ML VIAL SQ SCH ×4 (07:03→21:08)
[2018-12-13] MEDS: INSULN ASP PRT/INSULIN ASPART 100 UNIT/ML 10 ML VIAL SQ SCH ×3 (07:10→21:09)
[2018-12-13] MEDS: MEMANTINE 10 MG TAB PO SCH ×2 (09:21→21:08)
[2018-12-13] MEDS: DULoxetine HCL 30 MG CAPSULE.DR PO SCH (09:21)
[2018-12-13] MEDS: GABAPENTIN 300 MG CAP PO SCH ×3 (09:21→21:08)
[2018-12-13] MEDS: SERTRALINE 25 MG TAB PO SCH (09:22)
[2018-12-13] MEDS: predniSONE 50 MG TAB PO SCH (09:22)
[2018-12-13] MEDS: NITROFURANTOIN MONOHYD/M-CRYST 100 MG CAP PO SCH ×2 (09:22→21:08)
[2018-12-13 09:23] LABS: Anion Gap 10 mmol/L; Blood Urea Nitrogen 29 mg/dL (7-17); Carbon Dioxide 21 mmol/L (22-30); Chloride 111 mmol/L (98-107); Phosphorus 1.8 mg/dL (2.5-4.5); Potassium 4.2 mmol/L (3.5-5.1); Sodium 142 mmol/L (137-145)
[2018-12-13] MEDS: SYMBICORT 160-4.5 MCG INHALER INHALATION SCH ×3 (11:16→20:31)
[2018-12-13 11:40] LABS: Glucose,Whole Blood 207 mg/dL (75-99)
--- NOTE | 2018-12-13 14:08 | HP ---
HISTORY AND PHYSICAL CHIEF COMPLAINT: Fall. HISTORY OF PRESENT ILLNESS: This 73-year-old white female was brought to the emergency room by EMS after she apparently had a fall at home. There is a history of multiple falls of late. She describes herself as feeling weak and run down. She was recently treated for urinary tract infection. She does have diabetes mellitus. She has some issues with dementia and is probably not able to manage herself or blood sugars well at home. She also has atrial fibrillation. She came in with no history to suggest a focal neurologic deficit. In the emergency room, she was found to be in diabetic ketoacidosis with a blood sugar of 560. She was admitted. REVIEW OF SYSTEMS: She denies any focal neurologic deficits, headaches, difficulty with vision, hearing, chest pain, cough, hemoptysis, sputum production, angina, orthopnea, PND, abdominal pain, nausea, vomiting, hematemesis, melena, hematochezia, jaundice, hematuria, dysuria, urgency, etc. She has had some trouble with incontinence of late. When she was in the office a week or two ago, she was complaining of constipation. Past medical history, family history, social history reveal that she is not allergic to any medications. CURRENT MEDICATIONS INCLUDE: 1. Sertraline 25 mg once a day. 2. Pravachol 20 mg once a day. 3. Namenda 10 mg twice a day. 4. Novolin 70/30 forty-five units once a day. 5. Symbicort 160/4.5 two puffs twice a day. 6. Ibuprofen 600 q.i.d. p.r.n.. 7. Gabapentin 300 mg t.i.d. 8. Vitamin D 350 one thousand units once a month. 9. NovoLog 70/30 mix 35 units at supper. 10.Metformin 500 mg twice a day. Remainder of the history is unremarkable. She used to smoke, but does not any longer. She does not drink. PHYSICAL EXAM: Blood pressure 150/63, the pulse of 118 and irregular, respirations of 18, she is afebrile. In general, she appeared to be well developed, well nourished, in no acute distress. Skin color is normal, skin is warm, dry. Lymph nodes not enlarged. Head, ears, eyes, nose, mouth, and throat were normal. Neck veins are not distended. Thyroid is not enlarged. Chest is clear. The cardiac exam is normal and the abdomen is soft, nontender. Extremities are normal and neurologically she is grossly intact. She is awake and alert. She is admitted with the hospital diagnoses: 1. Fall with history of frequent falls. 2. Diabetic ketoacidosis. 3. Dehydration. 4. Dementia. 5. Depression. PLAN: 1. Bed rest. 2. IV fluids. 3. Insulin drip and control diabetes. 4. Discharge planning. ROMA / KURT: [id number] /
[2018-12-13 14:33] VITALS: BMI 21.9
[2018-12-13 16:22] LABS: Glucose,Whole Blood 290 mg/dL (75-99)
[2018-12-13] MEDS ORDERED: FLUCONAZOLE 150 MG TAB PO STA (18:08)
--- NOTE | 2018-12-13 18:23 | PN ---
PROGRESS NOTE CHIEF COMPLAINT: DKA. HISTORY OF PRESENT ILLNESS: This lady is awake and alert and feeling fairly well. She is thirsty. Blood sugars have been coming down, but they are still slightly elevated. She may have a vaginal discharge as noted by the nurse. REVIEW OF SYSTEMS: At the present time she is not offering any complaints. She is experiencing no chest pain or shortness of breath. PHYSICAL EXAMINATION: Her chest is quite clear. Cardiac exam demonstrates atrial fibrillation, and the rate is down into the 90s. The abdomen is soft and non-tender. Extremities are normal. IMPRESSION: 1. Diabetic ketoacidosis. 2. Atrial fibrillation. 3. Mild dementia. PLAN: 1. Continue to control her blood sugars. 2. Work on discharge planning. At the present time she is full admit. She will also be given Diflucan 150 mg 1 tablet. MMODL / IJN: [id number] /
[2018-12-13 20:30] LABS: Glucose,Whole Blood 303 mg/dL (75-99)
[2018-12-14 05:56] LABS: Glucose,Whole Blood 171 mg/dL (75-99)
[2018-12-14] MEDS: INSULIN ASPART (NovoLOG) 100 UNIT/ML VIAL SQ SCH ×3 (06:41→18:17)
[2018-12-14] MEDS: SYMBICORT 160-4.5 MCG INHALER INHALATION SCH ×2 (07:42→19:36)
[2018-12-14] MEDS: GABAPENTIN 300 MG CAP PO SCH ×3 (09:35→21:30)
[2018-12-14] MEDS: MEMANTINE 10 MG TAB PO SCH ×2 (09:35→21:30)
[2018-12-14] MEDS: DULoxetine HCL 30 MG CAPSULE.DR PO SCH (09:35)
[2018-12-14] MEDS: SERTRALINE 25 MG TAB PO SCH (09:35)
[2018-12-14] MEDS: INSULN ASP PRT/INSULIN ASPART 100 UNIT/ML 10 ML VIAL SQ SCH (09:35)
[2018-12-14] MEDS: predniSONE 50 MG TAB PO SCH (09:36)
[2018-12-14] MEDS: NITROFURANTOIN MONOHYD/M-CRYST 100 MG CAP PO SCH (09:36)
[2018-12-14 11:45] LABS: Glucose,Whole Blood 193 mg/dL (75-99)
--- NOTE | 2018-12-14 16:21 | PN ---
PROGRESS NOTE CHIEF COMPLAINT: Diabetic ketoacidosis, atrial fibrillation, urinary tract infection. HISTORY OF PRESENT ILLNESS: This lady is doing a little bit better. She is still extremely weak. She is working with physical therapy. Sugars are down. PHYSICAL EXAM: She remains pale. Chest is fairly clear except for occasional rhonchi. Cardiac exam is unchanged with atrial fibrillation. Abdomen is soft, nontender. IMPRESSION: 1. Diabetic ketoacidosis. 2. Urinary tract infection. 3. Dehydration. 4. Atrial fibrillation. 5. Dementia. PLAN: 1. Continue with IV fluids and physical therapy. 2. Request discharge planning assistance. MMODL / IJN: [id number] /
[2018-12-14 16:56] LABS: Glucose,Whole Blood 254 mg/dL (75-99)
[2018-12-14] MEDS ORDERED: IBUPROFEN 600 MG TAB PO PRN (16:58)
[2018-12-14 17:21] LABS: Hemoglobin A1C 11.9 % (4.0-6.0)
[2018-12-14] MEDS: FUROSEMIDE 20 MG TAB PO SCH (18:17)
[2018-12-14] MEDS: LISINOPRIL 20 MG TAB PO SCH (18:18)
[2018-12-14 21:07] LABS: Glucose,Whole Blood 348 mg/dL (75-99)
[2018-12-14] MEDS: RIVAROXABAN 20 MG TAB PO SCH (21:30)
[2018-12-15 00:15] LABS: Glucose,Whole Blood 336 mg/dL (75-99)
[2018-12-15] MEDS: INSULN ASP PRT/INSULIN ASPART 100 UNIT/ML 10 ML VIAL SQ SCH ×2 (00:16→09:55)
[2018-12-15] MEDS: INSULIN ASPART (NovoLOG) 100 UNIT/ML VIAL SQ SCH ×3 (00:16→12:12)
[2018-12-15] MEDS: NITROFURANTOIN MONOHYD/M-CRYST 100 MG CAP PO SCH ×2 (00:17→09:51)
[2018-12-15] MEDS ORDERED: LEVOTHYROXINE 125 MCG TAB PO SCH (06:30)
[2018-12-15 06:33] VITALS: RESP 18
[2018-12-15 07:17] LABS: Glucose,Whole Blood 58 mg/dL (75-99)
[2018-12-15 07:29] LABS: Glucose,Whole Blood 72 mg/dL (75-99)
[2018-12-15] MEDS: SYMBICORT 160-4.5 MCG INHALER INHALATION SCH (08:05)
[2018-12-15] MEDS: predniSONE 50 MG TAB PO SCH (08:29)
[2018-12-15] MEDS: FUROSEMIDE 20 MG TAB PO SCH (08:29)
[2018-12-15] MEDS: LISINOPRIL 20 MG TAB PO SCH (08:29)
[2018-12-15] MEDS: DULoxetine HCL 30 MG CAPSULE.DR PO SCH (08:29)
[2018-12-15] MEDS: SERTRALINE 25 MG TAB PO SCH (08:29)
[2018-12-15] MEDS: MEMANTINE 10 MG TAB PO SCH (08:29)
[2018-12-15] MEDS: GABAPENTIN 300 MG CAP PO SCH (08:29)
[2018-12-15] MEDS ORDERED: PRAVASTATIN SODIUM 20 MG TAB PO SCH (09:00)
[2018-12-15] MEDS: RIVAROXABAN 20 MG TAB PO SCH (09:52)
[2018-12-15 10:11] LABS: Glucose,Whole Blood 155 mg/dL (75-99)
[2018-12-15 12:10] LABS: Glucose,Whole Blood 57 mg/dL (75-99)
[2018-12-15 12:29] LABS: Glucose,Whole Blood 65 mg/dL (75-99)
[2018-12-15 12:46] LABS: Glucose,Whole Blood 103 mg/dL (75-99)
[2018-12-15 16:11] VITALS: BP 155/67; PULSE 81; TEMP 98.7
--- NOTE | 2018-12-15 18:37 | DS ---
DISCHARGE SUMMARY CHIEF COMPLAINT: Atrial fibrillation with rapid ventricular response, DKA and dementia with urinary tract infection. HISTORY OF PRESENT ILLNESS AND PHYSICAL EXAMINATION: Details of this lady's history and physical can be found in the initial workup. LABORATORY STUDIES: While she was in the hospital she had laboratory studies, details of which can be found in the laboratory section of her chart. COURSE IN THE HOSPITAL: After admission she was placed on bedrest, started on intravenous fluids and insulin drip, and her blood sugars came down under control. Because of generalized weakness, dementia and failure to thrive, it was determined that probably the best option for her would be to go to a [facility] for physical therapy and rehab. Arrangement were made for her to go to [facility]. FINAL DIAGNOSES: 1. Diabetic ketoacidosis. 2. Dehydration. 3. Dementia. 4. Urinary tract infection. 5. Atrial fibrillation with rapid ventricular response. OPERATIONS: None. CONSULTATIONS: None. She is improved. I was notified at a quarter to noon that a bed is available at [facility]. Discharge has already been entered and this dictation was completed at 12:17 p.m. MMSAÚLL / MAIN: [id number] /
== END 2018-12-15 16:54 | DRG 638 ==
LOC: EC 13:27 → 3SCARD 17:45 → 4MS4W 12-14 22:13
PROVIDERS: ADMIT Family Medicine; ATTEND Family Medicine
DX: E11.10 Type 2 diabetes mellitus with ketoacidosis without coma (principal); J96.11 Chronic respiratory failure with hypoxia; N39.0 Urinary tract infection, site not specified; E86.0 Dehydration; I48.2 Chronic atrial fibrillation; J44.9 Chronic obstructive pulmonary disease, unspecified; F03.90 Unspecified dementia, unspecified severity, without behavioral disturbance, psychotic disturbance, mood disturbance, and anxiety; I10 Essential (primary) hypertension; E78.5 Hyperlipidemia, unspecified; E03.9 Hypothyroidism, unspecified; M54.9 Dorsalgia, unspecified; G89.29 Other chronic pain; M25.559 Pain in unspecified hip; K59.09 Other constipation; F32.9 Major depressive disorder, single episode, unspecified; R62.7 Adult failure to thrive; Z68.22 Body mass index [BMI] 22.0-22.9, adult; W19.XXXA Unspecified fall, initial encounter; Z79.899 Other long term (current) drug therapy; Z79.4 Long term (current) use of insulin; Z79.51 Long term (current) use of inhaled steroids; Z98.42 Cataract extraction status, left eye; Z86.14 Personal history of Methicillin resistant Staphylococcus aureus infection; Z90.710 Acquired absence of both cervix and uterus; Z98.41 Cataract extraction status, right eye; Z96.1 Presence of intraocular lens; Z91.81 History of falling; Z87.891 Personal history of nicotine dependence; Z88.1 Allergy status to other antibiotic agents; Z88.5 Allergy status to narcotic agent; Z88.8 Allergy status to other drugs, medicaments and biological substances
CPT/HCPCS: 36415; 51702; 70450; 71045; 72125; 72170; 80051; 80053; 81001; 82009; 82565; 82803; 82947; 83036; 83605; 83735; 84100; 84484; 84520; 85025; 85610; 85730; 87040; 87077; 87086; 87186; 93005; 94640; 96361; 96372; 96374; 96375; 99284; 99291

== ENCOUNTER 2019-03-22 04:22 | Observation (INO) | payer MEDICARE, OTHER ==
[2019-03-22] MEDS ORDERED: DEXTROSE 50% SYRINGE 50 ML IVP STA (04:25)
[2019-03-22] MEDS ORDERED: DEXTROSE 5%-0.45% NACL 1,000 ML IV ONE (05:02)
[2019-03-22 05:54] LABS: Glucose,Whole Blood 84 mg/dL (75-99)
--- NOTE | 2019-03-22 06:06 | ED ---
General Adult HPI - General Chief complaint: Recheck/Abnormal Lab/Rx Stated complaint: Low Blood Sugar Source: patient, EMS Limitations: no limitations - History of Present Illness Initial comments: Zainab Oreilly is a pleasant 83-year-old female who presents the emergency department this morning via EMS for evaluation of an unresponsive episode of hypoglycemia. Patient is uncertain of what happened prior to EMS bringing her to the hospital she reports that yesterday she was in her usual state of health she had a normal dinner and subsequently ate some ice cream. She states she took her usual dose of nighttime insulin which is 35 units. Patient apparently would not wake up this morning with her grandchildren checked on her and they contacted EMS, upon EMS arrival the patient's glucose was found to be 35, an IV was obtained and she was given an amp of D50. With the patient's mental status improved slightly however upon arrival her blood glucose was again only 44. Patient denies any acute complaints and states that she is hungry and would like to eat this morning. - Related Data Home Medications Medication Instructions Recorded Confirmed Sertraline [Zoloft] 25 mg PO DAILY 11/16/14 12/12/18 Insulin Aspart Protam & Aspart 35 unit SQ HS 06/27/17 12/12/18 [NovoLOG MIX 70-30 Flexpen] DULoxetine HCL [Cymbalta] 30 mg PO DAILY 11/04/18 12/12/18 Ergocalciferol [Vitamin D2 50,000 unit PO Q7D 11/04/18 12/12/18 (DRISDOL)] Gabapentin [Neurontin] 300 mg PO TID 11/04/18 12/12/18 Ibuprofen [Motrin] 600 mg PO TID PRN 11/04/18 12/12/18 Insulin Aspart Protam & Aspart 45 unit SQ QAM 11/04/18 12/12/18 [NovoLOG MIX 70-30 Flexpen] Memantine [Namenda] 10 mg PO BID 11/04/18 12/12/18 Pravastatin Sodium [Pravachol] 20 mg PO DAILY 11/04/18 12/12/18 metFORMIN HCL 500 mg PO BID 11/04/18 12/12/18 Docusate [Colace] 100 mg PO DAILY PRN 12/09/18 12/12/18 Cholecalciferol [Vitamin D3 (25 1.25 mg PO DAILY 12/14/18 12/14/18 Mcg = 1000 Iu)] Furosemide [Lasix] 20 mg PO DAILY 12/14/18 12/14/18 Levothyroxine Sodium 125 mcg PO 12/14/18 Lisinopril [Zestril] 10 mg PO DAILY 12/14/18 12/14/18 Rivaroxaban [Xarelto] 20 mg PO DAILY 12/14/18 12/14/18 Previous Rx's Medication Instructions Recorded Budesonide-Formot 160-4.5 Mcg 2 puff INHALATION RT-BID #1 09/30/17 [Symbicort 160-4.5 Mcg Inhaler] Naproxen [Naprosyn] 500 mg PO Q12HR PRN #30 tab 12/09/18 Nitrofurantoin Monohyd/M-Cryst 100 mg PO Q12HR #14 cap 12/09/18 [Macrobid] predniSONE 50 mg PO DAILY #5 tab 12/09/18 Allergies Allergy/AdvReac Type Severity Reaction Status Date / Time ceftaroline fosamil Allergy Intermediate Rash/Hives Verified 12/12/18 13:53 codeine Allergy Itching Verified 12/12/18 13:53 levofloxacin [From Levaquin] Allergy Rash/Hives Verified 12/12/18 13:53 tramadol Allergy Itching Verified 12/12/18 13:53 Review of Systems ROS Statement: Those systems with pertinent positive or pertinent negative responses have been documented in the HPI. ROS Other: All systems not noted in ROS Statement are negative. Past Medical History Past Medical History: Atrial Fibrillation, COPD, Diabetes Mellitus, Hyperlipidemia, Hypertension, Skin Disorder Additional Past Medical History / Comment(s): Pt recently admitted to [facility] on 08/15/17 with sepsis thought 2ndary to possible colitis. Other HX: Severe COPD, chronic hypoxic respiratory failure,home O2 at 2L/NC ATC, chronic atrial fibrillation maintained on Xarelto, lumbar disc disease and chronic back pain, chronic and recurrent urine tract infections/sepsis, diabetes mellitus type II, chronic constipation, previous L heel wound with osteomylitis in 2014 (pt states currently covered with callus, decubitus ulcer now healed, hypothyroid. History of Any Multi-Drug Resistant Organisms: ESBL, MRSA Date of last positivie culture/infection: 07/02/15-MRSA; 02/03/19 ESBL-E. coli MDRO Source:: Sputum-MRSA; Urine-ESBL Past Surgical History: Hysterectomy, Orthopedic Surgery, Tonsillectomy Additional Past Surgical History / Comment(s): Bilateral cataract removals/lens implants on 11/12/14. Lumbar disc surgery, repair of left hip -screws in place, decubitus I&D, colonoscopy. Past Anesthesia/Blood Transfusion Reactions: No Reported Reaction Past Psychological History: No Psychological Hx Reported Smoking Status: Former smoker Past Alcohol Use History: None Reported Past Drug Use History: None Reported - Past Family History Father Family Medical History: Unable to Obtain Additional Family Medical History / Comment(s): Pt never knew her father. He in WWII when she was very young. Mother Family Medical History: No Reported History Brother(s) Family Medical History: Cancer Additional Family Medical History / Comment(s): Pt has 4 brothers and one has testicular cancer. General Exam - General Exam Comments Initial Comments: Physical Exam GENERAL: Patient is well-developed and well-nourished. Patient is nontoxic and well- hydrated and is in no distress. HENT: Normocephalic, Atraumatic. EYES: PERRL, EOMI PULMONARY: Unlabored respirations. No audible rales rhonchi or wheezing was noted. CARDIOVASCULAR: There is a regular rate and rhythm without any murmurs gallops or rubs. ABDOMEN: Soft and nontender with normal bowel sounds. SKIN: Skin is clear with no lesions or rashes and otherwise unremarkable. : Deferred NEUROLOGIC: Patient is alert and oriented x3. Moving all extremities spontaneously MUSCULOSKELETAL: Normal extremities with adequate strength and full range of motion. No lower extremity swelling or edema. No calf tenderness. PSYCHIATRIC: Normal psychiatric evaluation. Limitations: no limitations Limitations: no limitations Course Vital Signs 03/22/19 03/22/19 04:55 06:20 Temperature 97.9 F 98.0 F Pulse Rate 92 84 Respiratory 18 16 Rate Blood Pressure 160/58 141/57 O2 Sat by Pulse 96 98 Oximetry EKG Findings - EKG Comments: EKG Findings:: EKG was obtained at 4:30 AM, rate is 93,, rhythm is sinus, there is right bundle branch block, MA 160, QRS 120, QTC is 512 there are no acute ST elevations or depressions no evidence of acute skin infarction. Medical Decision Making - Medical Decision Making Patient was seen and evaluated History obtained from EMS, patient Blood Glucose on arrival 44 - second amp D50 administered D5 infusion initiated Patient given food, eating and drinking Despite IV dextrose and eating, patients glucose remains in the low 80s - will plan to admit to obs for hypoglycemia Patient care discussed with PCP Dr Cobb who agrees with plan for admission for hypoglycemia - Lab Data Result diagrams: 03/22/19 04:30 03/22/19 04:30 Lab Results 03/22/19 03/22/19 03/22/19 Range/Units 04:30 04:30 05:33 WBC 11.8 H (3.8-10.6) k/uL RBC 4.45 (3.80-5.40) m/uL Hgb 12.7 (11.4-16.0) gm/dL Hct 40.8 (34.0-46.0) % MCV 91.7 (80.0-100.0) fL MCH 28.6 (25.0-35.0) pg MCHC 31.2 (31.0-37.0) g/dL RDW 14.1 (11.5-15.5) % Plt Count 222 (150-450) k/uL Neutrophils % 82 % Lymphocytes % 12 % Monocytes % 3 % Eosinophils % 1 % Basophils % 1 % Neutrophils # 9.7 H (1.3-7.7) k/uL Lymphocytes # 1.4 (1.0-4.8) k/uL Monocytes # 0.4 (0-1.0) k/uL Eosinophils # 0.2 (0-0.7) k/uL Basophils # 0.1 (0-0.2) k/uL Hypochromasia Slight Sodium 142 (137-145) mmol/L Potassium 4.1 (3.5-5.1) mmol/L Chloride 99 (98-107) mmol/L Carbon Dioxide 31 H (22-30) mmol/L Anion Gap 12 mmol/L BUN 30 H (7-17) mg/dL Creatinine 0.86 (0.52-1.04) mg/dL Est GFR (CKD-EPI)AfAm 77 (>60 ml/min/1.73 sqM) Est GFR (CKD-EPI)NonAf 67 (>60 ml/min/1.73 sqM) Glucose 35 L* (74-99) mg/dL POC Glucose (mg/dL) 84 (75-99) mg/dL POC Glu Wind Turbine Erector ID Wiseheart, Azra Calcium 10.3 H (8.4-10.2) mg/dL Total Bilirubin 0.4 (0.2-1.3) mg/dL AST 26 (14-36) U/L ALT 21 (9-52) U/L Alkaline Phosphatase 91 (38-126) U/L Total Protein 7.9 (6.3-8.2) g/dL Albumin 4.3 (3.5-5.0) g/dL 03/22/19 03/22/19 Range/Units 06:03 06:44 WBC (3.8-10.6) k/uL RBC (3.80-5.40) m/uL Hgb (11.4-16.0) gm/dL Hct (34.0-46.0) % MCV (80.0-100.0) fL MCH (25.0-35.0) pg MCHC (31.0-37.0) g/dL RDW (11.5-15.5) % Plt Count (150-450) k/uL Neutrophils % % Lymphocytes % % Monocytes % % Eosinophils % % Basophils % % Neutrophils # (1.3-7.7) k/uL Lymphocytes # (1.0-4.8) k/uL Monocytes # (0-1.0) k/uL Eosinophils # (0-0.7) k/uL Basophils # (0-0.2) k/uL Hypochromasia Sodium (137-145) mmol/L Potassium (3.5-5.1) mmol/L Chloride (98-107) mmol/L Carbon Dioxide (22-30) mmol/L Anion Gap mmol/L BUN (7-17) mg/dL Creatinine (0.52-1.04) mg/dL Est GFR (CKD-EPI)AfAm (>60 ml/min/1.73 sqM) Est GFR (CKD-EPI)NonAf (>60 ml/min/1.73 sqM) Glucose (74-99) mg/dL POC Glucose (mg/dL) 87 84 (75-99) mg/dL POC Glu Wind Turbine Erector ID Wiseheart, Azra Wiseheart, Azra Calcium (8.4-10.2) mg/dL Total Bilirubin (0.2-1.3) mg/dL AST (14-36) U/L ALT (9-52) U/L Alkaline Phosphatase (38-126) U/L Total Protein (6.3-8.2) g/dL Albumin (3.5-5.0) g/dL Disposition Clinical Impression: Hypoglycemia Disposition: ADMITTED IP TO THIS [facility] Condition: Stable Is patient prescribed a controlled substance at d/c from ED?: No Referrals: Dany Cobb MD [Primary Care Provider] - 1-2 days
[2019-03-22 06:22] LABS: Basophils # (A) 0.1 k/uL (0-0.2); Basophils % (A) 1 %; Eosinophils # (A) 0.2 k/uL (0-0.7); Eosinophils % (A) 1 %; HCT 40.8 % (34.0-46.0); HGB 12.7 gm/dL (11.4-16.0); Hypochromasia Slight; Lymphocytes # (A) 1.4 k/uL (1.0-4.8); Lymphocytes % (A) 12 %; MCH 28.6 pg (25.0-35.0); MCHC 31.2 g/dL (31.0-37.0); MCV 91.7 fL (80.0-100.0); Mean Platelet Volume 10.2; Monocytes # (A) 0.4 k/uL (0-1.0); Monocytes % (A) 3 %; Neutrophils # (A) 9.7 k/uL (1.3-7.7); Neutrophils % (A) 82 %; Platelet Count 222 k/uL (150-450); RBC 4.45 m/uL (3.80-5.40); RDW 14.1 % (11.5-15.5); WBC 11.8 k/uL (3.8-10.6)
[2019-03-22 06:23] LABS: Glucose,Whole Blood 87 mg/dL (75-99)
[2019-03-22 06:26] LABS: Albumin 4.3 g/dL (3.5-5.0); Calcium 10.3 mg/dL (8.4-10.2); Potassium 4.1 mmol/L (3.5-5.1); Total Bilirubin 0.4 mg/dL (0.2-1.3); Total Protein 7.9 g/dL (6.3-8.2)
[2019-03-22 06:45] LABS: Glucose,Whole Blood 84 mg/dL (75-99)
[2019-03-22] MEDS ORDERED: NALOXONE 0.4 MG/ML 1 ML VIAL IV PRN (07:13)
[2019-03-22 08:04] LABS: Appearance,Urine Cloudy (Clear); Bacteria,Urine Many /hpf; Bilirubin,Urine Negative (Negative); Blood,Urine Trace (Negative); Color,Urine Yellow; Glucose,Urine (UA) 2+ (Negative); Ketones,Urine Negative (Negative); Leukocyte Esterase,Urine Large (Negative); Mucus,Urine Rare /hpf; Nitrite,Urine Positive (Negative); Protein,Urine Negative (Negative); RBC,Urine 3 /hpf (0-5); Specific Gravity,Urine 1.011 (1.001-1.035); Squamous Epithelial Cell,Urine 1 /hpf (0-4); Urobilinogen,Urine <2.0 mg/dL (<2.0); WBC,Urine 163 /hpf (0-5)
[2019-03-22 08:18] LABS: Glucose,Whole Blood 229 mg/dL (75-99)
[2019-03-22 08:26] LABS: Glucose,Whole Blood 44 mg/dL (75-99)
[2019-03-22 08:26] LABS: Glucose,Whole Blood 46 mg/dL (75-99)
[2019-03-22 09:14] VITALS: BMI 20.3
[2019-03-22 09:26] LABS: Glucose,Whole Blood 292 mg/dL (75-99)
[2019-03-22] MEDS ORDERED: DOCUSATE 100 MG CAP PO PRN (11:38)
[2019-03-22 11:53] LABS: Glucose,Whole Blood 270 mg/dL (75-99)
[2019-03-22 16:37] LABS: Glucose,Whole Blood 186 mg/dL (75-99)
--- NOTE | 2019-03-22 16:56 | HP ---
HISTORY AND PHYSICAL CHIEF COMPLAINT: Coma. HISTORY OF PRESENT ILLNESS: This is another admission for this 73-year-old white female who is diabetic. She also has dementia. The family apparently was unable to arouse her, called EMS. When they arrived she was found to have a blood sugar of 35. She responded to glucose and brought to the emergency room, where she continued to have episodes of hypoglycemia. It was decided that she should be admitted for observation until she is stabilized. REVIEW OF SYSTEMS: She denies any focal neurologic deficits, change in vision or hearing, headaches, shortness of breath, chest pain, abdominal pain, nausea, vomiting, urinary problems, incontinence, etc. Past medical history, family history, and personal and social histories demonstrate that she is NOT ALLERGICTO ANY MEDICATION. MEDICATIONS: 1. Vitamin D3, 50,000 units a month. 2. Xarelto 20 mg once a day. 3. Lasix 20 mg once a day. 4. Levothyroxine 0.025 mg a day. 5. NovoLog 70/30, 45 units in the morning and 20 at night. 6. . 7. Pravachol 20 mg once a day. 8. Namenda 10 mg twice a day. 9. Symbicort 160/4.5 two puffs twice a day. 10.Cymbalta 30 mg once a day. She states that she did eat before going to bed. She used to smoke, but she has quit. PHYSICAL EXAMINATION: Blood pressure 130/60, pulse 124, respirations 28. She is afebrile. In general she appeared to be well developed, well nourished, in no acute distress. Skin color was normal. Skin was warm and dry. Lymph nodes not enlarged. Head, ears, eyes, nose, mouth and throat were normal. Neck veins were not distended. Thyroid was not enlarged. The chest was clear. Cardiac exam was normal. Abdomen was soft, nontender. Extremities normal. Neurologically intact; a little bit lethargic. IMPRESSION: 1. Iatrogenic hypoglycemia. 2. Insulin-dependent type 2 diabetes mellitus. 3. Mild dementia. PLAN: 1. Bed rest. 2. IV fluids. 3. Withhold insulin. 4. Stabilize blood sugars. MMODL / IJN: [id number] /
[2019-03-22 20:19] LABS: Glucose,Whole Blood 320 mg/dL (75-99)
[2019-03-22] MEDS: SYMBICORT 160-4.5 MCG INHALER INHALATION SCH (20:46)
[2019-03-22] MEDS ORDERED: INSULN ASP PRT/INSULIN ASPART 100 UNIT/ML 10 ML VIAL SQ SCH (21:15)
[2019-03-22] MEDS: DEXTROSE 5%-0.9% NACL 1,000 ML IV SCH (21:38)
[2019-03-22] MEDS: MEMANTINE 10 MG TAB PO SCH (21:38)
[2019-03-22] MEDS: INSULIN ASPART (NovoLOG) 100 UNIT/ML VIAL SQ SCH (21:39)
[2019-03-23] MEDS: DEXTROSE 5%-0.9% NACL 1,000 ML IV SCH (00:29)
[2019-03-23] MEDS ORDERED: LEVOTHYROXINE 25 MCG TAB PO SCH (06:30)
[2019-03-23 06:37] LABS: Glucose,Whole Blood 119 mg/dL (75-99)
[2019-03-23] MEDS: SYMBICORT 160-4.5 MCG INHALER INHALATION SCH (07:22)
[2019-03-23 07:44] VITALS: RESP 18
[2019-03-23] MEDS ORDERED: FUROSEMIDE 20 MG TAB PO SCH (09:00)
[2019-03-23] MEDS ORDERED: INSULN ASP PRT/INSULIN ASPART 100 UNIT/ML 10 ML VIAL SQ SCH (09:00)
[2019-03-23] MEDS ORDERED: SERTRALINE 25 MG TAB PO SCH (09:00)
[2019-03-23] MEDS ORDERED: RIVAROXABAN 20 MG TAB PO SCH (09:00)
[2019-03-23] MEDS ORDERED: DULoxetine HCL 30 MG CAPSULE.DR PO SCH (09:00)
[2019-03-23] MEDS: INSULIN ASPART (NovoLOG) 100 UNIT/ML VIAL SQ SCH ×2 (09:06→12:29)
[2019-03-23] MEDS: MEMANTINE 10 MG TAB PO SCH (09:12)
[2019-03-23 11:59] LABS: Glucose,Whole Blood 104 mg/dL (75-99)
[2019-03-23 12:05] VITALS: PULSE 77; TEMP 98.2
--- NOTE | 2019-03-23 13:29 | DS ---
DISCHARGE SUMMARY CHIEF COMPLAINT: Lethargy and hypoglycemia. HISTORY OF PRESENT ILLNESS AND PHYSICAL EXAM: Details of this lady's history and physical can be found in the initial workup. LABORATORY STUDIES: While she was in the hospital she had laboratory studies, details of which can be found in the laboratory section of her chart. COURSE IN HOSPITAL: After admission she was placed on bedrest, started on intravenous fluids and IV glucose infusion. Insulin was withheld. Blood sugars dontae and she was placed back on her 70/30, but at a lower dose. She is doing well. It was felt that she could go home on the and she will follow up in a day or 2 in the office. FINAL DIAGNOSES: 1. Hypoglycemia. 2. Insulin-dependent diabetes mellitus. 3. Mild dementia. OPERATIONS: None. CONSULTATIONS: None. She is improved. MMODL / IJN: [id number] /
== END 2019-03-23 13:28 | disposition home health service (06) ==
LOC: EC 04:22 → 1SOBS 07:13
PROVIDERS: ADMIT Family Medicine; ATTEND Family Medicine
DX: E11.641 Type 2 diabetes mellitus with hypoglycemia with coma (principal); F03.90 Unspecified dementia, unspecified severity, without behavioral disturbance, psychotic disturbance, mood disturbance, and anxiety; I48.2 Chronic atrial fibrillation; I10 Essential (primary) hypertension; E78.5 Hyperlipidemia, unspecified; J96.11 Chronic respiratory failure with hypoxia; Z99.81 Dependence on supplemental oxygen; J44.9 Chronic obstructive pulmonary disease, unspecified; E03.9 Hypothyroidism, unspecified; K59.09 Other constipation; G89.29 Other chronic pain; M54.9 Dorsalgia, unspecified; M51.36 Other intervertebral disc degeneration, lumbar region; Z16.12 Extended spectrum beta lactamase (ESBL) resistance; Z79.01 Long term (current) use of anticoagulants; Z79.4 Long term (current) use of insulin; Z79.890 Hormone replacement therapy; Z79.899 Other long term (current) drug therapy; Z79.51 Long term (current) use of inhaled steroids; Z88.1 Allergy status to other antibiotic agents; Z88.5 Allergy status to narcotic agent; Z87.891 Personal history of nicotine dependence; Z90.710 Acquired absence of both cervix and uterus; Z98.42 Cataract extraction status, left eye; Z98.41 Cataract extraction status, right eye; Z96.1 Presence of intraocular lens; Z87.2 Personal history of diseases of the skin and subcutaneous tissue; Z86.19 Personal history of other infectious and parasitic diseases; Z86.14 Personal history of Methicillin resistant Staphylococcus aureus infection; Z80.43 Family history of malignant neoplasm of testis
CPT/HCPCS: 96376; 96365; 96366; 99285; 36415; 94640 ×2; 80053; 85025; 81001; G0378 ×2

== ENCOUNTER 2019-04-14 03:16 | Emergency (ER) | payer MEDICARE, OTHER ==
[2019-04-14 03:40] VITALS: RESP 18; TEMP 98.1
[2019-04-14 04:02] LABS: Glucose,Whole Blood 146 mg/dL (75-99)
[2019-04-14 04:23] LABS: Glucose,Whole Blood 96 mg/dL (75-99)
--- NOTE | 2019-04-14 05:35 | ED ---
Recheck HPI - General Chief Complaint: Recheck/Abnormal Lab/Rx Stated Complaint: low blood sugar Time Seen by Provider: 04/14/19 03:48 Source: patient, EMS Mode of arrival: wheelchair - History of Present Illness Initial Comments: Patient is a 74-year-old woman brought by ambulance to be evaluated for suspected hypoglycemia. The patient does take medication for diabetes. Family had reportedly called EMS for altered mental status and she reportedly had been sweating. They did attempt to give patient something for this. When EMS arrived they did find patient's blood sugar less than 70 and they started IV and give dextrose. The patient states that she is feeling better now and is alert. She states she was not really aware what was leading to the EMS call. MD Complaint: other (Suspected hypoglycemia) -: minutes(s) Returns Today for: other (Suspected hypoglycemia) Symptoms Since Prior Visit: improved - Related Data Home Medications Medication Instructions Recorded Confirmed Sertraline [Zoloft] 25 mg PO DAILY 11/16/14 04/21/19 DULoxetine HCL [Cymbalta] 30 mg PO DAILY 11/04/18 04/21/19 Ergocalciferol [Vitamin D2 50,000 unit PO Q30D 11/04/18 04/21/19 (DRISDOL)] Memantine [Namenda] 10 mg PO BID 11/04/18 04/21/19 Pravastatin Sodium [Pravachol] 20 mg PO DAILY 11/04/18 04/21/19 Docusate [Colace] 100 mg PO DAILY PRN 12/09/18 04/21/19 Furosemide [Lasix] 20 mg PO DAILY 12/14/18 04/21/19 Rivaroxaban [Xarelto] 20 mg PO DAILY 12/14/18 04/21/19 Levothyroxine Sodium [Synthroid] 25 mcg PO DAILY 03/22/19 04/21/19 Previous Rx's Medication Instructions Recorded Budesonide-Formot 160-4.5 Mcg 2 puff INHALATION RT-BID #1 09/30/17 [Symbicort 160-4.5 Mcg Inhaler] Insuln Asp Prt/Insulin Aspart 14 unit SQ HS #1 vial 03/23/19 [NovoLOG MIX 70-30 VIAL] Insuln Asp Prt/Insulin Aspart 40 unit SQ DAILY #1 vial 03/23/19 [NovoLOG MIX 70-30 VIAL] Nitrofurantoin Monohyd/M-Cryst 100 mg PO Q12HR #14 cap 04/21/19 [Macrobid] Allergies Allergy/AdvReac Type Severity Reaction Status Date / Time ceftaroline fosamil Allergy Intermediate Rash/Hives Verified 04/21/19 21:11 codeine Allergy Itching Verified 04/21/19 21:11 levofloxacin [From Levaquin] Allergy Rash/Hives Verified 04/21/19 21:11 tramadol Allergy Itching Verified 04/21/19 21:11 Review of Systems ROS Statement: Those systems with pertinent positive or pertinent negative responses have been documented in the HPI. ROS Other: All systems not noted in ROS Statement are negative. Constitutional: Denies: fever, weakness Respiratory: Denies: cough, dyspnea Cardiovascular: Denies: chest pain, palpitations Gastrointestinal: Denies: abdominal pain, vomiting, diarrhea Genitourinary: Denies: dysuria Musculoskeletal: Denies: back pain Neurological: Reports: as per HPI, confusion. Denies: headache, weakness, numbness Past Medical History Past Medical History: Atrial Fibrillation, COPD, Diabetes Mellitus, Hyperlipidemia, Hypertension, Skin Disorder, Thyroid Disorder Additional Past Medical History / Comment(s): admitted to [facility] on 08/15/17 with sepsis thought 2ndary to possible colitis. Other HX: Severe COPD, chronic hypoxic respiratory failure,home O2 at 2L/NC ATC, chronic atrial fibrillation maintained on Xarelto, lumbar disc disease and chronic back pain, chronic and recurrent urine tract infections/sepsis, diabetes mellitus type II, chronic constipation, previous L heel wound with osteomylitis in 2014 (pt states currently covered with callus, decubitus ulcer now healed, hypothyroid. History of Any Multi-Drug Resistant Organisms: ESBL, MRSA Date of last positivie culture/infection: 07/02/15-MRSA; 02/03/19 ESBL-E. coli MDRO Source:: Sputum-MRSA; Urine-ESBL Past Surgical History: Hysterectomy, Orthopedic Surgery, Tonsillectomy Additional Past Surgical History / Comment(s): Bilateral cataract removals/lens implants on 11/12/14. Lumbar disc surgery, repair of left hip -screws in place, decubitus I&D, colonoscopy. Past Anesthesia/Blood Transfusion Reactions: No Reported Reaction Past Psychological History: No Psychological Hx Reported Smoking Status: Former smoker Past Alcohol Use History: None Reported Past Drug Use History: None Reported - Past Family History Father Family Medical History: Unable to Obtain Additional Family Medical History / Comment(s): Pt never knew her father. He in WWII when she was very young. Mother Family Medical History: No Reported History Brother(s) Family Medical History: Cancer Additional Family Medical History / Comment(s): Pt has 4 brothers and one has testicular cancer. General Exam General appearance: alert, in no apparent distress Head exam: Present: atraumatic, normocephalic Eye exam: Present: normal appearance. Absent: scleral icterus, conjunctival injection ENT exam: Present: normal oropharynx Respiratory exam: Present: normal lung sounds bilaterally. Absent: respiratory distress, wheezes, rales, rhonchi, stridor Cardiovascular Exam: Present: regular rate, normal rhythm, normal heart sounds. Absent: systolic murmur, diastolic murmur, rubs, gallop GI/Abdominal exam: Present: soft. Absent: distended, tenderness, guarding, rebound, mass Extremities exam: Present: normal inspection, normal capillary refill. Absent: pedal edema, calf tenderness Neurological exam: Present: alert, oriented X3 Skin exam: Present: warm, dry, intact, normal color. Absent: rash Course Vital Signs 04/14/19 04/14/19 03:35 06:03 Temperature 98.1 F Pulse Rate 83 68 Respiratory 18 18 Rate Blood Pressure 134/53 150/61 O2 Sat by Pulse 99 98 Oximetry Medical Decision Making - Medical Decision Making Patient 74-year-old woman brought for altered mental status that did respond to dextrose given by EMS. The patient's blood sugars have been stable here, she is feeling better and would like to go home. Discussed appropriate further care and follow-up. She will be with family member. - Lab Data Lab Results 04/14/19 04/14/19 04/14/19 Range/Units 03:41 03:41 04:20 POC Glucose (mg/dL) 146 H 146 H 96 (75-99) mg/dL POC Glu Customer Service Manager ID Alejandra Panchal A Pascal, Shamiya, A Pascal, Shamiya, A 04/14/19 Range/Units 05:29 POC Glucose (mg/dL) 129 H (75-99) mg/dL POC Glu Customer Service Manager ID Alejandra Panchal A Disposition Clinical Impression: Hypoglycemia Disposition: HOME SELF-CARE Condition: Good Instructions (If sedation given, give patient instructions): Hypoglycemia in a Person with Diabetes (ED) Is patient prescribed a controlled substance at d/c from ED?: No Referrals: Dany Cobb MD [Primary Care Provider] - 1-2 days
[2019-04-14 05:48] LABS: Glucose,Whole Blood 129 mg/dL (75-99)
[2019-04-14 06:04] VITALS: BP 150/61; PULSE 68
== END 2019-04-14 08:19 | disposition home or self-care (01) ==
LOC: EC 03:16
DX: E11.649 Type 2 diabetes mellitus with hypoglycemia without coma (principal); I48.2 Chronic atrial fibrillation; E78.5 Hyperlipidemia, unspecified; I10 Essential (primary) hypertension; E03.9 Hypothyroidism, unspecified; Z86.14 Personal history of Methicillin resistant Staphylococcus aureus infection; Z87.891 Personal history of nicotine dependence; Z79.01 Long term (current) use of anticoagulants; Z79.890 Hormone replacement therapy; Z79.899 Other long term (current) drug therapy; Z88.8 Allergy status to other drugs, medicaments and biological substances; Z88.5 Allergy status to narcotic agent; Z88.1 Allergy status to other antibiotic agents
CPT/HCPCS: 36415; 99285

== ENCOUNTER 2019-04-21 19:26 | Emergency (ER) | payer MEDICARE, OTHER ==
[2019-04-21 21:10] LABS: Appearance,Urine Cloudy (Clear); Bacteria,Urine Few /hpf; Bilirubin,Urine Negative (Negative); Blood,Urine Large (Negative); Color,Urine Yellow; Glucose,Urine (UA) 4+ (Negative); Hyaline Casts,Urine 5 /lpf (0-2); Ketones,Urine Negative (Negative); Leukocyte Esterase,Urine Large (Negative); Nitrite,Urine Positive (Negative); PH, Urine 5.5 (5.0-8.0); Protein,Urine Trace (Negative); RBC,Urine >182 /hpf (0-5); Specific Gravity,Urine 1.022 (1.001-1.035); Squamous Epithelial Cell,Urine 1 /hpf (0-4); Urobilinogen,Urine <2.0 mg/dL (<2.0); WBC,Urine >182 /hpf (0-5)
[2019-04-21] MEDS ORDERED: SODIUM CHLORIDE 0.9% 1,000 ML IV ONE (21:53)
[2019-04-21] MEDS ORDERED: AMPICILLIN 2,000 MG in SODIUM CHLORIDE 0.9% 100 ML IVPB ONE (22:00)
[2019-04-21 22:53] LABS: Basophils % (A) 1 %; Eosinophils # (A) 0.2 k/uL (0-0.7); Eosinophils % (A) 3 %; HCT 36.1 % (34.0-46.0); HGB 10.8 gm/dL (11.4-16.0); Lymphocytes # (A) 1.6 k/uL (1.0-4.8); Lymphocytes % (A) 25 %; MCHC 29.9 g/dL (31.0-37.0); MCV 93.6 fL (80.0-100.0); Mean Platelet Volume 8.9; Monocytes # (A) 0.3 k/uL (0-1.0); Monocytes % (A) 5 %; Neutrophils # (A) 4.2 k/uL (1.3-7.7); Neutrophils % (A) 65 %; Platelet Count 211 k/uL (150-450); RBC 3.85 m/uL (3.80-5.40); RDW 13.7 % (11.5-15.5); WBC 6.6 k/uL (3.8-10.6)
--- NOTE | 2019-04-21 22:54 | ED ---
Female Urogenital HPI - General Chief complaint: Vaginal Bleeding Stated complaint: Female Time Seen by Provider: 04/21/19 21:26 Source: patient, RN notes reviewed, old records reviewed Mode of arrival: wheelchair Limitations: no limitations - History of Present Illness Initial comments: This is a 74-year-old female the ER for evaluation. Patient resents today for evaluation with vaginal bleeding but occurring only when she urinates. Symptoms last week and again today. No abdominal pain. symptoms of syncope near syncope no lightheadedness dizziness or weakness. Patient is on blood thinners. No abdominal pain MD Complaint: vaginal bleeding, dysuria, pelvic pain -: days(s) Location: suprapubic Radiation: non-radiating Severity: mild Severity scale (1-10): 2 Quality: cramping Consistency: constant Improves with: none Worsens with: urination Patient : No Associated Symptoms: vaginal bleeding - Related Data Home Medications Medication Instructions Recorded Confirmed Sertraline [Zoloft] 25 mg PO DAILY 11/16/14 04/21/19 DULoxetine HCL [Cymbalta] 30 mg PO DAILY 11/04/18 04/21/19 Ergocalciferol [Vitamin D2 50,000 unit PO Q30D 11/04/18 04/21/19 (DRISDOL)] Memantine [Namenda] 10 mg PO BID 11/04/18 04/21/19 Pravastatin Sodium [Pravachol] 20 mg PO DAILY 11/04/18 04/21/19 Docusate [Colace] 100 mg PO DAILY PRN 12/09/18 04/21/19 Furosemide [Lasix] 20 mg PO DAILY 12/14/18 04/21/19 Rivaroxaban [Xarelto] 20 mg PO DAILY 12/14/18 04/21/19 Levothyroxine Sodium [Synthroid] 25 mcg PO DAILY 03/22/19 04/21/19 Previous Rx's Medication Instructions Recorded Budesonide-Formot 160-4.5 Mcg 2 puff INHALATION RT-BID #1 09/30/17 [Symbicort 160-4.5 Mcg Inhaler] Insuln Asp Prt/Insulin Aspart 14 unit SQ HS #1 vial 03/23/19 [NovoLOG MIX 70-30 VIAL] Insuln Asp Prt/Insulin Aspart 40 unit SQ DAILY #1 vial 03/23/19 [NovoLOG MIX 70-30 VIAL] Allergies Allergy/AdvReac Type Severity Reaction Status Date / Time ceftaroline fosamil Allergy Intermediate Rash/Hives Verified 04/21/19 21:11 codeine Allergy Itching Verified 04/21/19 21:11 levofloxacin [From Levaquin] Allergy Rash/Hives Verified 04/21/19 21:11 tramadol Allergy Itching Verified 04/21/19 21:11 Review of Systems ROS Statement: Those systems with pertinent positive or pertinent negative responses have been documented in the HPI. ROS Other: All systems not noted in ROS Statement are negative. Past Medical History Past Medical History: Atrial Fibrillation, COPD, Diabetes Mellitus, Hyperlipidemia, Hypertension, Skin Disorder, Thyroid Disorder Additional Past Medical History / Comment(s): admitted to [facility] on 08/15/17 with sepsis thought 2ndary to possible colitis. Other HX: Severe COPD, chronic hypoxic respiratory failure,home O2 at 2L/NC ATC, chronic atrial fibrillation maintained on Xarelto, lumbar disc disease and chronic back pain, chronic and recurrent urine tract infections/sepsis, diabetes mellitus type II, chronic constipation, previous L heel wound with osteomylitis in 2014 (pt states currently covered with callus, decubitus ulcer now healed, hypothyroid. History of Any Multi-Drug Resistant Organisms: ESBL, MRSA Date of last positivie culture/infection: 07/02/15-MRSA; 02/03/19 ESBL-E. coli MDRO Source:: Sputum-MRSA; Urine-ESBL Past Surgical History: Hysterectomy, Orthopedic Surgery, Tonsillectomy Additional Past Surgical History / Comment(s): Bilateral cataract removals/lens implants on 11/12/14. Lumbar disc surgery, repair of left hip -screws in place, decubitus I&D, colonoscopy. Past Anesthesia/Blood Transfusion Reactions: No Reported Reaction Past Psychological History: No Psychological Hx Reported Smoking Status: Former smoker Past Alcohol Use History: None Reported Past Drug Use History: None Reported - Past Family History Father Family Medical History: Unable to Obtain Additional Family Medical History / Comment(s): Pt never knew her father. He in WWII when she was very young. Mother Family Medical History: No Reported History Brother(s) Family Medical History: Cancer Additional Family Medical History / Comment(s): Pt has 4 brothers and one has testicular cancer. General Exam Limitations: no limitations General appearance: alert, in no apparent distress Head exam: Present: atraumatic, normocephalic, normal inspection Eye exam: Present: normal appearance, PERRL, EOMI. Absent: scleral icterus, conjunctival injection, periorbital swelling ENT exam: Present: normal exam, mucous membranes moist Neck exam: Present: normal inspection. Absent: tenderness, meningismus, lymphadenopathy Respiratory exam: Present: normal lung sounds bilaterally. Absent: respiratory distress, wheezes, rales, rhonchi, stridor Cardiovascular Exam: Present: regular rate, normal rhythm, normal heart sounds. Absent: systolic murmur, diastolic murmur, rubs, gallop, clicks GI/Abdominal exam: Present: soft, normal bowel sounds. Absent: distended, tenderness, guarding, rebound, rigid Extremities exam: Present: normal inspection, full ROM, normal capillary refill. Absent: tenderness, pedal edema, joint swelling, calf tenderness Back exam: Present: normal inspection Neurological exam: Present: alert, oriented X3, CN II-XII intact Psychiatric exam: Present: normal affect, normal mood Skin exam: Present: warm, dry, intact, normal color. Absent: rash Course Vital Signs 04/21/19 20:05 Temperature 98.6 F Pulse Rate 84 Respiratory 20 Rate Blood Pressure 135/48 O2 Sat by Pulse 96 Oximetry - Reevaluation(s) Reevaluation #1: 04/21/19 23:27 Medical record reviewed Reevaluation #2: 04/21/19 23:27 Patient has no symptoms of weakness dizziness or lightheadedness Medical Decision Making - Medical Decision Making 74 female the ER for evaluation presented today for evaluation of blood in the urine, UTI with hematuria. Patient will be discharged home on by mouth antibiotics - Lab Data Result diagrams: 04/21/19 22:13 Lab Results 04/21/19 04/21/19 04/21/19 Range/Units 20:54 22:13 22:13 WBC 6.6 (3.8-10.6) k/uL RBC 3.85 (3.80-5.40) m/uL Hgb 10.8 L (11.4-16.0) gm/dL Hct 36.1 (34.0-46.0) % MCV 93.6 (80.0-100.0) fL MCH 28.0 (25.0-35.0) pg MCHC 29.9 L (31.0-37.0) g/dL RDW 13.7 (11.5-15.5) % Plt Count 211 (150-450) k/uL Neutrophils % 65 % Lymphocytes % 25 % Monocytes % 5 % Eosinophils % 3 % Basophils % 1 % Neutrophils # 4.2 (1.3-7.7) k/uL Lymphocytes # 1.6 (1.0-4.8) k/uL Monocytes # 0.3 (0-1.0) k/uL Eosinophils # 0.2 (0-0.7) k/uL Basophils # 0.0 (0-0.2) k/uL PT 10.0 (9.0-12.0) sec INR 0.9 (<1.2) APTT 24.5 (22.0-30.0) sec Urine Color Yellow Urine Appearance Cloudy H (Clear) Urine pH 5.5 (5.0-8.0) Ur Specific Susan 1.022 (1.001-1.035) Urine Protein Trace H (Negative) Urine Glucose (UA) 4+ H (Negative) Urine Ketones Negative (Negative) Urine Blood Large H (Negative) Urine Nitrite Positive H (Negative) Urine Bilirubin Negative (Negative) Urine Urobilinogen <2.0 (<2.0) mg/dL Ur Leukocyte Esterase Large H (Negative) Urine RBC >182 H (0-5) /hpf Urine WBC >182 H (0-5) /hpf Urine WBC Clumps Many H (None) /hpf Ur Squamous Epith Cells 1 (0-4) /hpf Urine Bacteria Few H (None) /hpf Hyaline Casts 5 H (0-2) /lpf - Radiology Data Radiology results: report reviewed (Ultrasound shows signs of cystitis), image reviewed Disposition Clinical Impression: Hematuria, UTI (urinary tract infection) Disposition: HOME SELF-CARE Condition: Good Instructions (If sedation given, give patient instructions): Urinary Tract Infection in Women (ED), Hematuria (ED) Is patient prescribed a controlled substance at d/c from ED?: No Referrals: Dany Cobb MD [Primary Care Provider] - 1-2 days
[2019-04-21 23:09] LABS: INR 0.9 (<1.2); Partial Thromboplastin Time 24.5 sec (22.0-30.0)
--- NOTE | 2019-04-21 23:14 | US ---
EXAM: US Pelvis Complete, Transabdominal CLINICAL HISTORY: ITS.REASON US Reason: pain TECHNIQUE: Real-time transabdominal pelvic ultrasound (complete) with image documentation. COMPARISON: No relevant prior studies available. FINDINGS: Uterus/cervix: Status post hysterectomy. No clear mass in the region of the vaginal cuff. Right ovary: Status post oophorectomy. Left ovary: Status post oophorectomy. Free fluid: No free fluid. Bladder: Layering debris in the dependent bladder. Correlate for symptoms of cystitis. Bilateral ureteral jets are identified.. IMPRESSION: Status post hysterectomy and bilateral oophorectomy. Layering debris in the dependent urinary bladder. Correlate for symptoms of cystitis.
[2019-04-21 23:35] LABS: Albumin 3.7 g/dL (3.5-5.0); Calcium 9.6 mg/dL (8.4-10.2); Potassium 4.9 mmol/L (3.5-5.1); Total Bilirubin 0.2 mg/dL (0.2-1.3); Total Protein 6.6 g/dL (6.3-8.2)
[2019-04-21 23:46] VITALS: BP 142/80; PULSE 82; RESP 18; TEMP 98
== END 2019-04-21 23:46 | disposition home or self-care (01) ==
LOC: EC 19:26
DX: N39.0 Urinary tract infection, site not specified (principal); E78.5 Hyperlipidemia, unspecified; I10 Essential (primary) hypertension; I48.2 Chronic atrial fibrillation; E03.9 Hypothyroidism, unspecified; Z86.14 Personal history of Methicillin resistant Staphylococcus aureus infection; Z90.710 Acquired absence of both cervix and uterus; Z87.891 Personal history of nicotine dependence; Z79.01 Long term (current) use of anticoagulants; Z79.890 Hormone replacement therapy; Z88.8 Allergy status to other drugs, medicaments and biological substances; Z88.5 Allergy status to narcotic agent; Z88.1 Allergy status to other antibiotic agents
CPT/HCPCS: 99284; 96365; 36415; 86900; 86901; 80053; 85025; 85610; 85730; 86850; 81001; 87086; 87077; 87186; 76857; J0290

== ENCOUNTER 2019-07-03 02:11 | Emergency (ER) | payer MEDICARE, OTHER ==
[2019-07-03 02:20] LABS: Glucose,Whole Blood 81 mg/dL (75-99)
[2019-07-03] MEDS ORDERED: DEXTROSE 50% SYRINGE 50 ML IVP STA (02:47)
--- NOTE | 2019-07-03 02:50 | ED ---
General Adult HPI - General Chief complaint: Recheck/Abnormal Lab/Rx Stated complaint: Hypoglycemia Time Seen by Provider: 07/03/19 02:16 Source: EMS Mode of arrival: EMS Limitations: altered mental status - History of Present Illness Initial comments: 74-year-old female patient presents to the emergency department today for evaluation of hypoglycemia. Patient states that she does have diabetes. She took 35 units of 70/30 insulin after eating around 6 or 7 PM. Patient started to exhibit altered mental status family members called EMS. Sugar was found to be 51 upon arrival. They did administer IV dextrose which did seem to improve symptoms. Upon arrival patient states she is feeling better. She is currently being treated for urinary tract infection with antibiotics. Patient denies any headache, blurred vision, double vision. Denies any abdominal pain, nausea, or vomiting. Denies constipation or diarrhea. Patient denies any recent rash, fever, chills, shortness breath, chest pain, back pain, numbness, tingling, dizziness, weakness, headache, visual changes, or any other complaints. - Related Data Home Medications Medication Instructions Recorded Confirmed Sertraline [Zoloft] 25 mg PO DAILY 11/16/14 04/21/19 DULoxetine HCL [Cymbalta] 30 mg PO DAILY 11/04/18 04/21/19 Ergocalciferol [Vitamin D2 50,000 unit PO Q30D 11/04/18 04/21/19 (DRISDOL)] Memantine [Namenda] 10 mg PO BID 11/04/18 04/21/19 Pravastatin Sodium [Pravachol] 20 mg PO DAILY 11/04/18 04/21/19 Docusate [Colace] 100 mg PO DAILY PRN 12/09/18 04/21/19 Furosemide [Lasix] 20 mg PO DAILY 12/14/18 04/21/19 Rivaroxaban [Xarelto] 20 mg PO DAILY 12/14/18 04/21/19 Levothyroxine Sodium [Synthroid] 25 mcg PO DAILY 03/22/19 04/21/19 Previous Rx's Medication Instructions Recorded Budesonide-Formot 160-4.5 Mcg 2 puff INHALATION RT-BID #1 09/30/17 [Symbicort 160-4.5 Mcg Inhaler] Insuln Asp Prt/Insulin Aspart 14 unit SQ HS #1 vial 03/23/19 [NovoLOG MIX 70-30 VIAL] Insuln Asp Prt/Insulin Aspart 40 unit SQ DAILY #1 vial 03/23/19 [NovoLOG MIX 70-30 VIAL] Nitrofurantoin Monohyd/M-Cryst 100 mg PO Q12HR #14 cap 04/21/19 [Macrobid] Allergies Allergy/AdvReac Type Severity Reaction Status Date / Time ceftaroline fosamil Allergy Intermediate Rash/Hives Verified 07/03/19 02:21 codeine Allergy Itching Verified 07/03/19 02:21 levofloxacin [From Levaquin] Allergy Rash/Hives Verified 07/03/19 02:21 tramadol Allergy Itching Verified 07/03/19 02:21 Review of Systems ROS Statement: Those systems with pertinent positive or pertinent negative responses have been documented in the HPI. ROS Other: All systems not noted in ROS Statement are negative. Past Medical History Past Medical History: Atrial Fibrillation, COPD, Diabetes Mellitus, Hyperlipidemia, Hypertension, Skin Disorder, Thyroid Disorder Additional Past Medical History / Comment(s): admitted to [facility] on 08/15/17 with sepsis thought 2ndary to possible colitis. Other HX: Severe COPD, chronic hypoxic respiratory failure,home O2 at 2L/NC ATC, chronic atrial fibrillation maintained on Xarelto, lumbar disc disease and chronic back pain, chronic and recurrent urine tract infections/sepsis, diabetes mellitus type II, chronic co nstipation, previous L heel wound with osteomylitis in 2014 (pt states currently covered with callus, decubitus ulcer now healed, hypothyroid. History of Any Multi-Drug Resistant Organisms: ESBL, MRSA Date of last positivie culture/infection: 07/02/15-MRSA; 02/03/19 ESBL-E. coli MDRO Source:: Sputum-MRSA; Urine-ESBL Past Surgical History: Hysterectomy, Orthopedic Surgery, Tonsillectomy Additional Past Surgical History / Comment(s): Bilateral cataract removals/lens implants on 11/12/14. Lumbar disc surgery, repair of left hip -screws in place, decubitus I&D, colonoscopy. Past Anesthesia/Blood Transfusion Reactions: No Reported Reaction Past Psychological History: No Psychological Hx Reported Smoking Status: Former smoker Past Alcohol Use History: None Reported Past Drug Use History: None Reported - Past Family History Father Family Medical History: Unable to Obtain Additional Family Medical History / Comment(s): Pt never knew her father. He in WWII when she was very young. Mother Family Medical History: No Reported History Brother(s) Family Medical History: Cancer Additional Family Medical History / Comment(s): Pt has 4 brothers and one has testicular cancer. General Exam Limitations: altered mental status General appearance: alert, in no apparent distress, other (Is a well-developed, well-nourished elderly female patient in no acute distress. Vital signs upon presentation are temperature 97.5F, pulse 89, respirations 19, blood pressure 144/55, pulse ox 98% on room air.) Eye exam: Present: normal appearance, PERRL, EOMI. Absent: scleral icterus, conjunctival injection, periorbital swelling ENT exam: Present: normal exam, normal oropharynx, mucous membranes moist Respiratory exam: Present: normal lung sounds bilaterally. Absent: respiratory distress, wheezes, rales, rhonchi, stridor Cardiovascular Exam: Present: regular rate, normal rhythm, normal heart sounds. Absent: systolic murmur, diastolic murmur, rubs, gallop, clicks GI/Abdominal exam: Present: soft, normal bowel sounds. Absent: distended, tenderness, guarding, rebound, rigid Neurological exam: Present: alert, oriented X3, CN II-XII intact Psychiatric exam: Present: normal affect, normal mood Skin exam: Present: warm, dry, intact, normal color. Absent: rash Course Vital Signs 07/03/19 07/03/19 07/03/19 02:13 04:00 05:01 Temperature 97.5 F L 98.8 F Pulse Rate 89 80 80 Respiratory 19 16 16 Rate Blood Pressure 144/55 155/81 158/68 O2 Sat by Pulse 98 98 98 Oximetry 07/03/19 06:23 Temperature 97.9 F Pulse Rate 81 Respiratory 17 Rate Blood Pressure 159/70 O2 Sat by Pulse 99 Oximetry Medical Decision Making - Medical Decision Making 74-year-old female patient presented to emergency today for evaluation of low blood sugar. Physical examination is unremarkable. She is neurologically intact. Patient was found to have blood sugar in the 40s. Labs reviewed and were unremarkable. She was given IV dextrose and food. Blood sugar was rechecked and remained stable. To be discharged home to follow-up with the primary care physician for recheck in 1-2 days. Return parameters discussed in detail. She verbalizes understanding and agrees with this plan. - Lab Data Result diagrams: 07/03/19 02:47 07/03/19 02:47 Lab Results 07/03/19 07/03/19 07/03/19 Range/Units 02:14 02:46 02:47 WBC 8.4 (3.8-10.6) k/uL RBC 4.11 (3.80-5.40) m/uL Hgb 12.4 (11.4-16.0) gm/dL Hct 39.4 (34.0-46.0) % MCV 95.8 (80.0-100.0) fL MCH 30.1 (25.0-35.0) pg MCHC 31.4 (31.0-37.0) g/dL RDW 13.0 (11.5-15.5) % Plt Count 179 (150-450) k/uL Neutrophils % 81 % Lymphocytes % 12 % Monocytes % 4 % Eosinophils % 2 % Basophils % 0 % Neutrophils # 6.8 (1.3-7.7) k/uL Lymphocytes # 1.0 (1.0-4.8) k/uL Monocytes # 0.3 (0-1.0) k/uL Eosinophils # 0.2 (0-0.7) k/uL Basophils # 0.0 (0-0.2) k/uL Hypochromasia Slight Sodium (137-145) mmol/L Potassium (3.5-5.1) mmol/L Chloride (98-107) mmol/L Carbon Dioxide (22-30) mmol/L Anion Gap mmol/L BUN (7-17) mg/dL Creatinine (0.52-1.04) mg/dL Est GFR (CKD-EPI)AfAm (>60 ml/min/1.73 sqM) Est GFR (CKD-EPI)NonAf (>60 ml/min/1.73 sqM) Glucose (74-99) mg/dL POC Glucose (mg/dL) 81 47 L (75-99) mg/dL POC Glu [employer] JAME Taylor Bernadine Walker Calcium (8.4-10.2) mg/dL Total Bilirubin (0.2-1.3) mg/dL AST (14-36) U/L ALT (9-52) U/L Alkaline Phosphatase (38-126) U/L Total Protein (6.3-8.2) g/dL Albumin (3.5-5.0) g/dL Urine Color Urine Appearance (Clear) Urine pH (5.0-8.0) Ur Specific Ozan (1.001-1.035) Urine Protein (Negative) Urine Glucose (UA) (Negative) Urine Ketones (Negative) Urine Blood (Negative) Urine Nitrite (Negative) Urine Bilirubin (Negative) Urine Urobilinogen (<2.0) mg/dL Ur Leukocyte Esterase (Negative) Urine RBC (0-5) /hpf Urine WBC (0-5) /hpf Ur Squamous Epith Cells (0-4) /hpf Urine Bacteria (None) /hpf 07/03/19 07/03/19 07/03/19 Range/Units 02:47 03:21 03:25 WBC (3.8-10.6) k/uL RBC (3.80-5.40) m/uL Hgb (11.4-16.0) gm/dL Hct (34.0-46.0) % MCV (80.0-100.0) fL MCH (25.0-35.0) pg MCHC (31.0-37.0) g/dL RDW (11.5-15.5) % Plt Count (150-450) k/uL Neutrophils % % Lymphocytes % % Monocytes % % Eosinophils % % Basophils % % Neutrophils # (1.3-7.7) k/uL Lymphocytes # (1.0-4.8) k/uL Monocytes # (0-1.0) k/uL Eosinophils # (0-0.7) k/uL Basophils # (0-0.2) k/uL Hypochromasia Sodium 142 (137-145) mmol/L Potassium 4.0 (3.5-5.1) mmol/L Chloride 104 (98-107) mmol/L Carbon Dioxide 28 (22-30) mmol/L Anion Gap 10 mmol/L BUN 25 H (7-17) mg/dL Creatinine 0.71 (0.52-1.04) mg/dL Est GFR (CKD-EPI)AfAm >90 (>60 ml/min/1.73 sqM) Est GFR (CKD-EPI)NonAf 83 (>60 ml/min/1.73 sqM) Glucose 45 L* (74-99) mg/dL POC Glucose (mg/dL) 197 H (75-99) mg/dL POC Glu [employer] ID Bernadine Vazquez Calcium 9.8 (8.4-10.2) mg/dL Total Bilirubin 0.2 (0.2-1.3) mg/dL AST 26 (14-36) U/L ALT 18 (9-52) U/L Alkaline Phosphatase 81 (38-126) U/L Total Protein 7.7 (6.3-8.2) g/dL Albumin 4.2 (3.5-5.0) g/dL Urine Color Yellow Urine Appearance Clear (Clear) Urine pH 6.0 (5.0-8.0) Ur Specific Ozan 1.016 (1.001-1.035) Urine Protein Trace H (Negative) Urine Glucose (UA) 3+ H (Negative) Urine Ketones Negative (Negative) Urine Blood Small H (Negative) Urine Nitrite Negative (Negative) Urine Bilirubin Negative (Negative) Urine Urobilinogen <2.0 (<2.0) mg/dL Ur Leukocyte Esterase Large H (Negative) Urine RBC 28 H (0-5) /hpf Urine WBC 104 H (0-5) /hpf Ur Squamous Epith Cells 1 (0-4) /hpf Urine Bacteria Rare H (None) /hpf 07/03/19 Range/Units 04:42 WBC (3.8-10.6) k/uL RBC (3.80-5.40) m/uL Hgb (11.4-16.0) gm/dL Hct (34.0-46.0) % MCV (80.0-100.0) fL MCH (25.0-35.0) pg MCHC (31.0-37.0) g/dL RDW (11.5-15.5) % Plt Count (150-450) k/uL Neutrophils % % Lymphocytes % % Monocytes % % Eosinophils % % Basophils % % Neutrophils # (1.3-7.7) k/uL Lymphocytes # (1.0-4.8) k/uL Monocytes # (0-1.0) k/uL Eosinophils # (0-0.7) k/uL Basophils # (0-0.2) k/uL Hypochromasia Sodium (137-145) mmol/L Potassium (3.5-5.1) mmol/L Chloride (98-107) mmol/L Carbon Dioxide (22-30) mmol/L Anion Gap mmol/L BUN (7-17) mg/dL Creatinine (0.52-1.04) mg/dL Est GFR (CKD-EPI)AfAm (>60 ml/min/1.73 sqM) Est GFR (CKD-EPI)NonAf (>60 ml/min/1.73 sqM) Glucose (74-99) mg/dL POC Glucose (mg/dL) 178 H (75-99) mg/dL POC Glu [employer] ID Bernadine Vazquez Calcium (8.4-10.2) mg/dL Total Bilirubin (0.2-1.3) mg/dL AST (14-36) U/L ALT (9-52) U/L Alkaline Phosphatase (38-126) U/L Total Protein (6.3-8.2) g/dL Albumin (3.5-5.0) g/dL Urine Color Urine Appearance (Clear) Urine pH (5.0-8.0) Ur Specific Ozan (1.001-1.035) Urine Protein (Negative) Urine Glucose (UA) (Negative) Urine Ketones (Negative) Urine Blood (Negative) Urine Nitrite (Negative) Urine Bilirubin (Negative) Urine Urobilinogen (<2.0) mg/dL Ur Leukocyte Esterase (Negative) Urine RBC (0-5) /hpf Urine WBC (0-5) /hpf Ur Squamous Epith Cells (0-4) /hpf Urine Bacteria (None) /hpf Disposition Clinical Impression: Hypoglycemia, Urinary tract infection Disposition: HOME SELF-CARE Condition: Good Instructions (If sedation given, give patient instructions): Hypoglycemia in a Person with Diabetes (ED) Additional Instructions: Follow up with primary care physician for recheck in the morning. Monitor blood sugar closely. Return to the emergency department for any new, worsening, or concerning symptoms. Is patient prescribed a controlled substance at d/c from ED?: No Referrals: Dany Cobb MD [Primary Care Provider] - 1-2 days
[2019-07-03 02:53] LABS: Glucose,Whole Blood 47 mg/dL (75-99)
[2019-07-03 02:54] LABS: Basophils % (A) 0 %; Eosinophils # (A) 0.2 k/uL (0-0.7); Eosinophils % (A) 2 %; HCT 39.4 % (34.0-46.0); HGB 12.4 gm/dL (11.4-16.0); Hypochromasia Slight; Lymphocytes % (A) 12 %; MCH 30.1 pg (25.0-35.0); MCHC 31.4 g/dL (31.0-37.0); MCV 95.8 fL (80.0-100.0); Monocytes # (A) 0.3 k/uL (0-1.0); Monocytes % (A) 4 %; Neutrophils # (A) 6.8 k/uL (1.3-7.7); Neutrophils % (A) 81 %; Platelet Count 179 k/uL (150-450); RBC 4.11 m/uL (3.80-5.40); WBC 8.4 k/uL (3.8-10.6)
[2019-07-03 03:28] LABS: ALT 18 U/L (9-52); AST 26 U/L (14-36); African American GFR (CKD) >90 (>60 ml/min/1.73 sqM); Albumin 4.2 g/dL (3.5-5.0); Alkaline Phosphatase 81 U/L (38-126); Anion Gap 10 mmol/L; Blood Urea Nitrogen 25 mg/dL (7-17); Calcium 9.8 mg/dL (8.4-10.2); Carbon Dioxide 28 mmol/L (22-30); Chloride 104 mmol/L (98-107); Sodium 142 mmol/L (137-145); Total Bilirubin 0.2 mg/dL (0.2-1.3); Total Protein 7.7 g/dL (6.3-8.2)
[2019-07-03 03:37] LABS: Appearance,Urine Clear (Clear); Bacteria,Urine Rare /hpf; Bilirubin,Urine Negative (Negative); Blood,Urine Small (Negative); Color,Urine Yellow; Glucose,Urine (UA) 3+ (Negative); Ketones,Urine Negative (Negative); Leukocyte Esterase,Urine Large (Negative); Nitrite,Urine Negative (Negative); Protein,Urine Trace (Negative); RBC,Urine 28 /hpf (0-5); Specific Gravity,Urine 1.016 (1.001-1.035); Squamous Epithelial Cell,Urine 1 /hpf (0-4); Urobilinogen,Urine <2.0 mg/dL (<2.0); WBC,Urine 104 /hpf (0-5)
[2019-07-03 03:57] LABS: Glucose,Whole Blood 197 mg/dL (75-99)
[2019-07-03 04:51] LABS: Glucose 45 mg/dL (74-99)
[2019-07-03 05:02] LABS: Glucose,Whole Blood 178 mg/dL (75-99)
[2019-07-03 06:23] VITALS: BP 159/70; PULSE 81; RESP 17; TEMP 97.9
== END 2019-07-03 07:39 | disposition home or self-care (01) ==
LOC: EC 02:11
DX: E11.649 Type 2 diabetes mellitus with hypoglycemia without coma (principal); N39.0 Urinary tract infection, site not specified; R41.82 Altered mental status, unspecified; E78.5 Hyperlipidemia, unspecified; I10 Essential (primary) hypertension; E07.9 Disorder of thyroid, unspecified; J96.11 Chronic respiratory failure with hypoxia; E03.9 Hypothyroidism, unspecified; Z79.890 Hormone replacement therapy; Z79.899 Other long term (current) drug therapy; Z79.4 Long term (current) use of insulin; Z79.01 Long term (current) use of anticoagulants; Z88.5 Allergy status to narcotic agent; Z88.1 Allergy status to other antibiotic agents; Z88.6 Allergy status to analgesic agent; Z98.41 Cataract extraction status, right eye; Z96.1 Presence of intraocular lens; Z99.81 Dependence on supplemental oxygen; Z86.14 Personal history of Methicillin resistant Staphylococcus aureus infection; Z87.891 Personal history of nicotine dependence; I48.91 Unspecified atrial fibrillation
CPT/HCPCS: 36415; 80053; 81001; 85025; 96374; 99285

== ENCOUNTER 2019-11-02 14:32 | Inpatient (IN) | payer MEDICARE, OTHER ==
[2019-11-02] MEDS ORDERED: SODIUM CHLORIDE 0.9% 1,000 ML IV STA ×2 (15:00)
[2019-11-02 15:30] LABS: Glucose,Whole Blood 360 mg/dL (75-99)
[2019-11-02 15:31] LABS: Appearance,Urine Turbid (Clear); Bacteria,Urine Many /hpf; Bilirubin,Urine Negative (Negative); Blood,Urine Large (Negative); Color,Urine Light Orange; Glucose,Urine (UA) 4+ (Negative); Ketones,Urine 2+ (Negative); Leukocyte Esterase,Urine Large (Negative); Nitrite,Urine Negative (Negative); Protein,Urine 2+ (Negative); RBC,Urine 159 /hpf (0-5); Specific Gravity,Urine 1.025 (1.001-1.035); Urobilinogen,Urine <2.0 mg/dL (<2.0); WBC,Urine >182 /hpf (0-5)
[2019-11-02] MEDS ORDERED: PIPERACILLIN-TAZOBACTAM 3.375 GM in SODIUM CHLORIDE 0.9% 100 ML IVPB STA (15:38)
--- NOTE | 2019-11-02 15:45 | ED ---
Weakness HPI - General Chief complaint: Weakness Stated complaint: confusion/weakness Time Seen by Provider: 11/02/19 14:48 Source: patient, EMS, RN notes reviewed, old records reviewed Mode of arrival: EMS Limitations: no limitations - History of Present Illness Initial comments: Patient is 74-year-old female, who arrives via EMS. Patient states that EMS picked her up without her being aware why. It seems that her family does not want to help her care for her anymore. She reports she's been having some increased confusion. She also states that she is on antibiotic for urinary tract infection and she does have a history of chronic UTIs. Patient denies any fevers. She denies any pain at this time. She is confused, she states that she thinks that her is in more when rehab Center at this time. She states that she has not been eating much and cannot remember last time she had a meal. - Related Data Home Medications Medication Instructions Recorded Confirmed Sertraline [Zoloft] 25 mg PO DAILY 11/16/14 04/21/19 DULoxetine HCL [Cymbalta] 30 mg PO DAILY 11/04/18 04/21/19 Ergocalciferol [Vitamin D2 50,000 unit PO Q30D 11/04/18 04/21/19 (DRISDOL)] Memantine [Namenda] 10 mg PO BID 11/04/18 04/21/19 Pravastatin Sodium [Pravachol] 20 mg PO DAILY 11/04/18 04/21/19 Docusate [Colace] 100 mg PO DAILY PRN 12/09/18 04/21/19 Furosemide [Lasix] 20 mg PO DAILY 12/14/18 04/21/19 Rivaroxaban [Xarelto] 20 mg PO DAILY 12/14/18 04/21/19 Levothyroxine Sodium [Synthroid] 25 mcg PO DAILY 03/22/19 04/21/19 Previous Rx's Medication Instructions Recorded Budesonide-Formot 160-4.5 Mcg 2 puff INHALATION RT-BID #1 09/30/17 [Symbicort 160-4.5 Mcg Inhaler] Insuln Asp Prt/Insulin Aspart 14 unit SQ HS #1 vial 03/23/19 [NovoLOG MIX 70-30 VIAL] Insuln Asp Prt/Insulin Aspart 40 unit SQ DAILY #1 vial 03/23/19 [NovoLOG MIX 70-30 VIAL] Nitrofurantoin Monohyd/M-Cryst 100 mg PO Q12HR #14 cap 04/21/19 [Macrobid] Allergies Allergy/AdvReac Type Severity Reaction Status Date / Time ceftaroline fosamil Allergy Intermediate Rash/Hives Verified 07/03/19 02:21 codeine Allergy Itching Verified 07/03/19 02:21 levofloxacin [From Levaquin] Allergy Rash/Hives Verified 07/03/19 02:21 tramadol Allergy Itching Verified 07/03/19 02:21 Review of Systems ROS Statement: Those systems with pertinent positive or pertinent negative responses have been documented in the HPI. ROS Other: All systems not noted in ROS Statement are negative. Past Medical History Past Medical History: Atrial Fibrillation, COPD, Diabetes Mellitus, Hyperlipidemia, Hypertension, Skin Disorder, Thyroid Disorder Additional Past Medical History / Comment(s): admitted to [facility] on 08/15/17 with sepsis thought 2ndary to possible colitis. Other HX: Severe COPD, chronic hypoxic respiratory failure,home O2 at 2L/NC ATC, chronic atrial fibrillation maintained on Xarelto, lumbar disc disease and chronic back pain, chronic and recurrent urine tract infections/sepsis, diabetes mellitus type II, chronic constipation, previous L heel wound with osteomylitis in 2014 (pt states currently covered with callus, decubitus ulcer now healed, hypothyroid. History of Any Multi-Drug Resistant Organisms: ESBL, MRSA Date of last positivie culture/infection: 07/02/15-MRSA; 02/03/19 ESBL-E. coli MDRO Source:: Sputum-MRSA; Urine-ESBL Past Surgical History: Hysterectomy, Orthopedic Surgery, Tonsillectomy Additional Past Surgical History / Comment(s): Bilateral cataract removals/lens implants on 11/12/14. Lumbar disc surgery, repair of left hip -screws in place, decubitus I&D, colonoscopy. Past Anesthesia/Blood Transfusion Reactions: No Reported Reaction Past Psychological History: No Psychological Hx Reported Smoking Status: Former smoker Past Alcohol Use History: None Reported Past Drug Use History: None Reported - Past Family History Father Family Medical History: Unable to Obtain Additional Family Medical History / Comment(s): Pt never knew her father. He in WWII when she was very young. Mother Family Medical History: No Reported History Brother(s) Family Medical History: Cancer Additional Family Medical History / Comment(s): Pt has 4 brothers and one has testicular cancer. General Exam - General Exam Comments Initial Comments: 74-year-old female. Alert, and she is confused on year stating at 2002. No significant distress. Limitations: no limitations General appearance: alert, in no apparent distress Head exam: Present: atraumatic, normocephalic, normal inspection Eye exam: Present: normal appearance, PERRL, EOMI. Absent: scleral icterus, conjunctival injection, periorbital swelling ENT exam: Present: normal exam, mucous membranes dry, mucous membranes moist. Absent: normal oropharynx Neck exam: Present: normal inspection. Absent: tenderness, meningismus, lymphadenopathy Respiratory exam: Present: normal lung sounds bilaterally. Absent: respiratory distress, wheezes, rales, rhonchi, stridor Cardiovascular Exam: Present: regular rate, normal rhythm, normal heart sounds. Absent: systolic murmur, diastolic murmur, rubs, gallop, clicks GI/Abdominal exam: Present: soft, normal bowel sounds. Absent: distended, tenderness, guarding, rebound, rigid Back exam: Present: normal inspection Neurological exam: Present: alert, oriented X3, CN II-XII intact Psychiatric exam: Present: normal affect, normal mood Skin exam: Present: warm, dry, intact, normal color. Absent: rash Course Vital Signs 11/02/19 11/02/19 11/02/19 14:34 14:40 16:11 Temperature 98.9 F 98 F 97.6 F Pulse Rate 98 Respiratory 19 Rate Blood Pressure 104/60 150/62 O2 Sat by Pulse 96 99 Oximetry 11/02/19 16:30 Temperature 97.0 F L Pulse Rate 87 Respiratory 18 Rate Blood Pressure 110/63 O2 Sat by Pulse 99 Oximetry Procedures - [place] Protocol (Time Out) Nurse: Chloe Oh Medical Decision Making - Medical Decision Making 74 year old female presents for confusion, and concern not being taken care of at home. According to EMS caregiver stated there was a "family situation". Patient arrives confused. She states years 2002. She is alert to location and person. She does report she is concerned her is in a rehab facility, she believes he is in [facility]. She denies any significant complaints at this time. Urinalysis is positive for infection. CT of the brain shows chronic changes but any acute process. Chest x-ray was reviewed and negative. Di scussed her concern for confusion, and the Patient arrived in poor care, states she did not room her last time she had a meal. I discussed the Patient to be admitted at this time for IV antibiotics, urine culture pending. I did attempt to contact the daughter who stated she currently lives with her grandson whom is more aware of daily care. Attempting to get ahold of patient grandson are unsuccessful at this time. Patient may benefit from inpatient treatment facility. - Lab Data Result diagrams: 11/02/19 15:32 11/02/19 15:32 Lab Results 11/02/19 11/02/19 11/02/19 Range/Units 14:50 15:29 15:32 WBC 8.6 (3.8-10.6) k/uL RBC 4.45 (3.80-5.40) m/uL Hgb 13.4 (11.4-16.0) gm/dL Hct 42.7 (34.0-46.0) % MCV 95.8 (80.0-100.0) fL MCH 30.0 (25.0-35.0) pg MCHC 31.3 (31.0-37.0) g/dL RDW 13.7 (11.5-15.5) % Plt Count 212 (150-450) k/uL Neutrophils % (Manual) 77 % Band Neutrophils % 3 % Lymphocytes % (Manual) 14 % Monocytes % (Manual) 3 % Eosinophils % (Manual) 2 % Basophils % (Manual) 1 % Neutrophils # (Manual) 6.80 (1.3-7.7) k/uL Lymphocytes # (Manual) 1.20 (1.0-4.8) k/uL Monocytes # (Manual) 0.26 (0-1.0) k/uL Eosinophils # (Manual) 0.17 (0-0.7) k/uL Basophils # (Manual) 0.09 (0-0.2) k/uL Nucleated RBCs 0 (0-0) /100 WBC Manual Slide Review Performed PT (9.0-12.0) sec INR (<1.2) APTT (22.0-30.0) sec Sodium (137-145) mmol/L Potassium (3.5-5.1) mmol/L Chloride (98-107) mmol/L Carbon Dioxide (22-30) mmol/L Anion Gap mmol/L BUN (7-17) mg/dL Creatinine (0.52-1.04) mg/dL Est GFR (CKD-EPI)AfAm (>60 ml/min/1.73 sqM) Est GFR (CKD-EPI)NonAf (>60 ml/min/1.73 sqM) Glucose (74-99) mg/dL POC Glucose (mg/dL) 360 H (75-99) mg/dL POC Glu [employer] Savanah Brower Plasma Lactic Acid [place] (0.7-2.0) mmol/L Calcium (8.4-10.2) mg/dL Phosphorus (2.5-4.5) mg/dL Magnesium (1.6-2.3) mg/dL Total Bilirubin (0.2-1.3) mg/dL AST (14-36) U/L ALT (4-34) U/L Alkaline Phosphatase (38-126) U/L Troponin I (0.000-0.034) ng/mL Total Protein (6.3-8.2) g/dL Albumin (3.5-5.0) g/dL Urine Color Light [place] Urine Appearance Turbid H (Clear) Urine pH 6.0 (5.0-8.0) Ur Specific [place] 1.025 (1.001-1.035) Urine Protein 2+ H (Negative) Urine Glucose (UA) 4+ H (Negative) Urine Ketones 2+ H (Negative) Urine Blood Large H (Negative) Urine Nitrite Negative (Negative) Urine Bilirubin Negative (Negative) Urine Urobilinogen <2.0 (<2.0) mg/dL Ur Leukocyte Esterase Large H (Negative) Urine RBC 159 H (0-5) /hpf Urine WBC >182 H (0-5) /hpf Urine WBC Clumps Many H (None) /hpf Urine Bacteria Many H (None) /hpf 11/02/19 11/02/19 11/02/19 Range/Units 15:32 15:32 15:32 WBC (3.8-10.6) k/uL RBC (3.80-5.40) m/uL Hgb (11.4-16.0) gm/dL Hct (34.0-46.0) % MCV (80.0-100.0) fL MCH (25.0-35.0) pg MCHC (31.0-37.0) g/dL RDW (11.5-15.5) % Plt Count (150-450) k/uL Neutrophils % (Manual) % Band Neutrophils % % Lymphocytes % (Manual) % Monocytes % (Manual) % Eosinophils % (Manual) % Basophils % (Manual) % Neutrophils # (Manual) (1.3-7.7) k/uL Lymphocytes # (Manual) (1.0-4.8) k/uL Monocytes # (Manual) (0-1.0) k/uL Eosinophils # (Manual) (0-0.7) k/uL Basophils # (Manual) (0-0.2) k/uL Nucleated RBCs (0-0) /100 WBC Manual Slide Review PT 10.1 (9.0-12.0) sec INR 1.0 (<1.2) APTT 22.2 (22.0-30.0) sec Sodium 136 L (137-145) mmol/L Potassium 4.6 (3.5-5.1) mmol/L Chloride 94 L (98-107) mmol/L Carbon Dioxide 24 (22-30) mmol/L Anion Gap 18 mmol/L BUN 15 (7-17) mg/dL Creatinine 0.67 (0.52-1.04) mg/dL Est GFR (CKD-EPI)AfAm >90 (>60 ml/min/1.73 sqM) Est GFR (CKD-EPI)NonAf 86 (>60 ml/min/1.73 sqM) Glucose 401 H (74-99) mg/dL POC Glucose (mg/dL) (75-99) mg/dL POC Glu [employer] Plasma Lactic Acid [place] 1.2 (0.7-2.0) mmol/L Calcium 9.8 (8.4-10.2) mg/dL Phosphorus 4.1 (2.5-4.5) mg/dL Magnesium 1.8 (1.6-2.3) mg/dL Total Bilirubin 0.6 (0.2-1.3) mg/dL AST 20 (14-36) U/L ALT 14 (4-34) U/L Alkaline Phosphatase 108 (38-126) U/L Troponin I (0.000-0.034) ng/mL Total Protein 7.3 (6.3-8.2) g/dL Albumin 3.9 (3.5-5.0) g/dL Urine Color Urine Appearance (Clear) Urine pH (5.0-8.0) Ur Specific [place] (1.001-1.035) Urine Protein (Negative) Urine Glucose (UA) (Negative) Urine Ketones (Negative) Urine Blood (Negative) Urine Nitrite (Negative) Urine Bilirubin (Negative) Urine Urobilinogen (<2.0) mg/dL Ur Leukocyte Esterase (Negative) Urine RBC (0-5) /hpf Urine WBC (0-5) /hpf Urine WBC Clumps (None) /hpf Urine Bacteria (None) /hpf 11/02/19 Range/Units 15:32 WBC (3.8-10.6) k/uL RBC (3.80-5.40) m/uL Hgb (11.4-16.0) gm/dL Hct (34.0-46.0) % MCV (80.0-100.0) fL MCH (25.0-35.0) pg MCHC (31.0-37.0) g/dL RDW (11.5-15.5) % Plt Count (150-450) k/uL Neutrophils % (Manual) % Band Neutrophils % % Lymphocytes % (Manual) % Monocytes % (Manual) % Eosinophils % (Manual) % Basophils % (Manual) % Neutrophils # (Manual) (1.3-7.7) k/uL Lymphocytes # (Manual) (1.0-4.8) k/uL Monocytes # (Manual) (0-1.0) k/uL Eosinophils # (Manual) (0-0.7) k/uL Basophils # (Manual) (0-0.2) k/uL Nucleated RBCs (0-0) /100 WBC Manual Slide Review PT (9.0-12.0) sec INR (<1.2) APTT (22.0-30.0) sec Sodium (137-145) mmol/L Potassium (3.5-5.1) mmol/L Chloride (98-107) mmol/L Carbon Dioxide (22-30) mmol/L Anion Gap mmol/L BUN (7-17) mg/dL Creatinine (0.52-1.04) mg/dL Est GFR (CKD-EPI)AfAm (>60 ml/min/1.73 sqM) Est GFR (CKD-EPI)NonAf (>60 ml/min/1.73 sqM) Glucose (74-99) mg/dL POC Glucose (mg/dL) (75-99) mg/dL POC Glu [employer] Plasma Lactic Acid [place] (0.7-2.0) mmol/L Calcium (8.4-10.2) mg/dL Phosphorus (2.5-4.5) mg/dL Magnesium (1.6-2.3) mg/dL Total Bilirubin (0.2-1.3) mg/dL AST (14-36) U/L ALT (4-34) U/L Alkaline Phosphatase (38-126) U/L Troponin I 0.026 (0.000-0.034) ng/mL Total Protein (6.3-8.2) g/dL Albumin (3.5-5.0) g/dL Urine Color Urine Appearance (Clear) Urine pH (5.0-8.0) Ur Specific [place] (1.001-1.035) Urine Protein (Negative) Urine Glucose (UA) (Negative) Urine Ketones (Negative) Urine Blood (Negative) Urine Nitrite (Negative) Urine Bilirubin (Negative) Urine Urobilinogen (<2.0) mg/dL Ur Leukocyte Esterase (Negative) Urine RBC (0-5) /hpf Urine WBC (0-5) /hpf Urine WBC Clumps (None) /hpf Urine Bacteria (None) /hpf 11/02/19 15:49 EKG is performed at 1530 shows sinus tachycardia, incomplete right bundle branch block. Septal infarct age undetermined. Abnormal EKG Ventricular rate of 10 1 bpm. Pulse 154 ms. QT QTc is 360/500 ms. QRS duration is 114 ms. - Radiology Data Radiology results: report reviewed CT shows degenerative changes and nonspecific white matter change most typical normal microvascular ischemia. No clear hemorrhage. Heterogeneous marrow signal within the calvaria be related to osteopenia correlating clinically exclude history of blood dyscrasia or lymphoproliferative disorder. Disposition Clinical Impression: UTI (urinary tract infection), Weakness, Confusion Disposition: ADMITTED IP TO THIS HOSP Condition: Stable Is patient prescribed a controlled substance at d/c from ED?: No Referrals: Dany Cobb MD [Primary Care Provider] - 1-2 days Time of Disposition: 17:11
--- NOTE | 2019-11-02 15:56 | CT ---
EXAMINATION TYPE: CT brain wo con DATE OF EXAM: 11/02/2019 COMPARISON: 12/12/2018 HISTORY: Confusion and weakness. CT DLP: 1074.4 mGycm Automated exposure control for dose reduction was used. FINDINGS: There is no acute intracranial hemorrhage, mass effect, or midline shift identified. [id number] generalized degenerative change. Confluent periventricular and subcortical hypoattenuation is seen, most commonly on the basis of chronic microangiopathy. The globes are intact and changes of chronic mild sinusitis noted. Diffuse osteopenic change of the c alvarium noted. Area of low attenuation within the left thalamus and francisco are too small to characteri ze most likely on the basis of tiny remote lacunar infarct. IMPRESSION: 1. Degenerative and nonspecific white matter changes most typical remote microvascular ischemia. No a cute hemorrhage. 2. Heterogeneous marrow signal within the calvarium may be related to osteopenia correlate clinically to exclude history of blood dyscrasia or lymphoproliferative disorder.
--- NOTE | 2019-11-02 15:58 | XR ---
EXAMINATION TYPE: XR chest 2V DATE OF EXAM: 11/02/2019 COMPARISON: 12/12/2018 TECHNIQUE: PA and lateral views submitted. HISTORY: Weakness FINDINGS: The lungs are clear and there is no pneumothorax, pleural effusion, or focal pneumonia. Diffuse hyp erinflation and emphysematous changes compatible with COPD. Atherosclerotic change aorta. No overt fa ilure. IMPRESSION: 1. No acute process.
[2019-11-02 16:01] LABS: ALT 14 U/L (4-34); AST 20 U/L (14-36); African American GFR (CKD) >90 (>60 ml/min/1.73 sqM); Albumin 3.9 g/dL (3.5-5.0); Alkaline Phosphatase 108 U/L (38-126); Anion Gap 18 mmol/L; Blood Urea Nitrogen 15 mg/dL (7-17); Calcium 9.8 mg/dL (8.4-10.2); Carbon Dioxide 24 mmol/L (22-30); Chloride 94 mmol/L (98-107); Glucose 401 mg/dL (74-99); Magnesium 1.8 mg/dL (1.6-2.3); Non-African American GFR(CKD) 86 (>60 ml/min/1.73 sqM); Phosphorus 4.1 mg/dL (2.5-4.5); Potassium 4.6 mmol/L (3.5-5.1); Sodium 136 mmol/L (137-145); Total Bilirubin 0.6 mg/dL (0.2-1.3); Total Protein 7.3 g/dL (6.3-8.2)
[2019-11-02 16:02] LABS: Partial Thromboplastin Time 22.2 sec (22.0-30.0); Prothrombin Time 10.1 sec (9.0-12.0)
[2019-11-02 16:08] LABS: HCT 42.7 % (34.0-46.0); HGB 13.4 gm/dL (11.4-16.0); MCHC 31.3 g/dL (31.0-37.0); MCV 95.8 fL (80.0-100.0); Mean Platelet Volume 11.4; Platelet Count 212 k/uL (150-450); RBC 4.45 m/uL (3.80-5.40); RDW 13.7 % (11.5-15.5); WBC 8.6 k/uL (3.8-10.6)
[2019-11-02 16:32] LABS: Band Neutrophils % 3 %; Basophils # (M) 0.09 k/uL (0-0.2); Eosinophils # (M) 0.17 k/uL (0-0.7); Monocytes # (M) 0.26 k/uL (0-1.0); Neutrophils % (M) 77 %; Nucleated Red Blood Cells 0 /100 WBC (0-0); Total Cells Counted 100
[2019-11-02] MEDS ORDERED: HYDROcodone/APAP 5-325MG 1 EACH TAB PO PRN (17:12)
[2019-11-02] MEDS ORDERED: NALOXONE 0.4 MG/ML 1 ML VIAL IV PRN (17:12)
[2019-11-02] MEDS ORDERED: MORPHINE SULFATE 4 MG/ML SYRINGE IV PRN (17:12)
[2019-11-02] MEDS ORDERED: SODIUM CHLORIDE 0.9% 1,000 ML IV SCH (17:15)
[2019-11-02 18:40] LABS: Glucose,Whole Blood 362 mg/dL (75-99)
[2019-11-02 20:02] LABS: Glucose,Whole Blood 371 mg/dL (75-99)
[2019-11-02] MEDS ORDERED: DONEPEZIL 5 MG TAB PO SCH (21:00)
[2019-11-02] MEDS ORDERED: RIVAROXABAN 20 MG TAB PO SCH (21:00)
[2019-11-02 21:48] LABS: Glucose,Whole Blood 446 mg/dL (75-99)
[2019-11-02] MEDS: INSULIN ASPART (NovoLOG) 100 UNIT/ML VIAL SQ SCH (22:35)
[2019-11-02] MEDS: OXYBUTYNIN CHLORIDE 5 MG TAB PO SCH (22:35)
[2019-11-03 07:18] LABS: Glucose,Whole Blood 246 mg/dL (75-99)
[2019-11-03] MEDS: INSULIN ASPART (NovoLOG) 100 UNIT/ML VIAL SQ SCH ×6 (08:01→20:55)
[2019-11-03] MEDS: OXYBUTYNIN CHLORIDE 5 MG TAB PO SCH (08:02)
[2019-11-03] MEDS ORDERED: SERTRALINE 25 MG TAB PO SCH (09:00)
[2019-11-03] MEDS ORDERED: PRAVASTATIN SODIUM 20 MG TAB PO SCH (09:00)
[2019-11-03 11:15] LABS: Glucose,Whole Blood 339 mg/dL (75-99)
[2019-11-03 17:32] LABS: Glucose,Whole Blood 292 mg/dL (75-99)
[2019-11-03 20:06] LABS: Glucose,Whole Blood 348 mg/dL (75-99)
--- NOTE | 2019-11-03 21:13 | PN ---
PROGRESS NOTE DATE OF SERVICE: 11/03/2019 CHIEF COMPLAINT: Dementia and confusion. HISTORY OF PRESENT ILLNESS: This lady seems calm at the present time. She is awake and alert. Color is good. Vital signs are normal. Blood sugar is elevated. PHYSICAL EXAMINATION: Head, ears, eyes, nose, mouth and throat are normal and the chest is clear. Cardiac exam is normal. The abdomen is soft and nontender. Extremities are normal. IMPRESSION: 1. Dementia with delirium. 2. Elevated blood sugar. PLAN: 1. Discharge planning. 2. Control elevated blood sugars. MMODL / IJN: [id number] /
--- NOTE | 2019-11-03 22:13 | HP ---
HISTORY AND PHYSICAL CHIEF COMPLAINT: Dementia and inability to be managed at home. HISTORY OF PRESENT ILLNESS: This is another admission for this 74-year-old white female with dementia to the point that family cannot take care of her at home any longer. Her was just [facility] a [facility] last [facility]. He does not come to the office and diabetes out of control. REVIEW OF SYSTEMS: Unobtainable. Past medical history, family history, personal and social history reveal that she is not allergic to any medication. She is supposed to be on Zoloft, NovoLog mix, lisinopril, oxybutynin, Donepezil, Xarelto, Primacor, Namenda. Remainder of her history is unremarkable or unobtainable. She used to smoke, but does not any longer. PHYSICAL EXAMINATION: Blood pressure 140/58, pulse of 82 and regular, respirations 16 and temperature 97. In general, she appeared to be well developed, well nourished, well preserved, but very confused. Head, ears, eyes, nose, mouth, and throat were normal. Neck veins not distended. CHEST: Clear. Cardiac exam is normal. Abdomen is soft and nontender. Extremities are normal. Neurologically, she is intact. IMPRESSION: 1. Dementia. 2. Uncontrolled type 2 jav-[id number]-[id number] diabetes mellitus. PLAN: 1. Bed rest. 2. Control blood sugars. 3. USP placement. MMODL / IJN: [id number] /
[2019-11-04] MEDS ORDERED: INSULIN DETEMIR (LEVEMIR) 100 UNIT/ML SYR SQ SCH (07:00)
[2019-11-04 07:07] LABS: Glucose,Whole Blood 447 mg/dL (75-99)
[2019-11-04] MEDS: INSULIN ASPART (NovoLOG) 100 UNIT/ML VIAL SQ SCH ×7 (07:21→20:05)
[2019-11-04] MEDS: LISINOPRIL 20 MG TAB PO SCH (10:24)
[2019-11-04 11:34] LABS: Glucose,Whole Blood 522 mg/dL (75-99)
--- NOTE | 2019-11-04 16:20 | PN ---
PROGRESS NOTE CHIEF COMPLAINT: Dementia and uncontrolled diabetes. HISTORY OF PRESENT ILLNESS: This lady is doing well and having no problems. Her sugars are still elevated and her insulin will be increased. PHYSICAL EXAMINATION: Her chest is clear. The cardiac exam is normal. Abdomen is soft. Extremities are normal. IMPRESSION: 1. Dementia. 2. Uncontrolled diabetes. PLAN: Step up insulin and await jail placement. MMODL / IJN: [id number] /
[2019-11-04 17:19] LABS: Glucose,Whole Blood 265 mg/dL (75-99)
[2019-11-04 20:01] LABS: Glucose,Whole Blood 255 mg/dL (75-99)
[2019-11-05 04:50] LABS: Glucose,Whole Blood 247 mg/dL (75-99)
[2019-11-05] MEDS ORDERED: INSULIN DETEMIR (LEVEMIR) 100 UNIT/ML SYR SQ SCH (07:00)
[2019-11-05 07:29] LABS: Glucose,Whole Blood 243 mg/dL (75-99)
[2019-11-05] MEDS: LISINOPRIL 20 MG TAB PO SCH (08:11)
[2019-11-05] MEDS: INSULIN ASPART (NovoLOG) 100 UNIT/ML VIAL SQ SCH ×6 (08:12→17:46)
[2019-11-05 11:07] LABS: Glucose,Whole Blood 385 mg/dL (75-99)
--- NOTE | 2019-11-05 13:36 | PN ---
PROGRESS NOTE CHIEF COMPLAINT: Dementia and uncontrolled diabetes. HISTORY OF PRESENT ILLNESS: This lady seems to be doing clinically well, but her blood sugar still remained quite high. PHYSICAL EXAMINATION: She is awake and alert. Chest is clear. Cardiac exam is normal. Abdomen is soft, nontender. She is still slightly dehydrated. IMPRESSION: 1. Uncontrolled insulin diabetes mellitus. 2. Dementia. PLAN: Increase basal and bolus insulin dose again and await senior care placement. MMODL / IJN: [id number] /
[2019-11-05 17:40] LABS: Glucose,Whole Blood 285 mg/dL (75-99)
[2019-11-05 20:04] LABS: Glucose,Whole Blood 137 mg/dL (75-99)
[2019-11-06 01:47] LABS: Glucose,Whole Blood 157 mg/dL (75-99)
[2019-11-06] MEDS: INSULIN ASPART (NovoLOG) 100 UNIT/ML VIAL SQ SCH ×7 (01:51→18:03)
[2019-11-06 05:41] VITALS: PULSE 75
[2019-11-06] MEDS ORDERED: INSULIN DETEMIR (LEVEMIR) 100 UNIT/ML SYR SQ SCH (07:00)
[2019-11-06 07:01] LABS: Glucose,Whole Blood 226 mg/dL (75-99)
[2019-11-06] MEDS: LISINOPRIL 20 MG TAB PO SCH (07:29)
[2019-11-06 11:47] LABS: Glucose,Whole Blood 165 mg/dL (75-99)
--- NOTE | 2019-11-06 12:09 | DS ---
DISCHARGE SUMMARY CHIEF COMPLAINT: Confusion, agitation, dementia and delirium with uncontrolled diabetes. HISTORY OF PRESENT ILLNESS AND PHYSICAL EXAM: Details of this lady's history and physical can be found in the initial workup. LABORATORY STUDIES: While she was in the hospital she had laboratory studies, details of which can be found in the laboratory section of her chart. COURSE IN THE HOSPITAL: After admission, she was placed bedrest and discharge planning was put in place because family could no longer take care of her at home. Blood sugars were high and these were gradually brought under better control. Bed is available on the and it was felt that she could be discharged. [facility]. FINAL DIAGNOSES: 1. Delirium. 2. Dementia. 3. Uncontrolled insulin-dependent diabetes mellitus. OPERATIONS: None. CONSULTATION: None. She is improved. MMSAÚLL / KURT: [id number] /
[2019-11-06 12:10] VITALS: BP 102/61; RESP 17; TEMP 97.9
[2019-11-06 17:26] LABS: Glucose,Whole Blood 132 mg/dL (75-99)
== END 2019-11-06 18:30 | DRG 638 ==
LOC: EC 14:32 → 5NMEDONC 17:26 → OBSVTOIN 11-04 09:08
PROVIDERS: ADMIT Family Medicine; ATTEND Family Medicine
DX: E11.65 Type 2 diabetes mellitus with hyperglycemia (principal); F05 Delirium due to known physiological condition; I48.20 Chronic atrial fibrillation, unspecified; J96.11 Chronic respiratory failure with hypoxia; N39.0 Urinary tract infection, site not specified; F03.90 Unspecified dementia, unspecified severity, without behavioral disturbance, psychotic disturbance, mood disturbance, and anxiety; E03.9 Hypothyroidism, unspecified; E78.5 Hyperlipidemia, unspecified; I10 Essential (primary) hypertension; J44.9 Chronic obstructive pulmonary disease, unspecified; Z79.01 Long term (current) use of anticoagulants; Z79.4 Long term (current) use of insulin; Z79.51 Long term (current) use of inhaled steroids; Z79.890 Hormone replacement therapy; Z87.440 Personal history of urinary (tract) infections; Z87.891 Personal history of nicotine dependence; Z90.710 Acquired absence of both cervix and uterus; Z98.42 Cataract extraction status, left eye; Z98.41 Cataract extraction status, right eye; Z96.1 Presence of intraocular lens; M51.36 Other intervertebral disc degeneration, lumbar region; K59.09 Other constipation; Z99.81 Dependence on supplemental oxygen; I45.10 Unspecified right bundle-branch block; Z88.1 Allergy status to other antibiotic agents; Z88.5 Allergy status to narcotic agent; Z88.8 Allergy status to other drugs, medicaments and biological substances; R45.1 Restlessness and agitation; Z86.14 Personal history of Methicillin resistant Staphylococcus aureus infection
CPT/HCPCS: 36415; 70450; 71046; 80053; 81001; 83605; 83735; 84100; 84484; 85025; 85610; 85730; 87040; 87077; 87086; 87186; 93005; 96365; 99285

== ENCOUNTER 2020-06-26 08:17 | Inpatient (IN) | payer MEDICARE, OTHER ==
[2020-06-26] MEDS ORDERED: SODIUM CHLORIDE 0.9% 1,000 ML IV STA (08:20)
[2020-06-26] MEDS ORDERED: ERTAPENEM 1 GM in SODIUM CHLORIDE 0.9% 50 ML IVPB STA (08:20)
[2020-06-26 08:53] LABS: Basophils % (A) 0 %; Eosinophils # (A) 0.4 k/uL (0-0.7); Eosinophils % (A) 3 %; HCT 41.9 % (34.0-46.0); HGB 12.9 gm/dL (11.4-16.0); Lymphocytes # (A) 1.1 k/uL (1.0-4.8); Lymphocytes % (A) 8 %; MCH 29.2 pg (25.0-35.0); MCHC 30.7 g/dL (31.0-37.0); MCV 95.1 fL (80.0-100.0); Mean Platelet Volume 11.6; Monocytes # (A) 0.6 k/uL (0-1.0); Monocytes % (A) 4 %; Neutrophils # (A) 11.7 k/uL (1.3-7.7); Neutrophils % (A) 84 %; Platelet Count 160 k/uL (150-450); RDW 12.9 % (11.5-15.5); WBC 13.9 k/uL (3.8-10.6)
[2020-06-26 09:00] LABS: ALT 597 U/L (4-34); AST 194 U/L (14-36); African American GFR (CKD) >90 (>60 ml/min/1.73 sqM); Albumin 3.3 g/dL (3.5-5.0); Alkaline Phosphatase 237 U/L (38-126); Anion Gap 5 mmol/L; Blood Urea Nitrogen 23 mg/dL (7-17); Calcium 8.9 mg/dL (8.4-10.2); Carbon Dioxide 32 mmol/L (22-30); Chloride 103 mmol/L (98-107); Glucose 206 mg/dL (74-99); Non-African American GFR(CKD) 87 (>60 ml/min/1.73 sqM); Sodium 140 mmol/L (137-145); Total Bilirubin 0.8 mg/dL (0.2-1.3); Total Protein 6.7 g/dL (6.3-8.2)
[2020-06-26 09:07] LABS: Potassium 4.4 mmol/L (3.5-5.1)
[2020-06-26 09:45] LABS: Appearance,Urine Turbid (Clear); Bacteria,Urine Rare /hpf; Bilirubin,Urine Negative (Negative); Blood,Urine Moderate (Negative); Budding Yeast,Urine Moderate /hpf; Color,Urine Light Red; Glucose,Urine (UA) Trace (Negative); Ketones,Urine 1+ (Negative); Leukocyte Esterase,Urine Large (Negative); Mucus,Urine Rare /hpf; Nitrite,Urine Negative (Negative); Protein,Urine 2+ (Negative); RBC,Urine 27 /hpf (0-5); Squamous Epithelial Cell,Urine 1 /hpf (0-4); Urobilinogen,Urine <2.0 mg/dL (<2.0); WBC,Urine >182 /hpf (0-5)
--- NOTE | 2020-06-26 09:48 | ED ---
General Adult HPI - General Chief complaint: Urogenital Stated complaint: abd pain/UTI Time Seen by Provider: 06/26/20 08:18 Source: patient, EMS, RN notes reviewed, old records reviewed Mode of arrival: EMS Limitations: altered mental status - History of Present Illness Initial comments: 75-year-old female presents for evaluation of urinary frequency, urgency and dysuria. Patient has been treated on oral antibiotics for urinary tract infection. She has history of drug resistant UTI. Urine culture was obtained 5 days prior and noted to be E. coli ESBL. Patient was sent to the emergency department for evaluation. She does report lower abdominal pain. No vomiting. No fever. She has been taking Macrobid. - Related Data Home Medications Medication Instructions Recorded Confirmed Pravastatin Sodium [Pravachol] 20 mg PO HS@209911/04/18 06/26/20 Donepezil [Aricept] 5 mg PO HS@209911/02/19 06/26/20 Acetaminophen Tab [Tylenol] 650 mg PO Q4H PRN 06/26/20 06/26/20 Ferrous Sulfate [Feosol] 325 mg PO DAILY@0800 06/26/20 06/26/20 Glucerna Shake 1 can PO TID PRN 06/26/20 06/26/20 INSULIN ASPART (NovoLOG) [NovoLOG 6 unit SQ AC-LUNCH@1100 06/26/20 06/26/20 (formulary)] INSULIN ASPART (NovoLOG) [NovoLOG 6 unit SQ DAILY@0700 06/26/20 06/26/20 (formulary)] INSULIN ASPART (NovoLOG) [NovoLOG 10 unit SQ DAILY@1700 06/26/20 06/26/20 (formulary)] Insulin Detemir (Levemir) [Levemir] 64 unit SQ DAILY 06/26/20 06/26/20 LORazepam [Ativan] 0.5 mg PO BID@0800,1700 06/26/20 06/26/20 Magnesium Hydroxide [Milk of 2,400 mg PO DAILY PRN 06/26/20 06/26/20 Magnesia] Na Phos,M-B/Na Phos,Di-Ba [Fleet 133 ml RECTAL DAILY PRN 06/26/20 06/26/20 Adult] Nitrofurantoin Monohyd/M-Cryst 100 mg PO Q12HR 06/26/20 06/26/20 [Macrobid] Nystatin/Triamcin Cream [Mycolog 1 applic TOPICAL BID 06/26/20 06/26/20 100,000-0.1 Unit/gm-% Cream] Oxybutynin Chloride [Ditropan] 5 mg PO BID@0800,1700 06/26/20 06/26/20 Sertraline [Zoloft] 50 mg PO DAILY 06/26/20 06/26/20 bisacodyL [Dulcolax] 10 mg RECTAL DAILY PRN 06/26/20 06/26/20 lisinopriL 40 mg PO DAILY@0800 06/26/20 06/26/20 Allergies Allergy/AdvReac Type Severity Reaction Status Date / Time ceftaroline fosamil Allergy Intermediate Rash/Hives Verified 06/26/20 08:37 codeine Allergy Itching Verified 06/26/20 08:37 levofloxacin [From Levaquin] Allergy Rash/Hives Verified 06/26/20 08:37 tramadol Allergy Itching Verified 06/26/20 08:37 Review of Systems ROS Statement: Those systems with pertinent positive or pertinent negative responses have been documented in the HPI. ROS Other: All systems not noted in ROS Statement are negative. Past Medical History Past Medical History: Atrial Fibrillation, COPD, Diabetes Mellitus, Hyperlipidemia, Hypertension, Skin Disorder, Thyroid Disorder Additional Past Medical History / Comment(s): admitted to [facility] on 08/15/17 with sepsis thought 2ndary to possible colitis. Other HX: Severe COPD, chronic hypoxic respiratory failure,home O2 at 2L/NC ATC, chronic atrial fibrillation maintained on Xarelto, lumbar disc disease and chronic back pain, chronic and recurrent urine tract infections/sepsis, diabetes mellitus type II, chronic constipation, previous L heel wound with osteomylitis in 2014 (pt states currently covered with callus, decubitus ulcer now healed, hypothyroid. History of Any Multi-Drug Resistant Organisms: ESBL, MRSA Date of last positivie culture/infection: 06/21/20 ESBL-E.coli;07/02/15-MRSA MDRO Source:: Urine-ESBL; Sputum-MRSA Past Surgical History: Hysterectomy, Orthopedic Surgery, Tonsillectomy Additional Past Surgical History / Comment(s): Bilateral cataract removals/lens implants on 11/12/14. Lumbar disc surgery, repair of left hip -screws in place, decubitus I&D, colonoscopy. Past Anesthesia/Blood Transfusion Reactions: No Reported Reaction Past Psychological History: No Psychological Hx Reported Smoking Status: Former smoker Past Alcohol Use History: None Reported Past Drug Use History: None Reported - Past Family History Father Family Medical History: Unable to Obtain Additional Family Medical History / Comment(s): Pt never knew her father. He in WWII when she was very young. Mother Family Medical History: No Reported History Brother(s) Family Medical History: Cancer Additional Family Medical History / Comment(s): Pt has 4 brothers and one has testicular cancer. General Exam Limitations: altered mental status General appearance: alert, in no apparent distress Head exam: Present: atraumatic, normocephalic Eye exam: Present: normal appearance, PERRL ENT exam: Present: normal exam Neck exam: Present: normal inspection. Absent: tenderness, meningismus Respiratory exam: Present: normal lung sounds bilaterally. Absent: respiratory distress, wheezes Cardiovascular Exam: Present: regular rate, normal rhythm GI/Abdominal exam: Present: soft, tenderness (Mild suprapubic tenderness). Abs ent: distended Extremities exam: Present: normal inspection, normal capillary refill. Absent: pedal edema Neurological exam: Present: alert, CN II-XII intact. Absent: oriented X3 (2, baseline), motor sensory deficit Psychiatric exam: Present: normal affect, normal mood Skin exam: Present: warm, dry, intact. Absent: cyanosis, diaphoretic Course Vital Signs 06/26/20 06/26/20 06/26/20 08:19 09:29 10:21 Temperature 99.6 F Pulse Rate 106 H 101 H 101 H Respiratory 18 18 18 Rate Blood Pressure 153/70 166/69 O2 Sat by Pulse 94 L 95 95 Oximetry Medical Decision Making - Medical Decision Making 75-year-old female presenting with persistent UTI, dysuria or urinary frequency, lower abdominal pain. Patient has white blood cell count 13.9. She has normal axis, normal lactic acid, she has a transaminitis with AST 194, ALT 597, alkaline phosphatase 237. Urinalysis consistent with persistent UTI. Urine culture blood culture are pending. Ultrasound is obtained although she does not specifically have any right upper quadrant tenderness. This shows mildly thickened gallbladder wall and common bile duct measuring 1 cm which is mildly enlarged. Patient had been initiated on Invanz for drug resistant UTI. Both gastroenterology, general surgery, infectious disease haven't placed on consult. I discussed case with Dr. Cobb who will admit. - Lab Data Result diagrams: 06/26/20 08:44 06/26/20 08:44 Lab Results 06/26/20 06/26/20 06/26/20 Range/Units 08:44 08:44 08:44 WBC 13.9 H (3.8-10.6) k/uL RBC 4.40 (3.80-5.40) m/uL Hgb 12.9 (11.4-16.0) gm/dL Hct 41.9 (34.0-46.0) % MCV 95.1 (80.0-100.0) fL MCH 29.2 (25.0-35.0) pg MCHC 30.7 L (31.0-37.0) g/dL RDW 12.9 (11.5-15.5) % Plt Count 160 (150-450) k/uL Neutrophils % 84 % Lymphocytes % 8 % Monocytes % 4 % Eosinophils % 3 % Basophils % 0 % Neutrophils # 11.7 H (1.3-7.7) k/uL Lymphocytes # 1.1 (1.0-4.8) k/uL Monocytes # 0.6 (0-1.0) k/uL Eosinophils # 0.4 (0-0.7) k/uL Basophils # 0.0 (0-0.2) k/uL Sodium 140 (137-145) mmol/L Potassium 4.4 (3.5-5.1) mmol/L Chloride 103 (98-107) mmol/L Carbon Dioxide 32 H (22-30) mmol/L Anion Gap 5 mmol/L BUN 23 H (7-17) mg/dL Creatinine 0.63 (0.52-1.04) mg/dL Est GFR (CKD-EPI)AfAm >90 (>60 ml/min/1.73 sqM) Est GFR (CKD-EPI)NonAf 87 (>60 ml/min/1.73 sqM) Glucose 206 H (74-99) mg/dL Plasma Lactic Acid [place] 0.9 (0.7-2.0) mmol/L Calcium 8.9 (8.4-10.2) mg/dL Total Bilirubin 0.8 (0.2-1.3) mg/dL AST 194 H (14-36) U/L ALT 597 H (4-34) U/L Alkaline Phosphatase 237 H (38-126) U/L Total Protein 6.7 (6.3-8.2) g/dL Albumin 3.3 L (3.5-5.0) g/dL Urine Color Urine Appearance (Clear) Urine pH (5.0-8.0) Ur Specific [place] (1.001-1.035) Urine Protein (Negative) Urine Glucose (UA) (Negative) Urine Ketones (Negative) Urine Blood (Negative) Urine Nitrite (Negative) Urine Bilirubin (Negative) Urine Urobilinogen (<2.0) mg/dL Ur Leukocyte Esterase (Negative) Urine RBC (0-5) /hpf Urine WBC (0-5) /hpf Urine WBC Clumps (None) /hpf Ur Squamous Epith Cells (0-4) /hpf Urine Bacteria (None) /hpf Urine Mucus (None) /hpf Urine Yeast (Budding) (None) /hpf 06/26/20 Range/Units 09:27 WBC (3.8-10.6) k/uL RBC (3.80-5.40) m/uL Hgb (11.4-16.0) gm/dL Hct (34.0-46.0) % MCV (80.0-100.0) fL MCH (25.0-35.0) pg MCHC (31.0-37.0) g/dL RDW (11.5-15.5) % Plt Count (150-450) k/uL Neutrophils % % Lymphocytes % % Monocytes % % Eosinophils % % Basophils % % Neutrophils # (1.3-7.7) k/uL Lymphocytes # (1.0-4.8) k/uL Monocytes # (0-1.0) k/uL Eosinophils # (0-0.7) k/uL Basophils # (0-0.2) k/uL Sodium (137-145) mmol/L Potassium (3.5-5.1) mmol/L Chloride (98-107) mmol/L Carbon Dioxide (22-30) mmol/L Anion Gap mmol/L BUN (7-17) mg/dL Creatinine (0.52-1.04) mg/dL Est GFR (CKD-EPI)AfAm (>60 ml/min/1.73 sqM) Est GFR (CKD-EPI)NonAf (>60 ml/min/1.73 sqM) Glucose (74-99) mg/dL Plasma Lactic Acid [place] (0.7-2.0) mmol/L Calcium (8.4-10.2) mg/dL Total Bilirubin (0.2-1.3) mg/dL AST (14-36) U/L ALT (4-34) U/L Alkaline Phosphatase (38-126) U/L Total Protein (6.3-8.2) g/dL Albumin (3.5-5.0) g/dL Urine Color Light Red Urine Appearance Turbid H (Clear) Urine pH 6.0 (5.0-8.0) Ur Specific [place] 1.020 (1.001-1.035) Urine Protein 2+ H (Negative) Urine Glucose (UA) Trace H (Negative) Urine Ketones 1+ H (Negative) Urine Blood Moderate H (Negative) Urine Nitrite Negative (Negative) Urine Bilirubin Negative (Negative) Urine Urobilinogen <2.0 (<2.0) mg/dL Ur Leukocyte Esterase Large H (Negative) Urine RBC 27 H (0-5) /hpf Urine WBC >182 H (0-5) /hpf Urine WBC Clumps Many H (None) /hpf Ur Squamous Epith Cells 1 (0-4) /hpf Urine Bacteria Rare H (None) /hpf Urine Mucus Rare H (None) /hpf Urine Yeast (Budding) Moderate H (None) /hpf Disposition Clinical Impression: High risk for readmission, UTI (urinary tract infection), Failure of outpatient treatment Disposition: ADMITTED IP TO THIS [facility] Condition: Stable Is patient prescribed a controlled substance at d/c from ED?: No Decision to Admit Reason: Admit from EC Decision Date: 06/26/20 Decision Time: 11:16
[2020-06-26] MEDS ORDERED: ACETAMINOPHEN TAB 325 MG TAB PO PRN (10:56)
[2020-06-26] MEDS ORDERED: NALOXONE 0.4 MG/ML 1 ML VIAL IV PRN (10:56)
--- NOTE | 2020-06-26 11:00 | US ---
EXAMINATION TYPE: US gallbladder DATE OF EXAM: 06/26/2020 COMPARISON: NONE CLINICAL HISTORY: ab pain/transaminitis. EXAM MEASUREMENTS: Liver Length: 18.1 cm Gallbladder Wall: 0.4 cm CBD: 1.0 cm Right Kidney: 10.3 x 4.6 x 4.4 cm Dementia patient, unable to cooperate with examiner in any way limiting study. Pancreas: Obscured by bowel gas Liver: measures large, unable to fully evaluate, there is a coarse echotexture, poorly penetrated by the ultrasound, increased periportal echogenicity Gallbladder: wall slightly thickened CBD: dilated Right Kidney: unable to fully evaluate, no evident masses IMPRESSION: Increased periportal echogenicity can be seen in such entities as cholecystitis, inflamma tory bowel disease, recurrent pyogenic cholangitis. Hepatomegaly may be present, may be underlying he patic steatosis, hepatocellular disease. Borderline gallbladder wall thickening, common bile duct is dilated, consider gastroenterology consult. Limited right upper quadrant ultrasound.
[2020-06-26] MEDS ORDERED: MAGNESIUM HYDROXIDE 2,400 MG/10 ML CUP PO PRN (11:27)
[2020-06-26] MEDS ORDERED: bisacodyL 10 MG SUPP RECTAL PRN (11:27)
[2020-06-26] MEDS ORDERED: NA PHOS,M-B/NA PHOS,DI-BA 133 ML ENEMA RECTAL PRN (11:27)
[2020-06-26] MEDS ORDERED: NON FORMULARY DRUG (Glucerna Shake 1 CAN Liquid) PO PRN (11:27)
[2020-06-26 17:09] LABS: Glucose,Whole Blood 292 mg/dL (75-99)
[2020-06-26] MEDS: LORazepam 0.5 MG TAB PO SCH (17:37)
[2020-06-26] MEDS: INSULIN ASPART (NovoLOG) 100 UNIT/ML VIAL SQ SCH (17:37)
[2020-06-26] MEDS ORDERED: HALOPERIDOL LACTATE 5 MG/ML 1 ML VIAL IM PRN (19:34)
[2020-06-26 20:33] LABS: Glucose,Whole Blood 304 mg/dL (75-99)
[2020-06-26] MEDS: DONEPEZIL 5 MG TAB PO SCH (20:48)
[2020-06-26] MEDS: TRIAMCINOLONE 0.1% CREAM 80 GM TUBE TOPICAL SCH (20:48)
[2020-06-26] MEDS: NYSTATIN 100,000UNIT/GM CREAM 30 GM TUBE TOPICAL SCH (20:48)
[2020-06-26] MEDS ORDERED: NYSTAT-TRIAMCIN 100,000-0.1 UNIT/GM-% CREAM 30 GM TUBE TOPICAL SCH (21:00)
[2020-06-26 21:40] LABS: Glucose,Whole Blood 301 mg/dL (75-99)
--- NOTE | 2020-06-26 23:07 | P.CONS ---
History of Present Illness - Reason for Consult Consult date: 06/26/20 Drug resistant UTI Requesting physician: Dany Cobb - Chief Complaint Urinary burning and frequency x week - History of Present Illness Patient is a 75 year female presenting to the ER at [facility] for evaluation immediately frequency or urgency and dysuria in this patient who was seen in the ER a few days ago with similar symptoms and was discharged home on Macrobid however the patient did not have any improvement maintenance and has been burning of urine and some suprapubic discomfort some nausea but no vomiting no chest pain shortness of breath or cough and no diarrhea with this and the patient was evaluated by the patient on arrival to the ER patient did have a low-grade fever of 99.6 patient did have mildly elevated white count did have a positive UA patient urine cultures done on 06/21/2021 positive for ESBL E. coli patient has been admitted to the hospital with concern for drug resistant urinary tract infection infection disease was consulted for further management of antibiotic therapy Review of Systems Positive point has been mentioned in the HPI rest of the systems are negative Past Medical History Past Medical History: Atrial Fibrillation, COPD, Dementia, Diabetes Mellitus, Hyperlipidemia, Hypertension, Respiratory Disorder, Skin Disorder, Thyroid Disorder Additional Past Medical History / Comment(s): Severe COPD, chronic hypoxic respiratory failure, O2 at 2L/NC ATC, pt has been on vent x3 in past, chronic atrial fibrillation, lumbar disc disease and chronic back pain, chronic and recurrent urine tract infections/sepsis, bladder pain, IDDM type II, chronic constipation, colitis with sepsis, fingers on bilateral hands "lock up" , previous L heel wound with osteomylitis in 2014 (pt states currently covered with callus, decubitus ulcer now healed, hypothyroid. History of Any Multi-Drug Resistant Organisms: ESBL, MRSA Year Discovered:: 06/21/20 ESBL-E.coli;07/02/15-MRSA MDRO Source:: Urine-ESBL; Sputum-MRSA Past Surgical History: Hysterectomy, Orthopedic Surgery, Tonsillectomy Additional Past Surgical History / Comment(s): Bilateral cataract removals/lens implants on 11/12/14. Lumbar disc surgery, repair of left hip -screws in place, decubitus I&D, colonoscopy. Past Anesthesia/Blood Transfusion Reactions: No Reported Reaction Smoking Status: Former smoker - Past Family History Father Family Medical History: Unable to Obtain Additional Family Medical History / Comment(s): Pt never knew her father. He in WWII when she was very young. Mother Family Medical History: No Reported History Additional Family Medical History / Comment(s): Mother had depression and committed suicide. Brother(s) Family Medical History: Cancer Additional Family Medical History / Comment(s): Pt has 4 brothers and one has testicular cancer. Medications and Allergies Home Medications Medication Instructions Recorded Confirmed Type Pravastatin Sodium [Pravachol] 20 mg PO HS@2100 11/04/18 06/26/20 History Donepezil [Aricept] 5 mg PO HS@2100 11/02/19 06/26/20 History Acetaminophen Tab [Tylenol] 650 mg PO Q4H PRN 06/26/20 06/26/20 History Ferrous Sulfate [Feosol] 325 mg PO DAILY@0800 06/26/20 06/26/20 History Glucerna Shake 1 can PO TID PRN 06/26/20 06/26/20 History INSULIN ASPART (NovoLOG) [NovoLOG 6 unit SQ AC-LUNCH@1100 06/26/20 06/26/20 History (formulary)] INSULIN ASPART (NovoLOG) [NovoLOG 6 unit SQ DAILY@0700 06/26/20 06/26/20 History (formulary)] INSULIN ASPART (NovoLOG) [NovoLOG 10 unit SQ DAILY@1700 06/26/20 06/26/20 History (formulary)] Insulin Detemir (Levemir) [Levemir] 64 unit SQ DAILY 06/26/20 06/26/20 History LORazepam [Ativan] 0.5 mg PO BID@0800,1700 06/26/20 06/26/20 History Magnesium Hydroxide [Milk of 2,400 mg PO DAILY PRN 06/26/20 06/26/20 History Magnesia] Na Phos,M-B/Na Phos,Di-Ba [Fleet 133 ml RECTAL DAILY PRN 06/26/20 06/26/20 History Adult] Nitrofurantoin Monohyd/M-Cryst 100 mg PO Q12HR 06/26/20 06/26/20 History [Macrobid] Nystatin/Triamcin Cream [Mycolog 1 applic TOPICAL BID 06/26/20 06/26/20 History 100,000-0.1 Unit/gm-% Cream] Oxybutynin Chloride [Ditropan] 5 mg PO BID@0800,1700 06/26/20 06/26/20 History Sertraline [Zoloft] 50 mg PO DAILY 06/26/20 06/26/20 History bisacodyL [Dulcolax] 10 mg RECTAL DAILY PRN 06/26/20 06/26/20 History lisinopriL 40 mg PO DAILY@0800 06/26/20 06/26/20 History Allergies Allergy/AdvReac Type Severity Reaction Status Date / Time ceftaroline fosamil Allergy Intermediate Rash/Hives Verified 06/26/20 08:37 codeine Allergy Itching Verified 06/26/20 08:37 levofloxacin [From Levaquin] Allergy Rash/Hives Verified 06/26/20 08:37 tramadol Allergy Itching Verified 06/26/20 08:37 Physical Exam Vitals: Vital Signs Temp Pulse Pulse Resp BP BP Pulse Ox 06/26/20 21:42 98.7 F 98 17 136/62 96 06/26/20 15:00 97.8 F 84 17 125/74 96 06/26/20 14:20 99.6 F 99 18 140/55 95 06/26/20 13:00 99 18 140/55 95 06/26/20 12:00 96 18 141/57 95 06/26/20 11:00 95 18 155/66 95 06/26/20 10:21 101 H 18 95 06/26/20 09:29 101 H 18 166/69 95 06/26/20 08:19 99.6 F 106 H 18 153/70 94 L Intake and Output 06/26/20 06/26/20 06/27/20 14:59 22:59 06:59 Other: Voiding Method Bedpan Toilet Diaper Incontinent # Voids 2 Weight 83.915 kg GENERAL DESCRIPTION: An elderly female lying in bed, no distress. No tachypnea or accessory muscle of respiration use. HEENT: Shows Pallor , no scleral icterus. Oral mucous membrane is dry. No p haryngeal erythema or thrush NECK: Trachea central, no thyromegaly. LUNGS: Unlabored breathing. Decreased intensity of breath sounds. No wheeze or crackle. HEART: S1, S2, regular rate and rhythm. No loud murmur ABDOMEN: Soft, no tenderness , guarding or rigidity, no organomegaly EXTREMITIES: No edema of feet. SKIN: No rash, no masses palpable. NEUROLOGICAL: The patient is awake, alert, oriented x3, mood and affect normal. Results CBC & Chem 7: 06/26/20 08:44 06/26/20 08:44 Labs: Abnormal Lab Results - Last 24 Hours (Table) 06/26/20 06/26/20 06/26/20 Range/Units 08:44 08:44 09:27 WBC 13.9 H (3.8-10.6) k/uL MCHC 30.7 L (31.0-37.0) g/dL Neutrophils # 11.7 H (1.3-7.7) k/uL Carbon Dioxide 32 H (22-30) mmol/L BUN 23 H (7-17) mg/dL Glucose 206 H (74-99) mg/dL POC Glucose (mg/dL) (75-99) mg/dL AST 194 H (14-36) U/L ALT 597 H (4-34) U/L Alkaline Phosphatase 237 H (38-126) U/L Albumin 3.3 L (3.5-5.0) g/dL Urine Appearance Turbid H (Clear) Urine Protein 2+ H (Negative) Urine Glucose (UA) Trace H (Negative) Urine Ketones 1+ H (Negative) Urine Blood Moderate H (Negative) Ur Leukocyte Esterase Large H (Negative) Urine RBC 27 H (0-5) /hpf Urine WBC >182 H (0-5) /hpf Urine WBC Clumps Many H (None) /hpf Urine Bacteria Rare H (None) /hpf Urine Mucus Rare H (None) /hpf Urine Yeast (Budding) Moderate H (None) /hpf 06/26/20 06/26/20 06/26/20 Range/Units 17:05 20:30 21:36 WBC (3.8-10.6) k/uL MCHC (31.0-37.0) g/dL Neutrophils # (1.3-7.7) k/uL Carbon Dioxide (22-30) mmol/L BUN (7-17) mg/dL Glucose (74-99) mg/dL POC Glucose (mg/dL) 292 H 304 H 301 H (75-99) mg/dL AST (14-36) U/L ALT (4-34) U/L Alkaline Phosphatase (38-126) U/L Albumin (3.5-5.0) g/dL Urine Appearance (Clear) Urine Protein (Negative) Urine Glucose (UA) (Negative) Urine Ketones (Negative) Urine Blood (Negative) Ur Leukocyte Esterase (Negative) Urine RBC (0-5) /hpf Urine WBC (0-5) /hpf Urine WBC Clumps (None) /hpf Urine Bacteria (None) /hpf Urine Mucus (None) /hpf Urine Yeast (Budding) (None) /hpf Microbiology - Last 24 Hours (Table) 06/26/20 09:27 Urine Culture - Preliminary Urine,Catheterized Assessment and Plan Assessment: 1- patient presented to the hospital with urinary burning and frequency in this patient recently evaluated for similar symptom has been treated with Macrobid. The patient has not responded with urine culture finalized with ESBL E. coli likely the infecting pathogen, failing outpatient oral antibiotic therapy 2-Patient with multiple antibiotic ALLERGIES that would limit the number of anti biotic safe to use (1) Infection due to ESBL-producing Escherichia coli Current Visit: Yes Status: Acute Code(s): A49.8 - OTHER BACTERIAL INFECTIONS OF UNSPECIFIED SITE; Z16.12 - EXTENDED SPECTRUM BETA LACTAMASE (ESBL) RESISTANCE SNOMED Code(s): 217251426 (2) Failure of outpatient treatment Current Visit: Yes Status: Acute Code(s): Z78.9 - OTHER SPECIFIED HEALTH STATUS SNOMED Code(s): 865132092 (3) UTI (urinary tract infection) Current Visit: Yes Status: Acute Code(s): N39.0 - URINARY TRACT INFECTION, SITE NOT SPECIFIED SNOMED Code(s): 78043808 Plan: 1- we will start the patient on Invanz 1 g piggyback daily 2-gentle IV fluid We will follow on clinical condition and cultures to further adjust medication if needed Thank you for this consultation will follow this patient with you Time with Patient: Greater than 30
[2020-06-27] MEDS ORDERED: HALOPERIDOL LACTATE 5 MG/ML 1 ML VIAL IM PRN (00:03)
[2020-06-27 06:58] LABS: Glucose,Whole Blood 364 mg/dL (75-99)
[2020-06-27] MEDS: INSULIN DETEMIR (LEVEMIR) 100 UNIT/ML SYR SQ SCH (07:28)
[2020-06-27] MEDS: lisinopriL 20 MG TAB PO SCH (07:28)
[2020-06-27] MEDS: INSULIN ASPART (NovoLOG) 100 UNIT/ML VIAL SQ SCH ×3 (07:28→17:29)
[2020-06-27] MEDS: FERROUS SULFATE 325 MG TAB PO SCH (07:28)
[2020-06-27] MEDS: LORazepam 0.5 MG TAB PO SCH ×2 (07:29→17:29)
[2020-06-27] MEDS: TRIAMCINOLONE 0.1% CREAM 80 GM TUBE TOPICAL SCH ×2 (07:29→21:49)
[2020-06-27] MEDS: NYSTATIN 100,000UNIT/GM CREAM 30 GM TUBE TOPICAL SCH ×2 (07:29→21:49)
[2020-06-27] MEDS: SERTRALINE 50 MG TAB PO SCH (07:29)
[2020-06-27 11:11] LABS: INR 0.96 (0.90-1.11); Prothrombin Time 10.3 sec (9.9-11.9)
[2020-06-27 11:21] LABS: Glucose,Whole Blood 312 mg/dL (75-99)
[2020-06-27] MEDS: ERTAPENEM 1 GM in SODIUM CHLORIDE 0.9% 50 ML IVPB SCH (11:59)
[2020-06-27 12:22] LABS: African American GFR (CKD) 82.4 (60.0-200.0); Albumin 3.8 g/dL (3.80-4.90); Albumin/Globulin Ratio 1.41 (1.60-3.17); Anion Gap 8.7 mmol/L (4.00-12.00); BUN/Creat Ratio 26.25 Ratio (12.00-20.00); Calcium 9.5 mg/dL (8.7-10.3); Carbon Dioxide 30.3 mmol/L (21.6-31.8); Globulin 2.7 g/dL (1.6-3.3); Non-African American GFR(CKD) 71.1 (60.0-200.0); Potassium 4.8 mmol/L (3.5-5.5); Total Bilirubin 0.4 mg/dL (0.3-1.2); Total Protein 6.5 g/dL (6.2-8.2)
[2020-06-27 13:15] LABS: Basophils # (A) 0.1 k/uL (0-0.2); Basophils % (A) 1 %; Eosinophils # (A) 0.1 k/uL (0-0.7); Eosinophils % (A) 1 %; HCT 44.9 % (34.0-46.0); HGB 13.6 gm/dL (11.4-16.0); Hypochromasia Slight; Lymphocytes # (A) 1.7 k/uL (1.0-4.8); Lymphocytes % (A) 16 %; MCH 29.1 pg (25.0-35.0); MCHC 30.2 g/dL (31.0-37.0); MCV 96.6 fL (80.0-100.0); Monocytes # (A) 0.5 k/uL (0-1.0); Monocytes % (A) 4 %; Neutrophils # (A) 8.3 k/uL (1.3-7.7); Neutrophils % (A) 77 %; RBC 4.65 m/uL (3.80-5.40); RDW 12.9 % (11.5-15.5); WBC 10.7 k/uL (3.8-10.6)
--- NOTE | 2020-06-27 13:18 | P.GSCN ---
History of Present Illness Consult date: 06/27/20 History of present illness: CHIEF COMPLAINT: Urinary frequency HISTORY OF PRESENT ILLNESS: This is a 75-year-old female with a known history of atrial fibrillation patient believes she is on a blood thinner, recurrent UTIs, history of drug-resistant UTI, COPD, diabetes mellitus, hyperlipidemia and hypertension. Patient came into the emergency room with urinary frequency, urgency and dysuria. Patient had urine culture obtained 5 days ago which was noted to be E. coli ES BL. And patient was brought into the emergency room for further evaluation. Patient lives at [facility] with her . She had been taking Macrobid. Per ER reports she had some lower abdominal pain. Patient denies any fever, chills or sweats. Denies any nausea or vomiting. Denies any change in bowel habits. Denies any pain in the right upper quadrant. Denies any pain after eating. Patient had abdominal ultrasound completed which showed "borderline gallbladder wall thickening and dilated common bile duct. Patient did have elevated liver enzymes. Therefore surgical consult was placed. PAST MEDICAL HISTORY: See list. PAST SURGICAL HISTORY: See list. MEDICATIONS: See list. ALLERGIES: See list. SOCIAL HISTORY: No illicit drug use. REVIEW OF SYSTEMS: CONSTITUTIONAL: Denies fever or chills. HEENT: Denies blurred vision, vision changes, or eye pain. Denies hemoptysis ENDOCRINE: Denies heat or cold intolerance. CARDIOVASCULAR: Denies chest pain or pressure. RESPIRATORY: No shortness of breath. GASTROINTESTINAL: Denies abdominal pain. Denies nausea or vomiting. NEURO: Denies history of seizures. PSYCH: No depression or suicidal ideation HEMATOLOGIC: Denies bleeding disorders. LYMPHATIC: The patient denies any lumps and bumps around the neck. GENITOURINARY: Denies any blood in urine or increased urinary frequency. MUSCULOSKELETAL: Denies myalgias. Denies joint swelling. Denies decreased range of motion beyond patients baseline. SKIN: Denies pruitis. Denies rash. PHYSICAL EXAM: VITAL SIGNS: Reviewed GENERAL: Well-developed in no acute distress. HEENT: No sclera icterus. Extraocular movements grossly intact. Moist buccal mucosa. Head is atraumatic, normocephalic. Hears conversational speech. No nasal drainage. NECK: Supple without lymphadenopathy. CHEST: Non-labored respirations and equal bilateral excursions. CARDIOVASCULAR: Regular rate with regular rhythm. Palpable 2+ radial pulses. ABDOMEN: Soft. Nondistended. Suprapubic abdominal tenderness MUSCULOSKELETAL: No clubbing or cyanosis. NEUROLOGIC: No focal or lateralizing signs. Cranial nerves II through XII grossly intact. Patient is alert and orientated 3. But still has evidence of confusion. PSYCH: Appropriate affect. Alert and oriented to person, place and time. SKIN: Well perfused. Good skin turgor. LABORATORY DATA: WBC 13.9 AST 194 ALT 597 alk phos 237 total bili 0.8 IMAGING: Gallbladder ultrasound shows increased periportal echogenicity can be seen in such entities as cholecystitis, inflammatory bowel disease, recurrent pyogenic cholangitis. Hepatomegaly may be present. Borderline gallbladder wall thickening, common bile duct is dilated. ASSESSMENT: 1. Gallbladder wall thickening and common bile duct dilation with elevated liver enzymes 2. UTI with ESBL E. coli 3. Atrial fibrillation 4. Diabetes mellitus insulin-dependent 5. Dementia 6. Hyperlipidemia PLAN: -Agree with GI recommendations -Await MRCP results -No gallstones noted on abdominal ultrasound. Consider outpatient cholecystectomy -Recommend a low-fat diet Thank you for this consultation. Physician Rim Fire Charger Operator note has been reviewed by physician. Signing provider agrees with the documented findings, assessment, and plan of care. Past Medical History Past Medical History: Atrial Fibrillation, COPD, Dementia, Diabetes Mellitus, Hyperlipidemia, Hypertension, Respiratory Disorder, Skin Disorder, Thyroid Disorder Additional Past Medical History / Comment(s): Severe COPD, chronic hypoxic respiratory failure, O2 at 2L/NC ATC, pt has been on vent x3 in past, chronic atrial fibrillation, lumbar disc disease and chronic back pain, chronic and recurrent urine tract infections/sepsis, bladder pain, IDDM type II, chronic constipation, colitis with sepsis, fingers on bilateral hands "lock up" , p revious L heel wound with osteomylitis in 2014 (pt states currently covered with callus, decubitus ulcer now healed, hypothyroid. History of Any Multi-Drug Resistant Organisms: ESBL, MRSA Year Discovered:: 06/21/20 ESBL-E.coli;07/02/15-MRSA MDRO Source:: Urine-ESBL; Sputum-MRSA Past Surgical History: Hysterectomy, Orthopedic Surgery, Tonsillectomy Additional Past Surgical History / Comment(s): Bilateral cataract removals/lens implants on 11/12/14. Lumbar disc surgery, repair of left hip -screws in place, decubitus I&D, colonoscopy. Past Anesthesia/Blood Transfusion Reactions: No Reported Reaction Smoking Status: Former smoker - Past Family History Father Family Medical History: Unable to Obtain Additional Family Medical History / Comment(s): Pt never knew her father. He in WWII when she was very young. Mother Family Medical History: No Reported History Additional Family Medical History / Comment(s): Mother had depression and committed suicide. Brother(s) Family Medical History: Cancer Additional Family Medical History / Comment(s): Pt has 4 brothers and one has testicular cancer. Medications and Allergies Home Medications Medication Instructions Recorded Confirmed Type Pravastatin Sodium [Pravachol] 20 mg PO HS@209911/04/18 06/26/20 History Donepezil [Aricept] 5 mg PO HS@209911/02/19 06/26/20 History Acetaminophen Tab [Tylenol] 650 mg PO Q4H PRN 06/26/20 06/26/20 History Ferrous Sulfate [Feosol] 325 mg PO DAILY@0800 06/26/20 06/26/20 History Glucerna Shake 1 can PO TID PRN 06/26/20 06/26/20 History INSULIN ASPART (NovoLOG) [NovoLOG 6 unit SQ AC-LUNCH@1100 06/26/20 06/26/20 History (formulary)] INSULIN ASPART (NovoLOG) [NovoLOG 6 unit SQ DAILY@0700 06/26/20 06/26/20 History (formulary)] INSULIN ASPART (NovoLOG) [NovoLOG 10 unit SQ DAILY@1700 06/26/20 06/26/20 History (formulary)] Insulin Detemir (Levemir) [Levemir] 64 unit SQ DAILY 06/26/20 06/26/20 History LORazepam [Ativan] 0.5 mg PO BID@0800,1700 06/26/20 06/26/20 History Magnesium Hydroxide [Milk of 2,400 mg PO DAILY PRN 06/26/20 06/26/20 History Magnesia] Na Phos,M-B/Na Phos,Di-Ba [Fleet 133 ml RECTAL DAILY PRN 06/26/20 06/26/20 History Adult] Nitrofurantoin Monohyd/M-Cryst 100 mg PO Q12HR 06/26/20 06/26/20 History [Macrobid] Nystatin/Triamcin Cream [Mycolog 1 applic TOPICAL BID 06/26/20 06/26/20 History 100,000-0.1 Unit/gm-% Cream] Oxybutynin Chloride [Ditropan] 5 mg PO BID@0800,1700 06/26/20 06/26/20 History Sertraline [Zoloft] 50 mg PO DAILY 06/26/20 06/26/20 History bisacodyL [Dulcolax] 10 mg RECTAL DAILY PRN 06/26/20 06/26/20 History lisinopriL 40 mg PO DAILY@0800 06/26/20 06/26/20 History Allergies Allergy/AdvReac Type Severity Reaction Status Date / Time ceftaroline fosamil Allergy Intermediate Rash/Hives Verified 06/26/20 08:37 codeine Allergy Itching Verified 06/26/20 08:37 levofloxacin [From Levaquin] Allergy Rash/Hives Verified 06/26/20 08:37 tramadol Allergy Itching Verified 06/26/20 08:37 Surgical - Exam Vital Signs Temp Pulse Resp BP Pulse Ox 99.6 F 106 H 18 153/70 94 L 06/26/20 08:19 06/26/20 08:19 06/26/20 08:19 06/26/20 08:19 06/26/20 08:19 Results - Labs 06/26/20 08:44 06/27/20 07:32 Abnormal Lab Results - Last 24 Hours (Table) 06/26/20 06/26/20 06/26/20 Range/Units 17:05 20:30 21:36 POC Glucose (mg/dL) 292 H 304 H 301 H (75-99) mg/dL 06/27/20 06/27/20 Range/Units 06:56 11:20 POC Glucose (mg/dL) 364 H 312 H (75-99) mg/dL Microbiology - Last 24 Hours (Table) 06/26/20 08:46 Blood Culture - Preliminary Blood No Growth after 24 hours 06/26/20 09:27 Urine Culture - Preliminary Urine,Catheterized
[2020-06-27] MEDS ORDERED: ONDANSETRON 4 MG/2 ML VIAL IVP PRN (13:24)
[2020-06-27 13:49] LABS: Platelet Count 169 k/uL (150-450)
[2020-06-27 16:08] LABS: Hemoglobin A1C 8.6 % (4.0-6.0)
[2020-06-27 16:53] LABS: Glucose,Whole Blood 245 mg/dL (75-99)
--- NOTE | 2020-06-27 20:09 | CONS ---
CONSULTATION DATE OF DICTATION: 06/27/2020 REASON FOR CONSULTATION: Dilated common bile duct and elevated LFTs. HISTORY OF PRESENT ILLNESS: The patient is a 75-year-old pleasant white female who was admitted to the hospital because of recurrent urinary tract infection. She has been having some frequency, urgency and dysuria and subsequently urinalysis did show UTI and she was started on broad-spectrum antibiotics. She was noted to have asymptomatic elevation of serum transaminases and hence we are consulted in regards to this issue. She did have an ultrasound of the right upper quadrant abdomen that showed normal-appearing gallbladder, mild fatty liver and dilated CBD at 1 cm. The patient, however, denies any epigastric pain. No nausea, no vomiting. No prior history of chronic liver disease. In the emergency room, she was noted to have elevated LFTs with AST of 194, ALT of 597, and alkaline phosphatase of 237. Repeat labs from today show AST 65, ALT 380, alkaline phosphatase 274, and bilirubin is normal. On review of her records, her serum transaminases have been within normal limits as of last month. She has been having recurrent urinary tract infections, has been on multiple different antibiotics over the last few months. She does not recall the names of all the antibiotics. HOME MEDICATIONS: Her home medications include dulcolax, lisinopril, Zoloft, Pravachol, Ditropan, nitrofurantoin, milk of magnesia, Ativan, Levemir, NovoLog, Feosol, Glucerna, Aricept and Tylenol. ALLERGIES: CODEINE, LEVAQUIN AND TRAMADOL. SOCIAL HISTORY: No smoking. No alcohol use. PAST SURGICAL HISTORY: Tonsillectomy, hysterectomy, lumbar disc surgery, repair of the left hip. FAMILY HISTORY: Father unable to obtain. Mother unremarkable. Brother had testicular cancer. REVIEW OF SYSTEMS: CARDIOPULMONARY: She denies any chest pain. No shortness of breath. GENITOURINARY: No dysuria or hematuria. MUSCULOSKELETAL: Unremarkable. SKIN: Unremarkable. NEUROLOGY: Unremarkable. PSYCHIATRIC: Mild dementia. ENT/VISION: Unremarkable. CONSTITUTIONAL: No recent weight loss. No fever, chills, night sweats. PHYSICAL EXAMINATION: She appears comfortable. No apparent distress. Vital signs are stable. Blood pressure is 116/68, pulse rate 100, temperature 99.2. HEENT examination unremarkable. Conjunctivae pink. Sclerae anicteric. Oral cavity no lesions. NECK: No JVD or lymph node enlargement. CHEST: Clear to auscultation. HEART: Regular rate and rhythm. ABDOMEN: Soft. Bowel sounds are positive. Liver and spleen were not palpable. EXTREMITIES: No pedal edema. SKIN: No rashes. NEUROLOGIC: Alert and oriented x3. No focal deficits. LABS: Labs done yesterday showed T-bilirubin 0.8, AST 194, ALT 597, alkaline phosphatase 235. Today T-bilirubin is 0.4, AST is down to 65, ALT is down to 380, and alkaline phosphatase is 274. CBC: WBC 13.9. Hemoglobin normal. IMPRESSION: 1. This is a lady who presented to the hospital with acute recurrent urinary tract infection, presently on broad-spectrum antibiotics with ertapenem, and Dr. Lay is following the patient closely. 2. Acute elevation of serum transaminases noted during this hospitalization. Labs from April of 2020 within normal limits. 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 Ultrasound did show dilated CBD, but patient does not have any abdominal pain. No nausea or vomiting. Ultrasound did show dilated common bile duct at 1 cm, but no gallstones. Doubt biliary pathology. RECOMMENDATIONS: 1. Serum transaminases are improving. We will continue to monitor them closely. 2. Obtain hepatitis serologies for A, B and C. 3. Will obtain MRCP to be sure that she does not have any biliary pathology, but it is unlikely, based on her symptoms. 4. Continue antibiotics for urinary tract infection. 5. Will follow with you closely. Thank you for this consultation. MMODL / IJN: [id number] /
[2020-06-27 20:59] LABS: Glucose,Whole Blood 203 mg/dL (75-99)
[2020-06-27] MEDS: DONEPEZIL 5 MG TAB PO SCH (21:49)
--- NOTE | 2020-06-28 02:37 | HP ---
HISTORY AND PHYSICAL CHIEF COMPLAINT: Delirium and untreated urinary tract infection. HISTORY OF PRESENT ILLNESS: This is another admission for this 75-year-old demented female from [facility]. She has been getting more and more agitated and has had mental status changes due to an incompletely treated urinary tract infection. She has recently been on Macrobid and has been getting worse. Review of systems is not obtainable. Past medical history, family history and personal and social histories are all found in the documents accompanying her from the senior care. She has insulin-dependent diabetes mellitus and advanced dementia. PHYSICAL EXAMINATION: Blood pressure is 148/85 with a pulse of 104, respirations of 30, and she is afebrile. In general, she appeared to be slender. Color was good. Skin was dry. Head, ears, eyes, nose, mouth, and throat were normal. Chest is clear to auscultation. Breath sounds are somewhat diminished due to emphysema. Cardiac exam demonstrated what sounded like sinus rhythm and no murmurs or extra sounds. The abdomen is flat, soft, nontender without masses. Extremities are normal. Neurologically, she is awake and alert, but confused. She is admitted to the hospital with diagnoses: 1. Delirium. 2. Dementia. 3. Untreated urinary tract infection. PLAN: 1. Bed rest. 2. IV fluids. 3. Infectious disease consult. MMODL / IJN: [id number] /
--- NOTE | 2020-06-28 03:13 | PN ---
PROGRESS NOTE CHIEF COMPLAINT: Drug resistant urinary tract infection. HISTORY OF PRESENT ILLNESS: This lady has been very agitated during the night and has required sedation. PHYSICAL EXAMINATION: She is afebrile. Chest is clear. Cardiac exam is normal. Abdomen is soft, nontender without any masses. She is very agitated and confused. IMPRESSION: 1. Untreated urinary tract infection. 2. Delirium. 3. Dementia. 4. Diabetes. PLAN: IV fluids and antibiotics and deal with the delirium as it becomes an issue. MMODL / IJN: [id number] /
--- NOTE | 2020-06-28 04:01 | PN ---
PROGRESS NOTE DATE OF SERVICE: 06/27/2020 REASON FOR FOLLOWUP: ESBL E coli urinary tract infection. INTERVAL HISTORY: The patient is currently afebrile. The patient is breathing comfortably. Denies having any chest pain or shortness of breath or cough. No nausea, no vomiting. No abdominal pain, no diarrhea. PHYSICAL EXAMINATION: Blood pressure 179/74 with a pulse of 105, temperature 98.7. She is 95% on 4 L nasal cannula. General description is an elderly female lying in bed in no distress. RESPIRATORY SYSTEM: Unlabored breathing, clear to auscultation anteriorly. HEART: S1, S2. Regular rate and rhythm. ABDOMEN: Soft, no tenderness. LABS: No new labs have been obtained today. DIAGNOSTIC IMPRESSION AND PLAN: Patient with gram-negative urinary tract infection with recent urine culture positive for ESBL Escherichia coli. The patient is covered with Invanz 1 gram daily. Repeat the labs tomorrow. Monitor clinical course closely. MMODL / IJN: [id number] /
[2020-06-28 07:21] LABS: Glucose,Whole Blood 106 mg/dL (75-99)
[2020-06-28] MEDS: FERROUS SULFATE 325 MG TAB PO SCH (07:31)
[2020-06-28] MEDS: TRIAMCINOLONE 0.1% CREAM 80 GM TUBE TOPICAL SCH ×2 (07:31→20:06)
[2020-06-28] MEDS: SERTRALINE 50 MG TAB PO SCH (07:31)
[2020-06-28] MEDS: lisinopriL 20 MG TAB PO SCH (07:31)
[2020-06-28] MEDS: LORazepam 0.5 MG TAB PO SCH ×2 (07:31→15:59)
[2020-06-28] MEDS: INSULIN ASPART (NovoLOG) 100 UNIT/ML VIAL SQ SCH ×3 (07:34→17:17)
[2020-06-28] MEDS: INSULIN DETEMIR (LEVEMIR) 100 UNIT/ML SYR SQ SCH (07:34)
[2020-06-28 07:53] LABS: Basophils # (A) 0.1 k/uL (0-0.2); Basophils % (A) 1 %; Eosinophils # (A) 0.9 k/uL (0-0.7); Eosinophils % (A) 8 %; HCT 42.6 % (34.0-46.0); HGB 13.2 gm/dL (11.4-16.0); Hypochromasia Slight; Lymphocytes # (A) 2.1 k/uL (1.0-4.8); Lymphocytes % (A) 19 %; MCH 29.8 pg (25.0-35.0); MCHC 30.9 g/dL (31.0-37.0); MCV 96.4 fL (80.0-100.0); Mean Platelet Volume 11.1; Monocytes # (A) 0.6 k/uL (0-1.0); Monocytes % (A) 5 %; Neutrophils # (A) 7.5 k/uL (1.3-7.7); Neutrophils % (A) 65 %; Platelet Count 165 k/uL (150-450); RBC 4.42 m/uL (3.80-5.40); WBC 11.5 k/uL (3.8-10.6)
[2020-06-28] MEDS: ERTAPENEM 1 GM in SODIUM CHLORIDE 0.9% 50 ML IVPB SCH (07:57)
[2020-06-28] MEDS: NYSTATIN 100,000UNIT/GM CREAM 30 GM TUBE TOPICAL SCH ×2 (07:57→20:06)
[2020-06-28 11:24] LABS: Glucose,Whole Blood 98 mg/dL (75-99)
[2020-06-28 11:28] LABS: African American GFR (CKD) 101.9 (60.0-200.0); Albumin 3.6 g/dL (3.80-4.90); Albumin/Globulin Ratio 1.44 (1.60-3.17); Anion Gap 9.3 mmol/L (4.00-12.00); C Reactive Protein 4.6 mg/dL (0.0-0.8); Calcium 9.5 mg/dL (8.7-10.3); Carbon Dioxide 33.7 mmol/L (21.6-31.8); Globulin 2.5 g/dL (1.6-3.3); Non-African American GFR(CKD) 87.9 (60.0-200.0); Potassium 4.2 mmol/L (3.5-5.5); Total Bilirubin 0.3 mg/dL (0.3-1.2); Total Protein 6.1 g/dL (6.2-8.2)
[2020-06-28 12:51] LABS: Appearance,Urine Turbid (Clear); Bilirubin,Urine Negative (Negative); Blood,Urine Small (Negative); Color,Urine Yellow; Glucose,Urine (UA) 1+ (Negative); Ketones,Urine Negative (Negative); Leukocyte Esterase,Urine Large (Negative); Nitrite,Urine Negative (Negative); Protein,Urine 3+ (Negative); RBC,Urine 8 /hpf (0-5); Specific Gravity,Urine 1.025 (1.001-1.035); Squamous Epithelial Cell,Urine 1 /hpf (0-4); WBC,Urine >182 /hpf (0-5)
--- NOTE | 2020-06-28 13:54 | P.PN ---
Subjective Progress Note Date: 06/28/20 Principal diagnosis: Urinary frequency, Dilated common bile duct and elevated LFTs Is a pleasant 75-year-old white female patient who was admitted to the hospital because of recurrent urinary tract infection. She's been having some urinary frequency and urgency and subsequently a urinalysis that showed a urinary tract infection. The patient has been started on broad-spectrum antibiotics. She was noted to have asymptomatic elevation of serum transaminases, an ultrasound was ordered that showed normal-appearing gallbladder, mild fatty liver and dilated CBD at 1 cm. The patient was seen and evaluated this morning. She denies any epigastric pain, nausea, or vomiting. She states she has no prior history of chronic liver disease. She is somewhat confused. Objective - Vital Signs Vital signs: Vital Signs Temp 98.2 F 06/28/20 07:00 Pulse 87 06/28/20 08:00 Resp 17 06/28/20 08:00 BP 162/84 06/28/20 07:00 Pulse Ox 94 L 06/28/20 07:00 Intake & Output 06/27/20 06/28/20 06/28/20 18:59 06:59 18:59 Other: Voiding Method Toilet Diaper Diaper # Voids 3 2 2 # Bowel Movements 1 - Exam General appearance: The patient is alert, oriented, in no acute distress. HET: Head is normocephalic and atraumatic. Conjunctiva pink. Sclera and icteric. Neck: Supple without lymphadenopathy. Trachea midline. Abdomen: Soft, nontender, nondistended with bowel sounds. No guarding or rigidity. Extremities: Normal skin color and turgor. No pedal edema. Neurological: No focal deficits. Alert and oriented to place and self. - Labs CBC & Chem 7: 06/28/20 07:17 06/28/20 07:17 Labs: Abnormal Lab Results - Last 24 Hours (Table) 06/27/20 06/27/20 06/27/20 Range/Units 07:32 12:22 16:51 WBC (3.8-10.6) k/uL MCHC (31.0-37.0) g/dL Neutrophils # 8.3 H (1.3-7.7) k/uL Eosinophils # (0-0.7) k/uL Sodium (135-145) mmol/L Carbon Dioxide (21.6-31.8) mmol/L BUN/Creatinine Ratio (12.00-20.00) Ratio POC Glucose (mg/dL) 245 H (75-99) mg/dL Hemoglobin A1c 8.6 H (4.0-6.0) % AST (13-35) U/L ALT (8-44) U/L Alkaline Phosphatase (41-126) U/L C-Reactive Protein (0.0-0.8) mg/dL Total Protein (6.2-8.2) g/dL Albumin (3.80-4.90) g/dL Albumin/Globulin Ratio (1.60-3.17) g/dL Urine Appearance (Clear) Urine Protein (Negative) Urine Glucose (UA) (Negative) Urine Blood (Negative) Ur Leukocyte Esterase (Negative) Urine RBC (0-5) /hpf Urine WBC (0-5) /hpf 06/27/20 06/28/20 06/28/20 Range/Units 20:57 07:17 07:17 WBC 11.5 H (3.8-10.6) k/uL MCHC 30.9 L (31.0-37.0) g/dL Neutrophils # (1.3-7.7) k/uL Eosinophils # 0.9 H (0-0.7) k/uL Sodium 148 H (135-145) mmol/L Carbon Dioxide 33.7 H (21.6-31.8) mmol/L BUN/Creatinine Ratio 35.00 H (12.00-20.00) Ratio POC Glucose (mg/dL) 203 H (75-99) mg/dL Hemoglobin A1c (4.0-6.0) % AST 50 H (13-35) U/L ALT 259 H (8-44) U/L Alkaline Phosphatase 231 H (41-126) U/L C-Reactive Protein 4.6 H (0.0-0.8) mg/dL Total Protein 6.1 L (6.2-8.2) g/dL Albumin 3.60 L (3.80-4.90) g/dL Albumin/Globulin Ratio 1.44 L (1.60-3.17) g/dL Urine Appearance (Clear) Urine Protein (Negative) Urine Glucose (UA) (Negative) Urine Blood (Negative) Ur Leukocyte Esterase (Negative) Urine RBC (0-5) /hpf Urine WBC (0-5) /hpf 06/28/20 06/28/20 Range/Units 07:20 12:00 WBC (3.8-10.6) k/uL MCHC (31.0-37.0) g/dL Neutrophils # (1.3-7.7) k/uL Eosinophils # (0-0.7) k/uL Sodium (135-145) mmol/L Carbon Dioxide (21.6-31.8) mmol/L BUN/Creatinine Ratio (12.00-20.00) Ratio POC Glucose (mg/dL) 106 H (75-99) mg/dL Hemoglobin A1c (4.0-6.0) % AST (13-35) U/L ALT (8-44) U/L Alkaline Phosphatase (41-126) U/L C-Reactive Protein (0.0-0.8) mg/dL Total Protein (6.2-8.2) g/dL Albumin (3.80-4.90) g/dL Albumin/Globulin Ratio (1.60-3.17) g/dL Urine Appearance Turbid H (Clear) Urine Protein 3+ H (Negative) Urine Glucose (UA) 1+ H (Negative) Urine Blood Small H (Negative) Ur Leukocyte Esterase Large H (Negative) Urine RBC 8 H (0-5) /hpf Urine WBC >182 H (0-5) /hpf Microbiology - Last 24 Hours (Table) 06/26/20 08:46 Blood Culture - Preliminary Blood No Growth after 48 hours 06/26/20 09:27 Urine Culture - Final Urine,Catheterized Assessment and Plan Assessment: 1. This lady who presented to the hospital with acute recurrent urinary tract infection, presently on broad-spectrum antibiotics with ertapenem and infectious disease is currently following the patient closely. 2. Acute elevation of serum transaminases noted during the hospitalization. Her labs from April 2020 were within normal limits. 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 Ultrasound did show dilated CBD, but patient does not have any abdominal pain, nausea or vomiting. Ultrasound did show evidence of a dilated common bile duct at 1 cm, but no gallstones. Unlikely biliary pathology however MRCP was ordered to rule out biliary pathology. MRCP was a poor study due to patient's inability to tolerate the test. However the MRCP shows that there was common bile duct dilation of 11 mm in diameter and MRI of 2017 now measuring 10 mm in diameter on most recent ultrasound. Common bile duct dilation is stable and again likely dealing with a medication-induced hepatitis. 8. Atrial fibrillation 4. Diabetes mellitus 5. Dementia 6. Hyperlipidemia Plan: 1. Repeat CMP 2. Obtain hepatitis serologies, results pending 3. MRCP shows stabilized ductal dilation. There is no indication for any endoscopic evaluation. 4. Continue antibiotics for urinary tract infection. 5. Surgery has been consulted, appreciate recommendations 6. We will continue to follow with you closely The impression and plan of care has been dictated as directed. Dr. Deniz Casillas I performed a history and examination of this patient, discussed the same with the dictator. I agree with the dictator's note ,documented as a scribe. Any additional findings or plans will be noted.
--- NOTE | 2020-06-28 14:12 | MR ---
EXAMINATION TYPE: MR MRCP DATE OF EXAM: 06/28/2020 COMPARISON: Prior MRI/MRCP June 30, 2017. CT abdomen and pelvis November 11, 2017. Gallbladder ultr asound June 26, 2020. HISTORY: Elevated liver enzymes, CBD dilation Standard multiplanar, multisequence MRI departmental protocol Multiplanar, multisequence images of the abdomen were acquired. Thin and thick slice MRCP performed o n MRI scanner. FINDINGS: Exam noted nondiagnostic as patient confused and would not hold breath, patient subsequentl y refused imaging after only a couple of series were performed. IMPRESSION: As above. It is noted common bile duct measured 11 mm in diameter coronal image 15 in 201 7 MRI and now measures 10 mm in diameter on most recent ultrasound.
--- NOTE | 2020-06-28 14:26 | P.PN ---
Subjective Progress Note Date: 06/28/20 CHIEF COMPLAINT: Urinary frequency HISTORY OF PRESENT ILLNESS: We are following patient in regards to her gallbladder wall thickening noted on abdominal ultrasound. She is in the hospital being treated for E. coli ESBL UTI. On antibiotics per ID. Patient denies any abdominal pain. Denies any nausea or vomiting. Reports having bowel movements. She is confused at times. She is followed closely by GI service they've ordered an MRCP or today and hepatitis panel. She is afebrile. WBC 11.5. AST 50 ALT 259 alk phos 231 total bili 0.3 PHYSICAL EXAM: VITAL SIGNS: Reviewed GENERAL: Well-developed in no acute distress. HEENT: No sclera icterus. Extraocular movements grossly intact. Moist buccal mucosa. Head is atraumatic, normocephalic. Hears conversational speech. No nasal drainage. NECK: Supple without lymphadenopathy. CHEST: Non-labored respirations and equal bilateral excursions. CARDIOVASCULAR: Regular rate with regular rhythm. Palpable 2+ radial pulses. ABDOMEN: Soft. Nondistended. Nontender. MUSCULOSKELETAL: No clubbing or cyanosis. NEUROLOGIC: No focal or lateralizing signs. Cranial nerves II through XII grossly intact. PSYCH: Appropriate affect. Alert and oriented to person, place and time. SKIN: Well perfused. Good skin turgor. ASSESSMENT: 1. Gallbladder wall thickening and common bile duct dilation with elevated liver enzymes 2. Acute elevation of serum transaminases possibly due to medication induced hepatitis. GI service is following 2. UTI with ESBL E. coli 3. Atrial fibrillation 4. Diabetes mellitus insulin-dependent 5. Dementia 6. Hyperlipidemia PLAN: -Await further GI recommendations -No gallstones noted on abdominal ultrasound. Consider outpatient cholecystectomy -Recommend a low-fat diet Physician Manager Credit note has been reviewed by physician. Signing provider agrees with the documented findings, assessment, and plan of care. Objective - Vital Signs Vital signs: Vital Signs Temp 98.2 F 06/28/20 07:00 Pulse 87 06/28/20 08:00 Resp 17 06/28/20 08:00 BP 162/84 06/28/20 07:00 Pulse Ox 94 L 06/28/20 07:00 Intake & Output 06/27/20 06/28/20 06/28/20 18:59 06:59 18:59 Other: Voiding Method Toilet Diaper Diaper # Voids 3 2 2 # Bowel Movements 1 - Labs CBC & Chem 7: 06/28/20 07:17 06/28/20 07:17 Labs: Abnormal Lab Results - Last 24 Hours (Table) 06/27/20 06/27/20 06/27/20 Range/Units 07:32 16:51 20:57 WBC (3.8-10.6) k/uL MCHC (31.0-37.0) g/dL Eosinophils # (0-0.7) k/uL Sodium (135-145) mmol/L Carbon Dioxide (21.6-31.8) mmol/L BUN/Creatinine Ratio (12.00-20.00) Ratio POC Glucose (mg/dL) 245 H 203 H (75-99) mg/dL Hemoglobin A1c 8.6 H (4.0-6.0) % AST (13-35) U/L ALT (8-44) U/L Alkaline Phosphatase (41-126) U/L C-Reactive Protein (0.0-0.8) mg/dL Total Protein (6.2-8.2) g/dL Albumin (3.80-4.90) g/dL Albumin/Globulin Ratio (1.60-3.17) g/dL Urine Appearance (Clear) Urine Protein (Negative) Urine Glucose (UA) (Negative) Urine Blood (Negative) Ur Leukocyte Esterase (Negative) Urine RBC (0-5) /hpf Urine WBC (0-5) /hpf 06/28/20 06/28/20 06/28/20 Range/Units 07:17 07:17 07:20 WBC 11.5 H (3.8-10.6) k/uL MCHC 30.9 L (31.0-37.0) g/dL Eosinophils # 0.9 H (0-0.7) k/uL Sodium 148 H (135-145) mmol/L Carbon Dioxide 33.7 H (21.6-31.8) mmol/L BUN/Creatinine Ratio 35.00 H (12.00-20.00) Ratio POC Glucose (mg/dL) 106 H (75-99) mg/dL Hemoglobin A1c (4.0-6.0) % AST 50 H (13-35) U/L ALT 259 H (8-44) U/L Alkaline Phosphatase 231 H (41-126) U/L C-Reactive Protein 4.6 H (0.0-0.8) mg/dL Total Protein 6.1 L (6.2-8.2) g/dL Albumin 3.60 L (3.80-4.90) g/dL Albumin/Globulin Ratio 1.44 L (1.60-3.17) g/dL Urine Appearance (Clear) Urine Protein (Negative) Urine Glucose (UA) (Negative) Urine Blood (Negative) Ur Leukocyte Esterase (Negative) Urine RBC (0-5) /hpf Urine WBC (0-5) /hpf 06/28/20 Range/Units 12:00 WBC (3.8-10.6) k/uL MCHC (31.0-37.0) g/dL Eosinophils # (0-0.7) k/uL Sodium (135-145) mmol/L Carbon Dioxide (21.6-31.8) mmol/L BUN/Creatinine Ratio (12.00-20.00) Ratio POC Glucose (mg/dL) (75-99) mg/dL Hemoglobin A1c (4.0-6.0) % AST (13-35) U/L ALT (8-44) U/L Alkaline Phosphatase (41-126) U/L C-Reactive Protein (0.0-0.8) mg/dL Total Protein (6.2-8.2) g/dL Albumin (3.80-4.90) g/dL Albumin/Globulin Ratio (1.60-3.17) g/dL Urine Appearance Turbid H (Clear) Urine Protein 3+ H (Negative) Urine Glucose (UA) 1+ H (Negative) Urine Blood Small H (Negative) Ur Leukocyte Esterase Large H (Negative) Urine RBC 8 H (0-5) /hpf Urine WBC >182 H (0-5) /hpf Microbiology - Last 24 Hours (Table) 06/26/20 08:46 Blood Culture - Preliminary Blood No Growth after 48 hours 06/26/20 09:27 Urine Culture - Final Urine,Catheterized
[2020-06-28 16:39] LABS: Glucose,Whole Blood 132 mg/dL (75-99)
[2020-06-28] MEDS: ACETAMINOPHEN TAB 325 MG TAB PO PRN (16:40)
[2020-06-28 18:38] LABS: Hepatitis A Antibody IgM Non-Reactive (Non-Reactive); Hepatitis B Core IgM Non-Reactive (Non-Reactive); Hepatitis B Surface Antigen Non-Reactive (Non-Reactive); Hepatitis C IgG Antibody Non-Reactive (Non-Reactive)
--- NOTE | 2020-06-28 19:29 | PN ---
PROGRESS NOTE CHIEF COMPLAINT: Resistant urinary tract infection with elevated liver function studies. HISTORY OF PRESENT ILLNESS: This lady seems to be doing fairly well. Her vital signs are normal. Her blood sugars are under fairly good control. She has been seen by Gastroenterology who was following her liver function studies. It is not clear whether or not she has gallbladder disease and this will have to be watched. PHYSICAL EXAMINATION: Color remains normal. Chest is clear. Cardiac exam is normal. Abdomen is soft and nontender. IMPRESSION: 1. Intractable urinary tract infection. 2. Insulin-dependent diabetes mellitus. 3. Dementia. 4. Elevated liver function studies and possible gallbladder disease. PLAN: Continue with IV fluids and antibiotics and we and will continue to follow her liver function studies as they slowly come down. MMODL / IJN: [id number] /
[2020-06-28] MEDS: DONEPEZIL 5 MG TAB PO SCH (20:06)
[2020-06-28 20:37] LABS: Glucose,Whole Blood 71 mg/dL (75-99)
--- NOTE | 2020-06-28 21:05 | PN ---
PROGRESS NOTE DATE OF SERVICE: 06/28/2020. REASON FOR FOLLOWUP: Urinary tract infection. INTERVAL HISTORY: Patient is currently afebrile. Patient is breathing comfortably. The patient denies having any chest pain. No shortness of breath. No nausea, vomiting or abdominal pain and no diarrhea. PHYSICAL EXAMINATION: Blood pressure 137/84 with a pulse of 97, temperature 98.3. She is 96% on 4 L nasal cannula. General description is an elderly female up in the bed in no distress. Respiratory system: Unlabored breathing, clear to auscultation anteriorly. Heart S1, S2. Regular rate and rhythm. ABDOMEN: Soft, no tenderness. EXTREMITIES: No edema of the feet. LABS: Hemoglobin is 11.3, white count 11.5, BUN of 21, creatinine 0.6. DIAGNOSTIC IMPRESSION AND PLAN: Patient with ESBL E coli urinary tract infection with positive UA and significant urinary symptoms. The patient is currently covered with Invanz to continue and monitor clinical course closely. MMODL / IJN: [id number] /
[2020-06-29] MEDS: ACETAMINOPHEN TAB 325 MG TAB PO PRN (05:30)
[2020-06-29 07:33] LABS: Glucose,Whole Blood 80 mg/dL (75-99)
[2020-06-29] MEDS: INSULIN ASPART (NovoLOG) 100 UNIT/ML VIAL SQ SCH ×3 (07:42→17:11)
[2020-06-29] MEDS: LORazepam 0.5 MG TAB PO SCH ×2 (08:38→17:15)
[2020-06-29] MEDS: TRIAMCINOLONE 0.1% CREAM 80 GM TUBE TOPICAL SCH ×2 (08:38→21:30)
[2020-06-29] MEDS: lisinopriL 20 MG TAB PO SCH (08:38)
[2020-06-29] MEDS: SERTRALINE 50 MG TAB PO SCH (08:38)
[2020-06-29] MEDS: FERROUS SULFATE 325 MG TAB PO SCH (08:38)
[2020-06-29] MEDS: NYSTATIN 100,000UNIT/GM CREAM 30 GM TUBE TOPICAL SCH ×2 (08:38→21:31)
[2020-06-29] MEDS: INSULIN DETEMIR (LEVEMIR) 100 UNIT/ML SYR SQ SCH (08:38)
[2020-06-29] MEDS: ERTAPENEM 1 GM in SODIUM CHLORIDE 0.9% 50 ML IVPB SCH (08:49)
[2020-06-29 09:45] LABS: Basophils # (A) 0.1 k/uL (0-0.2); Basophils % (A) 1 %; Eosinophils # (A) 0.3 k/uL (0-0.7); Eosinophils % (A) 4 %; HCT 43.2 % (34.0-46.0); Hypochromasia Moderate; Lymphocytes # (A) 1.3 k/uL (1.0-4.8); Lymphocytes % (A) 14 %; MCH 29.4 pg (25.0-35.0); MCV 97.7 fL (80.0-100.0); Mean Platelet Volume 11.2; Monocytes # (A) 0.3 k/uL (0-1.0); Monocytes % (A) 4 %; Neutrophils # (A) 7.4 k/uL (1.3-7.7); Neutrophils % (A) 76 %; Platelet Count 175 k/uL (150-450); RBC 4.43 m/uL (3.80-5.40); RDW 12.8 % (11.5-15.5); WBC 9.8 k/uL (3.8-10.6)
--- NOTE | 2020-06-29 11:29 | PN ---
PROGRESS NOTE DATE OF SERVICE: 06/29/2020 Patient is a 75-year-old pleasant white female admitted to the hospital with acute recurrent urinary tract infection. She was noted to have elevated serum transaminases and ultrasound showed dilated common bile duct and hence we are following her closely. She had an attempted MRCP, but the study was not good, study was nondiagnostic as patient was confused and could not hold her breath. However, the common bile duct was noted to be 11 mm in diameter and no mention of any filling defects noted. In the meantime, her serum transaminases are gradually improving. Patient is overall doing well. She denies any abdominal pain. No nausea, no vomiting. PHYSICAL EXAMINATION: Appears comfortable, no apparent distress. Vital signs are stable. Blood pressure 165/70, pulse rate 84, temperature 98.1. HEENT examination unremarkable. Conjunctivae pink. Sclerae anicteric. Oral cavity no lesions. NECK: No JVD or lymph node enlargement. CHEST was clear to auscultation. HEART: Regular rate and rhythm. ABDOMEN: Soft, it was nontender, nondistended. Liver and spleen were not palpable. EXTREMITIES: No pedal edema. SKIN: No rashes. NEUROLOGIC: Alert and oriented x3. No focal deficits. LABS: WBC 11.5, hemoglobin 13.2, platelets normal. AST and ALT are down to 50 and 259 respectively T-bilirubin 0.3 and alkaline phosphatase 231. Hepatitis serologies for A, B and C negative. IMPRESSION: 1. Acute elevation of serum transaminases, most consistent with medication induced hepatitis. The patient has been diagnosed with recurrent urinary tract infection, has been on different antibiotics over the last few months. Her serum transaminases are gradually improving. Hepatitis serologies for A, B and C negative. Ultrasound did show dilated common bile duct which is stable from the prior CT scan done two years ago. MRCP also showed a dilated CBD but no filling defects noted. 2. Recurrent urinary tract infection on broad-spectrum antibiotics. RECOMMENDATIONS: 1. Continue to monitor LFTs closely. 2. No need for any other imaging studies. 3. We will follow with you closely. Thank you for this consultation. MMODL / IJN: [id number] /
[2020-06-29 11:37] LABS: Large Platelets Present
[2020-06-29 11:39] LABS: Glucose,Whole Blood 252 mg/dL (75-99)
--- NOTE | 2020-06-29 15:57 | PN ---
PROGRESS NOTE CHIEF COMPLAINT: Urinary tract infection. HISTORY OF PRESENT ILLNESS: This lady is doing well. Her temperature has been down. She is much less agitated. PHYSICAL EXAMINATION: She is awake and alert. Chest is clear. Cardiac exam is normal. Abdomen is soft, nontender. IMPRESSION: 1. Drug-resistant urinary tract infection. 2. Dementia. PLAN: Continue with IV antibiotics until Infectious Disease feels that she can be returned to the halfway. MMODL / IJN: [id number] /
[2020-06-29 16:44] LABS: Glucose,Whole Blood 84 mg/dL (75-99)
[2020-06-29 19:48] LABS: African American GFR (CKD) 82.4 (60.0-200.0); Albumin 3.4 g/dL (3.80-4.90); Albumin/Globulin Ratio 1.21 (1.60-3.17); Anion Gap 6.3 mmol/L (4.00-12.00); BUN/Creat Ratio 31.25 Ratio (12.00-20.00); Calcium 9.3 mg/dL (8.7-10.3); Carbon Dioxide 32.7 mmol/L (21.6-31.8); Globulin 2.8 g/dL (1.6-3.3); Non-African American GFR(CKD) 71.1 (60.0-200.0); Potassium 4.5 mmol/L (3.5-5.5); Total Bilirubin 0.3 mg/dL (0.3-1.2); Total Protein 6.2 g/dL (6.2-8.2)
[2020-06-29] MEDS: DONEPEZIL 5 MG TAB PO SCH (21:28)
--- NOTE | 2020-06-29 23:22 | PN ---
PROGRESS NOTE DATE OF SERVICE: 06/29/2020 REASON FOR FOLLOWUP: ESBL E coli urinary tract infection. INTERVAL HISTORY: Patient is currently afebrile. The patient is hemodynamically stable. She is breathing comfortably. No nausea, no vomiting, no diarrhea. PHYSICAL EXAMINATION: Blood pressure 125/73 with pulse of 96, temperature 98. She is 96% on room air. General description is an elderly female lying in bed in no distress. Respiratory system: Unlabored breathing, clear to auscultation anteriorly. Heart S1, S2 regular rate and rhythm. ABDOMEN: Soft, no tenderness. LABS: Hemoglobin is 13.8, white count 9.8, BUN of 25, creatinine 0.8, liver enzymes mildly elevated. DIAGNOSTIC IMPRESSION AND PLAN: Patient with recurrent urinary tract infection with recent urine culture done on June 21 was ESBL E coli, however, repeat culture showing Chrystal species, not albicans. The patient Invanz will be discontinued. The patient on Diflucan and monitor clinical course closely. MMODL / IJN: [id number] /
[2020-06-30 06:45] LABS: Basophils # (A) 0.1 k/uL (0-0.2); Basophils % (A) 1 %; Eosinophils # (A) 0.4 k/uL (0-0.7); Eosinophils % (A) 5 %; HCT 40.6 % (34.0-46.0); HGB 12.4 gm/dL (11.4-16.0); Hypochromasia Slight; Lymphocytes # (A) 1.8 k/uL (1.0-4.8); Lymphocytes % (A) 20 %; MCH 29.1 pg (25.0-35.0); MCHC 30.5 g/dL (31.0-37.0); MCV 95.5 fL (80.0-100.0); Mean Platelet Volume 10.5; Monocytes # (A) 0.4 k/uL (0-1.0); Monocytes % (A) 5 %; Neutrophils # (A) 6.3 k/uL (1.3-7.7); Neutrophils % (A) 67 %; Platelet Count 174 k/uL (150-450); RBC 4.25 m/uL (3.80-5.40); RDW 12.7 % (11.5-15.5); WBC 9.3 k/uL (3.8-10.6)
[2020-06-30 06:48] LABS: Glucose,Whole Blood 83 mg/dL (75-99)
[2020-06-30] MEDS: INSULIN ASPART (NovoLOG) 100 UNIT/ML VIAL SQ SCH ×3 (07:15→16:04)
[2020-06-30] MEDS: INSULIN DETEMIR (LEVEMIR) 100 UNIT/ML SYR SQ SCH (07:57)
[2020-06-30] MEDS: lisinopriL 20 MG TAB PO SCH (07:57)
[2020-06-30] MEDS: TRIAMCINOLONE 0.1% CREAM 80 GM TUBE TOPICAL SCH ×2 (07:57→20:18)
[2020-06-30] MEDS: LORazepam 0.5 MG TAB PO SCH ×2 (07:57→16:04)
[2020-06-30] MEDS: SERTRALINE 50 MG TAB PO SCH (07:57)
[2020-06-30] MEDS: FLUCONAZOLE 100 MG TAB PO SCH (07:57)
[2020-06-30] MEDS: FERROUS SULFATE 325 MG TAB PO SCH (07:57)
[2020-06-30] MEDS: NYSTATIN 100,000UNIT/GM CREAM 30 GM TUBE TOPICAL SCH ×2 (07:57→20:18)
[2020-06-30 11:31] LABS: Glucose,Whole Blood 207 mg/dL (75-99)
[2020-06-30 11:37] LABS: African American GFR (CKD) 101.9 (60.0-200.0); Albumin 3.3 g/dL (3.80-4.90); Albumin/Globulin Ratio 1.18 (1.60-3.17); Anion Gap 11.1 mmol/L (4.00-12.00); Carbon Dioxide 29.9 mmol/L (21.6-31.8); Globulin 2.8 g/dL (1.6-3.3); Non-African American GFR(CKD) 87.9 (60.0-200.0); Potassium 4.1 mmol/L (3.5-5.5); Total Bilirubin 0.2 mg/dL (0.2-1.2); Total Protein 6.1 g/dL (6.2-8.2)
--- NOTE | 2020-06-30 12:05 | PN ---
PROGRESS NOTE DATE OF SERVICE: June 30, 2020 Patient is a 75-year-old pleasant white female, admitted to hospital with recurrent UTI on broad-spectrum antibiotics. She is being followed for elevated serum transaminases, probably medication related. Hepatitis serologies for A, B and C are negative. Serum transaminases are gradually improving. The patient denies any symptoms today. PHYSICAL EXAMINATION: She appears comfortable. No apparent distress. Vital signs stable. Blood pressure 134/70, pulse rate 93, temperature 97.9. HEENT examination unremarkable. Conjunctivae pink. Sclerae anicteric. Oral cavity no lesions. NECK no JVD or lymph node enlargement. CHEST was clear to auscultation. HEART: Regular rate and rhythm. ABDOMEN was soft, nontender, nondistended. Bowel sounds are positive. No organomegaly. EXTREMITIES: No pedal edema. SKIN no rashes. NEUROLOGIC: Alert and oriented x3. No focal deficits. LABS: Labs done from today: WBC 9.3, hemoglobin 12.4, platelets normal. Basic metabolic panel was not done. IMPRESSION: 1. Recurrent urinary tract infection. The patient being followed by Dr. Lay. Antibiotics have been discontinued yesterday as her urine cultures showed Chrystal albicans and no bacteruria noted. Presently on no antibiotics. 2. Elevated serum transaminases which are gradually improving, which was thought to be related to medications from recent recurrent urinary tract infection infection for which she was treated with multiple antibiotics. Her serum transaminases are gradually improving and we will continue to watch them closely. Hepatitis serologies for A, B and C are negative. RECOMMENDATIONS: 1. Monitor LFTs closely. 2. Advance diet as tolerated. 3. Continue symptomatic and supportive care. 4. We will follow with you closely. Thank you for this consultation. MMODL / IJN: [id number] /
[2020-06-30 16:08] LABS: Glucose,Whole Blood 208 mg/dL (75-99)
[2020-06-30] MEDS: ACETAMINOPHEN TAB 325 MG TAB PO PRN (20:16)
[2020-06-30] MEDS: DONEPEZIL 5 MG TAB PO SCH (20:17)
[2020-06-30 21:17] LABS: Glucose,Whole Blood 137 mg/dL (75-99)
--- NOTE | 2020-07-01 06:36 | PN ---
PROGRESS NOTE DATE OF SERVICE: 06/30/2020 REASON FOR FOLLOWUP: Urinary tract infection. INTERVAL HISTORY: Patient is currently afebrile. The patient is breathing comfortably. Denies having any chest pain. No shortness of breath or cough. No nausea, vomiting. No abdominal pain or diarrhea. PHYSICAL EXAMINATION: Blood pressure 130/70 with a pulse of 98, temperature of 97.9. General description is an elderly female lying in bed in no distress. Respiratory system: Unlabored breathing with decreased breath sounds at the bases. Heart S1, S2. Regular rate and rhythm. Extremities with no edema of the feet. LABS: Hemoglobin is 10.4, white count 9.3, creatinine 0.61. Labs have improved. Repeat urine is so far negative. DIAGNOSTIC IMPRESSION AND PLAN: Patient with recurrent urinary tract infection with recent urine culture positive for extended spectrum beta lactamase Klebsiella. However, the culture done subsequently came back positive with Chrystal. The patient was given oral Diflucan and may consider short course. Continue supportive care. MMODL / IJN: [id number] /
[2020-07-01 07:03] LABS: Glucose,Whole Blood 86 mg/dL (75-99)
[2020-07-01] MEDS: INSULIN ASPART (NovoLOG) 100 UNIT/ML VIAL SQ SCH ×3 (08:47→17:19)
[2020-07-01] MEDS: LORazepam 0.5 MG TAB PO SCH ×2 (08:48→16:25)
[2020-07-01] MEDS: FERROUS SULFATE 325 MG TAB PO SCH (08:48)
[2020-07-01] MEDS: INSULIN DETEMIR (LEVEMIR) 100 UNIT/ML SYR SQ SCH (08:48)
[2020-07-01] MEDS: lisinopriL 20 MG TAB PO SCH (08:48)
[2020-07-01] MEDS: FLUCONAZOLE 100 MG TAB PO SCH (08:48)
[2020-07-01] MEDS: SERTRALINE 50 MG TAB PO SCH (08:48)
[2020-07-01] MEDS: NYSTATIN 100,000UNIT/GM CREAM 30 GM TUBE TOPICAL SCH ×2 (08:48→22:08)
[2020-07-01] MEDS: TRIAMCINOLONE 0.1% CREAM 80 GM TUBE TOPICAL SCH ×2 (08:49→22:08)
--- NOTE | 2020-07-01 10:10 | P.PN ---
Subjective Progress Note Date: 07/01/20 Principal diagnosis: Urinary frequency, Dilated common bile duct and elevated LFTs Seen and examined sitting up in a bedside chair. She denies any abdominal pain, nausea, vomiting, or diarrhea. She states she is ready to go home. She is tolerating a regular diet. Her liver enzymes have been continuing to trend down. Today's labs are still pending. Infectious disease continues to be on consult for antibiotic management for urinary tract infection. Objective - Vital Signs Vital signs: Vital Signs Temp 98.3 F 07/01/20 07:00 Pulse 85 07/01/20 07:00 Resp 18 07/01/20 07:00 BP 109/84 07/01/20 07:00 Pulse Ox 93 L 07/01/20 07:00 Intake & Output 06/30/20 07/01/20 07/01/20 18:59 06:59 18:59 Intake Total 300 Output Total 200 Balance -200 300 Intake: Oral 300 Output: Urine 200 Other: Voiding Method Toilet Toilet Incontinent Bedside Commode Incontinent # Voids 5 1 - Exam General appearance: The patient is alert, oriented, in no acute distress. HET: Head is normocephalic and atraumatic. Conjunctiva pink. Sclera and icteric. Neck: Supple without lymphadenopathy. Trachea midline. Abdomen: Soft, nontender, nondistended with bowel sounds. No guarding or rigidity. Extremities: Normal skin color and turgor. No pedal edema. Neurological: No focal deficits. Alert and oriented to place and self. - Labs CBC & Chem 7: 06/30/20 06:22 06/30/20 06:22 Labs: Abnormal Lab Results - Last 24 Hours (Table) 06/30/20 06/30/20 06/30/20 Range/Units 06:22 11:29 16:01 BUN/Creatinine Ratio 30.00 H (12.00-20.00) Ratio POC Glucose (mg/dL) 207 H 208 H (75-99) mg/dL AST 48 H (13-35) U/L ALT 168 H (8-44) U/L Alkaline Phosphatase 184 H (41-126) U/L Total Protein 6.1 L (6.2-8.2) g/dL Albumin 3.30 L (3.80-4.90) g/dL Albumin/Globulin Ratio 1.18 L (1.60-3.17) g/dL 06/30/20 Range/Units 20:55 BUN/Creatinine Ratio (12.00-20.00) Ratio POC Glucose (mg/dL) 137 H (75-99) mg/dL AST (13-35) U/L ALT (8-44) U/L Alkaline Phosphatase (41-126) U/L Total Protein (6.2-8.2) g/dL Albumin (3.80-4.90) g/dL Albumin/Globulin Ratio (1.60-3.17) g/dL Microbiology - Last 24 Hours (Table) 06/26/20 09:27 Urine Culture - Final Urine,Catheterized Chrystal sp,not albicans/galbr 06/26/20 08:46 Blood Culture - Preliminary Blood No Growth after 96 hours Assessment and Plan Assessment: 1. This lady who presented to the hospital with acute recurrent urinary tract infection, presently on broad-spectrum antibiotics with ertapenem and infectious disease is currently following the patient closely. 2. Acute elevation of serum transaminases noted during the hospitalization. Her labs from April 2020 were within normal limits. 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 Ultrasound did show dilated CBD, but patient does not have any abdominal pain, nausea or vomiting. Ultrasound did show evidence of a dilated common bile duct at 1 cm, but no gallstones. Unlikely biliary pathology however MRCP was ordered to rule out biliary pathology. MRCP was a poor study due to patient's inability to tolerate the test. However the MRCP shows that there was common bile duct dilation of 11 mm in diameter and MRI of 2017 now measuring 10 mm in diameter on most recent ultrasound. Common bile duct dilation is stable and again likely dealing with a medication-induced hepatitis. Liver enzymes continued to trend down. 8. Atrial fibrillation 4. Diabetes mellitus 5. Dementia 6. Hyperlipidemia Plan: 1. Repeat CMP 2. Obtain hepatitis serologies, results negative 3. MRCP shows stabilized ductal dilation. There is no indication for any endoscopic evaluation. 4. Continue antibiotics for urinary tract infection. 5. Surgery has been consulted 6. The patient may be discharged home from a gastroenterology standpoint. She has been instructed to follow-up as an outpatient to monitor liver enzymes We will sign off at this time. If there are any future concerns please do not hesitate to contact us. The impression and plan of care has been dictated as directed. Dr. Howard I performed a history and examination of this patient, discussed the same with the dictator. I agree with the dictator's note ,documented as a scribe. Any additional findings or plans will be noted.
[2020-07-01] MEDS ORDERED: ONDANSETRON 4 MG TAB PO PRN (11:15)
[2020-07-01 11:32] LABS: Glucose,Whole Blood 185 mg/dL (75-99)
[2020-07-01 11:36] LABS: Albumin 3.5 g/dL (3.5-5.0); Bilirubin,Unconjugated 0.2 mg/dL (0.0-1.1); Globulin 3.4 g/dL; Total Bilirubin 0.5 mg/dL (0.2-1.3); Total Protein 6.9 g/dL (6.3-8.2)
--- NOTE | 2020-07-01 16:36 | PN ---
PROGRESS NOTE DATE OF SERVICE: 07/01/2020 REASON FOR FOLLOWUP: Urinary tract infection. INTERVAL HISTORY: The patient is currently afebrile. The patient is feeling better, breathing comfortably. Denies having any chest pain or cough. No abdominal pain or diarrhea. PHYSICAL EXAMINATION: Blood pressure 109/84 with a pulse of 85, temperature 98.8. She is 93% on 2 L nasal cannula. General description is an elderly female lying in bed in no distress. RESPIRATORY SYSTEM: Unlabored breathing. Clear to auscultation anteriorly. HEART: S1, S2. Regular rate and rhythm. ABDOMEN: Soft. No tenderness. LABS: Repeat urine has been negative so far. DIAGNOSTIC IMPRESSION AND PLAN: Patient with recurrent urinary tract infection with recent outpatient urine culture positive for extended-spectrum beta-lactamase Escherichia coli. However, repeat culture is now showing Chrystal. Patient is on oral diflucan; to continue for about a week to finish course of therapy. Continue with supportive care. MMODL / IJN: [id number] /
[2020-07-01 17:03] LABS: Glucose,Whole Blood 174 mg/dL (75-99)
[2020-07-01 20:19] LABS: Glucose,Whole Blood 101 mg/dL (75-99)
[2020-07-01] MEDS: DONEPEZIL 5 MG TAB PO SCH (22:09)
--- NOTE | 2020-07-01 22:49 | PN ---
PROGRESS NOTE DATE OF SERVICE: 06/30/2020 CHIEF COMPLAINT: Urinary tract infection and dementia. HISTORY OF PRESENT ILLNESS: This lady is doing much better. She is much more calm and she is presenting no difficulties whatsoever. Her vital signs are normal. Her temperature has been down. PHYSICAL EXAMINATION: Chest is clear. Cardiac exam is normal. The abdomen is soft and nontender. IMPRESSION: 1. Urinary tract infection. 2. Dementia with delirium. PLAN: Continue with IV antibiotics until she is cleared by Infectious Disease to go back to the custodial, which will, hopefully, be tomorrow. MMODL / IJN: [id number] /
--- NOTE | 2020-07-01 22:54 | PN ---
PROGRESS NOTE DATE OF SERVICE: 07/01/2020 CHIEF COMPLAINT: Drug-resistant UTI. HISTORY OF PRESENT ILLNESS: This lady is doing well and could probably go back to the long-term, but it is now required that she has a COVID-19 swab come back negative before she can be released. PHYSICAL EXAMINATION: Vital signs are normal. She is awake and alert. Chest is clear. Cardiac exam is normal. The abdomen is soft. IMPRESSION: 1. Drug-resistant urinary tract infection. 2. Dementia. 3. Diabetes. PLAN: SARS CO-2 swab and then discharge when clear. MMODL / IJN: [id number] /
[2020-07-02 07:03] LABS: Glucose,Whole Blood 99 mg/dL (75-99)
[2020-07-02 07:59] VITALS: RESP 17
[2020-07-02] MEDS: INSULIN DETEMIR (LEVEMIR) 100 UNIT/ML SYR SQ SCH (08:13)
[2020-07-02] MEDS: SERTRALINE 50 MG TAB PO SCH (08:14)
[2020-07-02] MEDS: lisinopriL 20 MG TAB PO SCH (08:14)
[2020-07-02] MEDS: INSULIN ASPART (NovoLOG) 100 UNIT/ML VIAL SQ SCH ×2 (08:14→12:19)
[2020-07-02] MEDS: LORazepam 0.5 MG TAB PO SCH (08:14)
[2020-07-02] MEDS: FLUCONAZOLE 100 MG TAB PO SCH (08:14)
[2020-07-02] MEDS: NYSTATIN 100,000UNIT/GM CREAM 30 GM TUBE TOPICAL SCH (08:15)
[2020-07-02] MEDS: TRIAMCINOLONE 0.1% CREAM 80 GM TUBE TOPICAL SCH (08:15)
[2020-07-02] MEDS: FERROUS SULFATE 325 MG TAB PO SCH (08:16)
[2020-07-02 11:39] LABS: Glucose,Whole Blood 138 mg/dL (75-99)
[2020-07-02 13:22] VITALS: BP 122/59; PULSE 91; TEMP 99.4
--- NOTE | 2020-07-02 13:28 | CDI ---
Documentation Clarification Form Date: 07/02/2020 01:17:31 PM From: Carole MurphyDuttonRODOLFO snider, CCDS Admit Date: 06/26/2020 10:57:00 AM Patient Name: Zainab Oreilly Visit Number: [id number] Discharge Date: ATTENTION: The Clinical Documentation Specialists (CDI) and [facility] Coding Staff appreciate your assistance in clarifying documentation. Please respond to the clarification below the line at the bottom and electronically sign. The CDI & [facility] Coding staff will review the response and follow-up if needed. Please note: Queries are made part of the Legal Health Record. If you have any questions, please contact the author of this message via ITS. Dr. Dany Cobb: Per the 06/27 History & Physical and subsequent Progress Notes: "Delirium and untreated UTI." and "Dementia with delirium." is documented. History/Risk Factors: Resides in Residential. Dementia nos. IDDM, Atrial fibrillation, COPD, Hyperlipidemia, Hypertension, Chronic Hypoxic Respiratory Failure on home O2 2Lnc ATC, Lumbar disc Disease & Chronic Back Pain. Recurrent UTIs with Sepsis. Clinical Indicators: Presented to the ED on 06/26 from half-way with abdominal, diagnosed with UTI. Urine Culture from 5 days prior positive for E coli ESBL. VS 06/26: T 99.6, P 106^, R 18, BP 153/70, PO 94 3Lnc LAB 06/26: WBC 13.9^, Neut 11.7^, CO2 32^, BUN 23^, glucose 206^, AST 194^, ALT 597^, Alk Phos 237^, Albumin 3.3*. UA 06/26: Light Red, Turbid, 2+ Protein, trace Glucose, 1+ ketones, Moderate Blood, Large Esterase, RBC 27^, WBC >182^. Hepatitis A/B/C: non reactive Treatment: Han catheter placed in ED, Infectious Disease Consulted, IV Narcan, IV Ertapenem, IV fluid 1,000 mls @ 130 mls/hr, po Ativan, IM Haldol x1. In your professional opinion, can you please further specify the patients Delirium, if known? Metabolic Encephalopathy Toxic Encephalopathy Other Encephalopathy Delirium due to other cause, please specify: Other, please specify Unable to determine (Last Revision: December 2017) MTDD
--- NOTE | 2020-07-02 13:58 | DS ---
DISCHARGE SUMMARY CHIEF COMPLAINT: Intractable urinary tract infection. HISTORY OF PRESENT ILLNESS AND PHYSICAL EXAMINATION: Details of this lady's history and physical can be found in the initial workup. LABORATORY STUDIES: While she was in a hospital she had laboratory studies, details of which can be found in the laboratory section of her chart. COURSE IN THE HOSPITAL: After admission she was placed on bedrest, started on intravenous fluids and cultures were obtained. She initially was very agitated, but gradually settled down. She was started on antibiotics but second culture came back showing only yeast. She was followed by Infectious Disease. She was placed on Diflucan. She was prepared to go back to the [facility] on the 07[facility]01, but had to have a negative COVID test which came in on 07/02. She will return there on her usual activity, diet, medications along with Diflucan 150 mg once a day for 10 days. FINAL DIAGNOSES: 1. Intractable urinary tract infection. 2. Chronic obstructive pulmonary disease. 3. Dementia, Alzheimer's type. 4. Insulin-dependent diabetes. OPERATIONS: None. CONSULTATION: Infectious Disease. She is improved. MMODL / IJN: [id number] /
[2020-07-02 14:34] VITALS: BMI 26.5
--- NOTE | 2020-07-02 15:34 | PN ---
PROGRESS NOTE DATE OF SERVICE: 07/02/2020 REASON FOR FOLLOWUP: Currently drug infection. INTERVAL COURSE: He the patient is currently afebrile, the patient is breathing comfortably. Patient denies having any chest pain or shortness of breath. No nausea, no cough, no abdominal pain and she wants to go. PHYSICAL EXAM: Blood pressure 110/59, pulse of 91, temperature 99.4. She is 94% on 4 L nasal cannula. General description is an elderly female, up in the bed in no distress. RESPIRATORY SYSTEM: Unlabored breathing, clear to auscultation anteriorly. HEART: S1, S2. Regular rate and rhythm. LABS: No new labs have been obtained today. DIAGNOSTIC IMPRESSION AND PLAN: Patient with recurrent urinary tract infection. Outpatient culture positive for ESBL. The patient was given Invanz however the culture repeat came back negative/showing Chrystal albicans. He will be given a short course of oral Diflucan to the patient clinically responded. Continue supportive care. MMODL / IJN: [id number] /
--- NOTE | 2020-07-02 16:43 | MISC ---
MISCELLANOUS REPORT Delirium is due to dementia and urinary tract infection. MMODL / IJN: [id number] /
== END 2020-07-02 14:41 | DRG 690 ==
LOC: EC 08:17 → EEVIPCON 08:17 → OBSVTOIN 10:57 → 6NMEDSUR 10:57 → 4SSUR 14:15
PROVIDERS: ADMIT Family Medicine; ATTEND Family Medicine
PROC: 05HD33Z Insertion of Infusion Device into Right Cephalic Vein, Percutaneous Approach (ICD-10-PCS; principal; 2020-06-27 11:30)
DX: N39.0 Urinary tract infection, site not specified (principal); F05 Delirium due to known physiological condition; J96.11 Chronic respiratory failure with hypoxia; I48.20 Chronic atrial fibrillation, unspecified; Z16.12 Extended spectrum beta lactamase (ESBL) resistance; G30.9 Alzheimer's disease, unspecified; F02.80 Dementia in other diseases classified elsewhere, unspecified severity, without behavioral disturbance, psychotic disturbance, mood disturbance, and anxiety; E78.5 Hyperlipidemia, unspecified; E03.9 Hypothyroidism, unspecified; I10 Essential (primary) hypertension; J44.9 Chronic obstructive pulmonary disease, unspecified; E11.9 Type 2 diabetes mellitus without complications; B96.20 Unspecified Escherichia coli [E. coli] as the cause of diseases classified elsewhere; K83.8 Other specified diseases of biliary tract; K75.9 Inflammatory liver disease, unspecified; Z20.828 Contact with and (suspected) exposure to other viral communicable diseases; Z96.1 Presence of intraocular lens; T50.905A Adverse effect of unspecified drugs, medicaments and biological substances, initial encounter; R39.15 Urgency of urination; K59.09 Other constipation; G89.29 Other chronic pain; M54.9 Dorsalgia, unspecified; Z79.4 Long term (current) use of insulin; Z79.899 Other long term (current) drug therapy; Z81.8 Family history of other mental and behavioral disorders; Z88.1 Allergy status to other antibiotic agents; Z88.5 Allergy status to narcotic agent; Z88.8 Allergy status to other drugs, medicaments and biological substances; Z87.891 Personal history of nicotine dependence; Z90.710 Acquired absence of both cervix and uterus; Z90.89 Acquired absence of other organs; Z98.42 Cataract extraction status, left eye; Z98.41 Cataract extraction status, right eye; Z86.14 Personal history of Methicillin resistant Staphylococcus aureus infection; Z98.890 Other specified postprocedural states; Z80.43 Family history of malignant neoplasm of testis; Z87.440 Personal history of urinary (tract) infections; Z86.19 Personal history of other infectious and parasitic diseases
CPT/HCPCS: 36410; 36415; 74181; 76705; 76937; 80053; 80074; 80076; 81001; 83036; 83605; 85025; 85610; 86140; 87040; 87086; 96361; 96365; 99285